=== PATIENT | female | born 1980 | race Caucasian/White ===

== ENCOUNTER 2022-08-22 20:26 | Outpatient (REF) | payer BC, SELFPAY ==
[2022-08-27 20:07] LABS: Age Gdln ACOG Testing Note (.); HPV Aptima Negative (Negative); IGP, Aptima HPV, rfx 16/18,45 Note (.)
== END 2022-08-22 20:27 | disposition home or self-care (01) ==
LOC: LAB 20:26
PROVIDERS: PCP Nurse Practitioner Family; Visit Provider Obstetrics & Gynecology
DX: Z01.419 Encounter for gynecological examination (general) (routine) without abnormal findings (principal)
CPT/HCPCS: 87624; G0145

== ENCOUNTER 2022-09-17 12:45 | Outpatient (OUT) | payer BC, SELFPAY ==
--- NOTE | 2022-09-17 12:47 | US_ITS ---
[address] [address] Patient Name: SATISH PATE MRN: [id number] date: 1980 Sex: F Assigned Patient Location: [facility] Current Patient Location: [facility] Accession/Order Number: [id number] Exam Date: 09/17/2022 12:48 Report Date: 09/17/2022 14:04 At the request of: ZINA CABRERA Procedure: US pelvis w/ transvaginal EXAMINATION: US pelvis w/ transvaginal HISTORY: OVARIAN CYST COMPARISON: No relevant comparison available. TECHNIQUE: Transabdominal and/or transvaginal sonographic examination was performed as indicated by examination type. FINDINGS: UTERUS: Hysterectomy. RIGHT OVARY: Contains an incidental dominant follicle. Blood flow present within ovary on color Doppler. Ovary size: 1.9 x 1.9 x 1.0 cm LEFT OVARY: Contains several follicles. Duplex Doppler demonstrates normal waveform and flow; resistive index 0.6. Ovary size: 2.8 x 2.2 x 1.5 cm CUL-DE-SAC: Unremarkable. No significant free fluid. BLADDER: Unremarkable. OTHER: None. US/US pelvis w/ transvaginal IMPRESSION: 1. Both ovaries contain several follicles. No suspicious findings. Electronically authenticated by: DULCE WINTERS Date: 09/17/2022 14:04
== END 2022-09-17 12:46 | disposition home or self-care (01) ==
LOC: NOMS 12:46
PROVIDERS: PCP Nurse Practitioner Family; Visit Provider Obstetrics & Gynecology
DX: N83.209 Unspecified ovarian cyst, unspecified side (principal)
CPT/HCPCS: 76830; 76856

== ENCOUNTER 2022-09-17 19:14 | Emergency (ER) | payer BC, SELFPAY ==
[2022-09-17 19:18] VITALS: BP 161/88; PULSE 115; RESP 18; TEMP 36.8; O2SAT 97; BMI 26.9
--- NOTE | 2022-09-17 19:22 | XR_ITS ---
The [address] [address] Patient Name: SATISH PATE MRN: [id number] date: 1980 Sex: F Assigned Patient Location: ER Current Patient Location: ED.MAIN Accession/Order Number: [id number] Exam Date: 09/17/2022 19:25 Report Date: 09/17/2022 19:46 At the request of: TREVOR GARDNER Procedure: XR foot LT min 3V EXAM: XR foot LT min 3V, XR ankle LT min 3V HISTORY: pain from twisting ankle COMPARISON: None. TECHNIQUE: 3 views of the foot and 3 views of the ankle FINDINGS: No osseous lesion, fracture, dislocation or subluxation. Joint spaces are normal. No visualized effusion. No visualized soft tissue edema. XR/XR foot LT min 3V IMPRESSION: No visualized acute abnormality Electronically authenticated by: JULIETA PAVON Date: 09/17/2022 19:46
--- NOTE | 2022-09-17 19:22 | XR_ITS ---
The [address] [address] Patient Name: SATISH PATE MRN: [id number] date: 1980 Sex: F Assigned Patient Location: ER Current Patient Location: ED.MAIN Accession/Order Number: [id number] Exam Date: 09/17/2022 19:25 Report Date: 09/17/2022 19:46 At the request of: TREVOR GARDNER Procedure: XR ankle LT min 3V EXAM: XR foot LT min 3V, XR ankle LT min 3V HISTORY: pain from twisting ankle COMPARISON: None. TECHNIQUE: 3 views of the foot and 3 views of the ankle FINDINGS: No osseous lesion, fracture, dislocation or subluxation. Joint spaces are normal. No visualized effusion. No visualized soft tissue edema. XR/XR ankle LT min 3V IMPRESSION: No visualized acute abnormality Electronically authenticated by: JULIETA PAVON Date: 09/17/2022 19:46
[2022-09-17 19:24] VITALS: PULSE 92
--- NOTE | 2022-09-17 19:49 | ED.LOWEXI1 ---
Documented by User: FAITH Nixon 09/17/22 19:54 HPI - Extremity Injury (Lower) General Chief Complaint: Extremity Injury, Lower Stated Complaint: POSS ANKLE FRACTURE Time Seen by Provider: 09/17/22 19:27 Source: patient Mode of arrival: Wheelchair Limitations: no limitations History of Present Illness HPI Narrative: patient is a 42-year-old female presents the emergency department for the evaluation of pain in the left foot and ankle after twisting her ankle. She was mowing the lawn prior to arrival. She states she twisted her ankle but was able to finish mowing the lawn. She states since that time her ankle has been more swollen and painful. 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 She had no other associated injuries. No concern for . No medications taken prior to arrival. Related Data Previous Rx's Medication Instructions Recorded naproxen sodium 550 mg tablet 550 mg PO BID PRN pain #10 tabs 09/17/22 Allergies Allergy/AdvReac Type Severity Reaction Status Date / Time No Known Drug Allergies Allergy Verified 09/17/22 19:20 Review of Systems ROS Constitutional Denies: fever or chills Ears, nose, mouth, and throat Denies: throat pain Respiratory Denies: shortness of breath or cough Gastrointestinal Denies: nausea or vomiting Musculoskeletal Denies: back pain or neck pain Integumentary/Breast Denies: rash Neurological Denies: headache Exam Narrative Exam Narrative: Gen.: Awake, alert, in no distress Head: Normocephalic, atraumatic ENT: Moist mucous membranes Respiratory: No respiratory distress Extremities: no appreciable swelling, ecchymosis or obvious deformity of the left ankle. Diffuse tenderness of the left lateral and posterior ankle. No bony point tenderness of the 5th metatarsal with limited flexion and extension of the toes due to pain. 2+ left DP pulse. Psych: Normal mood and affect Neuro: No focal neuro deficit Skin: Warm, dry, intact Constitutional Vital Signs, click to edit/add: Last Vital Signs Temp 98.2 F 09/17/22 19:18 Pulse 92 H 09/17/22 19:24 Resp 18 09/17/22 19:18 BP 161/88 H 09/17/22 19:18 Pulse Ox 97 09/17/22 19:18 O2 Del Method Room Air 09/17/22 19:18 Course Vital Signs Vital signs: Vital Signs Temperature 98.2 F 09/17/22 19:18 Pulse Rate 115 H 09/17/22 19:18 Respiratory Rate 18 09/17/22 19:18 Blood Pressure 161/88 H 09/17/22 19:18 Pulse Oximetry 97 09/17/22 19:18 Oxygen Delivery Method Room Air 09/17/22 19:18 Temperature 98.2 F 09/17/22 19:18 Pulse Rate 92 H 09/17/22 19:24 Respiratory Rate 18 09/17/22 19:18 Blood Pressure 161/88 H 09/17/22 19:18 Pulse Oximetry 97 09/17/22 19:18 Oxygen Delivery Method Room Air 09/17/22 19:18 MDM - Extremity Injury (Lower) MDM Narrative Medical decision making narrative: x-rays of the left foot and ankle with no evidence of fracture or dislocation. Patient placed in an Leonard wrap and Aircast in the Emergency Room and remains neurovascularly intact. She brought her own crutches from home. She is given a pain medication in the Emergency Room and discharged home on NSAIDs to rest, ice, elevate the ankle. 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 Return to the Emergency Room if symptoms change or worsen. Follow-up with PCP Imaging Data XR foot/ankle: Attestation: I have reviewed the pertinent imaging results. Radiologist's impression: Procedure: XR ankle LT min 3V EXAM: XR foot LT min 3V, XR ankle LT min 3V HISTORY: pain from twisting ankle COMPARISON: None. TECHNIQUE: 3 views of the foot and 3 views of the ankle FINDINGS: No osseous lesion, fracture, dislocation or subluxation. Joint spaces are normal. No visualized effusion. No visualized soft tissue edema. IMPRESSION: No visualized acute abnormality Electronically authenticated by: JULIETA PAVON Date: 09/17/2022 19:46 Discharge Plan Discharge Chief Complaint: Extremity Injury, Lower Clinical Impression: Left ankle sprain Patient Disposition: Home, Self-Care Time of Disposition Decision: 19:43 Condition: Good Mode of Transportation: Private Vehicle Prescriptions / Home Meds: New naproxen sodium 550 mg tablet 550 mg PO BID PRN (Reason: pain) Qty: 10 0RF Instructions: Ankle Sprain (ED), How to Use an Elastic Bandage (ED), P.R.I.C.E. Treatment (ED) Stand Alone Forms: Portal Instructions Referrals: ADELA ROSALES [Primary Care Provider] - 1 week Discharge Date/Time: 09/17/22 20:30 Documented by User: Shraddha Eid MD 09/17/22 21:21 HPI - Extremity Injury (Lower) General Chief Complaint: Extremity Injury, Lower Stated Complaint: POSS ANKLE FRACTURE Time Seen by Provider: 09/17/22 19:27 Related Data Previous Rx's Medication Instructions Recorded naproxen sodium 550 mg tablet 550 mg PO BID PRN pain #10 tabs 09/17/22 Allergies Allergy/AdvReac Type Severity Reaction Status Date / Time No Known Drug Allergies Allergy Verified 09/17/22 19:20 Exam Constitutional Vital Signs, click to edit/add: Last Vital Signs Temp 98.2 F 09/17/22 19:18 Pulse 92 H 09/17/22 19:24 Resp 18 09/17/22 19:18 BP 161/88 H 09/17/22 19:18 Pulse Ox 97 09/17/22 19:18 O2 Del Method Room Air 09/17/22 19:18 Course Vital Signs Vital signs: Vital Signs Temperature 98.2 F 09/17/22 19:18 Pulse Rate 115 H 09/17/22 19:18 Respiratory Rate 18 09/17/22 19:18 Blood Pressure 161/88 H 09/17/22 19:18 Pulse Oximetry 97 09/17/22 19:18 Oxygen Delivery Method Room Air 09/17/22 19:18 Temperature 98.2 F 09/17/22 19:18 Pulse Rate 92 H 09/17/22 19:24 Respiratory Rate 18 09/17/22 19:18 Blood Pressure 161/88 H 09/17/22 19:18 Pulse Oximetry 97 09/17/22 19:18 Oxygen Delivery Method Room Air 09/17/22 19:18 MDM - Extremity Injury (Lower) MDM Narrative Medical decision making narrative: x-rays of the left foot and ankle with no evidence of fracture or dislocation. Patient placed in an Leonard wrap and Aircast in the Emergency Room and remains neurovascularly intact. She brought her own crutches from home. She is given a pain medication in the Emergency Room and discharged home on NSAIDs to rest, ice, elevate the ankle. 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 Return to the Emergency Room if symptoms change or worsen. Follow-up with PCP Attending physician attestation I have reviewed the mid-level documentation, agree with the documentation, medical decision making and treatment plan as outlined by the mid-level provider. Discharge Plan Discharge Chief Complaint: Extremity Injury, Lower Clinical Impression: Left ankle sprain Patient Disposition: Home, Self-Care Time of Disposition Decision: 19:43 Condition: Good Mode of Transportation: Private Vehicle Prescriptions / Home Meds: New naproxen sodium 550 mg tablet 550 mg PO BID PRN (Reason: pain) Qty: 10 0RF Instructions: Ankle Sprain (ED), How to Use an Elastic Bandage (ED), P.R.I.C.E. Treatment (ED) Stand Alone Forms: Portal Instructions Referrals: ADELA ROSALES [Primary Care Provider] - 1 week Discharge Date/Time: 09/17/22 20:30
[2022-09-17] MEDS: HYDROCODONE/ACETAMINOPHEN 5-325 MG TABLET 1 TAB PO (20:16)
== END 2022-09-17 20:30 | disposition home or self-care (01) ==
PROVIDERS: Emergency Provider Emergency Medicine; PCP Nurse Practitioner Family
DX: M25.572 Pain in left ankle and joints of left foot (principal); S93.402A Sprain of unspecified ligament of left ankle, initial encounter; X50.1XXA Overexertion from prolonged static or awkward postures, initial encounter; N83.209 Unspecified ovarian cyst, unspecified side
CPT/HCPCS: 73610; 73630; 76830; 76856; 99284

== ENCOUNTER 2023-09-04 19:05 | Outpatient (REF) | payer BC, SELFPAY ==
[2023-09-09 13:08] LABS: Age Gdln ACOG Testing Note (.); HPV Aptima Negative (Negative); IGP, Aptima HPV, rfx 16/18,45 Note (.)
== END 2023-09-04 19:06 | disposition home or self-care (01) ==
LOC: LAB 19:05
PROVIDERS: PCP Nurse Practitioner Family; Visit Provider Obstetrics & Gynecology
DX: Z12.4 Encounter for screening for malignant neoplasm of cervix (principal)
CPT/HCPCS: 87624; 88175

== ENCOUNTER 2023-09-07 09:15 | Emergency (ER) | payer BC, SELFPAY ==
[2023-09-07 09:21] VITALS: BP 108/94; PULSE 94; TEMP 36.7; O2SAT 98; BMI 27.4
--- NOTE | 2023-09-07 09:42 | CT_ITS ---
[address] [address] Patient Name: SATISH PATE MRN: [id number] date: 1980 Sex: F Assigned Patient Location: ER Current Patient Location: ER Accession/Order Number: [id number] Exam Date: 09/07/2023 10:00 Report Date: 09/07/2023 11:08 At the request of: GLENN RICHARDS Procedure: CT abdomen pelvis wo con EXAMINATION: CT abdomen pelvis wo con, 09/07/2023 10:00 AM EDT HISTORY: abd pain left lower quadrant pain COMPARISON: 05/23/2022 TECHNIQUE: CT scan of the abdomen and pelvis was performed without IV contrast. CT dose reduction technique was used, including Automated Exposure Control. FINDINGS: LOWER CHEST: The visualized lungs are clear. LIVER: Unremarkable. GALLBLADDER AND BILIARY SYSTEM: Unremarkable. SPLEEN: Unremarkable. PANCREAS: Unremarkable. ADRENAL GLANDS: Unremarkable. KIDNEYS AND URETERS: Punctate nonobstructing calculus in the upper pole the right kidney. No ureteral calculus or hydronephrosis. No perinephric stranding. BLADDER: Under distended. GASTROINTESTINAL TRACT: There is sigmoid diverticulosis with focal wall thickening and inflammatory changes involving the mid sigmoid colon compatible with acute diverticulitis. No extraluminal air or fluid collections. No evidence of bowel obstruction. A normal appendix is visualized. VASCULATURE: The abdominal aorta is normal in caliber. RETROPERITONEUM: No lymphadenopathy. PERITONEUM/MESENTERY: There is mild stranding at the root of the mesentery. No free air or abdominal ascites. PELVIS: Small amount of free fluid in the pelvis. Left ovarian cyst measuring 2 cm. BODY WALL: Small fat-containing umbilical hernia. BONES: No acute abnormality. CT/CT abdomen pelvis wo con IMPRESSION: 1. Acute sigmoid diverticulitis. No extraluminal air or fluid collections. 2. Punctate nonobstructing calculus in the upper pole the right kidney. No hydronephrosis. 3. Mild stranding at the root of the mesentery which is nonspecific in etiology and most commonly seen with mesenteric panniculitis. 4. Left ovarian cyst measuring 2 cm. Small amount of free fluid in the pelvis. 5. Small fat-containing umbilical hernia. Electronically authenticated by: HUMPHREY CHÁVEZ Date: 09/07/2023 11:08
[2023-09-07 09:49] LABS: Basophils Absolute Auto 0.1 10^3/uL (0.0-0.1); Basophils Percent Auto 0.7 % (0.2-2.0); Eosinophils Absolute Auto 0.1 10^3/uL (0.0-0.7); Eosinophils Percent Auto 1.1 % (0.9-7.0); Hematocrit 45.5 % (36.0-48.0); Hemoglobin 15.4 g/dL (12.0-16.0); Immature Granulocytes Abs Auto 0.04 10^3/uL (0.00-0.03); Immature Granulocytes Pct Auto 0.4 % (0.0-0.5); Lymphocytes Absolute Auto 1.3 10^3/uL (1.2-3.8); Lymphocytes Percent Auto 13.5 % (20.5-60.0); Mean Corpuscular HGB Conc 33.8 g/dL (29.9-35.2); Mean Corpuscular Hemoglobin 30.3 pg (26.7-34.0); Mean Corpuscular Volume 89.6 fL (81.0-99.0); Mean Platelet Volume 10.4 fL (9.5-13.5); Monocytes Absolute Auto 0.5 10^3/uL (0.3-0.8); Monocytes Percent Auto 4.7 % (1.7-12.0); Neutrophils Absolute Auto 7.7 10^3/uL (1.4-6.5); Neutrophils Percent Auto 79.6 % (43.0-75.0); Platelet Count 328 10^3/uL (150-450); Red Blood Count 5.08 10^6/uL (4.20-5.40); Red Cell Distribution Width 11.9 % (11.0-15.0); White Blood Count 9.6 10^3/uL (4.0-11.0)
[2023-09-07] MEDS: KETOROLAC TROMETHAMINE 30 MG/ML VIAL 15 MG IVP (09:54)
[2023-09-07] MEDS: 0.9 % SODIUM CHLORIDE 1,000 ML 1000 ML IV (09:54)
[2023-09-07 10:04] LABS: Alanine Aminotransferase 38 U/L (14-59); Albumin Level 3.9 g/dL (3.4-5.0); Alkaline Phosphatase 106 U/L (46-116); Anion Gap 13.1; Aspartate Amino Transferase 34 U/L (15-37); BUN Creatinine Ratio 21.9; Bilirubin Total 0.8 mg/dL (0.2-1.0); Calcium 9.1 mg/dL (8.5-10.1); Carbon Dioxide 28.8 mmol/L (21.0-32.0); Chloride 103 mmol/L (98-107); Estimated GFR (African America >60 (>=60); Estimated GFR (Non-African Ame >60 (>=60); Globulin 3.9 g/dL; Glucose 113 mg/dL (74-106); Potassium 3.9 mmol/L (3.5-5.1); Sodium 141 mmol/L (136-145); Total Protein 7.8 g/dL (6.4-8.2)
--- NOTE | 2023-09-07 10:09 | ED_ITS ---
HPI - Abdominal Pain General Chief Complaint: Abdominal Pain Stated Complaint: ABDOMINAL PAIN Time Seen by Provider: 09/07/23 09:27 Source: patient Mode of arrival: walk-in Limitations: no limitations History of Present Illness HPI narrative: The patient have history of diverticulitis presenting to the ER with 2 days history of left lower quadrant abdominal pain, no radiation of the pain and she mentioned that she had a history of hysterectomy , patient have history of diverticulitis and she mentioned that this pain seems similar, she usually is not constipated and she will have 3 bowel movements a day, last bowel movement was this morning and it was not bloody The pain is fixed and not radiating Related Data Previous Rx's ?Medication ?Instructions ?Recorded naproxen sodium 550 mg tablet 550 mg PO BID PRN pain #10 tabs 09/17/22 amoxicillin 875 mg-potassium 1 tab PO Q12H #14 tabs 09/07/23 clavulanate 125 mg tablet Allergies Allergy/AdvReac Type Severity Reaction Status Date / Time No Known Drug Allergies Allergy Verified 09/17/22 19:20 Review of Systems ROS Status of ROS 10 or more systems reviewed and unremark able except as noted in history and below Exam Narrative Exam Narrative: Nurses notes and vital signs reviewed and patient is not hypoxic. General: Well-appearing and in no apparent distress. Skin: Warm, dry, no pallor noted. No rash. Head: Normocephalic, atraumatic. Neck: Supple, non-tender. Eye: Pupils are equal, round and EOMI. No scleral icterus. Ears, Nose, Mouth, and Throat: TM are clear, no nasal mucosal hypertrophy. Oral mucosa is moist, no posterior oropharynx erythema, uvula is mid-line Cardiovascular: Regular Rate and Rhythm without murmur, gallop or rub. Respiratory: No accessory muscle use or respiratory distress. Lungs are clear to auscultation, no wheezing, rales or rhonchi Chest Wall: no tenderness Back: No midline thoracic or lumbar vertebral tenderness. No CVA tenderness Musculoskeletal: normal ROM, no calf or popliteal tenderness, no lower extremity edema/swelling GI: Abdomen is soft, non-distended. Normal bowel sounds. No masses appreciated. Tenderness upon palpation of the left lower quadrant Neurological: A&O x4. No cranial nerve dysfunction observed. No truncal ataxia. Moves all extremities. Sensation intact. Psychiatric: Cooperative and interactive. Normal mood and affect. Constitutional Vital Signs, click to edit/add: Last Vital Signs Temp 98.1 F 09/07/23 09:21 Pulse 74 09/07/23 11:28 Resp 16 09/07/23 11:28 BP 136/74 09/07/23 11:28 Pulse Ox 99 09/07/23 11:28 O2 Del Method Room Air 09/07/23 11:28 Course Vital Signs Vital signs: Vital Signs Temperature 98.1 F 09/07/23 09:21 Pulse Rate 94 H 09/07/23 09:21 Respiratory Rate 18 09/07/23 09:21 Blood Pressure 108/94 H 09/07/23 09:21 Pulse Oximetry 98 09/07/23 09:21 Oxygen Delivery Method Room Air 09/07/23 09:21 Temperature 98.1 F 09/07/23 09:21 Pulse Rate 74 09/07/23 11:28 Respiratory Rate 16 09/07/23 11:28 Blood Pressure 136/74 09/07/23 11:28 Pulse Oximetry 99 09/07/23 11:28 Oxygen Delivery Method Room Air 09/07/23 11:28 MDM - Abdominal Pain MDM Narrative Medical decision making narrative: CBC and chemistry showed no acute pathology Patient presentation is mostly secondary to diverticulitis which was confirmed by the CAT scan The patient was started on Augmentin as well as a soft diet for the next 3 to 5 days In case of any new symptoms or progression of her pain or any fever the patient to come back to the ER The patient is to follow up with primary care physician in next 2-3 days or to return to the emergency department should any of the signs or symptoms worsen or new symptoms develop. The patient agrees with the following Diagnosis and Treatment plan and the patient will be discharged home. Lab Data Labs: Lab Results 09/07/23 09/07/23 Range/Units 09:30 09:55 WBC 9.6 (4.0-11.0) 10^3/uL RBC 5.08 (4.20-5.40) 10^6/uL Hgb 15.4 (12.0-16.0) g/dL Hct 45.5 (36.0-48.0) % MCV 89.6 (81.0-99.0) fL MCH 30.3 (26.7-34.0) pg MCHC 33.8 (29.9-35.2) g/dL RDW 11.9 (11.0-15.0) % Plt Count 328 (150-450) 10^3/uL MPV 10.4 (9.5-13.5) fL Neut % (Auto) 79.6 H (43.0-75.0) % Lymph % (Auto) 13.5 L (20.5-60.0) % [place] % (Auto) 4.7 (1.7-12.0) % Eos % (Auto) 1.1 (0.9-7.0) % Baso % (Auto) 0.7 (0.2-2.0) % Neut # (Auto) 7.7 H (1.4-6.5) 10^3/uL Lymph # (Auto) 1.3 (1.2-3.8) 10^3/uL [place] # (Auto) 0.5 (0.3-0.8) 10^3/uL Eos # (Auto) 0.1 (0.0-0.7) 10^3/uL Baso # (Auto) 0.1 (0.0-0.1) 10^3/uL Abs Immat Gran (auto) 0.04 H (0.00-0.03) 10^3/uL Imm/Tot Granulo (auto) 0.4 (0.0-0.5) % Sodium 141 (136-145) mmol/L Potassium 3.9 (3.5-5.1) mmol/L Chloride 103 (98-107) mmol/L Carbon Dioxide 28.8 (21.0-32.0) mmol/L Anion Gap 13.1 BUN 16.0 (7.0-18.0) mg/dL Creatinine 0.73 (0.55-1.02) mg/dL Est GFR ( Amer) >60 (>=60) Est GFR (Non-Af Amer) >60 (>=60) BUN/Creatinine Ratio 21.9 Glucose 113 H (74-106) mg/dL Lactate 1.0 (0.4-2.0) mmol/L Calcium 9.1 (8.5-10.1) mg/dL Total Bilirubin 0.8 (0.2-1.0) mg/dL AST 34 (15-37) U/L ALT 38 (14-59) U/L Alkaline Phosphatase 106 (46-116) U/L Total Protein 7.8 (6.4-8.2) g/dL Albumin 3.9 (3.4-5.0) g/dL Globulin 3.9 g/dL Albumin/Globulin Ratio 1.0 Urine Color Lt. yellow (YELLOW) Urine Clarity Clear (CLEAR) Urine pH 6.5 (5.0-9.0) Ur Specific [place] <=1.005 A (1.005-1.025) Urine Protein Negative (NEG/TRACE) mg/dL Urine Glucose (UA) Negative (NEGATIVE) mg/dL Urine Ketones Negative (NEGATIVE) mg/dL Urine Occult Blood Negative (NEGATIVE) Urine Nitrite Negative (NEGATIVE) Urine Bilirubin Negative (NEGATIVE) Urine Urobilinogen 0.2 (0.2-1.0) EU/dL Ur Leukocyte Esterase Negative (NEGATIVE) Discharge Plan Discharge Stand Alone Forms: Portal Instructions Chief Complaint: Abdominal Pain Clinical Impression: Diverticulitis Patient Disposition: Home, Self-Care Time of Disposition Decision: 11:20 Condition: Good Prescriptions / Home Meds: New amoxicillin-pot clavulanate 875-125 mg tablet 1 tab PO Q12H Qty: 14 0RF No Action naproxen sodium 550 mg tablet 550 mg PO BID PRN (Reason: pain) Qty: 10 0RF Print Language: Upper Sorbian Instructions: Diverticulitis (DC), Diverticulitis Diet (ED) Referrals: ADELA ROSALES [Primary Care Provider] - 1 week Discharge Date/Time: 09/07/23 11:29
[2023-09-07 10:21] LABS: Bilirubin Urine NEGATIVE (NEGATIVE); Blood Urine NEGATIVE (NEGATIVE); Clarity Urine CLEAR (CLEAR); Color Urine LT. YELLOW (YELLOW); Glucose Urine UA NEGATIVE (NEGATIVE); Ketones Urine NEGATIVE (NEGATIVE); Leukocyte Esterase Urine NEGATIVE (NEGATIVE); Nitrite Urine NEGATIVE (NEGATIVE); Protein Urine NEGATIVE (NEG/TRACE); Specific Gravity Urine <=1.005 (1.005-1.025); Urine Microscopic Indicated NO; Urobilinogen Urine 0.2 EU/dL (0.2-1.0); pH Urine 6.5 (5.0-9.0)
[2023-09-07 11:28] VITALS: BP 136/74; PULSE 74; O2SAT 99
== END 2023-09-07 11:29 | disposition home or self-care (01) ==
PROVIDERS: Emergency Provider Emergency Medicine; PCP Nurse Practitioner Family
DX: K57.32 Diverticulitis of large intestine without perforation or abscess without bleeding (principal); Z90.710 Acquired absence of both cervix and uterus
CPT/HCPCS: 36415; 74176; 80053; 81003; 83605; 84703; 85025; 96374; 99284; J1885

== ENCOUNTER 2024-01-08 14:40 | Outpatient (OUT) | payer OTHER, SELFPAY ==
[2024-01-08 15:18] LABS: Erythrocyte Sedimentation Rate 7 mm/hr (<=20)
[2024-01-08 15:36] LABS: C Reactive Protein <0.50 mg/dL (<=0.50); Thyroid Stimulating Hormone 1.971 uIU/mL (0.358-3.740)
[2024-01-09 05:08] LABS: HIV Ab/p24 Ag Screen Non Reactive (Non Reactive)
[2024-01-10 08:13] LABS: Deamidated Gliadin Abs, IgA 4 units (0-19); Deamidated Gliadin Abs, IgG 2 units (0-19); Endomysial Antibody IgA Negative (Negative); Immunoglobulin A, Qn, Serum 291 mg/dL (87-352); t-Transglutaminase (tTG) IgA <2 U/mL (0-3); t-Transglutaminase (tTG) IgG 3 U/mL (0-5)
== END 2024-01-08 14:41 | disposition home or self-care (01) ==
LOC: LAB 14:42
PROVIDERS: PCP Nurse Practitioner Family; Visit Provider Internal Medicine
DX: R19.7 Diarrhea, unspecified (principal); K57.92 Diverticulitis of intestine, part unspecified, without perforation or abscess without bleeding
CPT/HCPCS: 36415; 82784; 84443; 85652; 86140; 86231; 86258; 86364; 87389

== ENCOUNTER 2024-01-10 13:17 | Outpatient (OUT) | payer OTHER, SELFPAY ==
--- NOTE | 2024-01-10 13:20 | CT_ITS ---
[address] [address] Patient Name: SATISH PATE MRN: [id number] date: 1980 Sex: F Assigned Patient Location: CT Current Patient Location: Accession/Order Number: [id number] Exam Date: 01/10/2024 14:20 Report Date: 01/11/2024 07:09 At the request of: RAN WISDOM Procedure: CT abdomen pelvis w con EXAMINATION: CT abdomen pelvis w con HISTORY: Diverticulitis, Diarrhea COMPARISON: CT abdomen pelvis 09/07/2023 TECHNIQUE: Axial, Coronal, and Sagittal images were obtained without and/or with IV contrast as indicated by examination type. Dose reduction techniques were achieved by using automated exposure control and/or adjustment of mA and/or kV according to patient size and/or use of iterative reconstruction technique. FINDINGS: LUNG BASES: No visible pulmonary or pleural disease. LIVER: No enlargement, atrophy, suspicious density, or significant focal lesion. BILIARY: No dilatation or calcification. PANCREAS: No lesion, fluid collection, or abnormal duct dilatation. SPLEEN: No enlargement or focal lesion. ADRENALS: No mass or enlargement. KIDNEYS: No mass, obstruction, or calcification. BOWEL/MESENTERY: Mild diverticulosis of distal colon without acute inflammatory changes. No visible mass, obstruction, or bowel wall thickening. Normal appendix. AORTA/VASCULAR: No aneurysm or dissection. RETROPERITONEUM: No mass or adenopathy. LYMPH NODES: No adenopathy. URINARY BLADDER: No visible focal wall thickening, lesion, or calculus. PELVIC ORGANS: Hysterectomy. A few small follicle/cyst within left ovary. ABDOMINAL WALL: No mass or hernia. BONES: Remote fracture of L3 left transverse process. No acute abnormality or significant degenerative changes. OTHER: Negative. CT/CT abdomen pelvis w con IMPRESSION: 1. No abnormal or suspicious findings to account for patient's symptoms. Electronically authenticated by: DULCE WINTERS Date: 01/11/2024 07:09
== END 2024-01-10 13:18 | disposition home or self-care (01) ==
LOC: CT 13:17
PROVIDERS: PCP Nurse Practitioner Family; Visit Provider Internal Medicine
DX: K57.92 Diverticulitis of intestine, part unspecified, without perforation or abscess without bleeding (principal); R19.7 Diarrhea, unspecified
CPT/HCPCS: 74177; Q9967

== ENCOUNTER 2024-01-14 08:58 | Outpatient (REF) | payer OTHER, SELFPAY ==
[2024-01-14 15:14] LABS: C. Difficile PCR NEGATIVE
[2024-01-16 07:09] LABS: Calprotectin, Fecal 13 ug/g (0-120)
[2024-01-18 01:07] LABS: Pancreatic Elastase, Fecal >800 (>200)
== END 2024-01-14 08:59 | disposition home or self-care (01) ==
LOC: LAB 08:58
PROVIDERS: PCP Nurse Practitioner Family; Visit Provider Internal Medicine
DX: R19.7 Diarrhea, unspecified (principal); K57.92 Diverticulitis of intestine, part unspecified, without perforation or abscess without bleeding
CPT/HCPCS: 82656; 83993; 87493

== ENCOUNTER 2024-03-05 14:19 | Outpatient (OUT) | payer OTHER, SELFPAY ==
--- NOTE | 2024-03-05 14:28 | MR_ITS ---
The [address] [address] Patient Name: SATISH PATE MRN: [id number] date: 1980 Sex: F Assigned Patient Location: MRI Current Patient Location: Accession/Order Number: [id number] Exam Date: 03/05/2024 15:00 Report Date: 03/06/2024 09:45 At the request of: WAYNE BROWN Procedure: MR ankle LT wo con HISTORY: Pain in the left ankle and foot for multiple years becoming progressively worse. MRI left ankle 03/05/2024. MRI left midfoot/forefoot 03/05/2024. COMPARISON: Radiographs left foot and ankle 09/17/2022. TECHNIQUE: Multiplanar, multisequence MRI images of the left ankle and left midfoot/forefoot were obtained without contrast. FINDINGS: Left ankle: LIGAMENTS: The anterior talofibular ligament appears within normal limits. The calcaneofibular ligament, posterior talofibular ligament, and distal tibiofibular ligaments appear within normal limits. The deltoid ligament complex appears within normal limits. TENDONS: No significant tendinopathy, tendon tear, or tenosynovitis is seen. SINUS TARSI AND TARSAL TUNNEL: No space-occupying mass is seen in the tarsal tunnel or the sinus tarsi. BONES AND JOINTS: The bone marrow signal intensity is age appropriate. No unstable osteochondral defect of the tibiotalar joint is identified. 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 There is a multiloculated angling cyst along the posterolateral aspect of the posterior subtalar joint. This measures 1.1 x 1.5 x 1.5 cm in transverse, AP and craniocaudal dimension respectively. There is a small Meghan's deformity of the calcaneus. PLANTAR FASCIA: There is a plantar calcaneal enthesophyte again seen. There is mild fusiform thickening and intermediate signal intensity involving the central band of the plantar fascia spanning approximately 1.5 cm in length. This is located approximately 2 cm distal to its attachment to the calcaneus. SOFT TISSUES: No significant soft tissue swelling is seen. Left midfoot/forefoot: LIGAMENTS AND TENDONS: The Lisfranc ligament complex appears intact. No significant tendinopathy, tendon tear, or tenosynovitis is seen. BONES AND JOINTS: The bone marrow signal intensity appears age appropriate. There is a hallux valgus deformity again seen. There are mild degenerative changes of the first MTP joint and first metatarsal-sesamoid joints. There is a small bunion complex along the medial aspect of the first metatarsal head and there is mild subcortical cystic change in this region. MUSCLES AND SOFT TISSUES: The visualized musculature appears of normal signal intensity. No Mendoza neuroma or intermetatarsal bursitis is seen. PLANTAR FASCIA: The visualized portion of the plantar fascia appears of normal thickness and signal intensity. MR/MR ankle LT wo con IMPRESSION: 1. 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 2. Hallux valgus deformity with mild osteoarthritis of the first MTP joint and first metatarsal-sesamoid joints. 3. There is mild fusiform thickening and intermediate signal intensity of the central band of the plantar fascia approximately 2 cm distal to its attachment to the calcaneus. This finding may be secondary to the sequela of plantar fasciitis or a strain of the plantar fascia. 4. No ligament injury or tendon abnormality is seen. 5. There is a moderate-sized multiloculated ganglion cyst along the posterolateral aspect of the posterior subtalar joint. Electronically authenticated by: SHAHZAD WILLIAM Date: 03/06/2024 09:45
--- NOTE | 2024-03-05 14:28 | MR_ITS ---
The [address] [address] Patient Name: SATISH PATE MRN: [id number] date: 1980 Sex: F Assigned Patient Location: MRI Current Patient Location: Accession/Order Number: [id number] Exam Date: 03/05/2024 15:00 Report Date: 03/06/2024 09:45 At the request of: WAYNE BROWN Procedure: MR foot LT wo con HISTORY: Pain in the left ankle and foot for multiple years becoming progressively worse. MRI left ankle 03/05/2024. MRI left midfoot/forefoot 03/05/2024. COMPARISON: Radiographs left foot and ankle 09/17/2022. TECHNIQUE: Multiplanar, multisequence MRI images of the left ankle and left midfoot/forefoot were obtained without contrast. FINDINGS: Left ankle: LIGAMENTS: The anterior talofibular ligament appears within normal limits. The calcaneofibular ligament, posterior talofibular ligament, and distal tibiofibular ligaments appear within normal limits. The deltoid ligament complex appears within normal limits. TENDONS: No significant tendinopathy, tendon tear, or tenosynovitis is seen. SINUS TARSI AND TARSAL TUNNEL: No space-occupying mass is seen in the tarsal tunnel or the sinus tarsi. BONES AND JOINTS: The bone marrow signal intensity is age appropriate. No unstable osteochondral defect of the tibiotalar joint is identified. 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 There is a multiloculated angling cyst along the posterolateral aspect of the posterior subtalar joint. This measures 1.1 x 1.5 x 1.5 cm in transverse, AP and craniocaudal dimension respectively. There is a small Meghan's deformity of the calcaneus. PLANTAR FASCIA: There is a plantar calcaneal enthesophyte again seen. There is mild fusiform thickening and intermediate signal intensity involving the central band of the plantar fascia spanning approximately 1.5 cm in length. This is located approximately 2 cm distal to its attachment to the calcaneus. SOFT TISSUES: No significant soft tissue swelling is seen. Left midfoot/forefoot: LIGAMENTS AND TENDONS: The Lisfranc ligament complex appears intact. No significant tendinopathy, tendon tear, or tenosynovitis is seen. BONES AND JOINTS: The bone marrow signal intensity appears age appropriate. There is a hallux valgus deformity again seen. There are mild degenerative changes of the first MTP joint and first metatarsal-sesamoid joints. There is a small bunion complex along the medial aspect of the first metatarsal head and there is mild subcortical cystic change in this region. MUSCLES AND SOFT TISSUES: The visualized musculature appears of normal signal intensity. No Mendoza neuroma or intermetatarsal bursitis is seen. PLANTAR FASCIA: The visualized portion of the plantar fascia appears of normal thickness and signal intensity. MR/MR foot LT wo con IMPRESSION: 1. 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 2. Hallux valgus deformity with mild osteoarthritis of the first MTP joint and first metatarsal-sesamoid joints. 3. There is mild fusiform thickening and intermediate signal intensity of the central band of the plantar fascia approximately 2 cm distal to its attachment to the calcaneus. This finding may be secondary to the sequela of plantar fasciitis or a strain of the plantar fascia. 4. No ligament injury or tendon abnormality is seen. 5. There is a moderate-sized multiloculated ganglion cyst along the posterolateral aspect of the posterior subtalar joint. Electronically authenticated by: SHAHZAD WILLIAM Date: 03/06/2024 09:45
== END 2024-03-05 14:20 | disposition home or self-care (01) ==
LOC: MRI 14:19
PROVIDERS: PCP Nurse Practitioner Family; Visit Provider Podiatrist
DX: M25.572 Pain in left ankle and joints of left foot (principal); M20.12 Hallux valgus (acquired), left foot
CPT/HCPCS: 73718; 73721

== ENCOUNTER 2024-05-04 11:48 | Emergency (ER) | payer OTHER, SELFPAY ==
[2024-05-04] VITALS (8 sets, daily range): BP systolic 126; BP diastolic 79; PULSE 68–82; TEMP 36.8; O2SAT 97–100; BMI 27.1
--- NOTE | 2024-05-04 11:56 | ECG_ITS ---
[facility] Test Date: 2024-05-04 Pat Name: SATISH PATE Department: Room: - Gender: Female Shot Examiner: : 1980 Requested By: [id number] Order Number: [id number] Reading MD: JESSICA WATT M.D. Measurements Intervals [place] Rate: 73 P: 50 IN: 148 QRS: 79 QRSD: 82 T: 55 QT: 366 QTc: 392 Interpretive Statements 1100 Sinus rhythm 9110 normal ECG Compared to ECG 09/15/2018 10:27:14 No significant changes Electronically Signed On 05-04-2024 17:43:56 EDT by JESSICA WATT M.D.
--- NOTE | 2024-05-04 11:56 | ED.GENADUL1 ---
HPI HPI - General Adult General Chief complaint: Chest Pain Stated complaint: CHEST PAINS Time Seen by Provider: 05/04/24 11:56 Source: patient Mode of arrival: ambulance Limitations: no limitations History of Present Illness HPI narrative: 43-year-old female presents to the emergency department for chest pain. The patient has had this pain continuously for 4 days. It is in the lower part of the sternum and it is sharp and feels like somebody stabbed her with a knife. She does not have abdominal pain. The pain seems to radiate to her left shoulder area. There is been no trauma or unusual activity. It has not gone away at all for 4 days. Related Data Home Medications ?Medication ?Instructions ?Recorded ?Confirmed escitalopram oxalate 10 mg tablet 10 mg PO DAILY 05/04/24 05/04/24 gabapentin 100 mg capsule 100 mg PO DAILY 05/04/24 05/04/24 Allergies Allergy/AdvReac Type Severity Reaction Status Date / Time No Known Drug Allergies Allergy Verified 05/04/24 11:55 Opioid HPI Opioid Management Most Recent Opioid Data: Last Pain Scale 2 05/04/24 12:03 05/04/24 Last ED Pain Assessment 05/04/24 12:03 Review of Systems ROS Narrative A ten point review of systems is negative except as noted above. PFSH PFSH Surgical History (Updated 05/04/24 @ 12:06 by Anselmo De Santiago) History of hysterectomy ?Z90.710 - Acquired absence of both cervix and uterus (ICD-10) Social History Little interest or pleasure in doing things: not at all Feeling down, depressed, or hopeless: not at all Exam Narrative Exam Narrative: Nurses note and vital signs reviewed and patient is not hypoxic. General: The patient appears well and in no apparent distress. Patient is resting comfortably on cart. Skin: Warm, dry, no pallor noted. There is no rash noted. Head: Normocephalic, atraumatic Eye: Normal conjunctiva, no drainage Ears, Nose, Mouth, and Throat: oral mucosa is moist. Nares patent. Cardiovascular: Regular Rate and Rhythm Respiratory: Patient is in no distress, no accessory muscle use, lungs are clear to auscultation, no wheezing, rales or rhonchi Back: non-tender GI: Soft and nontender Musculoskeletal: The patient has no evidence of calf tenderness, no pitting edema, symmetrical pulses noted bilaterally Neurological: A&O, normal speech Psychiatric: Cooperative Constitutional Vital Signs, click to edit/add: Last Vital Signs Temp 98.2 F 05/04/24 11:51 Pulse 68 05/04/24 12:45 Resp 16 05/04/24 12:45 BP 126/79 05/04/24 11:51 Pulse Ox 98 05/04/24 12:45 O2 Del Method Room Air 05/04/24 12:02 Course Vital Signs Vital signs: Vital Signs Temperature 98.2 F 05/04/24 11:51 Pulse Rate 82 05/04/24 11:51 Respiratory Rate 20 05/04/24 11:51 Blood Pressure 126/79 05/04/24 11:51 Pulse Oximetry 99 05/04/24 11:51 Oxygen Delivery Method Room Air 05/04/24 11:51 Temperature 98.2 F 05/04/24 11:51 Pulse Rate 68 05/04/24 12:45 Respiratory Rate 16 05/04/24 12:45 Blood Pressure 126/79 05/04/24 11:51 Pulse Oximetry 98 05/04/24 12:45 Oxygen Delivery Method Room Air 05/04/24 12:02 Medical Decision Making MDM Narrative Medical decision making narrative: Her workup including troponin is negative. At this point I do not suspect cardiac etiology and I have no clinical suspicion of pulmonary embolism. She will be discharged home and will follow-up with her PCP. Treatment diagnosis and follow-up were discussed with the patient. Differential Diagnosis Differential Diagnosis: Chest wall pain, atypical chest pain, acute coronary syndrome, [place] Lab Data Lab results reviewed: Yes I reviewed the patient's lab results Labs: Lab Results 05/04/24 Range/Units 12:07 WBC 6.1 (4.0-11.0) 10^3/uL RBC 4.70 (4.20-5.40) 10^6/uL Hgb 14.3 (12.0-16.0) g/dL Hct 41.2 (36.0-48.0) % MCV 87.7 (81.0-99.0) fL MCH 30.4 (26.7-34.0) pg MCHC 34.7 (29.9-35.2) g/dL RDW 11.5 (11.0-15.0) % Plt Count 273 (150-450) 10^3/uL MPV 10.2 (9.5-13.5) fL Neut % (Auto) 69.5 (43.0-75.0) % Lymph % (Auto) 24.1 (20.5-60.0) % [place] % (Auto) 4.2 (1.7-12.0) % Eos % (Auto) 1.0 (0.9-7.0) % Baso % (Auto) 1.0 (0.2-2.0) % Neut # (Auto) 4.3 (1.4-6.5) 10^3/uL Lymph # (Auto) 1.5 (1.2-3.8) 10^3/uL [place] # (Auto) 0.3 (0.3-0.8) 10^3/uL Eos # (Auto) 0.1 (0.0-0.7) 10^3/uL Baso # (Auto) 0.1 (0.0-0.1) 10^3/uL Abs Immat Gran (auto) 0.01 (0.00-0.03) 10^3/uL Imm/Tot Granulo (auto) 0.2 (0.0-0.5) % Sodium 142 (136-145) mmol/L Potassium 3.6 (3.5-5.1) mmol/L Chloride 103 (98-107) mmol/L Carbon Dioxide 26.5 (21.0-32.0) mmol/L Anion Gap 16.1 BUN 16.0 (7.0-18.0) mg/dL Creatinine 0.80 (0.55-1.02) mg/dL Est GFR ( Amer) >60 (>=60 mL/min/1.73m^2) Est GFR (Non-Af Amer) >60 (>=60 mL/min/1.73m^2) BUN/Creatinine Ratio 20.0 Glucose 99 (74-106) mg/dL Calcium 8.7 (8.5-10.1) mg/dL Troponin I High Sens <4.0 L (4.0-51.3) pg/mL Imaging Data Chest x-ray: Radiologist's impression: No acute cardiopulmonary process ECG Data Attestation: I personally reviewed and interpreted this ECG as follows: (EKG on my interpretation shows normal sinus rhythm with a rate of 73 and no acute change) Discharge Plan Discharge Chief Complaint: Chest Pain Clinical Impression: Chest pain Patient Disposition: Home, Self-Care Time of Disposition Decision: 13:39 Condition: Good Mode of Transportation: Private Vehicle Prescriptions / Home Meds: No Action gabapentin 100 mg capsule 100 mg PO DAILY escitalopram oxalate 10 mg tablet 10 mg PO DAILY Print Language: Georgian Instructions: Chest Pain (ED) Referrals: ADELA ROSALES [Primary Care Provider] - 1 week
--- OUTSIDE RECORDS SUMMARY | 2024-05-04 12:06 | XMS_ITS | CCD ---
Author Organization [facility]iniSyn[facility] Care Team Providers Care Director Of Cardiopulmonary Services Name Role Phone ADELA ROSALES Primary Care Physician [phone] ADELA ROSALES Primary Care Unavailable IRAIDA, DR JULIETA Geller Consulting Unavailable DIAB ., GLENN Attending Unavailable MAURICE Jasso, GLENN Admitting Unavailable SHAKIR WHALEN Consulting Unavailable DIAB ., GLENN Consulting Unavailable ADELA ROSALES Admitting Unavailable ADELA ROSALES Attending Unavailable ADELA ROSALES Primary Care Unavailable ADELA ROSALES Primary Care Unavailable DEBORAH ., DR IZAGUIRRE Consulting Unavailable DEBORAH ., DR IZAGUIRRE Admitting Unavailable DEBORAH ., DR IZAGUIRRE Attending Unavailable ADELA ROSALES Primary Care Unavailable LANA, DR JOSEP Rivas Attending Unavailable LANA, DR JOSEP Rivas Admitting Unavailable BALBINACHFRANKIE ., FAITH NGUYEN Consulting Unavailabl e ZINA CABRERA Attending Unavailable Vipin Molina MD Attending Provider Julieta Taylor DO Primary Care Provider Julieta Taylor Primary Care Unavailable Vipin Molina Attending Unavailable Vipin Molina Admitting Unavailable Medications Current Medications Medication Drug Class(es) Dates Sig (Normalized) Sig (Original) escitalopram 5 mg oral tablet (1 source) Serotonin Reuptake Inhibitor Start: 03-05-2024 take 1 tablet by mouth once daily Escitalopram Oxalate 5 mg tablet Active 5 MG PO Daily March 05, 2024 12:00am Probiotic/prebiotic (1 source) Start: 03-05-2024 take 1 tablet by mouth once daily Probiotic/prebiotic Active 1 TAB PO Daily March 05, 2024 12:00am Problems Active Problems Problem Classification Problem Date Documented Da te Episodic/Chronic Abdominal pain (7 sources) Left lower quadrant pain; Translations: [Abdominal pain] Onset: 05-23-2022 Episodic Diverticulosis and diverticulitis (4 sources) Diverticulitis of large intestine without perforation or abscess without bleeding; Translations: [Diverticulitis of intestine, part unspecified, without perforation or abscess without bleeding] Onset: 05-25-2022 01-08-2024 Chronic Other gastrointestinal disorders (2 sources) Diarrhea; Translations: [Diarrhea, unspecified] 01-08-2024 Episodic Other gastrointestinal disorders (2 sources) Diarrhea, unspecified; Translations: [Diarrhea] 01-08-2024 Episodic Other gastrointestinal disorders (2 sources) Personal history of other diseases of the digestive system; Translations: [Personal history of other diseases of digestive system] 01-08-2024 Episodic Residual codes; unclassified (1 source) Acquired absence of both cervix and uterus; Translations: [ACQUIRED ABSENCE BOTH CERVIX AND UTERUS] Onset: 05-25-2022 Episodic Past or Other Problems Problem Classification Problem Date Documented Date Episodic/Chronic E Codes: Struck by; against (1 source) Other cause of strike by thrown, projected or falling object, initial encounter; Translations: [OTH CAUSE STRIK THRWN/FALL OBJ INIT] Onset: 07-12-2021 Episodic Immunizations and screening for infectious disease (2 sources) Encounter for screening for human papillomavirus (HPV); Translations: [Encounter for immunization] Onset: 07-12-2021 Episodic Open wounds of extremities (4 sources) Laceration without foreign body, right foot, initial encounter; Translations: [LACERATION W/O FB RT FOOT INITIAL] Onset: 07-10-2021 Episodic Other screening for suspected conditions (not mental disorders or infectious disease) (4 sources) Encounter for screening for malignant neoplasm of cervix; Translations: [ENC SCREENING MALIG NEOPLASM CERV] Onset: 07-11-2021 Episodic Results Test Name Value Interpretation Reference Range Facility CBC AUTO DIFFon 05-23-2022 BASO # 0.1 103/ul Normal 0.0-0.1 [facility] Comment on above: Performed By: #### C BC #### [facility] [address] [place] [address] Dr. Miky Swift Basophils/100 WBC (Bld) 0.7 % Normal 0.2-2.0 [facility] Comment on above: Performed By: #### C BC #### [facility] [address] [address] [address] Miky Swift EO # 0.1 103/ul Normal 0.0-0.7 [facility] Comment on above: Performed By: #### C BC #### [facility] [address] [place] [address] Dr. Miky Swift Eosinophils/100 WBC (Bld) 0.9 % Normal 0.9-7.0 [facility] Comment on above: Performed By: #### C BC #### [facility] [address] [place] [address] Dr. Miky Swift Erythrocyte distribution width (RBC) [Ratio] 11.8 % Normal 11.0-15.0 [facility] Comment on above: Performed By: #### C BC #### [facility] [address] [place] [address] Dr. Miky Swift Hematocrit (Bld) [Volume fraction] 43.1 % Normal 36.0-48.0 [facility] Comment on above: Performed By: #### C BC #### [facility] [address] [place] [address] Dr. Miky Swift Hemoglobin (Bld) [Mass/Vol] 14.9 g/dL Normal 12.0-16.0 [facility] Comment on above: Performed By: #### C BC #### [facility] [address] [place] [address] Dr. Miky Swift IG # 0.02 10e3/ul Normal 0.00-0.03 [facility] Comment on above: Performed By: #### C BC #### [facility] [address] [place] [address] Dr. Miky Swift IG % 0.2 % Normal 0.0-0.5 [facility] Comment on above: Performed By: #### C BC #### [facility] [address] [place] [address] Dr. Miky Swift LYMPH # 1.3 103/ul Normal 1.2-3.8 [facility] Comment on above: Performed By: #### C BC #### [facility] [address] [place] [address] Dr. Miky Swift Lymphocytes/100 WBC (Bld) 12.2 % Critically low 20.5-60.0 [facility] Comment on above: Performed By: #### C BC #### [facility] [address] [place] [address] Dr. Miky Swift MANUAL DIFF REQ NO Normal [facility] Comment on above: Performed By: #### C BC #### [facility] [address] [place] [address] Dr. Miky Swift MCH (RBC) [Entitic mass] 29.7 pg Normal 26.7-34.0 [facility] Comment on above: Performed By: #### C BC #### [facility] [address] [place] [address] Dr. Miky Swift MCHC (RBC) [Mass/Vol] 34.6 g/dL Normal 29.9-35.2 [facility] Comment on above: Performed By: #### C BC #### [facility] [address] [place] [address] Dr. Miky Swift MCV (RBC) [Entitic vol] 86.0 fL Normal 81.0-99.0 [facility] Comment on above: Performed By: #### C BC #### [facility] [address] [place] [address] Dr. Miky Swift MONO # 0.5 103/ul Normal 0.3-0.8 [facility] Comment on above: Performed By: #### C BC #### [facility] [address] [place] [address] Dr. Miky Swift Monocytes/100 WBC (Bld) 4.8 % Normal 1.7-12.0 [facility] Comment on above: Performed By: #### C BC #### [facility] [address] [place] [address] Dr. Miky Swift NEUT # 8.8 103/ul Critically high 1.4-6.5 [facility] Comment on above: Performed By: #### C BC #### [facility] [address] [place] [address] Dr. Miky Swift Neutrophils/100 WBC (Bld) 81.2 % Critically high 43.0-75.0 [facility] Comment on above: Performed By: #### C BC #### [facility] [address] [address] [address] Miky Swift Platelet mean volume (Bld) [Entitic vol] 10.2 fL Normal 9.5-13.5 [facility] Comment on above: Performed By: #### C BC #### [facility] [address] [place] [address] Dr. Miky Swift PLT 303 103/ul Normal 150-450 [facility] Comment on above: Performed By: #### C BC #### [facility] [address] [place] [address] Dr. Miky Swift RBC 5.01 106/ul Normal 4.20-5.40 [facility] Comment on above: Performed By: #### C BC #### [facility] [address] [place] [address] Dr. Miky Swift WBC 10.9 103/ul Normal 4.0-11.0 [facility] Comment on above: Performed By: #### C BC #### [facility] [address] [place] [address] ABD/PELV W CONon 05-24-[address] ABD/PELV W CON EXAMINATION: CT ABD/PELV W CON HISTORY: Left lower quadrant pain. COMPARISON: None. TECHNIQUE: Routine CT abdomen/pelvis with intravenous contrast. Dose reduction techniques were achieved by using automated exposure control and/or adjustment of mA and/or kV according to patient size and/or use of iterative reconstruction technique. FINDINGS: Lower chest: Unremarkable. Solid organs: Matthew's lobe configuration of the liver, a variant of normal. The gallbladder, biliary tree, pancreas, spleen, bilateral adrenal glands and bilateral kidneys are unremarkable. Bowel: There are diverticula along the distal descending and sigmoid colon. There is colonic wall thickening at the junction of the descending and sigmoid colon with associated pericolonic inflammatory reaction and a small amount of fluid which tracks into the pelvis. In the right clinical setting these findings are consistent with acute diverticulitis. There is no free air. There is no abscess. The bowel gas pattern is nonobstructive. There is a moderate amount of stool within the ascending and distal half of the sigmoid colon and within the rectum. The appendix, distal esophagus, stomach and small bowel are unremarkable. Vascularity: The abdominal aorta and inferior vena cava are unremarkable. Inflammation: As previously described. Lymphadenopathy: There are no pathologically enlarged lymph nodes within the abdomen/pelvis. Pelvis: The unopacified urinary bladder is unremarkable. There are pelvic phleboliths. The patient has had a prior hysterectomy. Osseous: Very small amount of fat extending into the umbilicus. Mild dextroscoliosis. IMPRESSION: Findings which in the right clinical setting are consistent with acute diverticulitis at the junction of the descending and sigmoid colon. There is no free air or abscess. The bowel gas pattern is nonobstructive. Electronically authenticated by: SHAKIR WHALEN Date: 2022-05-23 08:38 Normal [facility] ER URINE PROFILEon 3 Bilirubin Ql (U) Negative Normal NEGATIVE [facility] Comment on above: Performed By: #### E RUR #### [facility] [address] [place] [address] Dr. Miky Swift Clarity (U) CLEAR Normal CLEAR [facility] Comment on above: Performed By: #### E RUR #### [facility] [address] [place] [address] Dr. Miky Swift Color (U) LT. YELLOW Normal YELLOW [facility] Comment on above: Performed By: #### E RUR #### [facility] [address] [place] [address] Dr. Miky MOFFETTLaw A micrscopic examination will be performed if indicated. Normal [facility] Comment on above: Performed By: #### E RUR #### [facility] [address] [place] [address] Dr. Miky Swift Glucose Ql (U) Negative Normal NEGATIVE [facility] Comment on above: Performed By: #### E RUR #### [facility] [address] [place] [address] Dr. Miky Swift Hemoglobin Ql (U) Negative Normal NEGATIVE [place] Comment on above: Performed By: #### E RUR #### [facility] [address] [place] [address] Dr. Miky Swift Ketones Ql (U) Negative Normal NEGATIVE [facility] Comment on above: Performed By: #### E RUR #### [facility] [address] [place] [address] Dr. Miky Swift LEUKOCYTES Negative Normal NEGATIVE [facility] Comment on above: Performed By: #### E RUR #### [facility] [address] [place] [address] Dr. Miky Swift Nitrite Ql (U) Negative Normal NEGATIVE [facility] Comment on above: Performed By: #### E RUR #### [facility] [address] [place] [address] Dr. Miky Swift pH (U) 7.0 [pH] Normal 5-9 [facility] Comment on above: Performed By: #### E RUR #### [facility] [address] [place] [address] Dr. Miky Swift SPEC GRAVITY 1.005 Normal 1.005-<=1.025 [facility] Comment on above: Performed By: #### E RUR #### [facility] [address] [place] [address] Dr. Miky Swift UA PROTEIN Negative Normal NEGATIVE/ TRACE [facility] Comment on above: Performed By: #### E RUR #### [facility] [address] [place] [address] Dr. Miky Swift UR MICRO IND NOT INDICATED Normal [facility] Comment on above: Performed By: #### E RUR #### [facility] [address] [place] [address] Dr. Miky Swift Urobilinogen Qn (U) 0.2 {Jayy'U}/dL Normal 0.2 - 1. 0 [facility] Comment on above: Performed By: #### E RUR #### [facility] [address] [place] [address] Dr. Miky Swift PROF 14(COMP METB)on 023 Albumin [Mass/Vol] 3.8 g/dL Normal 3.4-5.0 [facility] Comment on above: Performed By: #### C MP #### [facility] [address] [address] [address] Miky Swift Albumin/Globulin [Mass ratio] 1.2 {ratio} Normal [facility] Comment on above: Performed By: #### C MP #### [facility] [address] [address] [address] Miky Swift ALP [Catalytic activity/Vol] 79 U/L Normal 46-116 [facility] Comment on above: Performed By: #### C MP #### [facility] [address] [address] [address] Miky Swift ALT [Catalytic activity/Vol] 25 U/L Normal 14-59 [facility] Comment on above: Performed By: #### C MP #### [facility] [address] [place] [address] Dr. Miky Swift Anion gap [Moles/Vol] 12.3 mmol/L Normal [facility] Comment on above: Performed By: #### C MP #### [facility] [address] [place] [address] Dr. Miky Swift AST [Catalytic activity/Vol] 18 U/L Normal 15-37 [facility] Comment on above: Performed By: #### C MP #### [facility] [address] [place] [address] Dr. Miky Swift Bilirubin [Mass/Vol] 0.9 mg/dL Normal 0.2-1.0 [facility] Comment on above: Performed By: #### C MP #### [facility] [address] [place] [address] Dr. Miky Swift Calcium [Mass/Vol] 8.8 mg/dL Normal 8.5-10.1 [facility] Comment on above: Performed By: #### C MP #### [facility] [address] [place] [address] Dr. Miky Swift Chloride [Moles/Vol] 107 mmol/L Normal 98-107 [facility] Comment on above: Performed By: #### C MP #### [facility] [address] [address] [address] Miky Swift CO2 [Moles/Vol] 27.5 mmol/L Normal 21.0-32.0 [facility] Comment on above: Performed By: #### C MP #### [facility] [address] [address] [address] Miky Swift Creatinine [Mass/Vol] 0.82 mg/dL Normal 0.55-1.02 [facility] Comment on above: Performed By: #### C MP #### [facility] [address] [address] [address] Miky Swift EGFR-AF BURMESE >60 Normal >=60 [facility] Comment on above: Performed By: #### C MP #### [facility] [address] [address] [address] Miky Swift EGFR-NON AF BURMESE >60 Normal >=60 [facility] Comment on above: Performed By: #### C MP #### [facility] [address] [address] [address] Miky Swift Globulin (S) [Mass/Vol] 3.3 g/dL Normal [facility] Comment on above: Performed By: #### C MP #### [facility] [address] [address] [address] Miky Swift Glucose [Mass/Vol] 99 mg/dL Normal 74-106 [facility] Comment on above: Performed By: #### C MP #### [facility] [address] [address] [address] Miky Swift Potassium [Moles/Vol] 3.8 mmol/L Normal 3.5-5.1 [facility] Comment on above: Performed By: #### C MP #### [facility] [address] [address] [address] Miky Swift Protein [Mass/Vol] 7.1 g/dL Normal 6.4-8.2 [facility] Comment on above: Performed By: #### C MP #### [facility] [address] [address] [address] Miky Swift Sodium [Moles/Vol] 143 mmol/L Normal 136-145 [facility] Comment on above: Performed By: #### C MP #### [facility] [address] [address] [address] Miky Swift Urea nitrogen [Mass/Vol] 10.0 mg/dL Normal 7.0-18.0 [facility] Comment on above: Performed By: #### C MP #### [facility] [id number] Miky Swift Urea nitrogen/Creatinine [Mass ratio] 12.2 mg/mg Normal [facility] Comment on above: Performed By: #### C MP #### [facility] [address] [address] [address] Miky Swift US PELVIS TRANSVAGon 023 US PELVIS TRANSVAG EXAMINATION: US PELVIS TRANSVAG HISTORY: Left lower quadrant pain COMPARISON: No relevant comparison available. FINDINGS: The uterus is surgically absent The right ovary is normal in size, contour and echotexture measuring 3.1 x 2.3 x 2.2 cm. Area of anechoic echogenicity measuring 1.6 cm likely a simple cyst Normal color and Doppler flow. The left ovary is normal in size, contour and echotexture measuring 2.3 x 1.6 x 1.4 cm. Normal color and Doppler flow Small amount of free pelvic fluid likely physiologic in amount IMPRESSION: 1.6 cm right ovarian simple cyst Electronically authenticated by: JULIETA KHOURY Date: 2022-05-23 09:15 Normal [facility] Coding Summary.on 11-03-2021 Coding Summary. [id number] Gh0bWw+PGhlYWQ+PE1FV AFiV89elIPwnF0ZC5mAW S6NKXTBFMRFIV4AIF7zs FY3NRpjH4UwssDk ZguvbVCmGC66TDr8CMP7 sLclJIgtgB5xrXGeT3k7 MfOxLJ64wA36VEpjREUq PlS8FpCbjwvekBFb V3ehAtIalXOrZlu+PHRh YmxlIHdpZHRoPScxMDAl KcRqjNryKK6hYb0hWHAx LWNvbGxhcHNlOiBj g1upOCPlFFrdZA3fxZpy C9MkcEP2OKJyc7p5Ii41 dHI+UHSsBMB3jTscWHqt z651EjCsv7psURE3 gFYsWEqrIZG3E87qd2V8 YQOaZBPwVRK8fYG7bY4p mHcbdfnkQ2OlpENfMwI4 IUX7yXUvaH8ffVlx rayygT0gYed+L10MXL1D LOYHDR1XWyf9C6GgDvxy dHI+GZ24DXSzPQ17jXLh sJYjr2bamIb2FrHp MWKeLDY9oItfQFico0Nd EPXlP22aiALzz0Y2HKIl dJiraOQbGnLaoKQ6qB8r VJomsgeug5ryysyz Bvbci0isss27xA81X34i BPtbIBJjISQ4BJZlVRAo vOwjqo2wsQ9iYx0+IDxj s9kqt4ojfQp9NaUm TSDixlEjaSwkGYO3a5Oq Zs61Q8RszMeht0IiRjt8 ri24xTZby2J1dYH9IRjd NLBvqL2qSZinTfN1 QOAsFyWoiS66xSFfAXpe Th3rvZkqtAwoUE1cBWBq lpczNBVslQ5wBOKwgOXx oKwfIB9nSGXjmedt z579FbGtCFC5KOQrxIUu K9AysK2dArBfIMXxQHHr U2IitZLtGJsxY649YPcp AqP4BPWdrxGhN4Bf LAOrjAjuMsV3k7H7Hw1M p8GpaihzIBX4SPlvKKA3 JyD1WkLlPsD0I2WnLjy4 YJZxrCpaLT7pX4Jo KJEitvslcquixTV1VZZw FOLitN73nCWvVFpwWu4f i1E2o275BBLkVTOqyZ18 Bz7doEluKPEjxUPQ qJ6kytlij1wxkihiQpOx PMMkRYj9TNs9XKWumDoc XwPjIJV3UdQ4BKB9rLEv gS0azTweqsqdxI0m Oyc+S90pxW6mOUD0VTF5 vwjjSKYqiwAtLS43BX74 T4HhAchpqSIfcEB+PGRp vhRskZfqQR4dCxJn r1eiy8HdNMeqY2JhLWDh BHjiTkh8BNXcHWL4zQV3 xS1iDOAsKUqes1H5zFJ1 W2YbhcJdzz9ss1za NNPbVFkeT29wuTJze8J8 NKDyqXX6IDNmfYklUoFq nT66Ykj+XDVlnOegx1Ps Wujbu9xur3rdcGy5 IjMwJSIgdmFsaWduPSJ0 x9BlOs59K69jVJxrAUDr JEKbSQTlRYJktUsndu7l dE3iTv1+PGNvbCB3 wIG0kI7wXZCqTnL4GCgx V955CbWyeFUeZsptz7tg j4eemYz1LlJvVGBkwfGa kQyyXMK9d9LnSa61 S21pVPecAXZeESTkCSTc KADfaQfpwx4teA5oDq3+ FM0df9nega83qC97mUZ+ WXZkHQU3aZutRLkw WBKjbS4lJXdaLuF6KPOm JsHprS99sHQmGIguPo8m fBbjhFavZV7uXVBbpkxq v065EoFmk2skXEXz tZJnVWunMCW6Z16it0F1 ICXsCAIuSOV7lBO0sA4l bGlnbjogbGVmdDsgdmVy aSmiZWcuUQagS539 IHRvcDsnPlBhdGllbnQg IrYpVPn8K3EaLgw8NTNg bJetMG6woHGhNPpyYc4y qBcxpWmvKU0xIZNy qihmm714OqCpe7yiNZRt tIAzLViuXHJ2K61mg1T7 SAHkYMVjNLI1gYI9oJ0w bGlnbjogbGVmdDsg wmGdcPwjCOshSFwcS088 IHRvcDsnPkJpcnRoIERh cQX3YH57PT61uCXfo9F3 yQH0L3McHGCptiki ichxlXZ5AVTqEYUsgW90 Mp3dkYmaLh7pWGNrLKD9 YYRyiIOnA9CqjC5hRnMb ZPElFUArA1LgyUOa NTopR074HVojRpB1IBGs jbFaP9CcEKJzqEqdUjI7 d6C6Wl8ZR8L7AW79GE46 hTWve3E5vZP0Z1Rr GMEisybplsoxuPN5TYSg LWYkrE15Bk9ywMmpWj0h MWRvZLM5VZFbuELtH8Ti fQ9gAdLeNNYxTRRv H8EekTJlUAayU971QXwr OsQ2BMDkyfZzD4RrOQVg hJegIyD1t8A5Ro6EIRn5 NR53DU63mMNyi5W6 vFM1B6GlPKNdeemvxsjc hFY5TDZwVKPeqP60Ia4n rQqgXz3uLQArVOJ4JBXq pPXvL1TtqA2hEyZq MAZvMSEfN8GymICqSIbk L490ZPrfZsS0KJHxaqPb T8WdXFGnyQplIuZ4u9K2 Sh6ZCOPoUE56KRN0 pPH6DU23NE08D1VdJggz dGFibGU+PHRhYmxlIHdp ZHRoPScxMDAlJyBzdHls GS8sJz6uKPQkKGQl xKlayLPcMtNfg4vvWJXq OZutPA8lzEgoG0DxkUH4 IBDsc3r2Wu17I52uM4Oe dXA+OGAuuAI7nZV2 pK3dLrUjRtO1LLynB819 SdVkjUDbThqyu0acl4pz bCs5RqO1YAGmojMlpRhg KMZ6d8KqOg26F99y IHdpZHRoPSIxNSUiIHZh iFsdwi9jpZ0zNr5+PGNv kWG6kJB8oR3rEuGuQxP5 DRqcJ072FrPooWOn Rmayy6tgl6kraWq4YrMr OZJaytQtqCvuFSJ7g0Hg Yn29C4RtqEyvj8SsJkj1 uc07tVQar7B1eDO8 J6QtFIDwgqtbeAOspOsi RR7xUMNbdktdSULfhF6m QGFbA7q4QfMvLkU5NQyl C4SpsrJ4EMYfrLNf CJkjUGP2O52nw9J6WMTs HRPiPMA5dTV5oB5xrOoj bjogbGVmdDsgdmVydGlj YBizIJijK571GQAy dMbyDVOocI6iVGFnnVWc fOzlKN5kBSHckfuxVjUE QU4OJANZLLYwQYfWIDUJ WTwvdGQ+PHRkIHN0 nXtaKBecNYNerL5xRZUc D4e0GnCvRlL5NCzxN9Ee GXFstngdCd43fC1gHtTx NmK6HIxcZ1MlkyX3 JLAxvIGcYVxoHYA4M35e n9N3LTAyZEDzPEX9wTW9 lB4mmOiiovznlNIgjKxb dmVydGljYWwtYWxp W023ZCAhzMwjUcH0PaBs VnU1SEV8S7BwMvk2MXEp cFgtTP3vlXPtRXubYh0b dUvzcIcxMN2aIFLb drdfMZQwaO8kGMYmqJGc oKkoXY3vLVGdxyeke563 EgBvWXW2OYKxvYSyA2Qt rR9nUsNaGTCjOEIi Y9BdaVFmDOwzH696HGks CwY7ZBYwtzXyT7VaIXEe oNueQuR5j9Z2Lo91YzVO ZWFyczwvdGQ+PHRk QZP6hHwcFWgtWLGpjB5q JXLzG7e1EoSlGbC7HPww S9XeTEUcpbwhJw29vK7j McEoTkK3FSynX1Jl vcX1NMDauNWkOWezYXM4 N18ej3D5NOYcMWWfEEY4 gWX8zH8ldGbhtlxmqGDv dDsgdmVydGljYWwt LKfgO180MDGduLgsJlSu bWFsZTwvdGQ+PHRkIHN0 dUnkETrcHDPwmJ6pCFUm N6t3JvMcPbD2DOfr A4UxPNKyjrocRc03xL0q GuCjAsX0AKwkX5GlwcV8 JBNekUSqTJqmZVO1Q23i x7J3TZIiWUXlQEW9 uJA2pJ3toBvgkfbygNLn dDsgdmVydGljYWwtYWxp H747CIQcsBygDw57vUNf wIezxlJ8I2GiHuxl dHI+FD03QJBiAN70bWRm bADvs4txeEk7JvZhMVFp QUA8rVymFPfqj8QeBXIg Y90nkCCdk9F1EXZa uDtdoSXaQeYiuIT6pO2w WYxxqdtna6crqqtrTalw y1twpt49wL49C83yVFnk ZHRoPSIzMCUiIHZh eYpxzp9kgM7aGj0+PGNv iGO3aDJ8hS2vXaDpLeF2 XNeeJ326RrYfcATaKono r1thu5nbuIu2OaVs XGUhvgHpqUkwXBI0t2Tc Qn87F62eSMjpJJCkHBTj VYVaZBCnhDwudi6dkS3x Ii8+QS6xu6zxrh47 vA67dPE+IACnERZ4sZdm PLpiRRVizW2yIHzmFuE8 GGIoYfEpiJ14nCYcDBbh Rr0szZzhbDyvHG4i EXKpkdpwq783VaObj3tc PNMxjMFuIKegUOY9A47e f9N1OZDeACMbDXG8hYG3 wA7zrLoqzeiicLCm dDsgdmVydGljYWwtYWxp Z687HJUhwCslOaYpyIFm V1jlewVXRS0mGwdluWT+ SVIjDIO3lQfrCEwm LMSvrW5iYSRuN7f9TgRg XhN1VLefO9VfnwC6JZYc sTGjSXFuiZFZaV8azdwk i1oosoxlYsSwPHRt IUo7ZVf0UXZkbXbgZnHp YLL0JqJ5JCO6qJIfxD4v tAkahmhdrY8zCjy+RklO OjwvdGQ+PHRkIHN0 uBhdSJqdOXMutY9eTKFj A5w4QaMdYzQ7KTptU1Zr zjP8OUZwuSHzAGItsDRF dC1mwditz7tvzhhd OcTjQQBsAKw8KIf5CTCv mCewXwOzDDU8JbV4PYC0 oRMdfQ4fpQlhbnvwnB6v Oyc+TVJOOjwvdGQ+ TIKsCXL6mBfvUQlyWNYg cZ8cHUKuI3e0FoYlTlU0 HEzkY1BzloW1PDMgfGKp FWFxlYXGxG8treri p9fzgzuuMbLsHNFfSCv8 GDx0HHIvkEviHwTvIFM7 DoX9VBX6qTWemW7jnSnr cotxsX6fXht+UGF5 QJS0JP78PR88V3FbNnwb dGFibGU+PHRhYmxlIHdp ZHRoPScxMDAlJyBzdHls NZ0hTw9xAAMwWXGg bGxh (more content not included)... Normal [facility] CBC w/Indiceson 11-01-2021 Erythrocyte distribution width (RBC) [Ratio] 12.7 % Normal 10.9-14.2 [facility] Comment on above: Performed By: #### 2 [id number] #### [facility] [address] [place] [address] Hematocrit (Bld) [Volume fraction] 41.6 % Normal 34.0-46.0 [facility] Comment on above: Performed By: #### 2 [id number] #### [facility] [address] [place] [address] Hemoglobin (Bld) [Mass/Vol] 14.4 g/dL Normal 12.0-16.0 [facility] Comment on above: Performed By: #### 2 [id number] #### [facility] [address] [place] [address] MCH (RBC) [Entitic mass] 30.2 pg Normal 27.0-34.0 [facility] Comment on above: Performed By: #### 2 [id number] #### [facility] [address] [place] [address] MCHC (RBC) [Mass/Vol] 34.7 g/dL Normal 31.4-36.0 [facility] Comment on above: Performed By: #### 2 [id number] #### [facility] [address] [place] [address] MCV (RBC) [Entitic vol] 87.0 fL Normal 80.0-100.0 [facility] Comment on above: Performed By: #### 2 [id number] #### [facility] [address] [place] [address] Platelet mean volume (Bld) [Entitic vol] 8.6 fL Normal 6.4-10.8 [facility] Comment on above: Performed By: #### 2 [id number] #### [facility] [address] [place] [address] Platelets (Bld) [#/Vol] 279.0 E9/L Normal 150.0-500.0 [facility] Comment on above: Performed By: #### 2 [id number] #### [facility] [address] [place] [address] RBC (Bld) [#/Vol] 4.8 E12/L Normal 4.3-5.9 [facility] Comment on above: Performed By: #### 2 [id number] #### [facility] [address] [place] [address] WBC corrected for nucl RBC Auto (Bld) [#/Vol] 5.7 E9/L Normal 4.0-11.0 [facility] Comment on above: Performed By: #### 2 [id number] #### [facility] [address] [place] [address] Consent for Treatmenton Consent for Treatment [id number] #1.00CD:127 Normal [facility] HEMATOLOGYOrdered By: Aquiles Lambert on 11-01-2021 Erythrocyte distribution width (RBC) [Ratio] 12.7 % Normal 10.9 - 14.2 % [facility] Hematocrit (Bld) [Volume fraction] 41.6 % Normal 34.0 - 46.0 % [facility] Hemoglobin (Bld) [Mass/Vol] 14.4 g/dL Normal 12.0 - 16.0 gm/dL [facility] MCH (RBC) [Entitic mass] 30.2 pg Normal 27.0 - 34.0 pg [facility] MCHC (RBC) [Mass/Vol] 34.7 g/dL Normal 31.4 - 36.0 gm/dL [facility] MCV (RBC) [Entitic vol] 87.0 fL Normal 80.0 - 100.0 fL [facility] Platelet mean volume (Bld) [Entitic vol] 8.6 fL Normal 6.4 - 10.8 fL [facility] Platelets (Bld) [#/Vol] 279.0 E9/L Normal 150.0 - 500.0 E9/L [facility] RBC (Bld) [#/Vol] 4.8 E12/L Normal 4.3 - 5.9 E12/L [facility] WBC corrected for nucl RBC Auto (Bld) [#/Vol] 5.7 E9/L Normal 4.0 - 11.0 E9/L [facility] Physician Orderon 11-01-2021 Physician Order [id number] #1.00CD:127 Normal [facility] Physician Order [id number] #1.00CD:127 Normal [facility] PAP ACOG PANEL 2: 30 to 65on 07-17-2021 . . Normal [facility] Comment on above: Result Comment: Perf ormed at: WB Performed By: #### 4 [id number] #### [facility] [address] [address] [address] Miky Swift Age Gdln ACOG Testing 30-65 [facility] Comment on above: Performed By: #### 4 [id number] #### [facility] [address] [address] [address] Miky Swift DIAGNOSIS: Comment [facility] Comment on above: Result Comment: NEGA TIVE FOR INTRAEPITHELIAL LESION OR MALIGNANCY. Performed at: WB Performed By: #### 4 [id number] #### [facility] [address] [address] [address] Miky Swift HPV Aptima Negative Normal Negative [facility] Comment on above: Result Comment: This nucleic acid amplification test detects fourteen high-risk HPV types (16,18,31,33,35,39,45,51,52,56,58,59,66,68) without differentiation. Performed at: =G Performed By: #### 4 [id number] #### [facility] [address] [address] [address] Miky Swift Methodology: Comment [facility] Comment on above: Result Comment: This liquid based ThinPrep(R) pap test was screened with the use of an image guided system. Performed at: WB Performed By: #### 4 [id number] #### [facility] [address] [address] [address] Miky Swift Note: Comment Normal [facility] Comment on above: Result Comment: The Pap smear is a screening test designed to aid in the detection of premalignant and malignant conditions of the uterine cervix. It is not a diagnostic procedure and should not be used as the sole means of detecting cervical cancer. Both false-positive and false-negative reports do occur. . Performed at: WB Performed By: #### 4 [id number] #### [facility] [address] [address] [address] Miky Swift Performed by: Comment Normal [facility] Comment on above: Result Comment: Caitlin Connors, Hygiene Assistant (ASCP) Performed at: WB Performed By: #### 4 [id number] #### [facility] [address] [address] [address] Miky Swift Specimen adequacy: Comment Normal [facility] Comment on above: Result Comment: Sati sfactory for evaluation. No endocervical component is identified. Performed at: WB Performed By: #### 4 [id number] #### [facility] [address] [place] [address] Dr. Miky Swift Vital Signs Date Time Vital Sign Value Performing Clinician Stacii eliazary 03-16-2024 09:07-0500 Diastolic blood pressure 84 mm[Hg] Julieta Taylor DO Work Phone: [facility] 03-16-2024 09:07-0500 Heart rate 72 /min Julieta Taylor DO Work Phone: [facility] 03-16-2024 09:07-0500 Respiratory rate 16 /min Julieta Taylor DO Work Phone: [facility] 03-16-2024 09:07-0500 SaO2% (BldA) [Mass fraction] 99 % Julieta Taylor DO Work Phone: [facility] 03-16-2024 09:07-0500 Systolic blood pressure 128 mm[Hg] Julieta Taylor DO Work Phone: [facility] 03-16-2024 07:17-0500 Body height 158.75 cm Julieta Taylor DO Work Phone: [facility] 03-16-2024 07:17-0500 Body weight 67.13 kg Julieta Taylor DO Work Phone: [facility] 01-08-2024 13: Body height 158.75 cm [facility] 01-08-2024 13:050 Body mass index (BMI) [Ratio] 58.3 kg/m2 [facility] 01-08-2024 13: Body weight 147 kg [facility] Encounters Encounter Date Encounter Type Care Provider Facility Start: 03-16-2024 Non-patient / Non-visit Julieta Taylor DO Work Phone: [facility] Work Phone: Start: 03-16-2024 End: 03-16-2024 Admission to same day surgery center Julieta Taylor DO Work Phone: [facility] Work Phone: Start: 03-16-2024 End: 03-16-2024 ambulatory Julieta Taylor DO Work Phone: [facility] Work Phone: Start: 01-08-2024 End: 01-08-2024 ambulatory [facility] Work Phone: Start: 01-08-2024 End: 01-08-2024 Patient encounter procedure [facility] Work Phone: Start: 09-04-2023 End: 09-04-2023 ambulatory ZINA CABRERA Not Available Start: 05-23-2022 End: 05-23-2022 ambulatory ADELA ROSALES Facility:[facility] Start: 11-01-2021 End: 11-01-2021 Patient encounter procedure Mack Walker [facility] Start: 10-02-2021 End: 11-02-2021 Pre-admission assessment Mack Walker [facility] Start: 07-11-2021 End: 07-11-2021 ambulatory ADELA ROSALES Facility:[facility] Start: 07-10-2021 End: 07-10-2021 ambulatory ADELA ROSALES Facility:[facility] Start: 06-14-[address] [facility] Facility: [facility] Procedures Date Procedure Procedure Detail Performing Clinician Start: 03-16-2024 Colonoscopy Julieta Guillen oh DO Work Phone: Plan of Treatment Date Care Activity Detail Author Start: 03-16-[address] [facility] [address] Abdomen and Pelvi s W contrast IV [facility] Elastase.pancreatic [Mass/mass] in Stool [facility] Patient Education Hemorrhoids Di verticulosis Know your Meds [facility] Work Phone: [facility] Payers Date Payer Category Payer Self-pay 1980 Unknown [id number] [id number] [id number] 1980 Unknown [id number] [id number] [id number] 1979 Unknown [id number] 2.16.84 [id number] 1979 Unknown [id number] 2.16.84 [id number] 1979 Unknown [id number] 2.16.84 [id number] 1959 Unknown [id number] 1959 Worker's Compensation [id number] Unknown [id number] [id number] Social History Date Type Detail Facility Tobacco smoking status No Smoking Status Entered [facility] Sex Assigned At Female [facility] Start: 01-08-2024 Tobacco smoking status VAIS Tobacco smoking consumption unknown (finding) [facility] Start: 01-08-2024 End: 03-16-2024 Sex Female (finding) [facility] Start: 1980 Sex Assigned At Female F [facility] Start: 03-16-2024 Tobacco smoking status NHIS Never smoked tobacco (finding) [facility] Goals Date Patient Goal Desired Activity /State Procedure note 03-16-2024 Note Date & Type Note Facility 03-16-2024 Procedure note [facility] enter History and physical note 03-16-2024 Note Date & Type Note Facility 03-16-2024 History and physi amaris note [facility] enter Evaluation note 01-08-2024 Note Date & Type Note Facility 01-08-2024 Evaluation note Authored January 08, 2024 1:24pm 43-year-old female referred to the GI clinic for evaluation of diverticulitis + History of recurrent diverticulitis ( 2 episodes of diverticulitis in 05/14/2022 and 09/14/2023). +persistent left lower quadrant abdominal cramping and persistent diarrhea which have not resolved with antibiotics Will arrange for CT to evaluate for persistent diverticulitis or complications related to diverticulitis. If CT is negative for these findings, we will arrange for a colonoscopy Will get Labs including CBC with diff, TSH, ESR, CRP, fecal calprotectin HIV ab, Celiac panel, fecal elastase and stool infectious workup [facility] Work Phone: Evaluation note 05-14-2022 Note Date & Type Note Facility 05-14-2022 Evaluation note Authored January 08, 2024 1:24pm 43-year-old female referred to the GI clinic for evaluation of diverticulitis + History of recurrent diverticulitis ( 2 episodes of diverticulitis in 05/14/2022 and 09/14/2023). +persistent left lower quadrant abdominal cramping and persistent diarrhea which have not resolved with antibiotics Will arrange for CT to evaluate for persistent diverticulitis or complications related to diverticulitis. If CT is negative for these findings, we will arrange for a colonoscopy Will get Labs including CBC with diff, TSH, ESR, CRP, fecal calprotectin HIV ab, Celiac panel, fecal elastase and stool infectious workup [facility] Work Phone: Evaluation + Plan note Note Date & Type Note Facility Evaluation + Plan note No data available for this section [facility] History and physical note Note Date & Type Note Facility History and physical note Note Date/Time March 16, 2024 8:38am [facility] [address] [place] [address] Gastroenterology H&P Signed Patient: Shani Wolff MR#: [id number] : 1980 Acct:[id number] Age/Sex: 43 / F Adm Date: 5 Loc: Room: Type: [facility] Attending Dr: Vipin Molina MD Copies to: Julieta Taylor, DO Vipin Molina MD~ Date of Service: 03/16/2024 HISTORY & PHYSICAL: Patient's history with special attention to the cardiovascular, pulmonary systems and the current problem was reviewed with the patient immediately prior to the procedure. Present medications and doses reviewed in the EMR. Allergies and pertinent laboratory tests were also reviewedat this time in the EMR. The physical examination, as below, was then performed. Indication, assessment and HPI: 43-year-old female with history of recurrent diverticulitis here for diagnostic colonoscopy Family history of GI malignancy? No PHYSICAL EXAMINATION General appearance: NAD Skin: No jaundice Head: NC/AT Eyes: Anicteric Neck: Supple Lungs: Normal respiratory effort, no use of accessory muscles Abdomen: nondistended Neuro: Ox3. REVIEW OF SYSTEMS Constitutional: Denies malaise, fevers Cardiovascular: Denies chest pain, palpitations Respiratory: Denies shortness of breath, wheezing Gastrointestinal: As per HPI Genitourinary: Denies dysuria, polyuria Musculoskeletal: Denies joint swelling, joint stiffness Neurological: Denies confusion, numbness, tingling Endocrine: Denies fatigue Written informed consent obtained from the patient. Risks (including but not limited to perforation, infection, bloating, bleeding, need for emergent surgeryand loss of life), benefits and alternatives explained and questions answered. The patient verbalized understanding. Based on history patient is an appropriate candidate for the procedure. Vipin Molina M.D. Documented By: Vipin Molina MD 03/16/24 0835 Signed By: <Electronically signed by Vipin Molina MD> 03/16/24 0838 [facility] Work Phone: Hospital Discharge instructions Note Date & Type Note Facility Hospital Discharge instructions No data available for this section [facility] Hospital Discharge instructions Note Date & Type Note Facility Hospital Discharge instructions Additional Instructions DISCHARGE INSTRUCTIONS FOR COLONOSCOPY WHAT TO EXPECT: - You may feel full, gassy or cramping after your procedure. In some cases, this may be from a few hours to a day. Walking may help relieve the discomfort. - If you have polyp(s) removed you may note some minor bloody discharge after your first bowel movements. - You should begin to recover from anesthesia within 1 hour of the procedure, however may feel groggy for the next 24 hours. DO's AND DON'Ts: - Call your doctor right away if you have a hard abdomen, severe pain, are passing lots of bright red blood or clots. - Call your doctor if you develop any rashes, hives or difficulty breathing. - Let your doctor know if you have not had a bowel movement by 3 days after your procedure. - If you take 81 mg aspirin for your heart it is safe to resume this medication. - If you take other blood thinner medications your doctor will instruct you when these can safely be resumed. - Do NOT drive for 24 hours. - Do NOT operate machinery such as power tools, lawn mowers, snow blowers, sewing machines, etc. for 24 hours. - Avoid alcoholic beverages and drugs for allergies, nerves, or sleep. - Do NOT stay alone. Do NOT leave your child unattended. - Do NOT make important personal or business decisions or sign any legal documents. - Eat solid foods and drink liquids in smaller amounts than usual until normal appetite returns. If you should experience an upset stomach, liquids high in sugar content (soda, Mahesh-Aid, non-acid juices) are recommended. - You can resume normal activities tomorrow. FOLLOW UP & RECOMMENDATIONS: -Notify the doctor if you have any problems. -Repeat colonoscopy in 10 years. -Follow up with PCP. -Office number [phone]. [facility] Work Phone: Progress note Note Date & Type Note Facility Progress note No data available for this section [facility] Summary Purpose Family History No Family History Records Found Relationship Condition Age at Onset Recorded Date/T mary maternal grandmother Chronic obstructive pulmonary disease Unknown paternal grandfather Heart disease Unknown Myocardial infarction Unknown brother Diverticulitis Unknown Advance Directives No Advanced Directives Records Found Advance Directive Response Recorded Date/ Time Advance Directives No March 10:50am Chief Complaint and Reason for Visit Chief Complaint Admit Date Refer: diverticulitis January 07 12:59pm Reason for Visit Admit Date Abdominal pain January 08, 2024 12:59pm Diarrhea January 08, 2024 12:59pm Hx of diverticulitis of colon December 262023 12:59pm Diverticulitis January 08, 2024 12:59pm Chief Complaint Admit Date Refer: diverticulitis January 07 12:59pm LLQ Abd pain March 16, 2024 6 :56am LLQ Abd pain March 16, 2024 8 :35am Additional Source Comments Care Team (unrecognized sect ion and content) Team Status: Active Member Role Status Dates PHYSICIAN NO FAMILY Primary Care Provider Active Team Status: Inactive Member Role Status Dates PHYSICIAN NO FAMILY Primary Care Provider Active Start: January 08, 2024 End: January 08, 2024 Vipin Molina MD Attending Provider Active Start: January 08, 2024 End: January 08, 2024 Julieta Taylor DO Referring Provider Active St art: January 08, 2024 End: January 08, 2024 Team Status: Active Member Role Status Dates Julieta Taylor DO Primary Care Provider Active Team Status: Inactive Member Role Status Dates Vipin Molina MD Attending Provider Active Start: March 16, 2024 End: March 16, 2024 Julieta Taylor DO Primary Care Provider Active Start: March 16, 2024 End: March 16, 2024 Team Status: Active Member Role Status Dates Vipin Molina MD Attending Provider, Other Provider Active Start: March 16, 2024 Julieta Taylor DO Primary Care Provider Active Start: March 16, 2024 INFORMATION SOURCE (unrecogn ized section and content) DATE CREATED AUTHOR 11/04/2021 [facility] DATE CREATED AUTHOR AUTHOR'S ORGANIZ ATION 05/27/2022 [facility] DATE CREATED AUTHOR AUTHOR'S ORGANIZ ATION 09/10/2023 [facility] dical [facility] DATE CREATED AUTHOR AUTHOR'S ORGANIZ ATION 04/16/2024 [facility] Goals (unrecognized section and content) Goals may be documented in a n alternate section FOR RECORDS PERTAINING TO PATIENTS WHO ARE OR HAVE BEEN ENROLLED IN A CHEMICAL DEPENDENCY/SUBSTANCEABUSE PROGRAM, SOME INFORMATION MAY BE OMITTED. This clinical summary was aggregated from multiple sources. Caution should be exercised in using it in the provision of clinical care. This summary normalizes information from multiple sources, and as a consequence, information in this document may materially change the coding, format and clinical context of patient data. In addition, data may be omitted in some cases. CLINICAL DECISIONS SHOULD BE BASED ON THE PRIMARY CLINICAL RECORDS. [facility]. provides no warranty or guarantee of the accuracy or completeness of information in this document.
[2024-05-04 12:13] LABS: Basophils Absolute Auto 0.1 10^3/uL (0.0-0.1); Eosinophils Absolute Auto 0.1 10^3/uL (0.0-0.7); Hematocrit 41.2 % (36.0-48.0); Hemoglobin 14.3 g/dL (12.0-16.0); Immature Granulocytes Abs Auto 0.01 10^3/uL (0.00-0.03); Immature Granulocytes Pct Auto 0.2 % (0.0-0.5); Lymphocytes Absolute Auto 1.5 10^3/uL (1.2-3.8); Lymphocytes Percent Auto 24.1 % (20.5-60.0); Mean Corpuscular HGB Conc 34.7 g/dL (29.9-35.2); Mean Corpuscular Hemoglobin 30.4 pg (26.7-34.0); Mean Corpuscular Volume 87.7 fL (81.0-99.0); Mean Platelet Volume 10.2 fL (9.5-13.5); Monocytes Absolute Auto 0.3 10^3/uL (0.3-0.8); Monocytes Percent Auto 4.2 % (1.7-12.0); Neutrophils Absolute Auto 4.3 10^3/uL (1.4-6.5); Neutrophils Percent Auto 69.5 % (43.0-75.0); Platelet Count 273 10^3/uL (150-450); Red Cell Distribution Width 11.5 % (11.0-15.0); White Blood Count 6.1 10^3/uL (4.0-11.0)
[2024-05-04 12:31] LABS: Anion Gap 16.1; Calcium 8.7 mg/dL (8.5-10.1); Carbon Dioxide 26.5 mmol/L (21.0-32.0); Chloride 103 mmol/L (98-107); Estimated GFR (African America >60 (>=60 mL/min/1.73m^2); Estimated GFR (Non-African Ame >60 (>=60 mL/min/1.73m^2); Glucose 99 mg/dL (74-106); Potassium 3.6 mmol/L (3.5-5.1); Sodium 142 mmol/L (136-145); Troponin I High Sensitivity <4.0 pg/mL (4.0-51.3)
== END 2024-05-04 14:01 | disposition home or self-care (01) ==
PROVIDERS: Emergency Provider Emergency Medicine; PCP Nurse Practitioner Family
DX: R07.9 Chest pain, unspecified (principal); Z90.710 Acquired absence of both cervix and uterus
CPT/HCPCS: 36415; 71045; 80048; 84484; 85025; 93005; 99285

== ENCOUNTER 2024-08-25 13:54 | Outpatient (OUT) | payer OTHER, SELFPAY ==
--- NOTE | 2024-08-25 14:18 | XR_ITS ---
The [address] [address] Patient Name: SATISH PATE MRN: [id number] date: 1980 Sex: F Assigned Patient Location: [facility] Current Patient Location: [facility] Accession/Order Number: [id number] Exam Date: 08/25/2024 15:41 Report Date: 08/25/2024 15:45 At the request of: OSWALDO GARCIA DO Procedure: XR lumbar spine 2-3V 2 views of thoracic spine COMPARISON: None HISTORY: Chronic thoracic and lumbar spine pain. Left sciatica The thoracic kyphosis is adequate. The disc spaces are maintained. Thoracic endplate spurs are present. No compression deformity identified The bony mineralization is adequate. No paraspinal abnormality seen. XR/XR thoracic spine 2V IMPRESSION: Thoracic spondylosis. No fracture 2 views lumbar spine Comparison MRI lumbar spine 12/30/2018 Mild straightening. Adequate alignment. Adequate vertebral heights and disc spaces. Mild facet degeneration IMPRESSION: Lower lumbar facet degenerative changes. No acute findings Impression dictated by: Oswaldo Mcgregor M.D. 08/25/2024 3:45 PM Dictation Location: [facility] [employer] Electronically authenticated by: [id number] Y Date: 08/25/2024 15:45
--- NOTE | 2024-08-25 14:18 | XR_ITS ---
The [address] [address] Patient Name: SATISH PATE MRN: [id number] date: 1980 Sex: F Assigned Patient Location: [facility] Current Patient Location: [facility] Accession/Order Number: [id number] Exam Date: 08/25/2024 15:41 Report Date: 08/25/2024 15:45 At the request of: OSWALDO GARCIA DO Procedure: XR lumbar spine 2-3V 2 views of thoracic spine COMPARISON: None HISTORY: Chronic thoracic and lumbar spine pain. Left sciatica The thoracic kyphosis is adequate. The disc spaces are maintained. Thoracic endplate spurs are present. No compression deformity identified The bony mineralization is adequate. No paraspinal abnormality seen. XR/XR lumbar spine 2-3V IMPRESSION: Thoracic spondylosis. No fracture 2 views lumbar spine Comparison MRI lumbar spine 12/30/2018 Mild straightening. Adequate alignment. Adequate vertebral heights and disc spaces. Mild facet degeneration IMPRESSION: Lower lumbar facet degenerative changes. No acute findings Impression dictated by: Oswaldo Mcgregor M.D. 08/25/2024 3:45 PM Dictation Location: [place] Electronically authenticated by: [id number] Y Date: 08/25/2024 15:45
== END 2024-08-25 13:55 | disposition home or self-care (01) ==
PROVIDERS: PCP Nurse Practitioner Family; Visit Provider Chiropractor
DX: M54.9 Dorsalgia, unspecified (principal); M51.34 Other intervertebral disc degeneration, thoracic region; M51.369 Other intervertebral disc degeneration, lumbar region without mention of lumbar back pain or lower extremity pain
CPT/HCPCS: 72070; 72100

== ENCOUNTER 2024-10-12 15:47 | Outpatient (REF) | payer OTHER, SELFPAY ==
--- OUTSIDE RECORDS SUMMARY | 2024-01-08 04:00 | XMS_ITS | Encounter Summary ---
Author Name [facility] [place] [facility] [place] Address [address] [place] [address] Care Team Providers Care Supervisor Unloading Name Role Phone JULIETA ALCALA [facility] Insurance Providers: All historical and current Section Date Range: From patient's date of to the date document was created. This section includes the names of all active insurance providers for the patient. Insurance Provider Type of Coverage Plan Name Start of Policy Coverage End of Policy Coverage Group Number Member ID Insurance Provider's Telephone Number Policy Damico's Name Patient's Relationship to Policy Damico [employer] [place] ([id number]) PRESCRIPT ION N[place] POST[place] L Feb 26, 2024 [id number] [phone] SATISH PAREKH PATIENT [employer] PREFERRED PROVIDER ORGANIZAT ION (PPO) NALC POSTA L Feb 26, 2024 [id number] SATISH PAREKH PATIENT [facility] NALC POSTA L Feb 26, 2024 [id number] SATISH PAREKH PATIENT Selected Encounter This section includes the information on record at [place] for the Encounter. Date/Time Encounter Type Encounter Description Reason Provider Source Jan 08, 2024 08:00 AM OFFICE O/P [place] [facility] ICD-10-CM M25.572 Pain in left ankle and joints of left foot AZEEM CORDERO E Encounter Template Text not used by [place] Assessments - Encounter Diagnoses This section includes the primary and secondary diagnoses documented for the Encounter. Date/Time Primary/Secondary Diagnosis Diagnosis Name Provider Source Jan 13, 2024 06:57 AM PRIMARY Pain in left ankle and joints of left foot AZEEM CORDERO [facility] Plan of Treatment: Future Appointments (+ 6 months) and Future Tests (+/- 45 days) The Plan of Treatment section includes future care activities for the patient from all [place] treatmentfacilities. This section includes future appointments and future orders which are active, pending or scheduled. Future Appointments This section includes appointments that were scheduled to occur 6 months from the date of the Encounter, up to a maximum of 20 appointments. The data comes from all [place] treatment facilities. Appointment Date/Time Appointment Type Appointme nt Facility Name Jan 16, 2024 08:45 AM AMBULATORY - NONE [facility] Jan 20, 2024 09:30 AM AMBULATORY - PSYCHIATRY [facility] Feb 03, 2024 09:00 AM AMBULATORY - NONE [facility] Feb 03, 2024 09:40 AM AMBULATORY - NONE [facility] Feb 03, 2024 02:30 PM AMBULATORY - PSYCHIATRY CL [facility] Mar 05, 2024 03:00 PM AMBULATORY - NONE [facility] Mar 06, 2024 08:30 AM AMBULATORY - PSYCHIATRY CL [facility] Mar 06, 2024 03:00 PM AMBULATORY - PSYCHIATRY CL [facility] Apr 01, 2024 09:30 AM AMBULATORY - NONE [facility] Apr 09, 2024 09:30 AM AMBULATORY - PSYCHIATRY CL [facility] Apr 09, 2024 10:30 AM AMBULATORY - SURGERY [facility] Apr 13, 2024 10:30 AM AMBULATORY - NONE [facility] Apr 27, 2024 09:30 AM AMBULATORY - PSYCHIATRY CL [facility] May 05, 2024 02:30 PM AMBULATORY - PSYCHIATRY [facility] May 21, 2024 10:30 AM AMBULATORY - NONE [facility] Jun 16, 2024 09:00 AM AMBULATORY - PSYCHIATRY CL [facility] June 30, 2024 08:00 AM AMBULATORY - PSYCHIATRY CL [facility] June 30, 2024 08:30 AM AMBULATORY - NONE [facility] July 07, 2024 08:30 AM AMBULATORY - NONE [facility] Radiology Reports: +/- 30 days of the encounter Radiology Reports For cases when an order for radiology services may have been completed prior to the date of the Encounter, the report list includes the Radiology Reports that were completed up to 30 days before dateof the Encounter. For cases when an order for radiology services may have been completed after the date of the Encounter, the report list also includes the Radiology Reports that were completed up to30 days after date of the Encounter. The data comes from all [place] treatment facilities. Date/Time Radiology Report Provider Source Feb 03, 2024 09:43 AM LUMBOSACRAL SPINE, 2 OR 3 VIEWS: SATISH PATE [id number] -1980 F Exm Date: FEB 03, 2024@09:43 Req Phys: JESSICA ENRIQUEZ Loc: [facility] PAIN SPINE [facility] 4 NEW (Req' Img Loc: [facility] Service: Unknown Screen: Patient [place] [address] (Case [id number] COMPLETE) LUMBOSACRAL SPINE, 2 OR 3 VIEWS (RAD Detailed) CPT:37332 Reason for Study: back pain Clinical History: [address] [place] [address] Report Status: Verified Date Reported: FEB 03, 2024 Date Verified: FEB 03, 2024 Apartment Leasing Manager E-Sig:/ES/BOBBY LOPEZ Report: Lumbar spine 3 views The pedicles and sacroiliac joints are intact. Disc spaces maintained. Vertebral bodies appear intact. No compression fracture or spondylolisthesis. Ventral deviation of the coccyx. It is not clear if this is related to old trauma or developmental variation. Impression: No significant radiographic abnormality in the lumbar spine. Finalized by BOBBY LOPEZ MD On 02/03/2024 11:52 AM Primary Diagnostic Code: Primary Interpreting Staff: BOBBY LOPEZ, RADIOLOGIST (Apartment Leasing Manager) /BOBBY AREVALO [facility] Encounter Notes: All associated encounter notes This section contains the clinical notes associated to the Encounter. Date/Time Encounter Note(s) Provider Source Mar 17, 2024 04:13 PM ADDENDUM: LOCAL TITLE: Addendum STANDARD TITLE: ADDENDUM DATE OF NOTE: MAR 17, 2024@16:13:09 ENTRY DATE: MAR 17, 2024@16:13:10 AUTHOR: AZEEM CORDERO EXP COSIGNER: URGENCY: STATUS: COMPLETED [place] discussed with Dr. Brown today secondary to concerns about complex regional pain syndrome. RTC order placed for a uddf-up-[id number] appointment for further evaluation. Appreciate Dr. Brown's input. /es/ AZEEM CORDERO PHYSICIAN Signed: 03/17/2024 16:14 Receipt Acknowledged By: 03/26/2024 10:32 /es/ JESSICA ENRIQUEZ CHIROPRACTOR 03/17/2024 16:22 /brenda/ WAYNE BROWN SKILLED LABOR ====== --- Original Document --- 01/08/24 PAIN MANAGEMENT CHRONIC PAIN CONSULTATION NOTE (C): CC: Chronic left foot and ankle pain HPI: I saw Satish as an initial patient valuation in my pain [facility] clinic on 01/08/2024. 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 Walker), anxiety, depression, and other conditions who presents with chronic left foot and ankle pain. Pedal complaints are chronic, started in boot [employer]. Recently had nonVA care with Dr. Walker, a payable representative in [facility]. Initially performed injections x 3 for her plantar fasciitis, with no benefit. Went on to perform surgery October 2021initially was beneficial, but now the pain has returned. She has since transferred her podiatric care to the [facility], she sees Dr. Brown in [place]. Pain Location/N&T/Onset - pain left foot/left anklespecifically left lateral ankle instability with lateral foot, also top of the foot, left heel/distal Achilles/sole of foot. States her left calf is tight. At times the left #5 toe is numb. Chronic condition, started in [employer]. Worse/Better/Character - pain is worse in the mornings, with walking, better when she sits down. Characterizes the pain as all of it . Current treatments - meloxicam 7.5 mg daily, HEP - makes things worse, outsourced for acupunctureoutgoingprovides a couple hours relief, diclofenac gel Past Treatments - physical therapymade things worse, plantar fascia injections x 3 - Dr. Walker - no benefit, left plantar fascia surgery - Dr. Walker - 2021, initial benefit, but pain returned. PMH - chronic left foot/ankle pain (since boot camp), left plantar fasciitis, anxiety, insomnia PSH - left plantar fascia surgery - Dr. Walker - nonVA ([facility])2021, initial benefit, but pain returned. 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 Referred to us by her payable representative, Dr. Brown, who mentions acupuncture in the consult. I told Satish, I suspect the greatest chances for success are with Dr. Brown's care. Best treatments for her plantar fasciitis are to continue taking an NSAID, icing, consider an Achilles stretcher. Possibly an ankle brace for her other conditions. 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 1. VVC 2. NSAIDs - replace the meloxicam with the etodolac. Etodolac - prescribed - 400 mg Q12H PRN for pain. Take with food, do not take with any other NSAIDs. 3. acupuncture -she has already been outsourced for this, she had a few sessions, states it provided a few hours of relief. She will also see a Dr. Enriquez, our chiropractor/registered nurse renal in [place] - 02/02I reminded her of the visit. 4. podiatry-I recommend she reconnect with Dr. Brown, suspect greatest chance for success with her care. Suggested she discuss an ankle brace. Also, consider an Achilles stretcher for her plantar fasciitis. Unclear if MRI imaging would be of any benefit. 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 She tells me she needs to work 17 more years to get a full fci, she is concerned she may have to retire early. 6. RTC - PRN Video to Home Appointment: Patient has consented to receive this care via video to home and confirmed physical location is as listed in patient demographics within [facility]. Patient has consented to receive this care by telehealth and provided/confirmed his or her current location and phone number. ADDITIONAL INFORMATION: E911: For emergencies, provider may initiate the call to first officer and flight instructor by calling [facility] [phone] Crisis Hotline [phone] and push 1 [employer] Help Desk ([employer]): [phone] or [phone] I am the Attending Physician. ===== MEDICATION RECONCILIATION MEDICATION RECONCILIATION REPORT reviewed and discussed with patient. [place] prescription medications: Patient verifies that they are in receipt of a complete and accurate list of medications. TOTAL TIME SPENT: Spent 70 minutes in care of this patient today including review of records, exam, and placing orders. Suicide Screen: C-SSRS Screening Waterfall-Suicide Severity Rating Scale (C-SSRS Screener) 1. Over the past month, have you wished you were or wished you could go to sleep and not wake up? No 2. Over the past month, have you had any actual thoughts of killing yourself? No 3. Over the past month, have you been thinking about how you might do this? Response not required due to responses to other questions. 4. Over the past month, have you had these thoughts and had some intention of acting on them? Response not required due to responses to other questions. 5. Over the past month, have you started to work out or worked out the details of how to kill yourself? Response not required due to responses to other questions. 6. If yes, at any time in the past month did you intend to carry out this plan? Response not required due to responses to other questions. 7. In your lifetime, have you ever done anything, started to do anything, or prepared to do anything to end your life (for example, collected pills, obtained a gun, gave away valuables, went to the roof but didn't jump)? No 8. If YES, was this within the past 3 months? Response not required due to responses to other questions. /brenda/ AZEEM CORDERO PHYSICIAN Signed: 01/16/2024 00:43 Receipt Acknowledged By: 02/17/2024 10:20 /es/ WAYNE BROWN SKILLED LABOR AZEEM CORDERO [facility] Jan 08, 2024 08:24 AM PAIN MEDICINE NOTE: LOCAL TITLE: PAIN MANAGEMENT CHRONIC PAIN CONSULTATION NOTE (C) STANDARD TITLE: PAIN MEDICINE NOTE DATE OF NOTE: JAN 08, 2024@08:24 ENTRY DATE: JAN 08, 2024@08:24:17 AUTHOR: AZEEM CORDERO EXP COSIGNER: URGENCY: STATUS: COMPLETED PAIN MANAGEMENT CHRONIC PAIN CONSULTATION NOTE (C) Has ADDENDA CC: Chronic left foot and ankle pain HPI: I saw Satish as an initial patient valuation in my pain [facility] clinic on 01/08/2024. 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 Walker), anxiety, depression, and other conditions who presents with chronic left foot and ankle pain. Pedal complaints are chronic, started in boot [employer]. Recently had nonVA care with Dr. Walker, a payable representative in [facility]. Initially performed injections x 3 for her plantar fasciitis, with no benefit. Went on to perform surgery October 2021initially was beneficial, but now the pain has returned. She has since transferred her podiatric care to the [facility], she sees Dr. Brown in [place]. Pain Location/N&T/Onset - pain left foot/left anklespecifically left lateral ankle instability with lateral foot, also top of the foot, left heel/distal Achilles/sole of foot. States her left calf is tight. At times the left #5 toe is numb. Chronic condition, started in [employer]. Worse/Better/Character - pain is worse in the mornings, with walking, better when she sits down. Characterizes the pain as all of it . Current treatments - meloxicam 7.5 mg daily, HEP - makes things worse, outsourced for acupunctureoutgoingprovides a couple hours relief, diclofenac gel Past Treatments - physical therapymade things worse, plantar fascia injections x 3 - Dr. Walker - no benefit, left plantar fascia surgery - Dr. Walker - 2021, initial benefit, but pain returned. PMH - chronic left foot/ankle pain (since boot camp), left plantar fasciitis, anxiety, insomnia PSH - left plantar fascia surgery - Dr. Walker - [place] ([facility])2021, initial benefit, but pain returned. C-sections, hysterectomy, lysis of adhesions Allergies - NKDA Medications - Active Outpatient Medications (including Supplies): Active Outpatient Medications Status = 1) DICLOFENAC NA 1% TOP GEL APPLY 2GM MEASURED ON ACTIVE DOSING CARD EXTERNALLY TWICE A DAY (GENTLY MASSAGE INTO SKIN - TOTAL BODY MAX 32GM PER DAY) *FLAMMABLE: KEEP AWAY FROM HEAT AND FLAMES* LEFT ANKLE PAIN Active Non-VA Medications Status = 1) Non-VA LACTOBACILLUS ACIDOPHILUS CHEW TAB 2 TABLETS ACTIVE BY MOUTH EVERY DAY 2) Non-VA MULTIVITAMINS W/IRON TAB,CHEWABLE 2 TABLETS BY ACTIVE MOUTH EVERY DAY - [place] - 4 yrs, E-4 She does not smoke, social alcohol, no illegal drugs. 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 Referred to us by her payable representative, Dr. Brown, who mentions acupuncture in the consult. I told Satish, I suspect the greatest chances for success are with Dr. Brown's care. Best treatments for her plantar fasciitis are to continue taking an NSAID, icing, consider an Achilles stretcher. Possibly an ankle brace for her other conditions. 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 1. VVC 2. NSAIDs - replace the meloxicam with the etodolac. Etodolac - prescribed - 400 mg Q12H PRN for pain. Take with food, do not take with any other NSAIDs. 3. acupuncture -she has already been outsourced for this, she had a few sessions, states it provided a few hours of relief. She will also see a Dr. Enriquez, our chiropractor/registered nurse renal in [place] - 02/02I reminded her of the visit. 4. podiatry-I recommend she reconnect with Dr. Brown, suspect greatest chance for success with her care. Suggested she discuss an ankle brace. Also, consider an Achilles stretcher for her plantar fasciitis. Unclear if MRI imaging would be of any benefit. 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 She tells me she needs to work 17 more years to get a full fci, she is concerned she may have to retire early. 6. RTC - PRN Video to Home Appointment: Patient has consented to receive this care via video to home and confirmed physical location is as listed in patient demographics within [facility]. Patient has consented to receive this care by telehealth and provided/confirmed his or her current location and phone number. ADDITIONAL INFORMATION: E911: For emergencies, provider may initiate the call to first officer and flight instructor by calling [facility] [phone] Crisis Hotline [phone] and push 1 [employer] Help Desk ([employer]): [phone] or [phone] I am the Attending Physician. ===== MEDICATION RECONCILIATION MEDICATION RECONCILIATION REPORT reviewed and discussed with patient. [place] prescription medications: Patient verifies that they are in receipt of a complete and accurate list of medications. TOTAL TIME SPENT: Spent 70 minutes in care of this patient today including review of records, exam, and placing orders. Suicide Screen: C-SSRS Screening Waterfall-Suicide Severity Rating Scale (C-SSRS Screener) 1. Over the past month, have you wished you were or wished you could go to sleep and not wake up? No 2. Over the past month, have you had any actual thoughts of killing yourself? No 3. Over the past month, have you been thinking about how you might do this? Response not required due to responses to other questions. 4. Over the past month, have you had these thoughts and had some intention of acting on them? Response not required due to responses to other questions. 5. Over the past month, have you started to work out or worked out the details of how to kill yourself? Response not required due to responses to other questions. 6. If yes, at any time in the past month did you intend to carry out this plan? Response not required due to responses to other questions. 7. In your lifetime, have you ever done anything, started to do anything, or prepared to do anything to end your life (for example, collected pills, obtained a gun, gave away valuables, went to the roof but didn't jump)? No 8. If YES, was this within the past 3 months? Response not required due to responses to other questions. /brenda/ AZEEM CORDERO PHYSICIAN Signed: 01/16/2024 00:43 Receipt Acknowledged By: 02/17/2024 10:20 /brenda/ WAYNE BROWN SKILLED LABOR 03/17/2024 ADDENDUM STATUS: COMPLETED [place] discussed with Dr. Brown today secondary to concerns about complex regional pain syndrome. RTC order placed for a qsii-aq-atyx appointment for further evaluation. Appreciate Dr. Brown's input. /brenda/ AZEEM CORDERO PHYSICIAN Signed: 03/17/2024 16:14 Receipt Acknowledged By: * AWAITING SIGNATURE * JESSICA ENRIQUEZ * AWAITING SIGNATURE * WAYNE BROWN [facility]
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
--- OUTSIDE RECORDS SUMMARY | 2024-02-03 05:00 | XMS_ITS | Encounter Summary ---
Author Name [facility] [place] [facility] Address [address] [place] [address] Care Team Providers Care Rocket Assembly Operator Name Role Phone JULIETA ALCALA Primary [facility] Insurance Providers: All historical and current [...] Damico's Name Patient's Relationship to Policy Damico CAREMENIFEE ([id number]) PRESCRIPT ION [facility] POSTA L Feb 26, 2024 [id number] [phone] SHANI PAREKH PATIENT [employer] PREFERRED PROVIDER ORGANIZAT ION (PPO) [facility] L Feb 26, 2024 [id number] [phone] SHANI PAREKH PATIENT [facility] Feb 26, 2024 [id number] SHANI PAREKH PATIENT Selected Encounter This section includes the information on record at [place] for the Encounter. Date/Time Encounter Type Encounter Description Reason Provider Source Feb 03, 2024 09:00 AM CHIROPRACT MANJ 3-4 [employer] ICD-10-CM M25.572 Pain in left ankle and joints of left foot BERKI,JESSICA D IHE Encounter Template Text not used by [place] Assessments - Encounter Diagnoses This section includes the primary and secondary diagnoses documented for the Encounter. Date/Time Primary/Secondary Diagnosis Diagnosis Name Provider Source Feb 03, 2024 01:20 PM PRIMARY Pain in left ankle and joints of left foot JESSICA ENRIQUEZ [facility] Plan of Treatment: Future Appointments (+ 6 months) and Future Tests (+/- 45 days) The Plan of Treatment section includes future care activities for the patient from all [place] [facility] This section includes future appointments and future orders which are active, pending or scheduled. Future Appointments This section includes appointments that were scheduled to occur 6 months from the date of the Encounter, up to a maximum of 20 appointments. The data comes from all [place] treatment facilities. Appointment Date/Time Appointment Type Appointme nt Facility Name Mar 05, 2024 03:00 PM AMBULATORY - NONE [facility] Mar 06, 2024 08:30 AM AMBULATORY - PS[facility]IATRY [facility] Mar 06, 2024 03:00 PM AMBULATORY - PSYCHIATRY CL [facility] Apr 01, 2024 09:30 AM AMBULATORY - NONE [facility] Apr 09, 2024 09:30 AM AMBULATORY - PSYCHIATRY CL [facility] Apr 09, 2024 10:30 AM AMBULATORY - SURGERY [facility] Apr 13, 2024 10:30 AM AMBULATORY - NONE [facility] Apr 27, 2024 09:30 AM AMBULATORY - PSYCHIATRY CL [facility] May 05, 2024 02:30 PM AMBULATORY - PS[facility]RY [facility] May 21, 2024 10:30 AM AMBULATORY - NONE [facility] Jun 16, 2024 09:00 AM AMBULATORY - PSYCHIATRY CL [facility] June 30, 2024 08:00 AM AMBULATORY - PSYCHIATRY CL [facility] June 30, 2024 08:30 AM [facility]ORY - NONE [facility] July 07, 2024 08:30 AM AMBULATORY - NONE [facility] July 09, 2024 08:30 AM AMBULATORY - SURGERY [facility] July 22, 2024 08:30 AM AMBULATORY - NONE [facility] Radiology Reports: +/- 30 days of the [...] the Encounter. The data comes from all [place] treatment facilities. Date/Time Radiology Report Provider Source Feb 03, 2024 09:43 AM LUMBOSACRAL SPINE, 2 OR 3 VIEWS: SHANI PATE [id number] [id number] F Exm Date: FEB 03, 2024@09:43 Req Phys: JESSICA ENRIQUEZ Loc: PRM PAIN SPINE [facility] 4 NEW (Req' Img Loc: [facility] Service: Unknown Screen: Patient answered [place] [address] (Case [id number] COMPLETE) LUMBOSACRAL SPINE, 2 OR 3 VIEWS (RAD Detailed) CPT:40825 Reason for Study: back pain Clinical History: [address] [facility] [place] [id number] Report Status: Verified Date Reported: FEB 03, 2024 Date Verified: FEB 03, 2024 Dental Officer E-Sig:/ES/BOBBY LOPEZ Report: Lumbar spine 3 views [...] Code: Primary Interpreting Staff: BOBBY LOPEZ, RADIOLOGIST (Dental Officer) /BOBBY [facility] Encounter Notes: All associated encounter notes This section contains the clinical notes associated to the Encounter. Date/Time Encounter Note(s) Provider Source Mar 12, 2024 11:05 PM ADDENDUM: LOCAL TITLE: Addendum STANDARD TITLE: ADDENDUM DATE OF NOTE: MAR 12, 2024@23:05:28 ENTRY DATE: MAR 12, 2024@23:05:28 AUTHOR: AZEEM CORDERO EXP COSIGNER: URGENCY: STATUS: COMPLETED I have seen the once, in video clinic, December 2023. She presented with chronic(20+ yr) diffuse ankle/foot pain. Pain - left lateral ankle with reported instability, top of left foot, distal Achilles/left heel/into the sole of the foot. Differential diagnoses includes - plantar fasciitis versus Achilles tendinitis versus ankle instability Complex regional pain syndrome is a rare condition. She did not demonstrate any color difference nor swelling, unable to assess for temperature difference nor allodynia in video clinic. It is a neuropathic pain, often described as burning. When I asked Shani to characterize the pain, she said all of it - meaning all of the adjectives I mentioned. If there are concerns for complex regional pain syndrome, needs to have a [id number] appointment with me. Video appointment is not adequate. Please advise, and we will schedule the for a [id number] appointment. Instant message sent to Dr. Brown to further discuss. /es/ AZEEM CORDERO PHYSICIAN Signed: 03/12/2024 23:11 Receipt Acknowledged By: 03/13/2024 12:35 /es/ JESSICA ENRIQUEZ CHIROPRACTOR 03/17/2024 16:05 /es/ WAYNE BROWN SENIOR TELLER ==== --- Original Document --- 02/03/24 PAIN MANAGEMENT CHRONIC PAIN FOLLOW-UP NOTE (T): HISTORY: HERLINDASHANI FAIR is a 43 FEMALE who presents to the [facility] on 02/03/24 09:00 with a chief complaint of chronic left foot / ankle pain, peritoneal tendinitis along with plantar fascitis. 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 notes that she is utilizing orthotics, and has for some time along with good supportive shoes. 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 She stretches, uses cold compresses as well as diflucenac cream twice daily. She feels like the surgery, plantar fasciitis nonVA surgery (2021 Dr. Walker), has lost its benefit and she is upset about that. anxiety, depression, and other conditions who presents with chronic left foot and ankle pain. Referring Physician: Law Cordero Consult date:02/03/2024 Patient denies bowel/bladder dysfunction. No ominous elements of patient history regarding night sweats, that interferes with restful nocturnal sleep or unexplained weight loss. Numeric Rating Scale: 6/10 PMH: ACTIVE PROBLEM Panic 01/21/2024 Anxiety 01/21/2024 Pain of left ankle joint 07/08/2023 EXAM: The patient stands a reported 62.5 in [158.8 cm] (07/08/2023 13:23) Listed weight of 150 lb [68.04 kg] (07/08/2023 13:23). BMI: 27.1 VS: P: 66 (07/08/2023 13:23) R: 16 (07/08/2023 13:23) BP: 129/65 (07/08/2023 13:23) Distal Pulses @ radial arteries rate 2/4 (B). Radiology: Extraspinal regional plain films were reviewed. Will order lumbar spine images. Limited range of motion involving the left foot and ankle. Severe pain to palpation of the plantar fascia as well ashte peritoneal tendons and the achilles tendon. the left foot feels cold compared to the right. RANGE OF MOTION: CERVICAL (obs) Flexion: 50/50 Pain [ ] Extension: 50/60 Pain [ ] L Rotation: 70/80 Pain [ ] R Rotation: 70/80 Pain [ ] L Lat.Flex: 38/45 Pain [ ] R Lat.Flex: 34/45 Pain [ ] Upper extremity neurological evaluation: Motor strength graded 5/5 C5-T1 DTR's at C5-C7 graded 2+/2+ Sensation intact to light touch C5-T1 Moe's (-) Cervical Provocative Maneuvers Regarding Pain Generator: Valsalva Maneuver: (-) Cervical Compression:(-) Ovi Compression Test: (-) Maximal Foraminal Compression Test: [ ] Cervical Distraction: (+) alleviates RANGE OF MOTION: LUMBAR (obs) Flexion: 75/90 Pain [ ] Extension: 24/30 Pain [ ] L Lat.Flex: 16/20 Pain [ ] R Lat.Flex: 16/20 Pain [ ] Lower extremity neurological evaluation: Motor strength graded 5/5 L4-S1 (B) DTR's at L4 & S1 graded 2+/2+ (B) Sensation intact to light touch L4-S1 (B) No clonus appreciated upon ankle dorsiflexion. Denies calf tenderness (B) Lumbar Provocative Maneuvers Regarding Pain Generator: Valsalva Maneuver:(-) Minor's Sign: (-) Slump Sitting Test: (-) Slump w/ Compression Sitting Test: (-) Seated Straight Leg Raising Test: (-) Standing Hardin's Test: (+)LEFT Straight Leg Raising Test:(-) tight in hamstrings as well as the lower back Degrees R: 90 L: 90 Bragard's Sign: (-) Prone Knee Bending:(+) BILATERAL Heel Drop Test: (-) Direct S-I palpation (+)BILATERAL Soft tissue palpation reveals Marked tenderness in the peritoneal muscles as well as the ant TFL and the foot extensor tendons. Spinal motion palpation reveals Intersegmental Dysfunction of: [ ] Cervical spine [ ] Thoracic spine (+) Lumbar spine ASSESSMENT/IMPRESSION: Plantar fascitis and perineal tendinitis. PLAN/PT EDUCATION: I explained all of this to the patient and the patient seemed to understand. Treatment options from least invasive to most with the associated risks, benefits, alternatives, and potential outcomes were discussed in detail. Discussed potential role and limitations of chiropractic Tx in management of this condition. Informed consent obtained to provide chiropractic management consisting of myofascial release/passive stretching, thoracic/cervical spinal manipulation, lumbar F/D decompression manipulation, SMT in lateral decubitus posture, S-I drop and home exercise instruction at a frequency of 1X/wk. It was explained to the patient that resolution of soft tissue complaints through chiropractic management requires compliance with at home recommendations and avoidance of aggravating factors. P: [ ] Cervical SMT [X] Thoracic SMT [ ] Coupled lumbar F/D decompression manipulation incorporating flexion coupled with lateral bending (circumduction) [X] Lumbar SMT in lateral decubitus posture [ ] ) S-I drop with table assist x0 [ ] MSTM/MFR/Ischemic Compression () [ ] Instrument Assisted Soft Tissue Manipulation [ ] Upper Extremity Stretching [X] Very sensitive to touch and unable to mobilize Lower Extremity Stretching (quadriceps, hip flexors, hamstrings) Next appointment:Mar It is recommended that the patient continue with the acu treatments through the treatment program. Abbreviations: REFORMATORY ATTENDANT = Neck Pain IR = Infrared HEP = Home Exercise Program MBP = Mid Back Pain MFR = Myofascial Release LBP = Low Back Pain Tx = Treatment MEDICATION RECONCILIATION MEDICATION RECONCILIATION REPORT reviewed and discussed with patient. [place] medications: Patient verifies that they are [...] list of medications. TOTAL TIME SPENT: Spent 30 minutes in care of this patient today including review of records, exam, and placing orders. /brenda/ JESSICA ENRIQUEZ CHIROPRACTOR Signed: 02/03/2024 13:20 03/12/2024 ADDENDUM STATUS: COMPLETED I spoke teresa orona e commerce marketing analyst and we discussed possibility of CRPS. Did you think that may be a possibility? /brenda/ JESSICA ENRIQUEZ CHIROPRACTOR Signed: 03/12/2024 13:21 Receipt Acknowledged By: * AWAITING SIGNATURE * AZEEM CORDERO [facility] Mar 12, 2024 01:19 PM ADDENDUM: LOCAL TITLE: Addendum STANDARD TITLE: ADDENDUM DATE OF NOTE: MAR 12, 2024@13:19:58 ENTRY DATE: MAR 12, 2024@13:19:59 AUTHOR: JESSICA ENRIQUEZ EXP COSIGNER: URGENCY: STATUS: COMPLETED I spoke teresa orona e commerce marketing analyst and we discussed possibility of CRPS. Did you think that may be a possibility? /brenda/ JESSICA ENRIQUEZ CHIROPRACTOR Signed: 03/12/2024 13:21 Receipt Acknowledged By: 03/17/2024 16:12 /brenda/ AZEEM CORDERO PHYSICIAN ==== --- Original Document --- 02/03/24 PAIN MANAGEMENT CHRONIC PAIN FOLLOW-UP NOTE (T): HISTORY: SHANI PATE is a 43 FEMALE who presents to the [facility] on 02/03/24 09:00 with a chief complaint of chronic left foot / ankle pain, peritoneal tendinitis along with plantar fascitis. 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 notes that she is utilizing orthotics, and has for some time along with good supportive shoes. 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 She stretches, uses cold compresses as well as diflucenac cream twice daily. She feels like the surgery, plantar fasciitis nonVA surgery (2021 Dr. Walker), has lost its benefit and she is upset about that. anxiety, depression, and other conditions who presents with chronic left foot and ankle pain. Referring Physician: Law Cordero Consult date:02/03/2024 Patient denies bowel/bladder dysfunction. No ominous elements of patient history regarding night sweats, that interferes with restful nocturnal sleep or unexplained weight loss. Numeric Rating Scale: 6/10 PMH: ACTIVE PROBLEM Panic 01/21/2024 Anxiety 01/21/2024 Pain of left ankle joint 07/08/2023 EXAM: The patient stands a reported 62.5 in [158.8 cm] (07/08/2023 13:23) Listed weight of 150 lb [68.04 kg] (07/08/2023 13:23). BMI: 27.1 VS: P: 66 (07/08/2023 13:23) R: 16 (07/08/2023 13:23) BP: 129/65 (07/08/2023 13:23) Distal Pulses @ radial arteries rate 2/4 (B). Radiology: Extraspinal regional plain films were reviewed. Will order lumbar spine images. Limited range of motion involving the left foot and ankle. Severe pain to palpation of the plantar fascia as well ashte peritoneal tendons and the achilles tendon. the left foot feels cold compared to the right. RANGE OF MOTION: CERVICAL (obs) Flexion: 50/50 Pain [ ] Extension: 50/60 Pain [ ] L Rotation: 70/80 Pain [ ] R Rotation: 70/80 Pain [ ] L Lat.Flex: 38/45 Pain [ ] R Lat.Flex: 34/45 Pain [ ] Upper extremity neurological evaluation: Motor strength graded 5/5 C5-T1 DTR's at C5-C7 graded 2+/2+ Sensation intact to light touch C5-T1 Moe's (-) Cervical Provocative Maneuvers Regarding Pain Generator: Valsalva Maneuver: (-) Cervical Compression:(-) Ovi Compression Test: (-) Maximal Foraminal Compression Test: [ ] Cervical Distraction: (+) alleviates RANGE OF MOTION: LUMBAR (obs) Flexion: 75/90 Pain [ ] Extension: 24/30 Pain [ ] L Lat.Flex: 16/20 Pain [ ] R Lat.Flex: 16/20 Pain [ ] Lower extremity neurological evaluation: Motor strength graded 5/5 L4-S1 (B) DTR's at L4 & S1 graded 2+/2+ (B) Sensation intact to light touch L4-S1 (B) No clonus appreciated upon ankle dorsiflexion. Denies calf tenderness (B) Lumbar Provocative Maneuvers Regarding Pain Generator: Valsalva Maneuver:(-) Minor's Sign: (-) Slump Sitting Test: (-) Slump w/ Compression Sitting Test: (-) Seated Straight Leg Raising Test: (-) Standing Hardin's Test: (+)LEFT Straight Leg Raising Test:(-) tight in hamstrings as well as the lower back Degrees R: 90 L: 90 Bragard's Sign: (-) Prone Knee Bending:(+) BILATERAL Heel Drop Test: (-) Direct S-I palpation (+)BILATERAL Soft tissue palpation reveals Marked tenderness in the peritoneal muscles as well as the ant TFL and the foot extensor tendons. Spinal motion palpation reveals Intersegmental Dysfunction of: [ ] Cervical spine [ ] Thoracic spine (+) Lumbar spine ASSESSMENT/IMPRESSION: Plantar fascitis and perineal tendinitis. PLAN/PT EDUCATION: I explained all of this to the patient and the patient seemed to understand. Treatment options from least invasive to most with the associated risks, benefits, alternatives, and potential outcomes were discussed in detail. Discussed potential role and limitations of chiropractic Tx in management of this condition. Informed consent obtained to provide chiropractic management consisting of myofascial release/passive stretching, thoracic/cervical spinal manipulation, lumbar F/D decompression manipulation, SMT in lateral decubitus posture, S-I drop and home exercise instruction at a frequency of 1X/wk. It was explained to the patient that resolution of soft tissue complaints through chiropractic management requires compliance with at home recommendations and avoidance of aggravating factors. P: [ ] Cervical SMT [X] Thoracic SMT [ ] Coupled lumbar F/D decompression manipulation incorporating flexion coupled with lateral bending (circumduction) [X] Lumbar SMT in lateral decubitus posture [ ] ) S-I drop with table assist x0 [ ] MSTM/MFR/Ischemic Compression () [ ] Instrument Assisted Soft Tissue Manipulation [ ] Upper Extremity Stretching [X] Very sensitive to touch and unable to mobilize Lower Extremity Stretching (quadriceps, hip flexors, hamstrings) Next appointment:Mar It is recommended that the patient continue with the acu treatments through the treatment program. Abbreviations: REFORMATORY ATTENDANT = Neck Pain IR = Infrared HEP = Home Exercise Program MBP = Mid Back Pain MFR = Myofascial Release LBP = Low Back Pain Tx = Treatment MEDICATION RECONCILIATION MEDICATION RECONCILIATION REPORT reviewed and discussed with patient. [place] prescription medications: Patient verifies that they are [...] list of medications. TOTAL TIME SPENT: Spent 30 minutes in care of this patient today including review of records, exam, and placing orders. /brenda/ JESSICA ENRIQUEZ CHIROPRACTOR Signed: 02/03/2024 13:20 03/12/2024 ADDENDUM STATUS: COMPLETED I have seen the once, in video clinic, December 2023. She presented with chronic(20+ yr) diffuse ankle/foot pain. Pain - left lateral ankle with reported instability, top of left foot, distal Achilles/left heel/into the sole of the foot. Differential diagnoses includes - plantar fasciitis versus Achilles tendinitis versus ankle instability Complex regional pain syndrome is a rare condition. She did not demonstrate any color difference nor swelling, unable to assess for temperature difference nor allodynia in video clinic. It is a neuropathic pain, often described as burning. When I asked Shani to characterize the pain, she said all of it - meaning all of the adjectives I mentioned. If there are concerns for complex regional pain syndrome, needs to have a dczh-pe-aiol appointment with me. Video appointment is not adequate. Please advise, and we will schedule the for a [id number] appointment. Instant message sent to Dr. Brown to further discuss. /brenda/ AZEEM CORDERO PHYSICIAN Signed: 03/12/2024 23:11 Receipt Acknowledged By: 03/13/2024 12:35 /brenda/ JESSICA ENRIQUEZ CHIROPRACTOR 03/17/2024 16:05 /brenda/ WAYNE BROWN SENIOR TELLER JESSICA ENRIQUEZ [facility] Feb 03, 2024 09:23 AM PAIN MEDICINE NOTE : LOCAL TITLE: PAIN MANAGEMENT CHRONIC PAIN FOLLOW-UP NOTE (T) STANDARD TITLE: PAIN MEDICINE NOTE DATE OF NOTE: FEB 03, 2024@09:23 ENTRY DATE: FEB 03, 2024@09:23:14 AUTHOR: JESSICA ENRIQUEZ EXP COSIGNER: URGENCY: STATUS: COMPLETED PAIN MANAGEMENT CHRONIC PAIN FOLLOW-UP NOTE (T) Has ADDENDA HISTORY: SHANI PATE is a 43 FEMALE who presents to the [facility] on 02/03/24 09:00 with a chief complaint of chronic left foot / ankle pain, peritoneal tendinitis along with plantar fascitis. 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 notes that she is utilizing orthotics, and has for some time along with good supportive shoes. 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 She stretches, uses cold compresses as well as diflucenac cream twice daily. She feels like the surgery, plantar fasciitis nonVA surgery (2021 Dr. Walker), has lost its benefit and she is upset about that. anxiety, depression, and other conditions who presents with chronic left foot and ankle pain. Referring Physician: Law Cordero Consult date:02/03/2024 Patient denies bowel/bladder dysfunction. No ominous elements of patient history regarding night sweats, that interferes with restful nocturnal sleep or unexplained weight loss. Numeric Rating Scale: 6/10 PMH: ACTIVE PROBLEM Panic 01/21/2024 Anxiety 01/21/2024 Pain of left ankle joint 07/08/2023 EXAM: The patient stands a reported 62.5 in [158.8 cm] (07/08/2023 13:23) Listed weight of 150 lb [68.04 kg] (07/08/2023 13:23). BMI: 27.1 VS: P: 66 (07/08/2023 13:23) R: 16 (07/08/2023 13:23) BP: 129/65 (07/08/2023 13:23) Distal Pulses @ radial arteries rate 2/4 (B). Radiology: Extraspinal regional plain films were reviewed. Will order lumbar spine images. Limited range of motion involving the left foot and ankle. Severe pain to palpation of the plantar fascia as well ashte peritoneal tendons and the achilles tendon. the left foot feels cold compared to the right. RANGE OF MOTION: CERVICAL (obs) Flexion: 50/50 Pain [ ] Extension: 50/60 Pain [ ] L Rotation: 70/80 Pain [ ] R Rotation: 70/80 Pain [ ] L Lat.Flex: 38/45 Pain [ ] R Lat.Flex: 34/45 Pain [ ] Upper extremity neurological evaluation: Motor strength graded 5/5 C5-T1 DTR's at C5-C7 graded 2+/2+ Sensation intact to light touch C5-T1 Moe's (-) Cervical Provocative Maneuvers Regarding Pain Generator: Valsalva Maneuver: (-) Cervical Compression:(-) Ovi Compression Test: (-) Maximal Foraminal Compression Test: [ ] Cervical Distraction: (+) alleviates RANGE OF MOTION: LUMBAR (obs) Flexion: 75/90 Pain [ ] Extension: 24/30 Pain [ ] L Lat.Flex: 16/20 Pain [ ] R Lat.Flex: 16/20 Pain [ ] Lower extremity neurological evaluation: Motor strength graded 5/5 L4-S1 (B) DTR's at L4 & S1 graded 2+/2+ (B) Sensation intact to light touch L4-S1 (B) No clonus appreciated upon ankle dorsiflexion. Denies calf tenderness (B) Lumbar Provocative Maneuvers Regarding Pain Generator: Valsalva Maneuver:(-) Minor's Sign: (-) Slump Sitting Test: (-) Slump w/ Compression Sitting Test: (-) Seated Straight Leg Raising Test: (-) Standing Hardin's Test: (+)LEFT Straight Leg Raising Test:(-) tight in hamstrings as well as the lower back Degrees R: 90 L: 90 Bragard's Sign: (-) Prone Knee Bending:(+) BILATERAL Heel Drop Test: (-) Direct S-I palpation (+)BILATERAL Soft tissue palpation reveals Marked tenderness in the peritoneal muscles as well as the ant TFL and the foot extensor tendons. Spinal motion palpation reveals Intersegmental Dysfunction of: [ ] Cervical spine [ ] Thoracic spine (+) Lumbar spine ASSESSMENT/IMPRESSION: Plantar fascitis and perineal tendinitis. PLAN/PT EDUCATION: I explained all of this to the patient and the patient seemed to understand. Treatment options from least invasive to most with the associated risks, benefits, alternatives, and potential outcomes were discussed in detail. Discussed potential role and limitations of chiropractic Tx in management of this condition. Informed consent obtained to provide chiropractic management consisting of myofascial release/passive stretching, thoracic/cervical spinal manipulation, lumbar F/D decompression manipulation, SMT in lateral decubitus posture, S-I drop and home exercise instruction at a frequency of 1X/wk. It was explained to the patient that resolution of soft tissue complaints through chiropractic management requires compliance with at home recommendations and avoidance of aggravating factors. P: [ ] Cervical SMT [X] Thoracic SMT [ ] Coupled lumbar F/D decompression manipulation incorporating flexion coupled with lateral bending (circumduction) [X] Lumbar SMT in lateral decubitus posture [ ] ) S-I drop with table assist x0 [ ] MSTM/MFR/Ischemic Compression () [ ] Instrument Assisted Soft Tissue Manipulation [ ] Upper Extremity Stretching [X] Very sensitive to touch and unable to mobilize Lower Extremity Stretching (quadriceps, hip flexors, hamstrings) Next appointment:Mar It is recommended that the patient continue with the acu treatments through the treatment program. Abbreviations: REFORMATORY ATTENDANT = Neck Pain IR = Infrared HEP = Home Exercise Program MBP = Mid Back Pain MFR = Myofascial Release LBP = Low Back Pain Tx = Treatment MEDICATION RECONCILIATION MEDICATION RECONCILIATION REPORT reviewed and discussed with patient. [place] prescription medications: Patient verifies that they are [...] list of medications. TOTAL TIME SPENT: Spent 30 minutes in care of this patient today including review of records, exam, and placing orders. /brenda/ JESSICA ENRIQUEZ CHIROPRACTOR Signed: 02/03/2024 13:20 03/12/2024 ADDENDUM STATUS: COMPLETED I spoke wiht t he e commerce marketing analyst and we discussed possibility of CRPS. Did you think that may be a possibility? /brenda/ JESSICA ENRIQUEZ CHIROPRACTOR Signed: 03/12/2024 13:21 Receipt Acknowledged By: * AWAITING SIGNATURE * AZEEM CORDERO 03/12/2024 ADDENDUM STATUS: COMPLETED I have seen the once, in video clinic, December 2023. She presented with chronic(20+ yr) diffuse ankle/foot pain. Pain - left lateral ankle with reported instability, top of left foot, distal Achilles/left heel/into the sole of the foot. Differential diagnoses includes - plantar fasciitis versus Achilles tendinitis versus ankle instability Complex regional pain syndrome is a rare condition. She did not demonstrate any color difference nor swelling, unable to assess for temperature difference nor allodynia in video clinic. It is a neuropathic pain, often described as burning. When I asked Shani to characterize the pain, she said all of it - meaning all of the adjectives I mentioned. If there are concerns for complex regional pain syndrome, needs to have a [id number] appointment with me. Video appointment is not adequate. Please advise, and we will schedule the for a [id number] appointment. Instant message sent to Dr. Brown to further discuss. /brenda/ AZEEM CORDERO PHYSICIAN Signed: 03/12/2024 23:11 Receipt Acknowledged By: * AWAITING SIGNATURE * JESSICA ENRIQUEZ * AWAITING SIGNATURE * WAYNE BROWN [facility]
--- OUTSIDE RECORDS SUMMARY | 2024-03-06 04:30 | XMS_ITS | Encounter Summary ---
Author Name [facility] [place] [facility] [place] Address [address] [place] [address] Care Team Providers Care Boiler Testing Technician Name Role Phone JULIETA ALCALA [facility] Providers: All historical and [...] Damico's Name Patient's Relationship to Policy Damico [place] ([id number]) PRESCRIPT ION [facility] Feb 26, 2024 [id number] [phone] SATISH PAREKH PATIENT [employer] PREFERRED PROVIDER ORGANIZAT ION (PPO) [facility] Feb 26, 2024 [id number] [phone] SATISH PAREKH PATIENT [facility] Feb 26, 2024 [id number] [phone] SATISH PAREKH PATIENT Selected Encounter This section includes the information on record at [place] for the Encounter. Date/Time Encounter Type Encounter Description Reason Provider Source Mar 06, 2024 08:30 AM PSYTX W PT 30 MINUTES [facility] INDIV ICD-10-CM F41.1 Generalized anxiety disorder [facility] I[facility] Encounter Template Text not used by [place] Assessments - Encounter Diagnoses This section includes the primary and secondary diagnoses documented for the Encounter. Date/Time Primary/Secondary Diagnosis Diagnosis Name Provider Source Mar 06, 2024 02:04 PM PRIMARY Generalized anxiety disorder [facility] Mar 06, 2024 02:04 PM SECONDARY Insomnia, unspecified [facility] Mar 06, 2024 02:04 PM SECONDARY Other physical and mental strain related to work [facility] Plan of Treatment: Future Appointments (+ 6 months) and Future Tests (+/- 45 days) The Plan of Treatment section includes future care activities for the patient [facility] [place] [facility] This section includes future appointments and future orders which are active, pending or scheduled. Future Appointments This section includes appointments that were scheduled to occur 6 months from the date of the Encounter, up to a maximum of 20 appointments. The data comes from all [place] treatment facilities. Appointment Date/Time Appointment Type Appointme nt Facility Name Apr 01, 2024 09:30 AM AMBULATORY - NONE [facility] Apr 09, 2024 09:30 AM AMBULATORY - PSYCHIATRY CL [facility] Apr 09, 2024 10:30 AM AMBULATORY - SURGERY [facility] Apr 13, 2024 10:30 AM AMBULATORY - NONE [facility] Apr 27, 2024 09:30 AM AMBULATORY - PSYCHIATRY CL [facility] May 05, 2024 02:30 PM AMBULATORY - PSYCHIATRY [facility] May 21, 2024 10:30 AM AMBULATORY - NONE [facility] Jun 16, 2024 09:00 AM AMBULATORY - PSYCHIATRY CL [facility] June 30, 2024 08:00 AM AMBULATORY - PSYCHIATRY CL [facility] June 30, 2024 08:30 AM AMBULATORY - NONE [facility] July 07, 2024 08:30 AM AMBULATORY - NONE [facility] July 09, 2024 08:30 AM AMBULATORY - SURGERY [facility] July 22, 2024 08:30 AM AMBULATORY - NONE [facility] Aug 21, 2024 10:00 AM AMBULATORY - PSYCHIATRY [facility] Social History: Smoking Status (Most current) and Tobacco Use (All prior to encounter date) This section includes the most current, and the historical, smoking and tobacco- related health factors from the [place] facility where the Encounter took place. Current Smoking Status This section includes the most current smoking, or tobacco-related health factor, from the [place] facility where the Encounter took place. Date/Time Current Smoking Status Comment Facil ity July 08, 2023 01:30 PM VA-TOBACCO NEVER USED [facility] Tobacco Use History This section includes a history of the smoking, or tobacco-related health factors, that were collected on or before the date of the Encounter. The data comes from the [place] facility where the Encounter took place. Date/Time Smoking Status/Tobacco Use Comment F acility July 03, 2022 02:00 PM VA-TOBACCO NEVER USED [facility] Radiology Reports: +/- 30 days of the [...] the Encounter. The data comes from all [place] treatment facilities. Date/Time Radiology Report Provider Source Mar 05, 2024 02:55 PM MRI ANKLE, LEFT, W /O CONTRAST: SATISH PATE [id number] -1980 F Exm Date: MAR 05, 2024@14:55 Req Phys: JULIETA ALCALA Loc: OUTSIDE ADOLFO IMAGING (MR) (Req' Img Loc: OUTSIDE ADOLFO IMAGING (MR) Service: Unknown Screen: Patient is unable to answer or is unsure Screen Comment: OUTSIDE STUDY (Case [id number] COMPLETE) MRI ANKLE, LEFT, W/O CONTRAST (MRI Detailed) CPT:23457 Reason for Study: Exam imported from outside Clinical History: Original Data for Imported Study Patient Name: SATISH PATE Date: 1980 Sex: F Study Date: 03/05/24 Study Time: 02:54:42 Study Description: MR ANKLE LT WO CON Referring Physician: vanessa Series 1: 1 OT file Series 2: 5 OT files Series 3: 58 MR files Series 4: 1 OT file Series 5: 50 MR files Series 6: 22 MR files Series 7: 41 MR files Series 8: 25 MR files Series 9: 21 MR files Series 10: 21 MR files Series 11: 21 MR files Series 12: 29 MR files [facility] Address: [facility] Report Status: Electronically Filed Date Reported: APR 14, 2024 Report: No report text Impression: No impression text Primary Diagnostic Code: VERIFIED BY: / [facility] Mar 05, 2024 02:54 PM MRI FOOT, LEFT, W/ O CONTRAST: SATISH PATE [id number] -1980 F Exm Date: MAR 05, 2024@14:54 Req Phys: JULIETA ALCALA Loc: OUTSIDE ADOLFO IMAGING (MR) (Req' Img Loc: OUTSIDE ADOLFO IMAGING (MR) Service: Unknown Screen: Patient is unable to answer or is unsure Screen Comment: OUTSIDE STUDY (Case [id number] COMPLETE) MRI FOOT, LEFT, W/O CONTRAST (MRI Detailed) CPT:95056 Reason for Study: Exam imported from outside Clinical History: Original Data for Imported Study Patient Name: SATISH PATE Date: 1980 Sex: F Study Date: 03/05/24 Study Time: 02:54:42 Study Description: MR FOOT LT WO CON Referring Physician: vanessa Series 1: 11 MR files Series 2: 23 MR files Series 3: 23 MR files Series 4: 25 MR files Series 5: 31 MR files Series 6: 31 MR files Series 7: 5 OT files Series 8: 1 OT file Series 9: 25 MR files Series 10: 23 MR files Series 11: 1 OT file [facility]quisition site: [facility] Address: null Report Status: Electronically Filed Date Reported: APR 14, 2024 Report: No report text Impression: No impression text Primary Diagnostic Code: VERIFIED BY: / [facility] Encounter Notes: All associated encounter notes This section contains the clinical notes associated to the Encounter. 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 Obtained verbal informed consent, described nature of brief PC-M[facility] services, and limits to confidentiality. Carri willingly participated in the visit without questions. CONCERN: Carri continues to experience anxiety symptoms, particularly at work, which she believes due to the physical pain. [place] reports adjusting well to her prescribed medication and denies any side effects. She states feeling less intense and anxious overall. [place] discussed her initial nervousness about starting medication but feels it was a good decision. Carri reports continued struggles with anxiety at work and has taken the PRN medication, which cause drowsiness during her shift. She reports sleep has improved a little but continues to have difficulties staying asleep. Carri reports counseling has been beneficial in helping her manage anxiety symptoms and cope with daily stressors. She would like to continue with [facility] services, history of trauma and a desire to continue making progress. DIAGNOSIS: Anxiety ([facility] [id number]) - Generalized anxiety disorder (ICD-10-CM F41.1) (Primary) Insomnia, unspecified (ICD-10-CM G47.00) Other physical and mental strain related to work (ICD-10-CM Z56.6) MENTAL STATUS: Appearance: Well-Kempt and Weather Appropriate Motor: No abnormal movements; walks independently, tense Attitude: Engaged, Cooperative, Forth coming w/information Speech: WNL Mood: Anxious; frustrated Affect: Full and appropriate to topic Thought Content: No evidence of thought disorganization Thought Process: Linear Cognition: Alert and Oriented x4 Perceptions: No H/D reported Insight: Fair Judgment: Fair GOAL/TARGETED BEHAVIOR: Reduce the frequency and intensity of anxious thoughts through coping strategies (deep breathing, grounding, self-care) and cognitive restructuring. The risk for harming self is considered: Acute - Low Chronic - Low ASSESSMENT SUMMARY: Crari demonstrates improved insight and emotional regulation since beginning medication. Anxiety symptoms persist but are more manageable. remain motivated for treatment and committed to continuing counseling. INTERVENTIONS PROVIDED: - Used active listening, empathic reflection, and emotion validation to gather information on presenting problem. - Facilitated discussions through open-ended questions and reflections. - Encouraged Vet to consider opportunities to challenge negative thoughts. -Discussed and explored job modification or accommodation through her employer -Reinforce use of coping strategies -Psychoeducation - pain management techniques -Encouraged vet to inform her prescriber of her concerns for potential adjustment to PRN medication. Plan: 1. [place] to follow up with this therapist in [facility] clinic 2. will contact clinic/VCL with concerns PRN. 3. Consult to [facility] NEXT APPOINTMENT: RTC entered /brenda/ [facility] CLINICAL WING COMMANDER Signed: 03/06/2024 14:29 [facility]
--- OUTSIDE RECORDS SUMMARY | 2024-03-06 11:00 | XMS_ITS | Encounter Summary ---
Author Name [facility] [place] Organization [facility] Address [address] [place] [address] Care Team Providers Care Rockboard Lather Name Role Phone JULIETA ALCALA [facility] Insurance Providers: All historical [...] Damico's Name Patient's Relationship to Policy Damico CAREARMSTRONG ([id number]) PRESCRIPT ION [facility] L Feb 26, 2024 [id number] [phone] SATISH PAREKH PATIENT NALC[employer] PREFERRED PROVIDER ORGANIZAT ION (PPO) [facility] L Feb 26, 2024 [id number] SATISH PAREKH PATIENT [facility] Feb 26, 2024 [id number] SATISH PAREKH PATIENT Selected Encounter This section includes the information on record at [place] for the Encounter. Date/Time Encounter Type Encounter Description Reason Provider Source Mar 06, 2024 03:00 PM OFFICE O/P EST MOD 30 MIN [facility] - IND ICD-10-CM F41.1 Generalized anxiety disorder ALEXIS MACDONALD Encounter Template Text not used by [place] Assessments - Encounter Diagnoses This section includes the primary and secondary diagnoses documented for the Encounter. Date/Time Primary/Secondary Diagnosis Diagnosis Name Provider Source Mar 06, 2024 03:30 PM PRIMARY Generalized anxiety disorder ALEXIS MACDONALD Mar 06, 2024 03:30 PM SECONDARY Panic disorder [episodic paroxysmal anxiety] ALEXIS MACDONALD Plan of Treatment: Future Appointments (+ 6 months) and Future Tests (+/- 45 days) The Plan of Treatment section includes future care activities for the patient from all [place] [facility]. This section includes future appointments and future orders which are active, pending or scheduled. Future Appointments This section includes appointments that were scheduled to occur 6 months from the date of the Encounter, up to a maximum of 20 appointments. The data comes from all [place] treatment facilities. Appointment Date/Time Appointment Type Appointme nt Facility Name Apr 01, 2024 09:30 AM [facility]ORY [facility] Apr 09, 2024 09:30 AM AMBULATORY - PSYCHIATRY [facility] Apr 09, 2024 10:30 AM [facility]ORY [facility] SUR[facility] Apr 13, 2024 10:30 AM [facility]ONE [facility] Apr 27, 2024 09:30 AM AMBULATORY - PSYCHIATRY [facility] May 05, 2024 02:30 PM [facility] May 21, 2024 10:30 AM AMBULATORY - NONE [facility] Jun 16, 2024 09:00 AM AMBULATORY - PSYCHIATRY [facility] June 30, 2024 08:00 AM AMBULATORY - PSYCHIATRY [facility] June 30, 2024 08:30 AM AMBULATORY - NONE [facility] July 07, 2024 08:30 AM [facility] July 09, 2024 08:30 AM [facility] July 22, 2024 08:30 AM AMBULATORY - NONE [facility] Aug 21, 2024 10:00 AM AMBULATORY - PSYCHIATRY [facility] Social History: Smoking Status (Most current) and Tobacco Use (All prior to encounter date) This section includes the most current, and the historical, smoking and tobacco- related health factors from the [place] facility where the Encounter took place. Current Smoking Status This section includes the most current smoking, or tobacco-related health factor, from the [place] facility where the Encounter took place. Date/Time Current Smoking Status Comment Facil ity July 08, 2023 01:30 PM VA-TOBACCO NEVER USED [facility] Tobacco Use History This section includes a history of the smoking, or tobacco-related health factors, that were collected on or before the date of the Encounter. The data comes from the [place] facility where the Encounter took place. Date/Time [...] the Encounter. The data comes from all [place] treatment facilities. Date/Time Radiology Report Provider Source Mar 05, 2024 02:55 PM MRI ANKLE, LEFT, W /O CONTRAST: SATISH PATE [id number] -1980 F Exm Date: MAR 05, 2024@14:55 Req Phys: JULIETA ALCALA Loc: OUTSIDE ADOLFO IMAGING (MR) (Req' Img Loc: OUTSIDE ADOLFO IMAGING (MR) Service: Unknown Screen: Patient is unable to answer or is unsure Screen Comment: OUTSIDE STUDY (Case [id number] COMPLETE) MRI ANKLE, LEFT, W/O CONTRAST (MRI Detailed) CPT:75382 Reason for Study: Exam imported from outside [...] Series 12: 29 MR files Acquisition site: null Address: null Report Status: Electronically Filed Date Reported: APR 14, 2024 Report: No report text Impression: No impression text Primary Diagnostic Code: VERIFIED BY: / [facility] Mar 05, 2024 02:54 PM MRI FOOT, LEFT, W/ O CONTRAST: SATISH PATE [id number] -1980 F Exm Date: MAR 05, 2024@14:54 Req Phys: JULIETA ALCALA Pat Loc: OUTSIDE ADOLFO IMAGING (MR) (Req' Img Loc: OUTSIDE ADOLFO IMAGING (MR) Service: Unknown Screen: Patient is unable to answer or is unsure Screen Comment: OUTSIDE STUDY (Case [id number] COMPLETE) MRI FOOT, LEFT, W/O CONTRAST (MRI Detailed) CPT:45133 Reason for Study: Exam imported from outside [...] Series 11: 1 OT file Acquisition site: null Address: null Report Status: Electronically Filed Date Reported: APR 14, 2024 Report: No report text Impression: No impression text Primary Diagnostic Code: VERIFIED BY: / [facility] Encounter Notes: All associated encounter notes This section contains the clinical notes associated to the Encounter. Date/Time Encounter Note(s) Provider Source Mar 06, 2024 02:59 PM PSYCHIATRY NOTE: LOCAL TITLE: [facility] PSYCHIATRY NOTE (T) STANDARD TITLE: PSYCHIATRY NOTE DATE OF NOTE: MAR 06, 2024@14:59 ENTRY DATE: MAR 06, 2024@14:59:55 AUTHOR: ALEXIS MACDONALD EXP COSIGNER: URGENCY: STATUS: COMPLETED [facility] PSYCHIATRIC NOTE Time in: 1500 pm Time out: 1530 pm Total time: 20inutes Televideo Disclaimer: Patient consented to telehealth appointment. [...] emergencies, provider may initiate the call to solution director by calling [facility] Center [phone] 24 Hr. [facility]/ Crisis Line - Dial 988, press #1 [employer] ([employer]): [phone] or [phone] CC:medication follow up HPI: is a 43 year old female 20 % for medical . She reports she has been doing ok. She states the medication balances her out. She reports the medication makes her tried. Verbalized vistaril 10 mg made her tried lower vistaril from 10 mg to 5 mg. She reports irritablity better. She reports she's not dwelling on that one certain thing as much.She reports her job is overwhelming . Sleep falls to sleep but if she wakes up difficulty falling back to sleep. She verbalizes her panic symptoms have decreased . Eye twitching stopped. Appeitites has decreased some. Denies suicidal and homicidal thoughts or plans. PAST PSYCHIATRIC HX:Denies past treatment PAST MEDICAL HX: ACTIVE PROBLEM Pain of left ankle joint 07/08/2023 ALLERGIES: ALLERGIES/ADVERSE REACTIONS No Known Allergies Active Inpatient, Outpatient and Clinic Medications (including Supplies): Outpatient Medications Status ===== 1) DICLOFENAC NA 1% TOP GEL APPLY 2GM MEASURED ON ACTIVE DOSING CARD EXTERNALLY TWICE A DAY (GENTLY MASSAGE INTO SKIN - TOTAL BODY MAX 32GM PER DAY) *FLAMMABLE: KEEP AWAY FROM HEAT AND FLAMES* LEFT ANKLE PAIN 2) ESCITALOPRAM OXALATE 5MG TAB TAKE ONE TABLET BY MOUTH ACTIVE EVERY DAY FOR PANIC DISORDER TAKE 1 HOUR PRIOR TO BEDTIME 3) ETODOLAC 400MG TAB TAKE ONE TABLET BY MOUTH EVERY 12 ACTIVE HOURS NEEDED FOR PAIN . TAKE WITH FOOD, DO NOT TAKE WITH ANY OTHER NSAIDS (INCLUDING MELOXICAM) 4) HYDROXYZINE HCL 10MG TAB TAKE 1 OR 2 TABLETS BY MOUTH ACTIVE TWICE A DAY NEEDED FOR ADDITIONAL MEDICATION FOR CALMING Non-VA Medications Status ===== 1) Non-VA LACTOBACILLUS ACIDOPHILUS CHEW TAB 2 TABLETS ACTIVE BY MOUTH EVERY DAY 2) Non-VA MULTIVITAMINS W/IRON TAB,CHEWABLE 2 TABLETS BY ACTIVE MOUTH EVERY DAY 6 Total Medications SUBSTANCE USE HX: Nicotine: denies Alcohol: denies Cannabis: denies LABS: [facility] - Chem & Hematology (max [...] foot issues Gait and Station: denies falls MENTAL STATUS EXAMINATION: Level of Consciousness: Alert [...] friends Connectedness to community, school, family, friends [place] skills (such as problem-solving, conflict resolution, anger [...] Plan has been discussed with patient/caregiver. IMPRESSION/FORMULATION: Anderson verbalizes the Lexapro has helped her anxiety and panic. She has noticed feeling more tried in the morning . Will lower vistaril 10 mg to 5 mg as needed . Anderson reports some seasonal depression and provider will order a light box . She denies suicidal and homicidal thoiughts or plans. DIAGNOSIS/PLAN: Anxiety with panic disorder 1. Lexapro 5 mg 1 hour prior to bedtime 2. Vistaril 10 mg to 1 to 2 tablets as needed for anxiety and panic lowered to 5 mg . 3. SAD light for seasonal depression Does patient have a diagnosis or history of opioid use disorder or stimulant use disorder? No RTC:6 weeks Patient was provided with the 24 Hr. [place]/ Crisis Line - Dial 988, press #1 [...] RECONCILIATION REPORT reviewed and discussed with patient. [place] prescription medications: Patient verifies that they are [...] patient and gave them an updated list. /brenda/ ALEXIS MACDONALD CLINICAL NURSE SPECIALIST Signed: 03/06/2024 15:32 ALEXIS MACDONALD
--- OUTSIDE RECORDS SUMMARY | 2024-04-01 05:30 | XMS_ITS | Encounter Summary ---
Author Name [facility] [place] [facility] Address [address] [place] [address] Care Team Providers Care Judicial Registrar Name Role Phone JULIETA ALCALA [facility] Insurance Providers: All historical and [...] Damico's Name Patient's Relationship to Policy Damico CAREFLUSHING ([id number]) PRESCRIPT ION [facility] L Feb 26, 2024 [id number] [phone] SATISH PAREKH PATIENT [facility] PREFERRED PROVIDER ORGANIZAT ION (PPO) N[facility]C POSTA L Feb 26, 2024 [id number] [phone] SATISH PAREKH PATIENT [facility] L Feb 26, 2024 [id number] [phone] SATISH PAREKH PATIENT Selected Encounter This section includes the information on record at [place] for the Encounter. 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 Date/Time Primary/Secondary Diagnosis Diagnosis Name Provider Source Apr 01, 2024 10:54 AM PRIMARY Oth intvrt disc degen, lum rgn w discog bck & lw extrm pain BERYOLIEJESSICA [facility] Apr 01, 2024 10:54 AM SECONDARY Pain in left ankle and joints of left foot [facility] Plan of Treatment: Future Appointments (+ 6 months) and Future Tests (+/- 45 days) The Plan of Treatment section includes future care activities for the patient from all [place] [facility]. This section includes future appointments and future orders which are active, pending or scheduled. Future Appointments This section includes appointments that were scheduled to occur 6 months from the date of the Encounter, up to a maximum of 20 appointments. The data comes from all [place] treatment facilities. Appointment Date/Time Appointment Type Appointme nt Facility Name Apr 09, 2024 09:30 AM AMBULATORY - PSYCHIATRY [facility] Apr 09, 2024 10:30 AM AMBULATORY - SURGERY [facility] Apr 13, 2024 10:30 AM [facility] Apr 27, 2024 09:30 AM AMBULATORY - PSYCHIATRY [facility] May 05, 2024 02:30 PM AMBULATORY - PSYCHIATRY [facility] May 21, 2024 10:30 AM [facility] Jun 16, 2024 09:00 AM AMBULATORY - PSYCHIATRY [facility] June 30, 2024 08:00 AM AMBULATORY - PSYCHIATRY [facility] June 30, 2024 08:30 AM AMBULATORY - NONE [facility] July 07, 2024 08:30 AM [facility] July 09, 2024 08:30 AM AMBULATORY - SURGERY [facility] July 22, 2024 08:30 AM AMBULATORY - NONE [facility] Aug 21, 2024 10:00 AM AMBULATORY - PSYCHIATRY [facility] Radiology Reports: +/- 30 days of the [...] the Encounter. The data comes from all [place] treatment facilities. Date/Time Radiology Report Provider Source Mar 05, 2024 02:55 PM MRI ANKLE, LEFT, W /O CONTRAST: SATISH PATE [id number] -1980 F Exm Date: MAR 05, 2024@14:55 Req Phys: JULIETA ALCALA Loc: OUTSIDE ADOLFO IMAGING (MR) (Req' Img Loc: OUTSIDE ADOLFO IMAGING (MR) Service: Unknown Screen: Patient is unable to answer or is unsure Screen Comment: OUTSIDE STUDY (Case [id number] COMPLETE) MRI ANKLE, LEFT, W/O CONTRAST (MRI Detailed) CPT:30531 Reason for Study: Exam imported from outside [...] Series 12: 29 MR files Acquisition site: [facility] Address: null Report Status: Electronically Filed Date Reported: APR 14, 2024 Report: No report text Impression: No impression text Primary Diagnostic Code: VERIFIED BY: / [facility] Mar 05, 2024 02:54 PM MRI FOOT, LEFT, W/ O CONTRAST: SATISH PATE [id number] -1980 F Exm Date: MAR 05, 2024@14:54 Req Phys: JULIETA ALCALA Loc: OUTSIDE ADOLFO IMAGING (MR) (Req' Img Loc: OUTSIDE ADOLFO IMAGING (MR) Service: Unknown Screen: Patient is unable to answer or is unsure Screen Comment: OUTSIDE STUDY (Case [id number] COMPLETE) MRI FOOT, LEFT, W/O CONTRAST (MRI Detailed) CPT:11708 Reason for Study: Exam imported from outside [...] Series 11: 1 OT file Acquisition site: [facility] Address: [facility] Report Status: Electronically Filed Date Reported: APR 14, 2024 Report: No report text Impression: No impression text Primary Diagnostic Code: VERIFIED BY: / [facility] Encounter Notes: All associated encounter notes This section contains the clinical notes associated to the Encounter. Date/Time Encounter Note(s) Provider Source Apr 01, 2024 10:26 AM PAIN MEDICINE NOTE : LOCAL TITLE: PAIN MANAGEMENT CHRONIC PAIN FOLLOW-UP NOTE (T) STANDARD TITLE: PAIN MEDICINE NOTE DATE OF NOTE: APR 01, 2024@10:26 ENTRY DATE: APR 01, 2024@10:26:11 AUTHOR: JESSICA ENRIQUEZ COSIGNER: URGENCY: STATUS: COMPLETED S: SATISH PATE is a 43 FEMALE who presents to the [facility] for a follow up on 04/01/24 09:30 with a chief complaint of foot and ankle pain that has not responded to the acupucnture or any treatment as of yet. She noted that the manipulation helpoed her back which also bothers her. The back gets worse as she ends up walking with a limp. Treatment visit number: 2 CHIEF COMPLAINT: Lower back pain Bilateral Intermitant Moderate Today's Numeric Rating Scale: 7/10 Prior pain severity (0-10):0 (12/05/2023 10:02) Transient post-treatment soreness (No) Compliant with self-care recommendations: (Yes) PMH: ACTIVE PROBLEM Panic 01/21/2024 Anxiety 01/21/2024 Pain of left ankle joint 07/08/2023 O: Prone knee bending: (+) (BILATERAL) Direct S-I Palpation: (+) (BILATERAL) Muscle spasms present (BILATERAL) Myofascial Trigger Point (MTrP) (+) [X]Lumbar paraspinal hypertonicity BILATERAL [X]Lumbar paraspinals tenderness BILATERAL [X] Gluteal MFTP's BILATERAL [X] Somatic dysfunction cervical region [X] Somatic dysfunction thoracic region [X] Somatic dysfunction lumbar region [ ] Somatic dysfunction S-I joint Radiology: reviewed left foot and ankle reports on her phone. Noteable were a ganglion cyst as well as fusiform thickening of the central band of the plantar fascia. A: left foot Plantar fascitis and perineal tendinitis. consider CRPS. Chronic mid to lower back pain P: [+] Cervical SMT BILATERAL [X] Thoracic SMT BILATERAL [X] Coupled lumbar F/D decompression manipulation incorporating flexion coupled with lateral bending (circumduction) [X] Lumbar SMT in lateral decubitus posture (( right side side posture increased the lower back pain and she had significant pain with the manipualtion)) [ ]()S-I drop with table assist x0 [ ] Myofascial Release/Ischemic Compression [ ] Instrument Assisted Soft Tissue Manipulation [ ] Lower Extremity Stretching (quadriceps, hip flexors, hamstrings) Advised on pelvic tilts. Next appointment: 6 months It is recommended that the patient obtain treatment with the outsourced provider for chiropractic. Walking with the limp seems to severly aggravate her back. Abbreviations: BLAST FURNACE HELPER = Neck Pain IR = Infrared HEP [...] list of medications. TOTAL TIME SPENT: Spent 25 minutes in care of this patient today including review of records, exam, and placing orders. /brenda/ JESSICA ENRIQUEZ CHIROPRACTOR Signed: 04/01/2024 10:56 [facility]
--- OUTSIDE RECORDS SUMMARY | 2024-04-09 06:30 | XMS_ITS | Encounter Summary ---
Author Name [facility] [place] [facility] Address [address] [place] [address] Care Team Providers Care Presentation Manager Name Role Phone JULIETA ALCALA Primary Care Provider [facility] Insurance Providers: All historical and [...] Damico's Name Patient's Relationship to Policy Damico CARECADOGAN ([id number]) PRESCRIPT ION [facility] L Feb 26, 2024 [id number] [phone] SATISH PAREKH PATIENT NALC[employer] PREFERRED PROVIDER ORGANIZAT ION (PPO) N[facility] POSTA L Feb 26, 2024 [id number] SATISH PAREKH PATIENT [facility] Feb 26, 2024 [id number] SATISH PAREKH PATIENT Selected Encounter This section includes the information on record at [place] for the Encounter. Date/Time Encounter Type Encounter Description Reason Provider Source Apr 09, 2024 10:30 AM OFFICE O/P EST HI 40 MIN PODIATRY ICD-10-CM M25.572 Pain in left ankle and joints of left foot SUE BROWN IHJosé Encounter Template Text not used by [place] Assessments - Encounter Diagnoses This section includes the primary and secondary diagnoses documented for the Encounter. Date/Time Primary/Secondary Diagnosis Diagnosis Name Provider Source Apr 09, 2024 12:09 PM PRIMARY Pain in left ankle and joints of left foot SUE BROWN [facility] Plan of Treatment: Future Appointments (+ 6 months) and Future Tests (+/- 45 days) The Plan of Treatment section includes future care activities for the patient from all [place] [facility]. This section includes future appointments and future orders which are active, pending or scheduled. Future Appointments This section includes appointments that were scheduled to occur 6 months from the date of the Encounter, up to a maximum of 20 appointments. The data comes from all [place] treatment facilities. Appointment Date/Time Appointment Type Appointme nt Facility Name Apr 13, 2024 10:30 AM AMBULATORY - NONE [facility] Apr 27, 2024 09:30 AM AMBULATORY - PSYCHIATRY [facility] May 05, 2024 02:30 PM AMBULATORY - PSYCHIATRY [facility] May 21, 2024 10:30 AM AMBULATORY - NONE [facility] Jun 16, 2024 09:00 AM AMBULATORY - PSYCHIATRY [facility] June 30, 2024 08:00 AM AMBULATORY - PSYCHIATRY [facility] June 30, 2024 08:30 AM AMBULATORY - NONE [facility]IG[facility] July 07, 2024 08:30 AM AMBULATORY - NONE [facility] July 09, 2024 08:30 AM AMBULATORY - SURGERY [facility] July 22, 2024 08:30 AM AMBULATORY - NONE [facility] Aug 21, 2024 10:00 AM AMBULATORY - PSYCHIATRY [facility] Social History: Smoking Status (Most current) and Tobacco Use (All prior to encounter date) This section includes the most current, and the historical, smoking and tobacco- related health factors from the [place] facility where the Encounter took place. Current Smoking Status This section includes the most current smoking, or tobacco-related health factor, from the [place] facility where the Encounter took place. Date/Time Current Smoking Status Rmea redman July 08, 2023 01:30 PM VA-TOBACCO NEVER USED [facility] Tobacco Use History This section includes a history of the smoking, or tobacco-related health factors, that were collected on or before the date of the Encounter. The data comes from the [place] facility where the Encounter took place. Date/Time Smoking Status/Tobacco Use Comment Poppy salmon July 03, 2022 02:00 PM VA-TOBACCO NEVER USED [facility] Encounter Notes: All associated encounter notes This section contains the clinical notes associated to the Encounter. Date/Time Encounter Note(s) Provider Source Apr 09, 2024 10:13 AM PODIATRY NOTE: LOCAL TITLE: PODIATRY CLINIC NOTE (T) STANDARD TITLE: PODIATRY NOTE DATE OF NOTE: APR 09, 2024@10:13 ENTRY DATE: APR 09, 2024@10:13:28 AUTHOR: WAYNE BROWN COSIGNER: URGENCY: STATUS: COMPLETED [facility] SOAP Note SUBJECTIVE: The patient is a 43 year old FEMALE. Chief Complaint: f/u left ankle pain Past Medical History: Pt presents today to f/u on left ankle pain. She continues to complain of sharp shooting pain to the left ankle. Unchanged from previously. She did recently try to wear an ankle brace, but it made the pain worse. Pt continues to work. Today, she does note, about a 1.5 year period after her plantar fascia surgery where she was painfree. She then switched jobs, and the pain worsened. She does notice the top of the foot/lateral ankle appear to be purplish in color during periods of severe pain. She states she has tried to photograph, but does not photograph well. PATIENT ALLERGIES DETAILED ALLERGIES/ADVERSE REACTIONS No Known Allergies AMRS - MEDS (REC SUCCINCT) Active and Recently Inpatient, Outpatient and Clinic Medications (including Supplies): Active Outpatient Medications Status ========= 1) DICLOFENAC NA 1% TOP GEL APPLY [...] DAY NEEDED FOR ADDITIONAL MEDICATION FOR CALMING Inactive Outpatient Medications Status ========= 1) MELOXICAM 7.5MG TAB TAKE ONE TABLET BY MOUTH EVERY DAY FOR PAIN (WITH FOOD) Active Non-VA Medications Status ========= 1) Non-VA LACTOBACILLUS ACIDOPHILUS CHEW TAB 2 TABLETS ACTIVE BY MOUTH EVERY DAY 2) Non-VA MULTIVITAMINS W/IRON TAB,CHEWABLE 2 TABLETS BY ACTIVE MOUTH EVERY DAY 7 Total Medications MEDICATION RECONCILIATION MEDICATION RECONCILIATION REPORT reviewed and [...] a complete and accurate list of medications. ALLERGIES: ALLERGIES/ADVERSE REACTIONS No Known Allergies Food allergies: None known FOOT RISK LEVEL: DATE TIME HEALTH FACTOR ---- ---- No data available ACTIVE PROBLEM Panic 01/21/2024 Anxiety 01/21/2024 Pain of left ankle joint 07/08/2023 OBJECTIVE: Left lower extremity exam Vasc: DP/PT palpable, no edema to the left foot or ankle Neuro: Protective sensation intact to all 10 sites b/l as tested with SWMF, tested previous visit. + tinel's sural nerve Derm: Nails well-groomed, no interdigital lesions Musc: 4+/5 muscle strength on the left, guarding noted, pain/tightness noted with active ROM. Reduced strength, but no pain with Flexor hallucis activation. Diffuse pain out of proportion to palpation left ankle. Specific pain sites to include the medial malleolus, anterior ankle jt line, ankle gutters, CFL, achilles. Reduced AJ/STJ ROM left with pain on manipulation, greater pain at max ankle dorsiflexion, minimal pain STJ ROM. Pain to palpation along the medial band of plantar fascia left, greatest at point just distal to insertion. MRI Left foot/ankle Exam date: 03/05/2024 Procedure: MRI foot left without contrast History: Pain in the left ankle and foot for multiple years becoming progressively worse Comparison: Radiographs left foot and ankle 09/17/2022 Findings left ankle: Ligaments: The anterior talofibular ligament appears within normal limits. The calcaneofibular ligament, posterior talofibular ligament, and distal tib-fib ligaments appear within normal limit. The deltoid ligament Complex appears within normal limits Tendons: No significant tendinopathy, tendon tear, or tenosynovitis is seen Sinus tarsi and tarsal tunnel:Occupying mass is seen in the tarsal tunnel or the sinus tarsi Bones and joints: The bone marrow signal intensity is age-appropriate. No unstable osteochondral defect of the tibiotalar joint is identified. 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 There is a multiloculated angling cyst along the posterior lateral aspect of the posterior subtalar joint. This measures 1.1 x 1.5 x 1.5 cm in transverse, AP and craniocaudal dimension respectively. There is a small Meghan's deformity of the calcaneus. Plantar fascia: There is a plantar calcaneal enthesial fight again seen. There is mild fusiform thickening and intermediate signal intensity involving the central band of the plantar fascia spanning approximately 1.5 cm in length. This is located approximately 2 cm distal to its attachment to the calcaneus. Soft tissues: No significant soft tissue swelling is seen ASSESSMENT: After reviewing the H&P and clinical findings, Dr. Brown made the diagnosis of Left ankle pain Plantar fasciitis - left RESPONSE TO CARE/RATIONALE FOR CARE: pt presents today as new consult, global chronic left ankle pain with noted reduction and strength and mobility. will order xrays and begin with physical therapy PLAN: Treatment today consisted of: -Pt exam and evaluation -Rx gabapentin, we will begin at nighttime as patient is concerned about side effects. If tolerating well can progress to trialing on weekend days twice daily. -Reviewed patient's MRI in detail. -Await pain management evaluation -Will call after pain management evaluation TOTAL TIME SPENT: Spent 54 minutes in care of this patient today including review of records, exam, and placing orders. /brenda/ WAYNE BROWN V BELT FINISHER Signed: 04/09/2024 12:09 WAYNE BROWN OC
--- OUTSIDE RECORDS SUMMARY | 2024-04-27 05:30 | XMS_ITS | Encounter Summary ---
Author Name [facility] [place] [facility] Address [address] [place] [address] Care Team Providers Care Vinyl Dipper Name Role Phone JULIETA ALCALA Primary [facility] Insurance Providers: All historical and [...] Damico's Name Patient's Relationship to Policy Damico CARESTERLING ([id number]) PRESCRIPT ION NALC POSTA L Feb 26, 2024 [id number] [phone] SATISH PAREKH PATIENT [employer] PREFERRED PROVIDER ORGANIZAT ION (PPO) NALC POSTA L Feb 26, 2024 [id number] [phone] SATISH PAREKH PATIENT [facility] L Feb 26, 2024 [id number] SATISH PAREKH PATIENT Selected Encounter This section includes the information on record at [place] for the Encounter. Date/Time Encounter Type Encounter Description Reason Provider Source Apr 27, 2024 09:30 AM OFFICE O/P EST MOD 30 MIN MENTAL HEALTH CLINIC - IND ICD-10-CM F41.1 Generalized anxiety disorder ALEXIS MACDONALD Encounter Template Text not used by [place] Assessments - Encounter Diagnoses This section includes the primary and secondary diagnoses documented for the Encounter. Date/Time Primary/Secondary Diagnosis Diagnosis Name Provider Source Apr 27, 2024 02:41 PM PRIMARY Generalized anxiety disorder ALEXIS MACDONALD Apr 27, 2024 02:41 PM SECONDARY Panic disorder [episodic paroxysmal anxiety] ALEXIS MACDONALD Plan of Treatment: Future Appointments (+ 6 months) and Future Tests (+/- 45 days) The Plan of Treatment section includes future care activities for the patient from all [place] [facility]. This section includes future appointments and future orders which are active, pending or scheduled. Future Appointments This section includes appointments that were scheduled to occur 6 months from the date of the Encounter, up to a maximum of 20 appointments. The data comes from all [place] treatment facilities. Appointment Date/Time Appointment Type Appointme nt Facility Name May 05, 2024 02:30 PM [facility] May 21, 2024 10:30 AM AMBULATORY - NONE [facility] Jun 16, 2024 09:00 AM AMBULATORY - PSYCHIATRY [facility] June 30, 2024 08:00 AM AMBULATORY - PSYCHIATRY [facility] June 30, 2024 08:30 AM [facility] 07, 2024 08:30 AM AMBULATORY - NONE [facility] July 09, 2024 08:30 AM AMBULATORY - SURGERY [facility] July 22, 2024 08:30 AM AMBULATORY - NONE [facility] Aug 21, 2024 10:00 AM AMBULATORY - PSYCHIATRY [facility] Lab Results: +/- 30 days of the encounter This section includes the Chemistry and Hematology Lab Results on record with [place] for the patient. Radiology Reports and Pathology Reports are provided separately, in subsequent sections. Lab Results This section contains the Chemistry/Hematology Results that were resulted 30 days before or 30 daysafter the date of the Encounter. Date/Time Source Result Type Result - Unit Interpretation Reference Range Specimen Type Comment May 21, 2024 12:39 PM [facility] URINE TOX SCREEN URINE Specimen Type: URINE Comment: LATRICE Cutoff Value for COCAINE = 300 ng/mL CANNABI Cutoff Value for CANNABINOIDS = 50 ng/mL AMPH Cutoff Value for AMPHETAMINES = 1000 ng/mL UETOH Cutoff Value for Ethanol Urine = 10 ng/mL OPI Cutoff Value for OPIATES = 300 ng/mL JUDIT Cutoff Value for BARBITURATES = 200 ng/mL JOSHUA Cutoff Value for BENZODIAZEPINES = 200 ng/mL METH Cutoff Value for METHADONE = 300 ng/mL BUP Cutoff Value for Buprenorphine = 5 ng/mL OXY Cutoff Value for Oxycodone = 300 ng/mL FENT Cutoff Value for Fentanyl = 1 ng/mL Ordering Provider: AZEEM CORDERO Report Released Date/Time: May 21, 2024 11:25 AM Reporting Lab: [address] [id number] Performing Lab: [address] [address] AMPHETAMINES NEG Negative BARBITURATES NEG Negative BENZODIAZEPINES NEG Negative COCAINE NEG Negative METHADONE NEG Negative OPIATES NEG Negative CANNABINOIDS NEG Negative ETHANOL, URINE NEG Negative BUPRENORPHINE NEG Negative OXYCODONE NEG Negative FENTANYL NEG Negative CREATININE, URINE TOX 103 mg/dL Social History: Smoking Status (Most current) and Tobacco Use (All prior to encounter date) This section includes the most current, and the historical, smoking and tobacco- related health factors from the [place] facility where the Encounter took place. Current Smoking Status This section includes the most current smoking, or tobacco-related health factor, from the [place] facility where the Encounter took place. Date/Time Current Smoking Status Comment Khloe ity July 08, 2023 01:30 PM [place]-TOBACCO NEVER USED [facility] Tobacco Use History This section includes a history of the smoking, or tobacco-related health factors, that were collected on or before the date of the Encounter. The data comes from the [place] facility where the Encounter took place. Date/Time Smoking Status/Tobacco Use Comment F luis antonio July 03, 2022 02:00 PM [place]-TOBACCO NEVER USED [facility] Encounter Notes: All associated encounter notes This section contains the clinical notes associated to the Encounter. Date/Time Encounter Note(s) Provider Source May 04, 2024 10:22 AM NURSING NOTE: LOCAL TITLE: NURSING NOTE STANDARD TITLE: NURSING NOTE DATE OF NOTE: MAY 04, 2024@10:22 ENTRY DATE: MAY 04, 2024@10:22:28 AUTHOR: DULCE MCDONNELL EXP COSIGNER: URGENCY: STATUS: COMPLETED called and left message requesting to talk to provider regarding side effects of medication. She would like a call back today. /brenda/ DULCE MCDONNELL LICENSED PRACTICAL NURSE Signed: 05/04/2024 10:24 Receipt Acknowledged By: 05/04/2024 10:45 /brenda/ ALEXIS MACDONALD CLINICAL NURSE SPECIALIST DULCE MCDONNELL [facility] Apr 27, 2024 09:27 AM PSYCHIATRY NOTE: LOCAL TITLE: [facility] PSYCHIATRY NOTE (T) STANDARD TITLE: PSYCHIATRY NOTE DATE OF NOTE: APR 27, 2024@09:27 ENTRY DATE: APR 27, 2024@09:28:02 AUTHOR: ALEXIS MACDONALD EXP COSIGNER: URGENCY: STATUS: COMPLETED [facility] PSYCHIATRY NOTE (T) Has ADDENDA PSYCHIATRIC PROGRESS NOTE Time in: 0930 am Time out: 1000 am Total time: 30 minutes Therapy time: 16 minutes Televideo Disclaimer: Patient consented to telehealth [...] emergencies, provider may initiate the call to vocational training director by calling [employer] [facility] [phone] [address] Veterans/ Crisis Line - Dial 988, press #1 [employer] Help [employer]k ([facility]): [phone] or [phone] CC: medication follow up HPI: Vidalia is a 43 year old female [place] 20% for medical. She reports she started gabapentin and hasn't kicked in yet . She reports sleeping well but gabapentin makes her dizzy. Podiatry started the gabapentin and she has no follow up. She was diagnosed with diverticulosis . She reports she is taking the 5 mg of Lexapro and still feeling anxious at times . She has been miserable with dealing with her plantar fasciitis. this medication make me dizzy. Encouraged her to reach out to physician who prescribed it to her. She reports appetite has been ok . She reports she feels Lexapro is helping some . She will take low dose of Vistaril for panic attacks. SUBSTANCE USE HX: Nicotine: denies Alcohol: denies Cannabis: denies ALLERGIES: ALLERGIES/ADVERSE REACTIONS No Known Allergies Active [...] WITH ANY OTHER NSAIDS (INCLUDING MELOXICAM) 4) GABAPENTIN 100MG CAP TAKE ONE CAPSULE BY MOUTH AT ACTIVE BEDTIME FOR NERVE PAIN 5) HYDROXYZINE HCL 10MG TAB TAKE 1 OR 2 TABLETS BY MOUTH ACTIVE TWICE A DAY NEEDED FOR ADDITIONAL MEDICATION FOR CALMING Active Non-VA Medications Status ===== 1) Non-VA LACTOBACILLUS ACIDOPHILUS CHEW TAB 2 TABLETS ACTIVE BY MOUTH EVERY DAY 2) Non-VA MULTIVITAMINS W/IRON TAB,CHEWABLE 2 TABLETS BY ACTIVE MOUTH EVERY DAY 7 Total Medications LABS: CH - Chem & Hematology (max 6 months) ---- No data available CY - Cytopathology (max 6 months) No data available EM - Electron Microscopy (max 6 months) ------ No data available [facility]USAM - Microbiology (max 6 months) No data available SP - Surgical Pathology (max 6 months) ----- No data available REVIEW OF SYSTEMS: Muscle strength and Tone: denies Gait and Station and ankle issues MENTAL STATUS EXAMINATION: Level of Consciousness: Alert and Oriented to 4 Behavior: Cooperative - Eye Contact: Good Grooming & Hygiene: Good - Dress: Kempt Psychomotor Activity: WNL Speech: Normal rate, volume and prosody Cognition: Grossly intact Thought Process: Coherent and goal directed Thought Content: Delusions: Absent Hallucinations: Absent Suicidal Ideation: Denied. - Intent to : Absent Homicidal Ideation: Denied Mood: Slightly depressed Affect: Appropriate Insight: Good - Judgment: Good [...] risk assessment completed: Yes Prior suicide attempts: The risk for harming self is considered: Acute - Low Chronic - Low Risk factors: Access to lethal means Medical conditions and health-related problems Psychological conditions Protective factors: Connectedness to community, school, family, friends [place] skills (such as problem-solving, conflict resolution, anger management, impulse control, etc.) Access to appropriate medical and mental health care Access to immediate and ongoing support and care Violence assessment completed: Yes Prior history of violence: No The risk of violence towards others is considered: Low PSYCHOTHERAPY NOTE Therapy provided: supportive Issues discussed: foot and pain issues Goals of therapy: active listening, support Treatment plan: continue plan of care MEDICATION MANAGEMENT TREATMENT PLAN DIAGNOSIS: anxiety GOALS OF THERAPY: lower anxiety METHOD OF THERAPY/INTERVENTIONS: Will continue to assess adherence and efficacy of medications Will continue to monitor symptoms and reassess at the next apt PROGRESS TOWARDS GOAL: Improvement with compliance noted - patient reports symptoms improved TREATMENT PLAN UPDATED: Date: Apr Treatment Plan has been discussed with patient/caregiver. IMPRESSION/FORMULATION: Vidalia reports she started taking the Gabapentin and has been feeling dizzy . She continues difficulty walking and has pain in foot from plantar facilitis . She reports anxiety is less lately but will have flare ups. She is willing to increase Lexapro from 5 mg to 10 mg at HS . She denies suicidal and homicidal thoughts or plans. DIAGNOSIS/PLAN: Anxiety with panic disorder 1. Lexapro 5 mg 1 hour prior to bedtime increase to 10 mg daily 2. Vistaril 5 mg to 1 to 2 tablets as needed for anxiety and panic 3. SAD light for seasonal depression Does [...] patient and gave them an updated list. /porter MACDONALD CLINICAL NURSE SPECIALIST Signed: 04/27/2024 14:41 05/04/2024 ADDENDUM STATUS: COMPLETED Provider called and stated she's not feeling well since last . She verbalizes chest pain radiating down left arm and left shoulder and back pain. Provider explained that she cannot tell her what's wrong over the phone but if this chest pain has continued for several days then she should go to seek medical advice at ER. I explained I cannot say it isn't cardiac or something else over the phone. She was going to go home and take prn anxiety medication . /porter MACDONALD CLINICAL NURSE SPECIALIST Signed: 05/04/2024 10:45 ALEXIS MACDONALD
--- OUTSIDE RECORDS SUMMARY | 2024-05-05 10:30 | XMS_ITS | Encounter Summary ---
Author Name [facility] Organization [facility] ([place]) Address [address] [place] [address] Care Team Providers Care Animal Attendants And Trainers Name Role Phone JULIETA ALCALA Primary Care Provider Unavailcarrol harris Insurance Providers: All historical and current Section Date Range: From patient's date of to the date document was created. This section includes the names of all active insurance providers for the patient. Insurance Provider Type of Coverage Plan Name Start of Policy Coverage End of Policy Coverage Group Number Member ID Insurance Provider's Telephone Number Policy Damico's Name Patient's Relationship to Policy Damico CAREEAST MEADOW ([id number]) PRESCRIPT ION N[facility] POSTA L Feb 26, 2024 [id number] [phone] SATISH PAREKH PATIENT [employer] PREFERRED PROVIDER ORGANIZAT ION (PPO) NALC POSTA L Feb 26, 2024 [id number] SATISH PAREKH PATIENT [facility] NALC POST[facility] L Feb 26, 2024 [id number] SATISH PAREKH PATIENT Selected Encounter This section includes the information on record at [place] for the Encounter. Date/Time Encounter Type Encounter Description Reason Provider Source May 05, 2024 02:30 PM PSYCH DIAGNOSTIC EVALUATION [facility] - IND ICD-10-CM F41.1 Generalized anxiety disorder SWEETIE POTTS José Encounter Template Text not used by [facility] Assessments - Encounter Diagnoses This section includes the primary and secondary diagnoses documented for the Encounter. Date/Time Primary/Secondary Diagnosis Diagnosis Name Provider Source May 08, 2024 04:11 PM PRIMARY Generalized anxiety disorder SWEETIE POTTS May 08, 2024 04:11 PM SECONDARY Panic disorder [episodic paroxysmal anxiety] SWEETIE POTTS CB Plan of Treatment: Future Appointments (+ 6 months) and Future Tests (+/- 45 days) The Plan of Treatment section includes future care activities for the patient [facility] [place] [facility] This section includes future appointments and future orders which are active, pending or scheduled. Future Appointments This section includes appointments that were scheduled to occur 6 months from the date of the Encounter, up to a maximum of 20 appointments. The data comes from all [place] treatment facilities. Appointment Date/Time Appointment Type Appointme nt Facility Name May 21, 2024 10:30 AM AMBULATORY - NONE [facility] Jun 16, 2024 09:00 AM AMBULATORY - PSYCHIATRY [facility] June 30, 2024 08:00 AM AMBULATORY - PSYCHIATRY [facility] June 30, 2024 08:30 AM AMBULATORY - NONE [facility] July 07, 2024 08:30 AM AMBULATORY - NONE [facility] July 09, 2024 08:30 AM AMBULATORY - SURGERY [facility] July 22, 2024 08:30 AM AMBULATORY - NONE [facility] Aug 21, 2024 10:00 AM AMBULATORY - PSYCHIATRY [facility] Lab Results: +/- 30 days of the encounter This section includes the Chemistry and Hematology Lab Results on record with [place] for the patient. Radiology Reports and Pathology Reports are provided separately, in subsequent sections. Lab Results This section contains the Chemistry/Hematology Results that were resulted 30 days before or 30 daysafter the date of the Encounter. Date/Time Source Result Type Result - Unit Interpretation Reference Range Specimen Type Comment May 21, 2024 12:39 PM [facility] URINE TOX SCREEN URINE Specimen Type: URINE [...] May 21, 2024 11:25 AM Reporting Lab: [address] [id number] Performing Lab: [address] [id number] AMPHETAMINES NEG Negative BARBITURATES NEG Negative BENZODIAZEPINES [...] and tobacco- related health factors from the [place] facility where the Encounter took place. Current Smoking Status This section includes the most current smoking, or tobacco-related health factor, from the [place] facility where the Encounter took place. Date/Time Current Smoking Status Comment Facil ity July 08, 2023 01:30 PM [facility]-TOBACCO NEVER USED [facility] Tobacco Use History This section includes a history of the smoking, or tobacco-related health factors, that were collected on or before the date of the Encounter. The data comes from the [place] facility where the Encounter took place. Date/Time Smoking Status/Tobacco Use Comment F acwyatt July 03, 2022 02:00 PM [place]-TOBACCO NEVER USED [facility] Encounter Notes: All associated encounter notes This section contains the clinical notes associated to the Encounter. Date/Time Encounter Note(s) Provider Source May 05, 2024 02:56 PM MENTAL HEALTH NOTE : LOCAL TITLE: [facility] MH ASSESSMENT (C) STANDARD TITLE: MENTAL HEALTH NOTE DATE OF NOTE: MAY 05, 2024@14:56 ENTRY DATE: MAY 05, 2024@14:56:32 AUTHOR: SWEETIE POTTS COSIGNER: URGENCY: STATUS: COMPLETED VISIT DATE/TIME: 05/05/24 55 minutes 2:50pm-3:45pm ID: THIS IS A 43 Y/O WHITE FEMALE , [place] LESS THAN 50%, PRESENTING FOR INITIAL ASSESSMENT, REFERRED BY [facility]. PRESENTING PROBLEM: anxiety that links from being in pain all the time PRESENT ILLNESS: Symptoms: panic attacks; Sleep: No problems falling or staying asleep since taking medicine that Yamini Roy FIBER PICKER prescribed. No nightmares. Appetite/Nutritional Status: is currently eating lunch and dinner. Lawrence drinks metamucil for fiber- every other day. Duration of Symptoms: not sure when started. 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 Mental Status Examination Level of Consciousness: Alert and Oriented to 4 Behavior: Cooperative - Eye Contact: Good Grooming & Hygiene: Good - Dress: Kempt Psychomotor Activity: WNL Speech: Normal rate, volume and prosody Cognition: Grossly intact Thought Process: Coherent and goal directed Thought Content: Delusions: Absent Hallucinations: Absent Suicidal Ideation: Denied. - Intent to : Absent Homicidal Ideation:Denied Mood: Euthymic Affect: Appropriate Insight: Fair - Judgment: Fair SUBSTANCE USE ASSESSMENT: The patient denies any remote or recent substance use disorder, including tobacco use disorder. Current use has an occasional drink. History of DUI/DWI? No The patient reports history of substance use: Lawrence started drinking occasionally when 20. Alcohol usage is not a problem for . Tried marijuana-was not a problem for . Does patient agree to referral for substance abuse treatment? Not applicable. Referral not clinically indicated PAST PSYCHIATRIC HISTORY: Previous Hospitalizations - No. Previous Outpatient Treatment - No. [facility] in [facility] Previous Use of Psychotropic Medications/Compliance - No. just what has been prescribed to her recently through [place]. RISK ASSESSMENT: Suicide Screen: C-SSRS Screening Neon-Suicide Severity Rating Scale (C-SSRS Screener) 1. Over [...] required due to responses to other questions. Suicidal Ideations - No. Suicidal Plans - No. Suicidal Attempts - No. Self-Injurious Behavior - No. Access to Firearms - Yes: safe where they are locked up. Others in places if they need them quickly. Gun lock discussed - Yes: History of Violence - No. Threats of Violence - No. MEDICAL HISTORY Please see CPRS for problem list and medications DEVELOPMENTAL, FAMILY, AND SOCIAL HISTORY Born in [place], [place] Social History Falguni was born into an intact family. Parents are living. Parents when was 11. Chose to live with mom. Close to mom and dad. Lawrence has a brother who is 39. and brother are close-he lives in [place]. Family History of Mental illness/Substance use/Suicide: Yes: Maternal grandmother was an alcoholic. History of Childhood abuse: No. Sexual Orientation: Heterosexual Marital Status: Number of marriages: 2 Thierry (03/18/98-06/27/2002)-grew apart. Kat (10/06/05-present) Children: Two children with Kat; Miguel Angel (17); Myrna (19). 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 Housing: Own Support System: ; a couple female friends Sabianism / Spiritual Preference: UNKNOWN/NO PREFERENCE, believes in God Leisure Activities: listens to audiobooks; likes to cook. LEGAL HISTORY Remote legal problems: No. Currently: with no legal issues SERVICE Branch: [employer] Duration: Oct to Oct Location/MOS/Trauma/Combat Experience: Located at [facility], MOS/[employer].-did duty rosters- reports etc./no trauma and combat Combat Vet Elig.: NO Discharge: Honorable Active combat exposure: NO Sexual Trauma: No. Disciplinary Actions: No. DIAGNOSIS: Anxiety Disorder ASSESSMENT Narrative: Lawrence is a 43 yr. [employer], . Lawrence was stationed in [facility] and did not witness any trauma or combat. 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 currently works for the [employer] and her works fulltime. is 40% [place]. Lawrence symptoms include anxiety that links from being in pain all the time, and sleeping issues. Lawrence currently is seeing [facility] for MH medication managment. does not want to work with a therapist at this time. Lawrence denied being suicidal or homicidal and was stable at end of session. Lawrence is aware to contact the clinic or the 's Crisis Line with concerns prior to the next scheduled visit. INITIAL INTERVENTIONS: Psychosocial Assessment completed Patient Rights, Confidentiality & Duty to Report, Informed Consent Reviewed with patient Clinician contact information given to Suicide Hotline and Tele-nurse numbers provided to INITIAL PLAN: will return PRN to clinic to see this clinician. will see Medication Management Provider as clinically indicated. Treatment Plan to be completed with within 3 visits with mental health team. Lawrence will contact clinic as needed. /brenda/ SWEETIE JAIN CLINICAL SORT LINE Signed: 05/08/2024 16:11 SWEETIE POTTS [facility]
--- OUTSIDE RECORDS SUMMARY | 2024-06-16 05:00 | XMS_ITS | Encounter Summary ---
Author Name [facility] Address [address] [place] [address] Care Team Providers Care Vinyl Hanger Name Role Phone JULIETA ALCALA Primary Care Provider [facility] e Insurance Providers: All historical [...] Damico's Name Patient's Relationship to Policy Damico FEDERICOSABULA ([id number]) PRESCRIPT ION [facility] L Feb 26, 2024 [id number] [phone] SATISH PAREKH PATIENT [employer] PREFERRED PROVIDER ORGANIZAT ION (PPO) [facility] Feb 26, 2024 [id number] [phone] SATISH PAREKH PATIENT [facility] Feb 26, 2024 [id number] SATISH PAREKH PATIENT Selected Encounter This section includes the information on record at [place] for the Encounter. Date/Time Encounter Type Encounter Description Reason Provider Source Jun 16, 2024 09:00 AM OFFICE O/P EST HI 40 [facility] - IND ICD-10-CM F41.0 Panic disorder [episodic paroxysmal anxiety] ALEXIS MACDONALDJosé Encounter Template Text not used by [place] Assessments - Encounter Diagnoses This section includes the primary and secondary diagnoses documented for the Encounter. Date/Time Primary/Secondary Diagnosis Diagnosis Name Provider Source Jun 16, 2024 12:11 PM PRIMARY Panic disorder [episodic paroxysmal anxiety] ALEXIS MACDONALD LITOJAIR Jun 16, 2024 12:11 PM SECONDARY Generalized anxiety disorder ALEXIS MACDONALD LITOJAIR Plan of Treatment: Future Appointments (+ 6 months) and Future Tests (+/- 45 days) The Plan of Treatment section includes future care activities for the [facility] [place] [facility] This section includes future appointments and future orders which are active, pending or scheduled. Future Appointments This section includes appointments that were scheduled to occur 6 months from the date of the Encounter, up to a maximum of 20 appointments. The data comes from all [place] treatment facilities. Appointment Date/Time Appointment Type Appointme nt Facility Name June 30, 2024 08:00 AM AMBULATORY - PSYCHIATRY [facility] June 30, 2024 08:30 AM AMBULATORY - NONE [facility] July 07, 2024 08:30 AM AMBULATORY - NONE [facility] July 09, 2024 08:30 AM AMBULATORY - SURGERY [facility] July 22, 2024 08:30 AM AMBULATORY NONE [facility] Aug 21, 2024 10:00 AM AMBULATORY - PSYCHIATRY [facility] Nov 13, 2024 09:00 AM AMBULATORY - PSYCHIATRY [facility] Dec 01, 2024 09:30 AM AMBULATORY NONE [facility] Lab Results: +/- 30 days of the encounter This section includes the Chemistry and Hematology Lab Results on record with [place] for the patient. Radiology Reports and Pathology Reports are provided separately, in subsequent sections. Lab Results This section contains the Chemistry/Hematology Results that were resulted 30 days before or 30 daysafter the date of the Encounter. Date/Time Source Result Type Result - Unit Interpretation Reference Range Specimen Type Comment June 30, 2024 07:56 AM [facility] COMPREHENSIVE METABOLIC PANEL PLASMA Specimen Type: PLASMA Comment: GLUCOSE The ADA recommends a fasting glucose of 99 mg/dL as the GLUCOSE upper limit of normal. TP Per package insert reference range for recumbent is 6.0 to 7.8 TP g/dL. Plasma samples will generally have higher values (about TP 0.2 to 0.4 g/dL higher) due to presence of fibrinogen. TRIG REFERENCE RANGE: BORDERLINE HIGH: 150-199 mg/dL HIGH: 200-499 TRIG mg/dL VERY HIGH: >=500 mg/dL CHOL REF RANGE: BORDERLINE HIGH: 200-239 mg/dL HIGH: >=240 mg/dL HDLC Values >60 are a negative risk factor for heart disease. DLDL REF RANGE: NEAR OR ABOVE OPTIMAL: 100-129 mg/dL BORDERLINE DLDL HIGH: 130-159 mg/dL HIGH: 160-189 mg/dL VERY HIGH: >=190 Ordering Provider: JULIETA ALCALA Report Released Date/Time: July 08, 2023 01:56 PM Reporting Lab: [address] [id number] Performing Lab: [address] [address] ALBUMIN 4.0 g/dL 3.5-4.8 ALKALINE PHOSPHATASE 58 U/L 40-150 ALT/SGPT 16 U/L 0-55 AST/SGOT 24 U/L 10-40 BUN 8.6 mg/dL 7.0-18.7 CALCIUM 8.9 mg/dL 8.6-10.3 CREATININE 0.7 mg/dL 0.6-1.1 CO2 25 mmol/L 22-30 GLUCOSE 82 mg/dL 74-99 PROTEIN, TOTAL 7.0 g/dL 6.4-8.3 SODIUM 140 mmol/L 134-144 CHLORIDE 106 mmol/L 99-112 BILIRUBIN, TOTAL 0.7 mg/dL 0.2-1.2 POTASSIUM 4.1 mmol/L 3.5-5.1 ANION GAP 13 mmol/L 10-20 EGFR (CALCULATED) 109 June 30, 2024 07:56 AM [facility] LIPID PROFILE PLASMA Specimen Type: PLASMA Comment: GLUCOSE The ADA recommends a fasting glucose of 99 mg/dL as the GLUCOSE upper limit of normal. TP Per package insert reference range for recumbent is 6.0 to 7.8 TP g/dL. Plasma samples will generally have higher values (about TP 0.2 to 0.4 g/dL higher) due to presence of fibrinogen. TRIG REFERENCE RANGE: BORDERLINE HIGH: 150-199 mg/dL HIGH: 200-499 TRIG mg/dL VERY HIGH: >=500 mg/dL CHOL REF RANGE: BORDERLINE HIGH: 200-239 mg/dL HIGH: >=240 mg/dL HDLC Values >60 are a negative risk factor for heart disease. DLDL REF RANGE: NEAR OR ABOVE OPTIMAL: 100-129 mg/dL BORDERLINE DLDL HIGH: 130-159 mg/dL HIGH: 160-189 mg/dL VERY HIGH: >=190 Ordering Provider: JULIETA ALCALA Report Released Date/Time: July 08, 2023 01:56 PM Reporting Lab: [place] [phone] Performing Lab: [place] [phone] CHOLESTEROL 163 mg/dL 0-199 LDL CHOLESTEROL 98 mg/dL 0-99 HDL CHOLESTEROL 60 mg/dL >50 TRIGLYCERIDE 87 mg/dL 0-149 June 30, 2024 07:56 AM [facility] VITAMIN D (TOTAL) SERUM Specimen Type : SERUM Comment: VITD One expert panel recommended a target range of 30-40 ng/mL. Ordering Provider: JULIETA ALCALA Report Released Date/Time: July 08, 2023 01:56 PM Reporting Lab: [place] [phone] Performing Lab: [place] [phone] VITAMIN D (TOTAL) 41 ng/mL 30-60 June 30, 2024 07:56 AM [facility] CBC BLOOD Specimen Type: BLOOD No comment entered. Ordering Provider: JULIETA ALCALA Report Released Date/Time: July 08, 2023 01:56 PM Reporting Lab: [place] [phone] Performing Lab: [place] [phone] WBC COUNT 5.3 10*3/uL 3.6-11.0 RBC COUNT 4.82 10*6/uL 4.20-5.40 HGB 14.9 g/dL 13.0-16.0 HCT 43.3 37.0-47.0 MCV 89.8 fL 80.0-96.0 MCH 30.8 pg 27.0-31.0 MCHC 34.3 g/dL 31.5-36.5 PLT 273 10*3/uL 150-400 LYMPHS % 25.9 21.0-51.0 MONOCYTES % 5.8 4.0-8.0 NUCLEATED RBC/100WBC 0.1 /100{WBCs} RDW 12.9 11.2-15.8 NEUTROPHIL % 65.3 54.0-78.0 EOSINOPHIL % 2.2 0.0-3.0 BASOPHIL % 0.8 0.0-3.0 ABSOLUTE LYMPHOCYTE COUNT 1.4 10*3/uL 0. 8-5.0 ABSOLUTE NEUTROPHIL COUNT 3.5 10*3/uL 1. 9-8.6 ABSOLUTE BASOPHIL COUNT 0.0 10*3/uL 0.0- 0.3 ABSOLUTE MONOCYTE COUNT 0.3 10*3/uL 0.1- 0.9 ABSOLUTE EOSINOPHIL COUNT 0.1 10*3/uL 0. 0-0.3 MPV 9.0 fL 7.9-10.8 June 30, 2024 07:56 AM [facility] TSH PLASMA Specimen Type: PLASMA Comment: GLUCOSE The ADA recommends a fasting glucose of 99 mg/dL as the GLUCOSE upper limit of normal. TP Per package insert reference range for recumbent is 6.0 to 7.8 TP g/dL. Plasma samples will generally have higher values (about TP 0.2 to 0.4 g/dL higher) due to presence of fibrinogen. TRIG REFERENCE RANGE: BORDERLINE HIGH: 150-199 mg/dL HIGH: 200-499 TRIG mg/dL VERY HIGH: >=500 mg/dL CHOL REF RANGE: BORDERLINE HIGH: 200-239 mg/dL HIGH: >=240 mg/dL HDLC Values >60 are a negative risk factor for heart disease. DLDL REF RANGE: NEAR OR ABOVE OPTIMAL: 100-129 mg/dL BORDERLINE DLDL HIGH: 130-159 mg/dL HIGH: 160-189 mg/dL VERY HIGH: >=190 Ordering Provider: JULIETA ALCALA Report Released Date/Time: July 08, 2023 01:56 PM Reporting Lab: [address] [phone] Performing Lab: [address] [phone] TSH 1.693 u[IU]/mL 0.350-4.940 June 30, 2024 07:56 AM [facility] URINALYSIS URINE Specimen Type: URINE No comment entered. Ordering Provider: JULIETA ALCALA Report Released Date/Time: July 08, 2023 01:56 PM Reporting Lab: [address] [phone] Performing Lab: [address] [phone] SPECIFIC GRAVITY 1.002 L 1.016-1.022 URINE GLUCOSE Negative mg/dL Negative URINE PROTEIN Negative mg/dL Negative URINE PH 7.0 5.0-8.0 URINE BACTERIA Rare H Negative SPERM IN URINE Present H Negative NITRITE, URINE Negative Negative ESTERASE(WBC) Negative Negative URINE CLARITY Clear Clear URINE MUCUS Present H Negative URINE BILIRUBIN Negative mg/dL <=0.4 URINE BLOOD Negative mg/dL <0.05 UROBILINOGEN Negative mg/dL <=1 URINE KETONES Negative mg/dL <=9 URINE COLOR Colorless [none] May 21, 2024 12:39 PM [facility] URINE TOX SCREEN URINE Specimen Type: [...] May 21, 2024 11:25 AM Reporting Lab: [address] [phone] Performing Lab: [address] [phone] AMPHETAMINES NEG Negative BARBITURATES NEG Negative BENZODIAZEPINES [...] and tobacco- related health factors from the [place] facility where the Encounter took place. Current Smoking Status This section includes the most current smoking, or tobacco-related health factor, from the [place] facility where the Encounter took place. Date/Time Current Smoking Status Comment Facil ity July 08, 2023 01:30 PM [facility]TO[facility]CO NEVER USED [facility] Tobacco Use History This section includes a history of the smoking, or tobacco-related health factors, that were collected on or before the date of the Encounter. The data comes from the [place] facility where the Encounter took place. Date/Time Smoking Status/Tobacco Use Comment F luis antonio July 03, 2022 02:00 PM [facility]-TOBACCO NEVER USED [facility] Encounter Notes: All associated encounter notes This section contains the clinical notes associated to the Encounter. Date/Time Encounter Note(s) Provider Source Jun 16, 2024 08:42 AM ACCOUNTING OF DISC LOSURES NOTE: LOCAL TITLE: STATE PRESCRIPTION DRUG MONITORING PROGRAM STANDARD TITLE: ACCOUNTING OF DISCLOSURES NOTE DATE OF NOTE: JUN 16, 2024@08:42:51 ENTRY DATE: JUN 16, 2024@08:42:51 AUTHOR: ALEXIS MACDONALD EXP COSIGNER: URGENCY: STATUS: COMPLETED This PDMP query was submitted by Alexis Macdonald. The clinical justification for this PDMP query is to review controlled substances prescribed outside of the [facility], and any additional information that may become available, as an important component of standard clinical care, and in accordance with [facility] policy. Patient information was shared with the PDMP [facility]. Prescription(s) filled outside the [facility] in the last 90 days are noted. Safety concerns will be discussed with the patient and documented as part of ongoing treatment planning. Tramadol 5o mg /es/ ALEXIS MACDONALD CLINICAL NURSE SPECIALIST Signed: 06/16/2024 08:43 ALEXIS MACDONALD CB Jun 16, 2024 08:33 AM PSYCHIATRY NOTE: LOCAL TITLE: [facility] PSYCHIATRY NOTE (T) STANDARD TITLE: PSYCHIATRY NOTE DATE OF NOTE: JUN 16, 2024@08:33 ENTRY DATE: JUN 16, 2024@08:33:25 AUTHOR: ALEXIS MACDONALD EXP COSIGNER: URGENCY: STATUS: COMPLETED PSYCHIATRIC PROGRESS NOTE Time in: 0900 am Time out: 0930 am Total time: 30 minutes Therapy time: 16 minutes Date Treatment Plan is due: May Treatment Plan Goal: lower anxiety and depression Televideo Disclaimer: Patient consented to telehealth appointment. [...] emergencies, provider may initiate the call to visual merchandising specialist by calling [facility] [phone] [address] Veterans/ Crisis Line - Dial 988, press #1 [employer] Help Desk ([facility]): [phone] or [phone] VERBAL AND VISUAL VALIDATION: Documentation: Verbal and visual validation confirmation completed: N/A CC: medication follow up HPI: Carri is a 43 year old female 40% SC with 40% for mood disorder . 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 when she was having chest pain and she taken to ER and everything checked out ok. She went and saw Dr. Cordero at pain management . He placed her on Tramadol it wasn't working during the daytime. She took a Tramadol in morning then took another one at noon and got so sick on it. 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 Carri remains in constant pain. She reports she had a respiratory illness last week. Her depression has been ok , my mood has been ok. I'm in so much pain I can't do anything for enjoyment. She reports past couple weeks have been interrupted with pain. I wake up exhausted. She denies nightmares. She denies appetite issues . Weaning Lexapro off will lower to 5 mg daily x 3 days than 2.5 mg will start Duloxiene 30 mg daily SUBSTANCE USE HX: Nicotine: denies Alcohol: denies [...] FLAMES* LEFT ANKLE PAIN 2) ESCITALOPRAM OXALATE 10MG TAB TAKE ONE TABLET BY ACTIVE MOUTH EVERY DAY FOR PANIC DISORDER TAKE 1 HOUR PRIOR TO BEDTIME 3) HYDROXYZINE HCL 10MG TAB TAKE 1 OR 2 TABLETS BY MOUTH ACTIVE TWICE A DAY NEEDED FOR ADDITIONAL MEDICATION FOR CALMING 4) TABLET CUTTER USE THIS SUPPLY ITEM DIRECTED ACTIVE NEEDED FOR SPLITTING TABLETS 5) TRAMADOL HCL 50MG TAB TAKE 1 TABLET BY MOUTH EVERY 12 ACTIVE HOURS NEEDED FOR NEUROPATHIC PAIN Active Non-VA Medications Status ===== 1) Non-VA LACTOBACILLUS ACIDOPHILUS CHEW TAB 2 TABLETS ACTIVE BY MOUTH EVERY DAY 2) Non-VA MULTIVITAMINS W/IRON TAB,CHEWABLE 2 TABLETS BY ACTIVE MOUTH EVERY DAY 7 Total Medications LABS: [facility] - Chem & Hematology (max 6 months) ---- Collection DT Specimen Test Name Result Units Ref Range 05/21/2024 12:39 URINE FENTANYL NEG Ref: Negative AMPHETAMINES NEG Ref: Negative BARBITURATES NEG Ref: Negative BENZODIAZEPINES NEG Ref: Negative CANNABINOIDS NEG Ref: Negative COCAINE NEG Ref: Negative ETHANOL, URINE NEG Ref: Negative OPIATES NEG Ref: Negative OXYCODONE NEG Ref: Negative BUPRENORPHINE NEG Ref: Negative METHADONE NEG Ref: Negative CREATININE, URINE 103 mg/dL Comment: LATRICE Cutoff Value for COCAINE = 300 ng/mL Comment: CANNABI Cutoff Value for CANNABINOIDS = 50 ng/mL Comment: AMPH Cutoff Value for AMPHETAMINES = 1000 ng/mL Comment: UETOH Cutoff Value for Ethanol Urine = 10 ng/mL Comment: OPI Cutoff Value for OPIATES = 300 ng/mL Comment: JUDIT Cutoff Value for BARBITURATES = 200 ng/mL Comment: JOSHUA Cutoff Value for BENZODIAZEPINES = 200 ng/mL Comment: METH Cutoff Value for METHADONE = 300 ng/mL Comment: BUP Cutoff Value for Buprenorphine = 5 ng/mL Comment: OXY Cutoff Value for Oxycodone = 300 ng/mL Comment: FENT Cutoff Value for Fentanyl = 1 ng/mL CY - Cytopathology (max 6 months) No data available EM - Electron Microscopy (max 6 months) ------ No data available HUSAM - Microbiology (max 6 months) No data available SP - Surgical Pathology (max 6 months) ----- No data available REVIEW OF SYSTEMS: Muscle strength and Tone: weakness Gait and Station: trouble walking due to foot and back issues MENTAL STATUS EXAMINATION: Level of Consciousness: [...] Denied Mood: Slightly depressed Affect: Appropriate Insight: Fair - Judgment: Fair SELF-MEDICATION ASSESSMENT: Current medication regime reviewed with [...] ASSESSMENT Does patient have firearms at home? Patient assessed for other lethal means? Yes Suicidal risk assessment completed: Yes Suicide Screen: C-SSRS Screening [place]-Suicide Severity Rating Scale (C-SSRS Screener) 1. Over [...] required due to responses to other questions. Prior suicide attempts: The risk for harming self is considered: Acute - Low Chronic - Low Risk factors: Access to lethal means Medical conditions and health-related problems Psychological conditions Protective factors: Supportive and caring family and friends Connectedness to community, school, family, friends [place] skills (such as problem-solving, conflict resolution, anger management, impulse control, etc.) Access to appropriate medical and mental health care Access to immediate and ongoing support and care Violence assessment completed: Yes Prior history of violence: No The risk of violence towards others is considered: Low PSYCHOTHERAPY NOTE Therapy provided: Supportive Issues discussed: chronic pain in front and leg Goals of therapy: active listening , support Treatment plan: continue plan of care MEDICATION MANAGEMENT TREATMENT PLAN DIAGNOSIS: PTSD GOALS OF THERAPY: low depression and anxiety METHOD OF THERAPY/INTERVENTIONS: Will continue to assess adherence and efficacy of medications Will continue to monitor symptoms and reassess at the next apt PROGRESS TOWARDS GOAL: Other: TREATMENT PLAN UPDATED: Date: May Treatment Plan has been discussed with patient/caregiver. IMPRESSION/FORMULATION: agrees to wean off Lexapro and start Duloxetine 30 mg daily to see if this will help her pain. She is appreciative of providers help. She denies suicidal and homicidal thoughts or plans. DIAGNOSIS/PLAN: Anxiety with panic disorder 1. Lexapro being weaned off and will start Duloxetine 30 mg daily. 2. Vistaril 5 mg to 1 to 2 tablets as needed for anxiety and panic takes rarely 3. SAD light for seasonal depression using occassionally Does patient have a diagnosis or history of opioid use disorder or stimulant use disorder? No RTC: 1 month Patient was provided with the 24 Hr. [...] RECONCILIATION REPORT reviewed and discussed with patient. [place] prescription medications: Patient verifies that they are [...] /brenda/ ALEXIS MACDONALD CLINICAL NURSE SPECIALIST Signed: 06/16/2024 12:11 ALEXIS MACDONALD OC
--- OUTSIDE RECORDS SUMMARY | 2024-06-30 04:00 | XMS_ITS | Encounter Summary ---
Author Name [facility] [facility] [place] [facility] [place] Address [address] [place] [address] Care Team Providers Care Terra Cotta Roofer Name Role Phone JULIETA ALCALA Primary Care Provider Jaison e Insurance Providers: All historical and current [...] Damico's Name Patient's Relationship to Policy Damico CAREMARK FEP ([id number]) PRESCRIPT ION FEP RX Mar 02, 2017 [id number] [phone] SATISH PAREKH PATIENT Selected Encounter This section includes the information on record at [place] for the Encounter. Date/Time Encounter Type Encounter Description Reason Provider Source June 30, 2024 08:00 AM OFFICE O/P EST LOW 20 MIN [facility] - IND ICD-10-CM F41.1 Generalized anxiety disorder ALEXIS MACDONALD Encounter Template Text not used by [place] Assessments - Encounter Diagnoses This section includes the primary and secondary diagnoses documented for the Encounter. Date/Time Primary/Secondary Diagnosis Diagnosis Name Provider Source June 30, 2024 08:28 AM PRIMARY Generalized anxiety disorder ALEXIS MACDONALD June 30, 2024 08:28 AM SECONDARY Panic disorder [episodic paroxysmal anxiety] ALEXIS MACDONALD Plan of Treatment: Future Appointments (+ 6 months) and Future Tests (+/- 45 days) The Plan of Treatment section includes future care activities for the patient from all [place] treatmentfacilities. This section includes future appointments and future orders which are active, pending or scheduled. Future Appointments This section includes appointments that were scheduled to occur 6 months from the date of the Encounter, up to a maximum of 20 appointments. The data comes from all [place] treatment facilities. Appointment Date/Time Appointment Type Appointme nt Facility Name July 07, 2024 08:30 AM AMBULATORY - NONE [facility] July 09, 2024 08:30 AM AMBULATORY - SURGERY [facility] July 22, 2024 08:30 AM AMBULATORY - NONE [facility] Aug 21, 2024 10:00 AM AMBULATORY - PSYCHIATRY [facility] Oct 02, 2024 10:00 AM AMBULATORY - NONE [facility] Lab Results: +/- 30 days of the encounter This section includes the Chemistry and Hematology Lab Results on record with [place] for the patient. Radiology Reports and Pathology Reports are provided separately, in subsequent sections. Lab Results This section contains the Chemistry/Hematology Results that were resulted 30 days before or 30 daysafter the date of the Encounter. Date/Time Source Result Type Result - Unit Interpretation Reference Range Specimen Type Comment June 30, 2024 07:56 AM [facility] LIPID PROFILE PLASMA Specimen Type: PLASMA [...] July 08, 2023 01:56 PM Reporting Lab: [address] [address] Performing Lab: [address] [address] CHOLESTEROL 163 mg/dL 0-199 LDL CHOLESTEROL 98 mg/dL 0-99 HDL CHOLESTEROL 60 mg/dL >50 TRIGLYCERIDE 87 mg/dL 0-149 June 30, 2024 07:56 AM [facility] COMPREHENSIVE METABOLIC PANEL PLASMA S pecimen Type: PLASMA Comment: GLUCOSE The ADA recommends [...] July 08, 2023 01:56 PM Reporting Lab: [address] [address] Performing Lab: [address] [address] ALBUMIN 4.0 g/dL 3.5-4.8 ALKALINE PHOSPHATASE 58 [...] (CALCULATED) 109 June 30, 2024 07:56 AM [facility] VITAMIN D (TOTAL) SERUM Specimen Type : SERUM Comment: VITD One expert panel recommended a target range of 30-40 ng/mL. Ordering Provider: JULIETA ALCALA Report Released Date/Time: July 08, 2023 01:56 PM Reporting Lab: [place] [id number] Performing Lab: [place] [id number] VITAMIN D (TOTAL) 41 ng/mL 30-60 June 30, 2024 07:56 AM [facility] CBC BLOOD Specimen Type: BLOOD No comment entered. Ordering Provider: JULIETA ALCALA Report Released Date/Time: July 08, 2023 01:56 PM Reporting Lab: [address] [address] Performing Lab: [place] [id number] WBC COUNT 5.3 10*3/uL 3.6-11.0 RBC COUNT [...] fL 7.9-10.8 June 30, 2024 07:56 AM [facility] TSH PLASMA Specimen Type: PLASMA Comment: [...] July 08, 2023 01:56 PM Reporting Lab: [address] [address] Performing Lab: [address] [address] TSH 1.693 u[IU]/mL 0.350-4.940 June 30, 2024 07:56 AM [facility] URINALYSIS URINE Specimen Type: URINE No comment entered. Ordering Provider: JULIETA ALCALA Report Released Date/Time: July 08, 2023 01:56 PM Reporting Lab: [address] [address] Performing Lab: [address] [address] SPECIFIC GRAVITY 1.002 L 1.016-1.022 URINE GLUCOSE [...] Negative mg/dL <=9 URINE COLOR Colorless [none] Social History: Smoking Status (Most current) and Tobacco Use (All prior to encounter date) This section includes the most current, and the historical, smoking and tobacco- related health factors from the [place] facility where the Encounter took place. Current Smoking Status This section includes the most current smoking, or tobacco-related health factor, from the [place] facility where the Encounter took place. Date/Time Current Smoking Status Comment Khloe ity June 30, 2024 08:00 AM VA-TOBACCO NEVER USED CIGARETTES [facility] Tobacco Use History This section includes a history of the smoking, or tobacco-related health factors, that were collected on or before the date of the Encounter. The data comes from the [place] facility where the Encounter took place. Date/Time Smoking Status/Tobacco Use Comment F acility June 30, 2024 08:00 AM VA-TOBACCO NEVER USED OTHER TYPE [facility] July 08, 2023 01:30 PM VA-TOBACCO NEVER USED [facility] July 03, 2022 02:00 PM VA-TOBACCO NEVER USED [facility] Encounter Notes: All associated encounter notes This section contains the clinical notes associated to the Encounter. Date/Time Encounter Note(s) Provider Source June 30, 2024 08:06 AM PRIMARY CARE [facility] NOTE: LOCAL TITLE: OUTPATIENT NURSING INTAKE NOTE (T) STANDARD TITLE: PRIMARY CARE NURSING NOTE DATE OF NOTE: JUNE 30, 2024@08:06 ENTRY DATE: JUNE 30, 2024@08:07:02 AUTHOR: DULCE MCDONNELL COSIGNER: URGENCY: STATUS: COMPLETED Hemoglobin A1C Results: No Hemoglobin A1C Results Review Allergies Allergies reviewed and updated per protocol. ALLERGIES/ADVERSE REACTIONS No Known Allergies Have you fallen in the last 30 days? NO MEDICATION LIST REVIEW REPORT Patient states no change in documented OTC/Herbals at this visit. 1. Has the patient been feeling sad or distressed? No 2. Has the patient been having personal or family problems? No 3. Has the patient been experiencing worry and/or stress? No 4. Has the patient been having problems with drugs and/or alcohol? No 5. [facility] pocket card was provided to patient. No/patient declined [facility] not documented this visit. Clinical Reminders Activity BMI Screening: At this visit, the health risks of obesity were reviewed and discussed with the patient, and the benefits of a weight management treatment program, such as [facility] was discussed and offered to the patient. Is the patient ? Patient declines referral. After discussing the health risks of obesity and offering a referral to [facility] or another weight loss program outside [facility], the patient DECLINES REFERRAL to [facility] or other weight loss program at this time. COVID-19 Immunization: Pain, Brief Evaluation: Type of pain: Ongoing Location: Low Back Intensity: Currently: 6 Description of Pain: Aching Patient Education Documentation: LEARNING NEEDS ASSESSMENT: The patient/family/significant other reports no changes in learning needs. PTSD Screening: PC-PTSD-5 A PTSD screening test (PC-PTSD-5) was negative (score=0). IN THE PAST MONTH, have you ever had any experience that was so frightening, horrible or traumatic. For example: A serious accident or fire a physical or sexual assault or abuse An earthquake or flood A war Seeing someone be killed or seriously injured Having a loved one through homicide or suicide 1. Have you ever experienced this kind of event? NO 2. Had nightmares about the event(s) or thought about the event(s) when you did not want to? Response not required due to responses to other questions. 3. Tried hard not to think about the event(s) or went out of your way to avoid situations that reminded you of the event(s)? Response not required due to responses to other questions. 4. Been constantly on guard, watchful, or easily startled? Response not required due to responses to other questions. 5. [place] numb or detached from people, activities, or your surroundings? Response not required due to responses to other questions. 6. [place] guilty or unable to stop blaming yourself or others for the event(s) or any problems the event(s) may have caused? Response not required due to responses to other questions. Tobacco Use Screening: The patient has never smoked cigarettes. The patient has never used other types of tobacco. /brenda/ DULCE MCDONNELL LICENSED PRACTICAL NURSE Signed: 06/30/2024 08:09 [facility] June 30, 2024 08:01 AM PSYCHIATRY NOTE: LOCAL TITLE: [facility] PSYCHIATRY NOTE (T) STANDARD TITLE: PSYCHIATRY NOTE DATE OF NOTE: JUNE 30, 2024@08:01 ENTRY DATE: JUNE 30, 2024@08:01:31 AUTHOR: ALEXIS MACDONALD COSIGNER: URGENCY: STATUS: COMPLETED PSYCHIATRIC PROGRESS NOTE Time in: 0800 am Time out: 0830 am Total time: 30 minutes Therapy time: [...] emergencies, provider may initiate the call to engineer first assistant by calling E911 Center [phone] [address] Veterans/ Crisis Line - Dial 988, press #1 [email or web address] Help [employer]k ([employer]): [phone] or [phone] VERBAL AND VISUAL VALIDATION: Documentation: Verbal and visual validation confirmation completed: N/A CC: medication follow up HPI: is a 43 year old female 40% SC with 40% for mood disorder . She reports is taking the Duloxetine and no side effects yet. She hasn't taken the Vistaril in 3 weeks. She verbalizes her sleep was better last night. According to [employer] she is getting 6 hours a n night . Weird dreams of going to kill someone. She reports depression has been better . Her appetite has decreased and watching what she eats. She is off work currently for a calf strain . She denies suicidal and homicidal thoughts or plans. She reports her irritability and snappiness is less. She has noticed some slight change at day 7 regarding not excessing about things . Side EFFECT: DRY MOUTH. SUBSTANCE USE HX: Nicotine: denies Alcohol: denies Cannabis: denies ALLERGIES: ALLERGIES/ADVERSE REACTIONS No Known Allergies T: 96.1 F [35.6 C] (06/30/2024 08:00) P: 81 (06/30/2024 08:00) R: 16 (06/30/2024 08:00) BP: 131/84 (06/30/2024 08:00) W: 145 lb [65.77 kg] (06/30/2024 08:00) BMI: 26.2 Pain: 6 (06/30/2024 08:08) Pulse OX: 99% (06/30/2024 08:00) LABS: [facility] - Chem & Hematology (max [...] walking due to foot and back issues off work currently due to calf strain MENTAL STATUS EXAMINATION: Level of Consciousness: Alert [...] assessment completed: Yes Suicide Screen: C-SSRS Screening [place]-Suicide Severity Rating Scale (C-SSRS Screener) 1. Over [...] friends Connectedness to community, school, family, friends [place] skills (such as problem-solving, conflict resolution, anger [...] Plan has been discussed with patient/caregiver. IMPRESSION/FORMULATION: denies any issues from weaning Lexapro off and starting Duloxeine 30 mg . She reports she has noticed a slight decrease in her excessive worrying. She switched time of taking it to morning time due to altered her sleep at night. She denies any suicidal or homicidal thoughts or plans . DIAGNOSIS/PLAN: Anxiety with panic disorder 1. Duloxetine 30 mg daily. 2. Vistaril 5 mg to 1 to 2 tablets as needed for anxiety and panic takes rarely Does patient have a diagnosis or history [...] gave them an updated list. /brenda/ ALEXIS AMCDONALD CLINICAL NURSE SPECIALIST Signed: 06/30/2024 08:28 [facility] MACDONAL[facility]
--- OUTSIDE RECORDS SUMMARY | 2024-07-07 04:30 | XMS_ITS | Encounter Summary ---
Author Name [facility] [place] [facility] [place] Address [address] [place] [address] Care Team Providers Care Data Conversion Developer Name Role Phone JULIETA ALCALA Primary Care Provider [facility] Insurance Providers: All historical and current [...] Patient's Relationship to Policy Damico CAREMARK FEP ([id number]) PRESCRIPT ION FEP RX Mar 02, 2017 [id number] [phone] SATISH PAREKH PATIENT Selected Encounter This section includes the information on record at [place] for the Encounter. Date/Time Encounter Type Encounter Description Reason Provider Source July 07, 2024 08:30 AM OFFICE O/P EST MOD 30 MIN PRIMARY CARE/MEDICINE ICD-10-CM M25.572 Pain in left ankle and joints of left foot JULIETA ALCALA José Encounter Template Text not used by [place] Assessments - Encounter Diagnoses This section includes the primary and secondary diagnoses documented for the Encounter. Date/Time Primary/Secondary Diagnosis Diagnosis Name Provider Source July 07, 2024 09:10 AM PRIMARY Pain in left ankle and joints of left foot JULIETA ALCALA CB July 07, 2024 09:10 AM SECONDARY Generalized anxiety disorder JULIETA ALCALA July 07, 2024 09:10 AM SECONDARY Panic disorder [episodic paroxysmal anxiety] JULIETA ALCALA [facility] Plan of Treatment: Future Appointments (+ 6 months) and Future Tests (+/- 45 days) The Plan of Treatment section includes future care activities for the patient from all [place] treatmentfacilities. This section includes future appointments and future orders which are active, pending or scheduled. Future Appointments This section includes appointments that were scheduled to occur 6 months from the date of the Encounter, up to a maximum of 20 appointments. The data comes from all [place] treatment facilities. Appointment Date/Time Appointment Type Appointme nt Facility Name July 09, 2024 08:30 AM AMBULATORY - SURGERY [facility] July 22, 2024 08:30 AM AMBULATORY - NONE [facility] Aug 21, 2024 10:00 AM [facility] Oct 02, 2024 10:00 AM AMBULATORY - NONE [facility] Lab Results: +/- 30 days of the encounter This section includes the Chemistry and Hematology Lab Results on record with [place] for the patient. Radiology Reports and Pathology Reports are provided separately, in subsequent sections. Lab Results This section contains the Chemistry/Hematology Results that were resulted 30 days before or 30 daysafter the date of the Encounter. Date/Time Source Result Type Result - Unit Interpretation Reference Range Specimen Type Comment June 30, 2024 07:56 AM [facility] LIPID PROFILE PLASMA Specimen Type: PLASMA [...] July 08, 2023 01:56 PM Reporting Lab: [address] [address] Performing Lab: [address] [address] CHOLESTEROL 163 mg/dL 0-199 LDL CHOLESTEROL 98 mg/dL 0-99 HDL CHOLESTEROL 60 mg/dL >50 TRIGLYCERIDE 87 mg/dL 0-149 June 30, 2024 07:56 AM [facility] COMPREHENSIVE METABOLIC PANEL PLASMA S pecimen [...] July 08, 2023 01:56 PM Reporting Lab: [address] [address] Performing Lab: [address] [address] ALBUMIN 4.0 g/dL 3.5-4.8 ALKALINE PHOSPHATASE 58 [...] (CALCULATED) 109 June 30, 2024 07:56 AM [facility] VITAMIN D (TOTAL) SERUM Specimen Type : SERUM Comment: VITD One expert panel recommended a target range of 30-40 ng/mL. Ordering Provider: JULIETA ALCALA Report Released Date/Time: July 08, 2023 01:56 PM Reporting Lab: [address] [address] Performing Lab: [address] [address] VITAMIN D (TOTAL) 41 ng/mL 30-60 June 30, 2024 07:56 AM [facility] TSH PLASMA Specimen Type: PLASMA Comment: [...] July 08, 2023 01:56 PM Reporting Lab: [address] [address] Performing Lab: [address] [address] TSH 1.693 u[IU]/mL 0.350-4.940 June 30, 2024 07:56 AM [facility] CBC BLOOD Specimen Type: BLOOD No comment entered. Ordering Provider: JULIETA ALCALA Report Released Date/Time: July 08, 2023 01:56 PM Reporting Lab: [address] [address] Performing Lab: [facility] [address] [facility] [address] WBC COUNT 5.3 10*3/uL 3.6-11.0 RBC COUNT [...] fL 7.9-10.8 June 30, 2024 07:56 AM [facility] URINALYSIS URINE Specimen Type: URINE No comment entered. Ordering Provider: JULIETA ALCALA Report Released Date/Time: July 08, 2023 01:56 PM Reporting Lab: [facility] [address] [facility] [address] Performing Lab: [facility] [address] [facility] [address] SPECIFIC GRAVITY 1.002 L 1.016-1.022 URINE GLUCOSE [...] and tobacco- related health factors from the [place] facility where the Encounter took place. Current Smoking Status This section includes the most current smoking, or tobacco-related health factor, from the [place] facility where the Encounter took place. Date/Time Current Smoking Status Comment Facil ity June 30, 2024 08:00 AM VA-TOBACCO NEVER USED CIGARETTES [facility] Tobacco Use History This section includes a history of the smoking, or tobacco-related health factors, that were collected on or before the date of the Encounter. The data comes from the [place] facility where the Encounter took place. Date/Time Smoking Status/Tobacco Use Comment F acwyatt June 30, 2024 08:00 AM VA-TOBACCO NEVER USED OTHER TYPE [facility] July 08, 2023 01:30 PM VA-TOBACCO NEVER USED [facility] July 03, 2022 02:00 PM VA-TOBACCO NEVER USED [facility] Encounter Notes: All associated encounter notes This section contains the clinical notes associated to the Encounter. Date/Time Encounter Note(s) Provider Source July 07, 2024 08:46 AM INTERNAL MEDICINE OUTPATIENT NOTE: LOCAL TITLE: PRIMARY CARE OUTPATIENT NOTE (T) STANDARD TITLE: INTERNAL MEDICINE OUTPATIENT NOTE DATE OF NOTE: JULY 07, 2024@08:46 ENTRY DATE: JULY 07, 2024@08:46:40 AUTHOR: JULIETA ALCALA COSIGNER: URGENCY: STATUS: COMPLETED In-person Note 43yo Reason for Visit: HERE FOR YEARLY VISIT - SEES DR CABRERA FOR [facility] - SEEING PAIN CLINIC FOR LEFT ANKLE PAIN AND PODIATRY - SEEING FOR ANXIETY/PANIC ATTACKS REVIEW OF SYSTEMS: GI: DENIES ABDOMINAL PAIN,GERD, CONSTIPATION,DIARRHEA OR RECTAL BLEEDING - : DENIES DYSURIA OR HEMATURIA- CARDIAC; DENIES CHEST PAIN,PALPATATIONS ,ORTHOPNEA OR PEDAL EDEMA RESPIRATORY:DENIES SOB- CHRONIC COUGH -OR WHEEZING NEURO: DENIES HEADACHE, PARESTHESIA, NEUROPATHY,VISUAL OR HEARING PROBLEMS HABITS; TOBACCO;NEVER ETOH;NONE OTHER SUBSTANCES NEG PATIENT ALLERGIES DETAILED ALLERGIES/ADVERSE REACTIONS No Known Allergies AMRS - MEDS (REC SUCCINCT) Active and Recently Inpatient, Outpatient and Clinic Medications (including Supplies): Active Outpatient Medications Status ======= 1) DICLOFENAC NA 1% TOP GEL APPLY 2GM MEASURED ON ACTIVE DOSING CARD EXTERNALLY TWICE A DAY (GENTLY MASSAGE INTO SKIN - TOTAL BODY MAX 32GM PER DAY) *FLAMMABLE: KEEP AWAY FROM HEAT AND FLAMES* LEFT ANKLE PAIN 2) DULOXETINE HCL 30MG EC CAP TAKE ONE CAPSULE BY MOUTH ACTIVE EVERY DAY FOR NEUROPATHIC PAIN 3) HYDROXYZINE HCL 10MG TAB TAKE 1 OR 2 TABLETS BY MOUTH ACTIVE TWICE A DAY NEEDED FOR ADDITIONAL MEDICATION FOR CALMING 4) TABLET CUTTER USE THIS SUPPLY ITEM DIRECTED ACTIVE NEEDED FOR SPLITTING TABLETS 5) TRAMADOL HCL 50MG TAB TAKE 1 TABLET BY MOUTH EVERY 12 ACTIVE HOURS NEEDED FOR NEUROPATHIC PAIN Inactive Outpatient Medications Status ======= 1) GABAPENTIN 100MG CAP TAKE ONE CAPSULE BY MOUTH AT BEDTIME FOR NERVE PAIN Active Non-VA Medications Status ======= 1) Non-VA LACTOBACILLUS ACIDOPHILUS CHEW TAB 2 TABLETS ACTIVE BY MOUTH EVERY DAY 2) Non-VA MULTIVITAMINS W/IRON TAB,CHEWABLE 2 TABLETS BY ACTIVE MOUTH EVERY DAY 8 Total Medications PHYSICAL EXAM: Vital Signs: T: 97.9 F [36.6 C] (07/07/2024 08:21) P: 65 (07/07/2024 08:21) R: 20 (07/07/2024 08:21) BP: 105/67 (07/07/2024 08:21) Pain: 3 (07/07/2024 08:26) Height: 62.5 in [158.8 cm] (06/30/2024 08:00) Weight: 142 lb [64.41 kg] (07/07/2024 08:21) Pulse Ox: 99% (07/07/2024 08:21) GENERAL: ALERT- ORIENTED X 4- NO DISTRESS LABS: REVIEWED WITH THE PATIENT:UNREMARKABLE HEAD, EARS ,EYES,NOSE AND THROAT- NORMOCEPHALIC ,ASHLEE,EOMI, ENT NEG NECK: SUPPLE WITHOUT MASSES OR BRUITS CHEST/LUNG: CHEST SYMETRICAL- LUNGS CLEAR CARDIOVASCULAR : HEART RRR WITHOUT MURMUR GASTROINTESTINAL: ABDOMEN SOFT WITHOUT MASSES OR BRUITS EXTREMITIES; NO EDEMA NEURO: CN II-XII GROSSLY INTACT - NO TREMORS OR ABNORMAL MOVEMENTS ASSESSMENT/PLAN: CHRONIC LEFT ANKLE PAIN / PAIN CLINIC AND PODIATRY ANXIETY/SEEING MH HX OF [facility] MAINTENANCE/CLINICAL REMINDERS: Clinical Reminders Activity Mammogram Screening: Patient has chosen to begin mammogram screening at age 44. Comments: SEES [facility] AND HE WILL BE ORDERING MAMMO - ASKED HER TO SEND US THE REPORT MEDICATION RECONCILIATION Medication Reconciliation report reviewed and discussed with patient/caregiver. VA prescription medications, non-VA prescription medications, OTC and herbal medications reviewed: Patient/caregiver verifies that the list is complete and accurate and voices understanding. Patient/caregiver in possession of printed medication list. FOLLOW-UP: RTC IN 1 YEAR WITH LABS I am the Attending Physician. TOTAL TIME SPENT: Spent 30 minutes in care of this patient today including review of records, exam, and placing orders. /brenda/ JULIETA ALCALA PHYSICIAN Signed: 07/07/2024 09:10 JULIETA ALCALA [facility] July 07, 2024 08:23 AM PRIMARY CARE [facility] NOTE: LOCAL TITLE: OUTPATIENT NURSING INTAKE NOTE (T) STANDARD TITLE: PRIMARY CARE NURSING NOTE DATE OF NOTE: JULY 07, 2024@08:23 ENTRY DATE: JULY 07, 2024@08:23:52 AUTHOR: TRIMBLE,CHAPIS M EXP COSIGNER: URGENCY: STATUS: COMPLETED Hemoglobin A1C Results: [...] problems with drugs and/or alcohol? No 5. [facility] pocket card was provided to patient. No/patient declined [facility] Interactive MAP ([facility] [place], [place] [employer] [place]) What matters most to you? Comment: stay active Clinical Reminders Activity COVID-19 Immunization: Refused Pfizer Monovalent COVID-19 vaccine Immunization: COVID-19 ([employer]), MRNA, LNP-S, PF, DEE DEE-SUCROSE, 30 MCG/0.3 ML (AGES 12+ YEARS) Refusal Reason: PATIENT DECISION Patient refuses all immunization(s) in the COVID-19 group Date Documented: 07/07/24 08:25 Pain, Brief Evaluation: Type of pain: Ongoing Location: Low Back lt ankle, lt foot Intensity: Currently: 3 Usually: 5 Description of Pain: Aching Burning Pinching Sore Stab sukhdev Tender Evaluation: Pain will be evaluated by provider today. Notified via Verbal Communication. Patient Education Documentation: LEARNING NEEDS ASSESSMENT: The patient/family/significant other reports no changes in learning needs. Tdap Immunization: The patient may have been vaccinated in the past but written documentation of vaccination is not available today. Patient instructed to obtain a written record of the prior vaccine and bring it to the next appointment. /brenda/ CHAPIS TRIMBLE LICENSED PRACTICAL NURSE Signed: 07/07/2024 08:28 CHAPIS TRIMBLE OC
--- OUTSIDE RECORDS SUMMARY | 2024-07-09 04:30 | XMS_ITS | Encounter Summary ---
Author Name [facility] [place] [facility] [place] [facility] [place] Address [address] [place] [address] Care Team Providers Care Produce Associate Name Role Phone JULIETA ALCALA Primary Care [...] Patient's Relationship to Policy Damico CAREMARK FEP ([id number]) PRESCRIPT ION FEP RX Mar 02, 2017 [id number] SATISH PAREKH PATIENT Selected Encounter This section includes the information on record at [place] for the Encounter. Date/Time Encounter Type Encounter Description Reason Provider Source July 09, 2024 08:30 AM OFFICE O/P EST HI 40 MIN PODIATRY ICD-10-CM M25.572 Pain in left ankle and joints of left foot SUE BROWN José Encounter Template Text not used by [place] Assessments - Encounter Diagnoses This section includes the primary and secondary diagnoses documented for the Encounter. Date/Time Primary/Secondary Diagnosis Diagnosis Name Provider Source July 09, 2024 04:10 PM PRIMARY Pain in left ankle and joints of left foot BRANDI BROWN CB July 09, 2024 04:10 PM SECONDARY Ganglion, left ankle and foot STOBRANDI WARNER CB July 09, 2024 04:10 PM SECONDARY Plantar fascial fibromatosis BRANDI BROWN [facility] Plan of Treatment: Future Appointments (+ 6 months) and Future Tests (+/- 45 days) The Plan of Treatment section includes future care activities for the patient [facility] This section includes future appointments and future orders which are active, pending or scheduled. Future Appointments This section includes appointments that were scheduled to occur 6 months from the date of the Encounter, up to a maximum of 20 appointments. The data comes from all [place] treatment facilities. Appointment Date/Time Appointment Type Appointme nt Facility Name July 22, 2024 08:30 AM AMBULATORY - NONE [facility] Aug 21, 2024 10:00 AM AMBULATORY - PSYCHIATRY [facility] Oct 02, 2024 10:00 AM AMBULATORY - NONE [facility] Lab Results: +/- 30 days of the encounter This section includes the Chemistry and Hematology Lab Results on record with [place] for the patient. Radiology Reports and Pathology Reports are provided separately, in subsequent sections. Lab Results This section contains the Chemistry/Hematology Results that were resulted 30 days before or 30 daysafter the date of the Encounter. Date/Time Source Result Type Result - Unit Interpretation Reference Range Specimen Type Comment June 30, 2024 07:56 AM [facility] LIPID PROFILE PLASMA Specimen Type: PLASMA Comment: [...] July 08, 2023 01:56 PM Reporting Lab: [address] [phone] Performing Lab: [address] [phone] CHOLESTEROL 163 mg/dL 0-199 LDL CHOLESTEROL 98 mg/dL 0-99 HDL CHOLESTEROL 60 mg/dL >50 TRIGLYCERIDE 87 mg/dL 0-149 June 30, 2024 07:56 AM [facility] COMPREHENSIVE METABOLIC PANEL PLASMA S pecimen Type: [...] July 08, 2023 01:56 PM Reporting Lab: [address] [phone] Performing Lab: [address] [address] ALBUMIN 4.0 g/dL 3.5-4.8 ALKALINE PHOSPHATASE 58 [...] (CALCULATED) 109 June 30, 2024 07:56 AM [facility] VITAMIN D (TOTAL) SERUM Specimen Type : SERUM Comment: VITD One expert panel recommended a target range of 30-40 ng/mL. Ordering Provider: JULIETA ALCALA Report Released Date/Time: July 08, 2023 01:56 PM Reporting Lab: [place] [phone] Performing Lab: [place] [phone] VITAMIN D (TOTAL) 41 ng/mL 30-60 June 30, 2024 07:56 AM [facility] CBC BLOOD Specimen Type: BLOOD No comment entered. Ordering Provider: JULIETA ALCALA Report Released Date/Time: July 08, 2023 01:56 PM Reporting Lab: [address] [address] Performing Lab: [place] [phone] WBC COUNT 5.3 10*3/uL 3.6-11.0 RBC COUNT [...] fL 7.9-10.8 June 30, 2024 07:56 AM [facility] TSH PLASMA Specimen Type: PLASMA Comment: GLUCOSE [...] July 08, 2023 01:56 PM Reporting Lab: [address] [phone] Performing Lab: [address] [address] TSH 1.693 u[IU]/mL 0.350-4.940 June 30, 2024 07:56 AM [facility] URINALYSIS URINE Specimen Type: URINE No comment entered. Ordering Provider: JULIETA ALCALA Report Released Date/Time: July 08, 2023 01:56 PM Reporting Lab: [address] [phone] Performing Lab: [address] [address] SPECIFIC GRAVITY 1.002 L 1.016-1.022 URINE GLUCOSE [...] and tobacco- related health factors from the [place] facility where the Encounter took place. Current Smoking Status This section includes the most current smoking, or tobacco-related health factor, from the [place] facility where the Encounter took place. Date/Time Current Smoking Status Comment Facil ity June 30, 2024 08:00 AM VA-TOBACCO NEVER USED OTHER TYPE [facility] Tobacco Use History This section includes a history of the smoking, or tobacco-related health factors, that were collected on or before the date of the Encounter. The data comes from the [place] facility where the Encounter took place. Date/Time [...] Encounter. Date/Time Encounter Note(s) Provider Source July 09, 2024 08:37 AM PODIATRY NOTE: LOCAL TITLE: PODIATRY CLINIC NOTE (T) STANDARD TITLE: PODIATRY NOTE DATE OF NOTE: JULY 09, 2024@08:37 ENTRY DATE: JULY 09, 2024@08:37:36 AUTHOR: WAYNE BROWN EXP COSIGNER: URGENCY: STATUS: COMPLETED [facility] SOAP Note SUBJECTIVE: The patient is a 43 year old FEMALE. Chief Complaint: Follow-up left ankle pain Past Medical History: Patient presents today to follow-up on left ankle pain. Patient states that the tramadol was not helpful, it did not help the pain at all but did change her mood for the worse. She has stopped taking. She also is not taking the gabapentin. She has noted most improvement with use of duloxetine from her mental health provider. She states while this does not help the ankle pain it does improve her mood greatly. Patient had recent injury at work, was diagnosed with a strain of her left calf. She has been working with occupational therapist with [employer]. She notes the worst pain today being the outside of the left ankle, she feels this extend up into her leg. She is using Kinesiotape which does seem to help. 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 Today she is attempting to use a wounded warrior's leave program to cover the leave for her appointment She also has pain in the arch of her foot as well at the site of her plantar fascia. PATIENT ALLERGIES DETAILED ALLERGIES/ADVERSE REACTIONS No Known [...] FOR NEUROPATHIC PAIN Inactive Outpatient Medications Status ========= 1) GABAPENTIN 100MG CAP TAKE ONE CAPSULE BY MOUTH AT BEDTIME FOR NERVE PAIN Active Non-VA Medications Status ========= 1) Non-VA LACTOBACILLUS ACIDOPHILUS CHEW TAB 2 TABLETS ACTIVE BY MOUTH EVERY DAY 2) Non-VA MULTIVITAMINS W/IRON TAB,CHEWABLE 2 TABLETS BY ACTIVE MOUTH EVERY DAY 8 Total Medications MEDICATION RECONCILIATION MEDICATION RECONCILIATION REPORT [...] as tested with [facility], tested previous visit. Derm: Nails well-groomed, no interdigital lesions Musc: 4+/5 muscle strength on the left. Pain greatest today in the area of the sinus tarsi, lateral ankle around the posterior and inferior aspects of the lateral malleolus. Reduced AJ/STJ ROM left with pain on manipulation. Pain to palpation along the medial and central band of plantar fascia left. Pain to palpation left fifth met base MRI Left foot/ankle Exam date: 03/05/2024 Procedure: [...] Left ankle pain Plantar fasciitis - left Ganglion cystleft ankle PLAN: Treatment today consisted of: -Pt exam and evaluation -Will discontinue tramadol as patient is not taking. Discontinue gabapentin, not effective. -After verbal consent, injection left medial calcaneal tubercle with 1 cc 1% lido, 0.5 mL decadron, 0.5mL kenalog 40 after cleansing with alcohol. Ethyl chloride utilized for analgesia. Bandaid applied. Patient tolerated well. -Will wait to hear back from patient regarding planning for left ankle surgery RESPONSE TO CARE/RATIONALE FOR CARE: Patient presents today for follow-up of left ankle pain. Patient has exhausted conservative options, she has completed bracing, physical therapy, custom orthotics, medication, surgical intervention on her plantar fascia. She has pain to the left ankle limiting her daily activities. She continues to work through this pain. We discussed option of ganglion cyst excision with revision of plantar fasciectomy. She is going to discuss this with work/[employer] regarding her leave and benefits, she will get back to me and when she would like to plan surgical intervention /es/ WAYNE BROWN SUPERVISOR PASTRY Signed: 07/09/2024 16:11 WAYNE BROWN OC
--- OUTSIDE RECORDS SUMMARY | 2024-08-21 06:00 | XMS_ITS | Encounter Summary ---
Author Name [facility] Organization [facility] [place] Address [address] [place] [address] Care Team Providers Care Mobile Application Engineer Name Role Phone JULIETA ALCALA [facility] Insurance Providers: All historical and [...] Damico's Name Patient's Relationship to Policy Damico FEDERICOMARAMEC ([id number]) PRESCRIPT ION [facility] POSTA L Feb 26, 2024 [id number] [phone] SATISH PAREKH PATIENT NALC-[employer] PREFERRED PROVIDER ORGANIZAT ION (PPO) [facility] L Feb 26, 2024 [id number] [phone] SATISH PAREKH PATIENT [facility] Feb 26, 2024 [id number] SATISH PAREKH PATIENT Selected Encounter This section includes the information on record at [place] for the Encounter. Date/Time Encounter Type Encounter Description Reason Provider Source Aug 21, 2024 10:00 AM OFFICE O/P EST MOD 30 MIN [facility] - IND ICD-10-CM F41.0 Panic disorder [episodic paroxysmal anxiety] ALEXIS MACDONALDJosé Encounter Template Text not used by [place] Assessments - Encounter Diagnoses This section includes the primary and secondary diagnoses documented for the Encounter. Date/Time Primary/Secondary Diagnosis Diagnosis Name Provider Source Aug 21, 2024 10:44 AM PRIMARY Panic disorder [episodic paroxysmal anxiety] ALEXIS MACDONALD LITOJAIR Aug 21, 2024 10:44 AM SECONDARY Generalized anxiety disorder ALEXIS MACDONALD CBJAIR Plan of Treatment: Future Appointments (+ 6 months) and Future Tests (+/- 45 days) The Plan of Treatment section includes future care activities for the patient [facility] [place] [facility] This section includes future appointments and future orders which are active, pending or scheduled. Future Appointments This section includes appointments that were scheduled to occur 6 months from the date of the Encounter, up to a maximum of 20 appointments. The data comes from all [place] treatment facilities. Appointment Date/Time Appointment Type Appointme nt Facility Name Oct 02, 2024 10:00 AM AMBULATORY - NONE LEVY Foy [facility] Nov 13, 2024 09:00 AM AMBULATORY - PSYCHIATRY RAI ESCOBAR [facility] Social History: Smoking Status (Most current) and [...] 08:00 AM VA-TOBACCO NEVER USED CIGARETTES [facility] Tobacco Use History This section includes [...] the Encounter. Date/Time Encounter Note(s) Provider Source Aug 21, 2024 10:12 AM PSYCHIATRY NOTE: LOCAL TITLE: [facility] PSYCHIATRY NOTE (T) STANDARD TITLE: PSYCHIATRY NOTE DATE OF NOTE: AUG 21, 2024@10:12 ENTRY DATE: AUG 21, 2024@10:12:36 AUTHOR: ALEXIS MACDONALD COSIGNER: URGENCY: STATUS: COMPLETED PSYCHIATRIC PROGRESS NOTE Time in: 1000 am Time out: 1030 am Total time: 30 minutes Therapy time: 16 minutes Date Treatment Plan is due: Jul Treatment Plan Goal: mood CC: medication follow up HPI: Dafter is a 43 year old female 40% SC with 30% mood disorder. 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 Her mood has been ok and stable. She denies feeling down and sad. With heat low energy from mail route and heat . Drinking a lot of water and will pack protein and pretzels with salt. She denies irritability and snappiness . Sleep watch says 6 hours. She had a dream the other night have having a heart attack and dying. Stressors work is huge and a couple of exams coming up at the [place] . Things are good in marriage . They had a roof leak. SUBSTANCE USE HX: Nicotine : denies Alcohol : denies Cannabis : denies ALLERGIES: ALLERGIES/ADVERSE REACTIONS No Known Allergies Active Outpatient Medications (including Supplies): Active Outpatient Medications Status ===== 1) DULOXETINE HCL 30MG EC CAP TAKE ONE CAPSULE BY MOUTH ACTIVE EVERY DAY FOR NEUROPATHIC PAIN 2) HYDROXYZINE HCL 10MG TAB TAKE 1 OR 2 TABLETS BY MOUTH ACTIVE TWICE A DAY NEEDED FOR ADDITIONAL MEDICATION FOR CALMING Active Non-VA Medications Status ===== 1) Non-VA LACTOBACILLUS ACIDOPHILUS CHEW TAB 2 TABLETS ACTIVE BY MOUTH EVERY DAY 2) Non-VA MULTIVITAMINS W/IRON TAB,CHEWABLE 2 TABLETS BY ACTIVE MOUTH EVERY DAY 4 Total Medications LABS: [facility] - Chem & Hematology (max 6 months) ---- Collection DT Specimen Test Name Result Units Ref Range 06/30/2024 07:56 URINE URINE PH 7.0 5.0 - 8.0 URINE COLOR Colorless Ref: [none] URINE CLARITY Clear Ref: Clear SPECIFIC GRAVITY 1.002 L 1.016 - 1.022 URINE PROTEIN Negative mg/dL Ref: Negative URINE GLUCOSE Negative mg/dL Ref: Negative URINE KETONES Negative mg/dL Ref: <=9 URINE BILIRUBIN Negative mg/dL Ref: <=0.4 UROBILINOGEN Negative mg/dL Ref: <=1 URINE BLOOD Negative mg/dL Ref: <=0.05 ESTERASE(WBC) Negative [place]/uL Ref: Negative NITRITE, URINE Negative Ref: Negative URINE BACTERIA Rare H graded/HPFRef: Negative URINE MUCUS Present H Ref: Negative SPERM IN URINE Present H Ref: Negative 06/30/2024 07:56 SERUM VITAMIN D (TOTAL) 41 ng/mL 30 - 60 Comment: VITD One expert panel recommended a target range of 30-40 ng/mL. 06/30/2024 07:56 BLOOD WBC COUNT 5.3 K/cmm 3.6 - 11.0 RBC COUNT 4.82 M/cmm 4.20 - 5.40 HGB 14.9 g/dL 13.0 - 16.0 HCT 43.3 % 37.0 - 47.0 MCV 89.8 fL 80.0 - 96.0 MCH 30.8 pg 27.0 - 31.0 MCHC 34.3 g/dL 31.5 - 36.5 RDW 12.9 % 11.2 - 15.8 PLT 273 K/cmm 150 - 400 MPV 9.0 fL 7.9 - 10.8 NEUTROPHIL % 65.3 % 54.0 - 78.0 LYMPHS % 25.9 % 21.0 - 51.0 MONOCYTES % 5.8 % 4.0 - 8.0 EOSINOPHIL % 2.2 % 0.0 - 3.0 BASOPHIL % 0.8 % 0.0 - 3.0 NEUTRO# 3.5 K/cmm 1.9 - 8.6 LY # 1.4 K/cmm 0.8 - 5.0 MONO # 0.3 K/cmm 0.1 - 0.9 EOSINO# 0.1 K/cmm 0.0 - 0.3 BASO # 0.0 K/cmm 0.0 - 0.3 NRBC 0.1 /100 WBC None Established - None Established 06/30/2024 07:56 PLASMA GLUCOSE 82 mg/dL 74 - 99 SODIUM 140 mmol/L 134 - 144 POTASSIUM 4.1 mmol/L 3.5 - 5.1 CHLORIDE 106 mmol/L 99 - 112 CO2 25 mmol/L 22 - 30 BUN 8.6 mg/dL 7.0 - 18.7 CREATININE 0.7 mg/dL 0.6 - 1.1 CALCIUM 8.9 mg/dL 8.6 - 10.3 EGFR (CALCULATED) 109 mL/min/1.73m2 BSA ANION GAP 13 mmol/L 10 - 20 AST/SGOT 24 U/L 10 - 40 ALT/SGPT 16 U/L 0 - 55 ALKPHOS 58 U/L 40 - 150 BILIRUBIN, TOTAL 0.7 mg/dL 0.2 - 1.2 PROTEIN, TOTAL 7.0 g/dL 6.4 - 8.3 ALBUMIN 4.0 g/dL 3.5 - 4.8 CHOLESTEROL 163 mg/dL 0 - 199 LDL CHOLESTEROL 98 mg/dL 0 - 99 HDL CHOLESTEROL 60 mg/dL Ref: >=50 TRIGLYCERIDE 87 mg/dL 0 - 149 TSH 1.693 uIU/mL 0.350 - 4.940 Comment: GLUCOSE The ADA recommends a fasting glucose of 99 mg/dL as the Comment: GLUCOSE upper limit of normal. Comment: TP Per package insert reference range for recumbent is 6.0 to 7.8 Comment: TP g/dL. Plasma samples will generally have higher values (about Comment: TP 0.2 to 0.4 g/dL higher) due to presence of fibrinogen. Comment: TRIG REFERENCE RANGE: BORDERLINE HIGH: 150-199 mg/dL HIGH: 200-499 Comment: TRIG mg/dL VERY HIGH: >=500 mg/dL Comment: CHOL REF RANGE: BORDERLINE HIGH: 200-239 mg/dL HIGH: >=240 mg/dL Comment: HDLC Values >60 are a negative risk factor for heart disease. Comment: DLDL REF RANGE: NEAR OR ABOVE OPTIMAL: 100-129 mg/dL BORDERLINE Comment: DLDL HIGH: 130-159 mg/dL HIGH: 160-189 mg/dL VERY HIGH: >=190 05/21/2024 12:39 URINE FENTANYL NEG Ref: Negative [...] REVIEW OF SYSTEMS: Muscle strength and Tone: : denies Gait and Station: : denies PHYSICAL EXAM: Vitals: Measurement DT TEMP PULSE RESP BP HEIGHT F(C) IN(CM) 08/21/2024 09:54 DIAGNOSIS/PLAN: T: 96 F [35.6 C] (08/21/2024 09:46) P: 59 (08/21/2024 09:46) R: 16 (08/21/2024 09:46) BP: 125/77 (08/21/2024 09:51) W: 141.1 lb [64.00 kg] (08/21/2024 09:46) BMI: 25.4 Pain: 5 (08/21/2024 09:54) Pulse OX: 99% (07/07/2024 08:21) Measurement DT WEIGHT PAIN LB(KG)[BMI] 08/21/2024 09:54 5 MENTAL STATUS EXAMINATION: Level of Consciousness: Alert and Oriented to 4 Behavior: Cooperative - Eye Contact: Good Grooming & Hygiene: Good - Dress: Kempt Psychomotor Activity: WNL Speech: Normal rate, volume and prosody Cognition: Grossly intact Thought Process: Coherent and goal directed Thought Content: Delusions: Absent Hallucinations: Absent Suicidal Ideation: Denied. - Intent to : Absent Homicidal Ideation: Denied Mood: Euthymic Affect: Appropriate Insight: Good - Judgment: Good [...] Low Risk factors: Access to lethal means History of mental health hospitalization(s) Medical conditions and health-related problems Psychological conditions Protective factors: Supportive and caring family and friends Connectedness to community, school, family, friends [place] skills (such as problem-solving, conflict resolution, anger management, impulse control, etc.) Access to appropriate medical and mental health care Access to immediate and ongoing support and care Violence assessment completed: Yes Prior history of violence: No The risk of violence towards others is considered: Low PSYCHOTHERAPY NOTE Therapy provided: supportive Issues discussed: mood, feet, work Goals of therapy: active listening, support Treatment plan: continue plan of care MEDICATION MANAGEMENT TREATMENT PLAN DIAGNOSIS: depression, anxiety GOALS OF THERAPY: lower depression METHOD OF THERAPY/INTERVENTIONS: Will continue to assess adherence and efficacy of medications Will continue to monitor symptoms and reassess at the next apt Treatment Plan has been discussed with patient/caregiver. 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 She reports things are going well at home with her and son. She has to have foot surgery when she can afford to take off of work. She verbalizes her medication has been helping and she denies suicidal or homicidal thoughts or plans. DIAGNOSIS/PLAN: Anxiety with panic disorder 1. Duloxetine 30 mg daily. 2. Vistaril 5 mg to 1 to 2 tablets as needed for anxiety and panic takes rarely Does patient have a diagnosis or history of opioid use disorder or stimulant use disorder? No RTC: 3 months Patient was provided with the 24 Hr. [...] RECONCILIATION REPORT reviewed and discussed with patient. [place] prescription medications: Patient verifies that they are [...] gave them an updated list. /brenda/ ALEXIS Velasco CORE CLINICAL NURSE SPECIALIST Signed: 08/21/2024 10:44 TORRESALEXIS CB Aug 21, 2024 09:52 AM PRIMARY CARE STACI CHAVIRA NOTE: LOCAL TITLE: OUTPATIENT NURSING INTAKE NOTE (T) STANDARD TITLE: PRIMARY CARE NURSING NOTE DATE OF NOTE: AUG 21, 2024@09:52 ENTRY DATE: AUG 21, 2024@09:53:02 AUTHOR: DULCE MCDONNELL COSIGNER: URGENCY: STATUS: COMPLETED [...] problems with drugs and/or alcohol? No 5. Crisis Line pocket card was provided to patient. No/patient declined Last [facility] MAP ('s [place], [place], [employer] [place]): 07/07/2024 Personal Health Plan [place], [place] (MAP) stay active Clinical Reminders Activity Advance Directive Education Screen: Patient received information regarding Advance Directives: Yes - Patient has been given information/education regarding Advance Directives. Patient advised to follow up with Social Work Service. Advance Directive Education Level of Understanding: Good COVID-19 Immunization: Homelessness/Food Insecurity Screen: In the past 2 months, have you been living in stable housing that you own, rent, or stay in as part of a household? Yes - Living in stable housing. Are you worried or concerned that in the next 2 months you may NOT have stable housing that you own, rent, or stay in as part of a household? No - Not worried about housing near future The reports the following: Within the past 12 months, you worried whether your food would run out before you got money to buy more. Never true Within the past 12 months, the food you bought just didn't last and you didn't have money to get more. Never true Pain, Brief Evaluation: Type of pain: Ongoing Location: Generalized Muscle Pain Intensity: Currently: 5 Description of Pain: Aching Patient Education Documentation: LEARNING NEEDS ASSESSMENT: The patient/family/significant other reports no changes in learning needs. /brenda/ DULCE MCDONNELL LICENSED PRACTICAL NURSE Signed: 08/21/2024 09:54 DULCE MCDONNELL [facility]
--- OUTSIDE RECORDS SUMMARY | 2024-10-12 10:15 | XMS_ITS | Continuity of Care Document ---
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 It does not include entries that were removed or entered in error. 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 Diagnosis [facility] Diagnosis: ICD-10-CM M25.572 Pain in left ankle and joints of left foot Active Diagnosis [facility] Diagnosis: ICD-10-CM F41.1 Generalized anxiety disorder Active Diagnosis [facility] Diagnosis: ICD-10-CM M51.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 Medication Details Route Status Patient Instructions Prescription Expires Prescription Number Last Dispense Date Ordering Provider Order Date Order Qty Source DICLOFENAC NA 1% GEL,TOP APPLY 2GM MEASURED ON DOSING CARD EXTERNAL LY TWICE A DAY (GENTLY MASSAGE INTO SKIN - TOTAL BODY MAX 32GM PER DAY) *FLAMMAB LE: KEEP AWAY FROM HEAT AND FLAMES* LEFT ANKLE PAIN (GENTLY MASSAGE INTO SKIN - TOTAL BODY MAX 32GM PER DAY) *FLAMMAB LE: KEEP AWAY FROM HEAT AND FLAMES* LEFT ANKLE PAIN TOPICA L 07/18/2024 [id number] Paola BROWN 2023 200 [facility] DULOXETINE HCL 30MG CAP,EC TAKE ONE CAPSULE BY MOUTH EVERY DAY FOR NEUROPAT HIC PAIN ORAL ACTIVE 08/22/2025 [id number] 5 TORRES,LEONARD VENEGASE L 2024 90 [facility] DULOXETINE HCL 30MG CAP,EC TAKE ONE CAPSULE BY MOUTH EVERY DAY FOR NEUROPAT HIC PAIN ORAL DISCONT INUED 06/17/2025 [id number] 5 TORRES,LEONARD THEOE L 2024 90 [facility] ESCITALOPRA M OXALATE 10MG TAB TAKE ONE TABLET BY MOUTH EVERY DAY FOR PANIC DISORDER TAKE 1 HOUR PRIOR TO BEDTIME ORAL DISCONT INUED BY PROVIDE R 04/28/2025 [id number] 5 LEONARD MACDONALDE L 2024 90 [facility] ESCITALOPRA M OXALATE 5MG TAB TAKE ONE TABLET BY MOUTH EVERY DAY FOR PANIC DISORDER TAKE 1 HOUR PRIOR TO BEDTIME ORAL DISCONT INUED (EDIT) 01/20/2025 [id number] LEONARD MACDONALD L 2023 90 [facility] ETODOLAC 400MG TAB TAKE ONE TABLET BY MOUTH EVERY 12 HOURS NEEDED FOR PAIN . TAKE WITH FOOD, DO NOT TAKE WITH ANY OTHER NSAIDS (INCLUDI NG MELOXICA M) ORAL DISCONT INUED BY PROVIDE R 01/16/2025 [id number] 4 BRO CORDERO 2023 60 [facility] GABAPENTIN 100MG CAP TAKE ONE CAPSULE BY MOUTH AT BEDTIME FOR NERVE PAIN ORAL 05/09/2024 [id number] 5 Paola BROWN 2024 30 [facility] HYDROXYZINE HCL 10MG TAB TAKE 1 OR 2 TABLETS BY MOUTH TWICE A DAY NEEDED FOR ADDITION AL MEDICATI ON FOR CALMING ORAL ACTIVE 01/20/2025 [id number] 5 LEONARD MACDONALD L 2023 60 [facility] LACTOBACILL US ACIDOPHILUS TAB,CHEWABL E CHEW AND SWALLOW TWO TABLETS BY MOUTH EVERY DAY ORAL ACTIVE DE CATHIE,JORDEN D L 2022 [facility] MELOXICAM 7.5MG TAB TAKE ONE TABLET BY MOUTH EVERY DAY FOR PAIN (WITH FOOD) ORAL 01/10/2024 [id number] 4 Paola BROWN ENNIFER 2023 30 [facility] MULTIVITAMI NS/MINERALS TAB,CHEWABL E CHEW AND SWALLOW TWO TABLETS BY MOUTH EVERY DAY ORAL ACTIVE DE CATHIE,JORDEN D L 2022 [facility] TRAMADOL HCL 50MG TAB TAKE 1 TABLET BY MOUTH EVERY 12 HOURS NEEDED FOR NEUROPAT HIC PAIN ORAL DISCONT INUED BY PROVIDE R 11/21/2024 [id number] 5 BRO CORDERO 2024 60 [facility] Immunizations Combined list of available immunizations from the Department of Defense and Veterans Affairs facilities. Immunization Series Date Given Administered By Site Reaction Lot Number CVX Code Drug Plastic Boat Buffer Status Comments Source DTP 2 2021 01 complet ed HISTORICA L INFORMATI ON - FROM OTHER REGISTRY, [facility] COVID-19 (PFIZER), MRNA, LNP-S, PF, 30 MCG/0.3 ML DOSE 2 2020 208 complet ed HISTORICA L INFORMATI ON - FROM OTHER REGISTRY, [facility] COVID-19 (PFIZER), MRNA, LNP-S, PF, 30 MCG/0.3 ML DOSE 1 2020 208 complet ed HISTORICA L INFORMATI ON - FROM OTHER REGISTRY, [facility] TD(ADULT) UNSPECIFIED FORMULATION 1 2014 139 complet ed HISTORICA L INFORMATI ON - FROM OTHER [facility], [facility] Results Combined list of recent chemistry, hematology and other laboratory results from Department of Defense and Veterans Affairs, ranging from 15 months to all on record, depending upon the facility. Order Name Results Value Reference Range Date Interpretation Specimen Comments Source CBC LEUKOCYTES [#/VOLUME] IN BLOOD BY AUTOMATED COUNT 5.3 10*3/uL 3.6 - 11.0 06/30 Specimen Type: BLOOD No comment entered. Ordering Provider: JULIETA ALCALA Report Released Date/Time: July 08, 2023 01:56 PM Reporting Lab: [place] [id number] Performing Lab: [place] [phone] [place] [address] CBC ERYTHROCYT ES [#/VOLUME] IN BLOOD BY AUTOMATED COUNT 4.82 10*6/uL 4.20 - 5.40 06/30 Specimen Type: BLOOD No comment entered. Ordering Provider: JULIETA ALCALA Report Released Date/Time: July 08, 2023 01:56 PM Reporting Lab: [place] [id number] Performing Lab: [place] [id number] CBC HEMOGLOBIN [MASS/VOLU ME] IN BLOOD 14.9 g/dL 13.0 - 16.0 06/30 Specimen Type: BLOOD No comment entered. Ordering Provider: JULIETA ALCALA Report Released Date/Time: July 08, 2023 01:56 PM Reporting Lab: [place] [id number] Performing Lab: [place] [phone] [place] [address] CBC HEMATOCRIT [VOLUME FRACTION] OF BLOOD BY AUTOMATED COUNT 43.3 37.0 - 47.0 06/30 Specimen Type: BLOOD No comment entered. Ordering Provider: JULIETA ALCALA Report Released Date/Time: July 08, 2023 01:56 PM Reporting Lab: [place] [id number] Performing Lab: [place] [phone] [place] [address] CBC MCV [ENTITIC VOLUME] BY AUTOMATED COUNT 89.8 fL 80.0 - 96.0 06/30 Specimen Type: BLOOD No comment entered. Ordering Provider: JULIETA ALCALA Report Released Date/Time: July 08, 2023 01:56 PM Reporting Lab: [address] [address] Performing Lab: [place] [phone] [facility] CBC MCH [ENTITIC MASS] BY AUTOMATED COUNT 30.8 pg 27.0 - 31.0 06/30 Specimen Type: BLOOD No comment entered. Ordering Provider: JULIETA ALCALA Report Released Date/Time: July 08, 2023 01:56 PM Reporting Lab: [place] [id number] Performing Lab: [place] [phone] [place] [address] CBC MCHC [MASS/VOLU ME] BY AUTOMATED COUNT 34.3 g/dL 31.5 - 36.5 06/30 Specimen Type: BLOOD No comment entered. Ordering Provider: JULIETA ALCALA Report Released Date/Time: July 08, 2023 01:56 PM Reporting Lab: [place] [id number] Performing Lab: [place] [id number] CBC PLATELETS [#/VOLUME] IN BLOOD BY AUTOMATED COUNT 273 10*3/uL 150 - 400 06/30 Specimen Type: BLOOD No comment entered. Ordering Provider: JULIETA ALCALA Report Released Date/Time: July 08, 2023 01:56 PM Reporting Lab: [place] [id number] Performing Lab: [place] [id number] CBC LYMPHOCYTE S/100 LEUKOCYTES IN BLOOD BY AUTOMATED COUNT 25.9 21.0 - 51.0 06/30 Specimen Type: BLOOD No comment entered. Ordering Provider: JULIETA ALCALA Report Released Date/Time: July 08, 2023 01:56 PM Reporting Lab: [place] [id number] Performing Lab: [place] [id number] [facility] CBC MONOCYTES/ 100 LEUKOCYTES IN BLOOD BY AUTOMATED COUNT 5.8 4.0 - 8.0 06/30 Specimen Type: BLOOD No comment entered. Ordering Provider: JULIETA ALCALA Report Released Date/Time: July 08, 2023 01:56 PM Reporting Lab: [address] [address] Performing Lab: [place] [phone] [place] [address] CBC NUCLEATED ERYTHROCYT ES/100 LEUKOCYTES [RATIO] IN BLOOD BY MANUAL COUNT 0.1 /100{WBC s} 06/30 Specimen Type: BLOOD No comment entered. Ordering Provider: JULIETA ALCALA Report Released Date/Time: July 08, 2023 01:56 PM Reporting Lab: [place] [id number] Performing Lab: [place] [id number] CBC ERYTHROCYT E DISTRIBUTI ON WIDTH [RATIO] BY AUTOMATED COUNT 12.9 11.2 - 15.8 06/30 Specimen Type: BLOOD No comment entered. Ordering Provider: JULIETA ALCALA Report Released Date/Time: July 08, 2023 01:56 PM Reporting Lab: [place] [id number] Performing Lab: [place] [id number] CBC NEUTROPHIL S/100 LEUKOCYTES IN BLOOD BY AUTOMATED COUNT 65.3 54.0 - 78.0 06/30 Specimen Type: BLOOD No comment entered. Ordering Provider: JULIETA ALCALA Report Released Date/Time: July 08, 2023 01:56 PM Reporting Lab: [place] [id number] Performing Lab: [place] [id number] CBC EOSINOPHIL S/100 LEUKOCYTES IN BLOOD BY AUTOMATED COUNT 2.2 0.0 - 3.0 06/30 Specimen Type: BLOOD No comment entered. Ordering Provider: JULIETA ALCALA Report Released Date/Time: July 08, 2023 01:56 PM Reporting Lab: [place] [id number] Performing Lab: [place] [id number] CBC BASOPHILS/ 100 LEUKOCYTES IN BLOOD BY AUTOMATED COUNT 0.8 0.0 - 3.0 06/30 Specimen Type: BLOOD No comment entered. Ordering Provider: JULIETA ALCALA Report Released Date/Time: July 08, 2023 01:56 PM Reporting Lab: [place] [phone] Performing Lab: [place] [phone] [facility] CBC LYMPHOCYTE S [#/VOLUME] IN BLOOD BY AUTOMATED COUNT 1.4 10*3/uL 0.8 - 5.0 06/30 Specimen Type: BLOOD No comment entered. Ordering Provider: JULIETA ALCALA Report Released Date/Time: July 08, 2023 01:56 PM Reporting Lab: [place] [id number] Performing Lab: [place] [phone] [place] [address] CBC NEUTROPHIL S [#/VOLUME] IN BLOOD 3.5 10*3/uL 1.9 - 8.6 06/30 Specimen Type: BLOOD No comment entered. Ordering Provider: JULIETA ALCALA Report Released Date/Time: July 08, 2023 01:56 PM Reporting Lab: [place] [id number] Performing Lab: [place] [id number] CBC BASOPHILS [#/VOLUME] IN BLOOD BY AUTOMATED COUNT 0.0 10*3/uL 0.0 - 0.3 06/30 Specimen Type: BLOOD No comment entered. Ordering Provider: JULIETA ALCALA Report Released Date/Time: July 08, 2023 01:56 PM Reporting Lab: [place] [id number] Performing Lab: [place] [phone] [place] [address] CBC MONOCYTES [#/VOLUME] IN BLOOD BY AUTOMATED COUNT 0.3 10*3/uL 0.1 - 0.9 06/30 Specimen Type: BLOOD No comment entered. Ordering Provider: JULIETA ALCALA Report Released Date/Time: July 08, 2023 01:56 PM Reporting Lab: [place] [phone] Performing Lab: [place] [phone] [facility] CBC EOSINOPHIL S [#/VOLUME] IN BLOOD BY AUTOMATED COUNT 0.1 10*3/uL 0.0 - 0.3 06/30 Specimen Type: BLOOD No comment entered. Ordering Provider: JULIETA ALCALA Report Released Date/Time: July 08, 2023 01:56 PM Reporting Lab: [place] [phone] Performing Lab: [address] CBC PLATELET MEAN VOLUME [ENTITIC VOLUME] IN BLOOD BY AUTOMATED COUNT 9.0 fL 7.9 - 10.8 06/30 Specimen Type: BLOOD No comment entered. Ordering Provider: JULIETA ALCALA Report Released Date/Time: July 08, 2023 01:56 PM Reporting Lab: [place] [phone] Performing Lab: [address] COMPREHE NSIVE METABOLI C PANEL ALBUMIN [MASS/VOLU ME] IN SERUM OR PLASMA 4.0 g/dL 3.5 - 4.8 06/30 Specimen Type: PLASMA Comment: GLUCOSE The ADA [...] July 08, 2023 01:56 PM Reporting Lab: [place] [phone] Performing Lab: [place] [phone] [place] [address] COMPREHE NSIVE METABOLI C PANEL ALKALINE PHOSPHATAS E [ENZYMATIC ACTIVITY/V OLUME] IN SERUM OR PLASMA 58 U/L 40 - 150 06/30 Specimen Type: PLASMA Comment: GLUCOSE The ADA [...] July 08, 2023 01:56 PM Reporting Lab: [place] [id number] Performing Lab: [place] [phone] [facility] COMPREHE NSIVE METABOLI C PANEL ALANINE AMINOTRANS FERASE [ENZYMATIC ACTIVITY/V OLUME] IN SERUM OR PLASMA 16 U/L 0 - 55 06/30 Specimen Type: PLASMA Comment: GLUCOSE The ADA [...] July 08, 2023 01:56 PM Reporting Lab: [address] [address] Performing Lab: [place] [id number] [place] [address] COMPREHE NSIVE METABOLI C PANEL ASPARTATE AMINOTRANS FERASE [ENZYMATIC ACTIVITY/V OLUME] IN SERUM OR PLASMA 24 U/L 10 - 40 06/30 Specimen Type: PLASMA Comment: GLUCOSE The ADA [...] July 08, 2023 01:56 PM Reporting Lab: [place] [phone] Performing Lab: [place] [phone] [place] [address] COMPREHE NSIVE METABOLI C PANEL UREA NITROGEN [MASS/VOLU ME] IN SERUM OR PLASMA 8.6 mg/dL 7.0 - 18.7 06/30 Specimen Type: PLASMA Comment: GLUCOSE The ADA [...] July 08, 2023 01:56 PM Reporting Lab: [address] [address] Performing Lab: [place] [phone] [facility] COMPREHE NSIVE METABOLI C PANEL CALCIUM [MASS/VOLU ME] IN SERUM OR PLASMA 8.9 mg/dL 8.6 - 10.3 06/30 Specimen Type: PLASMA Comment: GLUCOSE The ADA [...] July 08, 2023 01:56 PM Reporting Lab: [address] [address] Performing Lab: [address] [address] [facility] COMPREHE NSIVE METABOLI C PANEL CREATININE [MASS/VOLU ME] IN SERUM OR PLASMA 0.7 mg/dL 0.6 - 1.1 06/30 Specimen Type: PLASMA Comment: GLUCOSE The ADA [...] July 08, 2023 01:56 PM Reporting Lab: [place] [phone] Performing Lab: [place] [phone] [facility] COMPREHE NSIVE METABOLI C PANEL CARBON DIOXIDE, TOTAL [MOLES/VOL UME] IN SERUM OR PLASMA 25 mmol/L 06/30 Specimen Type: PLASMA Comment: GLUCOSE The ADA [...] July 08, 2023 01:56 PM Reporting Lab: [place] [phone] Performing Lab: [place] [phone] [facility] COMPREHE NSIVE METABOLI C PANEL GLUCOSE [MASS/VOLU ME] IN SERUM OR PLASMA 82 mg/dL 74 - 99 06/30 Specimen Type: PLASMA Comment: GLUCOSE The ADA [...] July 08, 2023 01:56 PM Reporting Lab: [address] [address] Performing Lab: [address] [address] [facility] [employer] NSIVE METABOLI C PANEL PROTEIN [MASS/VOLU ME] IN SERUM OR PLASMA 7.0 g/dL 6.4 - 8.3 06/30 Specimen Type: PLASMA Comment: GLUCOSE The ADA [...] July 08, 2023 01:56 PM Reporting Lab: [place] [phone] Performing Lab: [place] [phone] [facility] COMPREHE NSIVE METABOLI C PANEL SODIUM [MOLES/VOL UME] IN SERUM OR PLASMA 140 mmol/L 134 - 144 06/30 Specimen Type: PLASMA Comment: GLUCOSE The ADA [...] July 08, 2023 01:56 PM Reporting Lab: [place] [phone] Performing Lab: [place] [phone] [facility] COMPREH NSIVE METABOLI C PANEL CHLORIDE [MOLES/VOL UME] IN SERUM OR PLASMA 106 mmol/L 99 - 112 06/30 Specimen Type: PLASMA Comment: GLUCOSE The ADA [...] July 08, 2023 01:56 PM Reporting Lab: [place] [phone] Performing Lab: [place] [phone] [facility] COMPREHE NSIVE METABOLI C PANEL BILIRUBIN. TOTAL [MASS/VOLU ME] IN SERUM OR PLASMA 0.7 mg/dL 0.2 - 1.2 06/30 Specimen Type: PLASMA Comment: GLUCOSE The ADA [...] July 08, 2023 01:56 PM Reporting Lab: [address] [phone] Performing Lab: [place] [phone] [facility] COMPREHE NSIVE METABOLI C PANEL POTASSIUM [MOLES/VOL UME] IN SERUM OR PLASMA 4.1 mmol/L 3.5 - 5.1 06/30 Specimen Type: PLASMA Comment: GLUCOSE The ADA [...] July 08, 2023 01:56 PM Reporting Lab: [address] [address] Performing Lab: [address] [address] [facility] COMPREHE NSIVE METABOLI C PANEL ANION GAP IN SERUM OR PLASMA 13 mmol/L 10 - 20 06/30 Specimen Type: PLASMA Comment: GLUCOSE The ADA [...] July 08, 2023 01:56 PM Reporting Lab: [address] [address] Performing Lab: [address] [address] [facility] COMPREHE NSIVE METABOLI C PANEL GLOMERULAR FILTRATION RATE/1.73 SQ M.PREDICTE D [VOLUME RATE/AREA] IN SERUM, PLASMA OR BLOOD BY CREATININE -BASED FORMULA (CKD-EPI 2020) 109 06/30 Specimen Type: PLASMA Comment: GLUCOSE The ADA [...] July 08, 2023 01:56 PM Reporting Lab: [address] [address] Performing Lab: [place] [phone] [facility] LIPID PROFILE CHOLESTERO L [MASS/VOLU ME] IN SERUM OR PLASMA 163 mg/dL 0 - 199 06/30 Specimen Type: PLASMA Comment: GLUCOSE The ADA [...] July 08, 2023 01:56 PM Reporting Lab: [address] [address] Performing Lab: [place] [phone] [facility] LIPID PROFILE CHOLESTERO L IN LDL [MASS/VOLU ME] IN SERUM OR PLASMA BY DIRECT ASSAY 98 mg/dL 0 - 99 06/30 Specimen Type: PLASMA Comment: GLUCOSE The ADA [...] July 08, 2023 01:56 PM Reporting Lab: [place] [phone] Performing Lab: [place] [phone] [facility] LIPID PROFILE CHOLESTERO L IN HDL [MASS/VOLU ME] IN SERUM OR PLASMA 60 mg/dL 50 06/30 Specimen Type: PLASMA Comment: GLUCOSE The ADA [...] July 08, 2023 01:56 PM Reporting Lab: [place] [phone] Performing Lab: [place] [phone] [facility] LIPID PROFILE TRIGLYCERI DE [MASS/VOLU ME] IN SERUM OR PLASMA 87 mg/dL 0 - 149 06/30 Specimen Type: PLASMA Comment: GLUCOSE The ADA [...] July 08, 2023 01:56 PM Reporting Lab: [place] [phone] Performing Lab: [place] [phone] [facility] TSH THYROTROPI N [UNITS/VOL UME] IN SERUM OR PLASMA BY DETECTION LIMIT <= 0.005 MIU/L 1.693 u[IU]/mL 0.350 - 4.940 06/30 Specimen Type: PLASMA Comment: GLUCOSE The ADA [...] July 08, 2023 01:56 PM Reporting Lab: [place] [address] Performing Lab: [address] URINALYS IS SPECIFIC GRAVITY OF URINE 1.002 1.016 - 1.022 06/30 L Specimen Type: URINE No comment entered. Ordering Provider: JULIETA ALCALA Report Released Date/Time: July 08, 2023 01:56 PM Reporting Lab: [place] [phone] Performing Lab: [place] [id number] URINALYS IS GLUCOSE [MASS/VOLU ME] IN URINE BY TEST STRIP Negative mg/dL 06/30 Specimen Type: URINE No comment entered. Ordering Provider: JULIETA ALCALA Report Released Date/Time: July 08, 2023 01:56 PM Reporting Lab: [place] [phone] Performing Lab: [address] URINALYS IS PROTEIN [MASS/VOLU ME] IN URINE BY TEST STRIP Negative mg/dL 06/30 Specimen Type: URINE No comment entered. Ordering Provider: JULIETA ALCALA Report Released Date/Time: July 08, 2023 01:56 PM Reporting Lab: [place] [phone] Performing Lab: [place] [id number] URINALYS IS PH OF URINE BY TEST STRIP 7.0 5.0 - 8.0 06/30 Specimen Type: URINE No comment entered. Ordering Provider: JULIETA ALCALA Report Released Date/Time: July 08, 2023 01:56 PM Reporting Lab: [place] [phone] Performing Lab: [place] [id number] URINALYS IS BACTERIA [PRESENCE] IN URINE SEDIMENT BY LIGHT MICROSCOPY Rare 06/30 H Specimen Type: URINE No comment entered. Ordering Provider: JULIETA ALCALA Report Released Date/Time: July 08, 2023 01:56 PM Reporting Lab: [place] [phone] Performing Lab: [place] [id number] URINALYS IS SPERMATOZO A [PRESENCE] IN URINE SEDIMENT BY LIGHT MICROSCOPY Present 06/30 H Specimen Type: URINE No comment entered. Ordering Provider: JULIETA ALCALA Report Released Date/Time: July 08, 2023 01:56 PM Reporting Lab: [place] [phone] Performing Lab: [place] [id number] URINALYS IS NITRITE [PRESENCE] IN URINE BY TEST STRIP Negative 06/30 Specimen Type: URINE No comment entered. Ordering Provider: JULIETA ALCALA Report Released Date/Time: July 08, 2023 01:56 PM Reporting Lab: [place] [phone] Performing Lab: [place] [phone] URINALYS IS LEUKOCYTE ESTERASE [PRESENCE] IN URINE BY TEST STRIP Negative 06/30 Specimen Type: URINE No comment entered. Ordering Provider: JULIETA ALCALA Report Released Date/Time: July 08, 2023 01:56 PM Reporting Lab: [place] [phone] Performing Lab: [place] [phone] [place] [address] URINALYS IS CLARITY OF URINE Clear 06/30 Specimen Type: URINE No comment entered. Ordering Provider: JULIETA ALCALA Report Released Date/Time: July 08, 2023 01:56 PM Reporting Lab: [place] [phone] Performing Lab: [place] [phone] [place] [address] URINALYS IS MUCUS [PRESENCE] IN URINE SEDIMENT BY LIGHT MICROSCOPY Present 06/30 H Specimen Type: URINE No comment entered. Ordering Provider: JULIETA ALCALA Report Released Date/Time: July 08, 2023 01:56 PM Reporting Lab: [place] [phone] Performing Lab: [place] [id number] URINALYS IS BILIRUBIN. TOTAL [MASS/VOLU ME] IN URINE BY TEST STRIP Negative mg/dL - 0.4 06/30 Specimen Type: URINE No comment entered. Ordering Provider: JULIETA ALCALA Report Released Date/Time: July 08, 2023 01:56 PM Reporting Lab: [place] [phone] Performing Lab: [place] [phone] [place] [address] URINALYS IS HEMOGLOBIN [PRESENCE] IN URINE BY TEST STRIP Negative mg/dL <0.05 - 0.05 06/30 Specimen Type: URINE No comment entered. Ordering Provider: JULIETA ALCALA Report Released Date/Time: July 08, 2023 01:56 PM Reporting Lab: [place] [phone] Performing Lab: [place] [phone] [place] [address] URINALYS IS UROBILINOG EN [MASS/VOLU ME] IN URINE Negative mg/dL - 1 06/30 Specimen Type: URINE No comment entered. Ordering Provider: JULIETA ALCALA Report Released Date/Time: July 08, 2023 01:56 PM Reporting Lab: [place] [phone] Performing Lab: [address] URINALYS IS KETONES [MASS/VOLU ME] IN URINE BY TEST STRIP Negative mg/dL - 9 06/30 Specimen Type: URINE No comment entered. Ordering Provider: JULIETA ALCALA Report Released Date/Time: July 08, 2023 01:56 PM Reporting Lab: [place] [phone] Performing Lab: [place] [id number] URINALYS IS COLOR OF URINE Colorles s [none] 06/30 Specimen Type: URINE No comment entered. Ordering Provider: JULIETA ALCALA Report Released Date/Time: July 08, 2023 01:56 PM Reporting Lab: [place] [phone] Performing Lab: [place] [id number] VITAMIN D (TOTAL) 25-HYDROXY VITAMIN D3+25-HYDR OXYVITAMIN D2 [MASS/VOLU ME] IN SERUM OR PLASMA 41 ng/mL 30 - 60 06/30 Specimen Type: SERUM Comment: VITD One expert panel recommended a target range of 30-40 ng/mL. Ordering Provider: JULIETA ALCALA Report Released Date/Time: July 08, 2023 01:56 PM Reporting Lab: [place] [id number] Performing Lab: [place] [id number] URINE TOX SCREEN AMPHETAMIN E [PRESENCE] IN URINE BY SCREEN METHOD NEG 05/21 Specimen Type: URINE Comment: LATRICE Cutoff Value for COCAINE = 300 ng/mL CANNABI Cutoff Value for CANNABINOID S = 50 ng/mL AMPH Cutoff Value for AMPHETAMINE S = 1000 ng/mL UETOH Cutoff Value for Ethanol Urine = 10 ng/mL OPI Cutoff Value for OPIATES = 300 ng/mL JUDIT Cutoff Value for BARBITURATE S = 200 ng/mL JOSHUA Cutoff Value for BENZODIAZEP CHANEL = 200 ng/mL METH Cutoff Value for METHADONE = 300 ng/mL BUP Cutoff Value for Buprenorphi ne = 5 ng/mL OXY Cutoff Value for Oxycodone = 300 ng/mL FENT Cutoff Value for Fentanyl = 1 ng/mL Ordering Provider: KENNEDY CORDERO Report Released Date/Time: May 21, 2024 11:25 AM Reporting Lab: [place] [id number] Performing Lab: [place] [id number] [place] [address] URINE TOX SCREEN BARBITURAT ES [PRESENCE] IN URINE NEG 05/21 Specimen Type: URINE Comment: LATRICE Cutoff Value for COCAINE = 300 ng/mL CANNABI Cutoff Value for CANNABINOID S = 50 ng/mL AMPH Cutoff Value for AMPHETAMINE S = 1000 ng/mL UETOH Cutoff Value for Ethanol Urine = 10 ng/mL OPI Cutoff Value for OPIATES = 300 ng/mL JUDIT Cutoff Value for BARBITURATE S = 200 ng/mL JOSHUA Cutoff Value for BENZODIAZEP CHANEL = 200 ng/mL METH Cutoff Value for METHADONE = 300 ng/mL BUP Cutoff Value for Buprenorphi ne = 5 ng/mL OXY Cutoff Value for Oxycodone = 300 ng/mL FENT Cutoff Value for Fentanyl = 1 ng/mL Ordering Provider: KENNEDY CORDERO Report Released Date/Time: May 21, 2024 11:25 AM Reporting Lab: [place] [phone] Performing Lab: [place] [phone] [facility] URINE TOX SCREEN BENZODIAZE PINES [PRESENCE] IN URINE NEG 05/21 Specimen Type: URINE Comment: LATRICE Cutoff Value for COCAINE = 300 ng/mL CANNABI Cutoff Value for CANNABINOID S = 50 ng/mL AMPH Cutoff Value for AMPHETAMINE S = 1000 ng/mL UETOH Cutoff Value for Ethanol Urine = 10 ng/mL OPI Cutoff Value for OPIATES = 300 ng/mL JUDIT Cutoff Value for BARBITURATE S = 200 ng/mL JOSHUA Cutoff Value for BENZODIAZEP CHANEL = 200 ng/mL METH Cutoff Value for METHADONE = 300 ng/mL BUP Cutoff Value for Buprenorphi ne = 5 ng/mL OXY Cutoff Value for Oxycodone = 300 ng/mL FENT Cutoff Value for Fentanyl = 1 ng/mL Ordering Provider: KENNEDY CORDERO Report Released Date/Time: May 21, 2024 11:25 AM Reporting Lab: [address] [phone] Performing Lab: [address] [address] [facility] URINE TOX SCREEN COCAINE [PRESENCE] IN URINE NEG 05/21 Specimen Type: URINE Comment: LATRICE Cutoff Value for COCAINE = 300 ng/mL CANNABI Cutoff Value for CANNABINOID S = 50 ng/mL AMPH Cutoff Value for AMPHETAMINE S = 1000 ng/mL UETOH Cutoff Value for Ethanol Urine = 10 ng/mL OPI Cutoff Value for OPIATES = 300 ng/mL JUDIT Cutoff Value for BARBITURATE S = 200 ng/mL JOSHUA Cutoff Value for BENZODIAZEP CHANEL = 200 ng/mL METH Cutoff Value for METHADONE = 300 ng/mL BUP Cutoff Value for Buprenorphi ne = 5 ng/mL OXY Cutoff Value for Oxycodone = 300 ng/mL FENT Cutoff Value for Fentanyl = 1 ng/mL Ordering Provider: KENNEDY CORDERO Report Released Date/Time: May 21, 2024 11:25 AM Reporting Lab: [address] [phone] Performing Lab: [address] [address] [facility] URINE TOX SCREEN METHADONE [PRESENCE] IN URINE NEG 05/21 Specimen Type: URINE Comment: LATRICE Cutoff Value for COCAINE = 300 ng/mL CANNABI Cutoff Value for CANNABINOID S = 50 ng/mL AMPH Cutoff Value for AMPHETAMINE S = 1000 ng/mL UETOH Cutoff Value for Ethanol Urine = 10 ng/mL OPI Cutoff Value for OPIATES = 300 ng/mL JUDIT Cutoff Value for BARBITURATE S = 200 ng/mL JOSHUA Cutoff Value for BENZODIAZEP CHANEL = 200 ng/mL METH Cutoff Value for METHADONE = 300 ng/mL BUP Cutoff Value for Buprenorphi ne = 5 ng/mL OXY Cutoff Value for Oxycodone = 300 ng/mL FENT Cutoff Value for Fentanyl = 1 ng/mL Ordering Provider: KENNEDY CORDERO Report Released Date/Time: May 21, 2024 11:25 AM Reporting Lab: [address] [address] Performing Lab: [place] [phone] [facility] URINE TOX SCREEN OPIATES [PRESENCE] IN URINE BY SCREEN METHOD NEG 05/21 Specimen Type: URINE Comment: LATRICE Cutoff Value for COCAINE = 300 ng/mL CANNABI Cutoff Value for CANNABINOID S = 50 ng/mL AMPH Cutoff Value for AMPHETAMINE S = 1000 ng/mL UETOH Cutoff Value for Ethanol Urine = 10 ng/mL OPI Cutoff Value for OPIATES = 300 ng/mL JUDIT Cutoff Value for BARBITURATE S = 200 ng/mL JOSHUA Cutoff Value for BENZODIAZEP CHANEL = 200 ng/mL METH Cutoff Value for METHADONE = 300 ng/mL BUP Cutoff Value for Buprenorphi ne = 5 ng/mL OXY Cutoff Value for Oxycodone = 300 ng/mL FENT Cutoff Value for Fentanyl = 1 ng/mL Ordering Provider: KENNEDY CORDERO Report Released Date/Time: May 21, 2024 11:25 AM Reporting Lab: [address] [phone] Performing Lab: [place] [phone] [facility] URINE TOX SCREEN CANNABINOI DS [PRESENCE] IN URINE BY SCREEN METHOD NEG 05/21 Specimen Type: URINE Comment: LATRICE Cutoff Value for COCAINE = 300 ng/mL CANNABI Cutoff Value for CANNABINOID S = 50 ng/mL AMPH Cutoff Value for AMPHETAMINE S = 1000 ng/mL UETOH Cutoff Value for Ethanol Urine = 10 ng/mL OPI Cutoff Value for OPIATES = 300 ng/mL JUDIT Cutoff Value for BARBITURATE S = 200 ng/mL JOSHUA Cutoff Value for BENZODIAZEP CHANEL = 200 ng/mL METH Cutoff Value for METHADONE = 300 ng/mL BUP Cutoff Value for Buprenorphi ne = 5 ng/mL OXY Cutoff Value for Oxycodone = 300 ng/mL FENT Cutoff Value for Fentanyl = 1 ng/mL Ordering Provider: KENNEDY CORDERO Report Released Date/Time: May 21, 2024 11:25 AM Reporting Lab: [address] [phone] Performing Lab: [address] [address] [facility] URINE TOX SCREEN ETHANOL [PRESENCE] IN URINE NEG 05/21 Specimen Type: URINE Comment: LATRICE Cutoff Value for COCAINE = 300 ng/mL CANNABI Cutoff Value for CANNABINOID S = 50 ng/mL AMPH Cutoff Value for AMPHETAMINE S = 1000 ng/mL UETOH Cutoff Value for Ethanol Urine = 10 ng/mL OPI Cutoff Value for OPIATES = 300 ng/mL JUDIT Cutoff Value for BARBITURATE S = 200 ng/mL JOSHUA Cutoff Value for BENZODIAZEP CHANEL = 200 ng/mL METH Cutoff Value for METHADONE = 300 ng/mL BUP Cutoff Value for Buprenorphi ne = 5 ng/mL OXY Cutoff Value for Oxycodone = 300 ng/mL FENT Cutoff Value for Fentanyl = 1 ng/mL Ordering Provider: KENNEDY CORDERO Report Released Date/Time: May 21, 2024 11:25 AM Reporting Lab: [place] [phone] Performing Lab: [place] [phone] [place] [address] URINE TOX SCREEN BUPRENORPH INE [PRESENCE] IN URINE NEG 05/21 Specimen Type: URINE Comment: LATRICE Cutoff Value for COCAINE = 300 ng/mL CANNABI Cutoff Value for CANNABINOID S = 50 ng/mL AMPH Cutoff Value for AMPHETAMINE S = 1000 ng/mL UETOH Cutoff Value for Ethanol Urine = 10 ng/mL OPI Cutoff Value for OPIATES = 300 ng/mL JUDIT Cutoff Value for BARBITURATE S = 200 ng/mL JOSHUA Cutoff Value for BENZODIAZEP CHANEL = 200 ng/mL METH Cutoff Value for METHADONE = 300 ng/mL BUP Cutoff Value for Buprenorphi ne = 5 ng/mL OXY Cutoff Value for Oxycodone = 300 ng/mL FENT Cutoff Value for Fentanyl = 1 ng/mL Ordering Provider: KENNEDY CORDERO Report Released Date/Time: May 21, 2024 11:25 AM Reporting Lab: [place] [phone] Performing Lab: [place] [phone] [facility] URINE TOX SCREEN OXYCODONE [PRESENCE] IN URINE BY SCREEN METHOD NEG 05/21 Specimen Type: URINE Comment: LATRICE Cutoff Value for COCAINE = 300 ng/mL CANNABI Cutoff Value for CANNABINOID S = 50 ng/mL AMPH Cutoff Value for AMPHETAMINE S = 1000 ng/mL UETOH Cutoff Value for Ethanol Urine = 10 ng/mL OPI Cutoff Value for OPIATES = 300 ng/mL JUDIT Cutoff Value for BARBITURATE S = 200 ng/mL JOSHUA Cutoff Value for BENZODIAZEP CHANEL = 200 ng/mL METH Cutoff Value for METHADONE = 300 ng/mL BUP Cutoff Value for Buprenorphi ne = 5 ng/mL OXY Cutoff Value for Oxycodone = 300 ng/mL FENT Cutoff Value for Fentanyl = 1 ng/mL Ordering Provider: KENNEDY CORDERO Report Released Date/Time: May 21, 2024 11:25 AM Reporting Lab: [place] [phone] Performing Lab: [place] [phone] [facility] URINE TOX SCREEN FENTANYL NEG 05/21 Specimen Type: URINE Comment: LATRICE Cutoff Value for COCAINE = 300 ng/mL CANNABI Cutoff Value for CANNABINOID S = 50 ng/mL AMPH Cutoff Value for AMPHETAMINE S = 1000 ng/mL UETOH Cutoff Value for Ethanol Urine = 10 ng/mL OPI Cutoff Value for OPIATES = 300 ng/mL JUDIT Cutoff Value for BARBITURATE S = 200 ng/mL JOSHUA Cutoff Value for BENZODIAZEP CHANEL = 200 ng/mL METH Cutoff Value for METHADONE = 300 ng/mL BUP Cutoff Value for Buprenorphi ne = 5 ng/mL OXY Cutoff Value for Oxycodone = 300 ng/mL FENT Cutoff Value for Fentanyl = 1 ng/mL Ordering Provider: KENNEDY CORDERO Report Released Date/Time: May 21, 2024 11:25 AM Reporting Lab: [place] [phone] Performing Lab: [place] [phone] [facility] URINE TOX SCREEN CREATININE [MASS/VOLU ME] IN URINE 103 mg/dL 05/21 Specimen Type: URINE Comment: LATRICE Cutoff Value for COCAINE = 300 ng/mL CANNABI Cutoff Value for CANNABINOID S = 50 ng/mL AMPH Cutoff Value for AMPHETAMINE S = 1000 ng/mL UETOH Cutoff Value for Ethanol Urine = 10 ng/mL OPI Cutoff Value for OPIATES = 300 ng/mL JUDIT Cutoff Value for BARBITURATE S = 200 ng/mL JOSHUA Cutoff Value for BENZODIAZEP CHANEL = 200 ng/mL METH Cutoff Value for METHADONE = 300 ng/mL BUP Cutoff Value for Buprenorphi ne = 5 ng/mL OXY Cutoff Value for Oxycodone = 300 ng/mL FENT Cutoff Value for Fentanyl = 1 ng/mL Ordering Provider: KENNEDY CORDERO Report Released Date/Time: May 21, 2024 11:25 AM Reporting Lab: [place] [phone] Performing Lab: [place] [phone] [place] [address] CBC LEUKOCYTES [#/VOLUME] IN BLOOD BY AUTOMATED COUNT 5.2 10*3/uL 3.6 - 11.0 06/27 Specimen Type: BLOOD No comment entered. Ordering Provider: JULIETA ALCALA Report Released Date/Time: Jun 20, 2023 03:18 PM Reporting Lab: [place] [phone] Performing Lab: [place] [id number] CBC ERYTHROCYT ES [#/VOLUME] IN BLOOD BY AUTOMATED COUNT 4.75 10*6/uL 4.20 - 5.40 06/27 Specimen Type: BLOOD No comment entered. Ordering Provider: JULIETA ALCALA Report Released Date/Time: Jun 20, 2023 03:18 PM Reporting Lab: [place] [phone] Performing Lab: [place] [id number] CBC HEMOGLOBIN [MASS/VOLU ME] IN BLOOD 14.4 g/dL 13.0 - 16.0 06/27 Specimen Type: BLOOD No comment entered. Ordering Provider: JULIETA ALCALA Report Released Date/Time: Jun 20, 2023 03:18 PM Reporting Lab: [address] [phone] Performing Lab: [address] [phone] [place] [address] CBC HEMATOCRIT [VOLUME FRACTION] OF BLOOD BY AUTOMATED COUNT 42.2 37.0 - 47.0 06/27 Specimen Type: BLOOD No comment entered. Ordering Provider: JULIETA ALCALA Report Released Date/Time: Jun 20, 2023 03:18 PM Reporting Lab: [address] [address] Performing Lab: [place] [phone] [facility] CBC MCV [ENTITIC VOLUME] BY AUTOMATED COUNT 88.9 fL 80.0 - 96.0 06/27 Specimen Type: BLOOD No comment entered. Ordering Provider: JULIETA ALCALA Report Released Date/Time: Jun 20, 2023 03:18 PM Reporting Lab: [address] [address] Performing Lab: [address] [address] [facility] CBC MCH [ENTITIC MASS] BY AUTOMATED COUNT 30.2 pg 27.0 - 31.0 06/27 Specimen Type: BLOOD No comment entered. Ordering Provider: JULIETA ALCALA Report Released Date/Time: Jun 20, 2023 03:18 PM Reporting Lab: [address] [address] Performing Lab: [address] [phone] [place] [address] CBC MCHC [MASS/VOLU ME] BY AUTOMATED COUNT 34.0 g/dL 31.5 - 36.5 06/27 Specimen Type: BLOOD No comment entered. Ordering Provider: JULIETA ALCALA Report Released Date/Time: Jun 20, 2023 03:18 PM Reporting Lab: [address] [address] Performing Lab: [address] [address] [facility] CBC PLATELETS [#/VOLUME] IN BLOOD BY AUTOMATED COUNT 271 10*3/uL 150 - 400 06/27 Specimen Type: BLOOD No comment entered. Ordering Provider: JULIETA ALCALA Report Released Date/Time: Jun 20, 2023 03:18 PM Reporting Lab: [address] [address] Performing Lab: [address] [address] [facility] CBC LYMPHOCYTE S/100 LEUKOCYTES IN BLOOD BY AUTOMATED COUNT 31.8 21.0 - 51.0 06/27 Specimen Type: BLOOD No comment entered. Ordering Provider: JULIETA ALCALA Report Released Date/Time: Jun 20, 2023 03:18 PM Reporting Lab: [address] [address] Performing Lab: [place] [phone] [facility] CBC MONOCYTES/ 100 LEUKOCYTES IN BLOOD BY AUTOMATED COUNT 5.9 4.0 - 8.0 06/27 Specimen Type: BLOOD No comment entered. Ordering Provider: JULIETA ALCALA Report Released Date/Time: Jun 20, 2023 03:18 PM Reporting Lab: [place] [phone] Performing Lab: [place] [phone] [place] [address] CBC NUCLEATED ERYTHROCYT ES/100 LEUKOCYTES [RATIO] IN BLOOD BY MANUAL COUNT 0.3 /100{WBC s} 06/27 Specimen Type: BLOOD No comment entered. Ordering Provider: JULIETA ALCALA Report Released Date/Time: Jun 20, 2023 03:18 PM Reporting Lab: [place] [phone] Performing Lab: [place] [phone] CBC ERYTHROCYT E DISTRIBUTI ON WIDTH [RATIO] BY AUTOMATED COUNT 12.5 11.2 - 15.8 06/27 Specimen Type: BLOOD No comment entered. Ordering Provider: JULIETA ALCALA Report Released Date/Time: Jun 20, 2023 03:18 PM Reporting Lab: [place] [phone] Performing Lab: [place] [id number] CBC NEUTROPHIL S/100 LEUKOCYTES IN BLOOD BY AUTOMATED COUNT 57.5 54.0 - 78.0 06/27 Specimen Type: BLOOD No comment entered. Ordering Provider: JULIETA ALCALA Report Released Date/Time: Jun 20, 2023 03:18 PM Reporting Lab: [place] [phone] Performing Lab: [place] [phone] CBC EOSINOPHIL S/100 LEUKOCYTES IN BLOOD BY AUTOMATED COUNT 3.7 0.0 - 3.0 06/27 H Specimen Type: BLOOD No comment entered. Ordering Provider: JULIETA ALCALA Report Released Date/Time: Jun 20, 2023 03:18 PM Reporting Lab: [address] [address] Performing Lab: [place] [phone] [facility] CBC BASOPHILS/ 100 LEUKOCYTES IN BLOOD BY AUTOMATED COUNT 1.1 0.0 - 3.0 06/27 Specimen Type: BLOOD No comment entered. Ordering Provider: JULIETA ALCALA Report Released Date/Time: Jun 20, 2023 03:18 PM Reporting Lab: [address] [phone] Performing Lab: [address] [address] [facility] CBC LYMPHOCYTE S [#/VOLUME] IN BLOOD BY AUTOMATED COUNT 1.6 10*3/uL 0.8 - 5.0 06/27 Specimen Type: BLOOD No comment entered. Ordering Provider: JULIETA ALCALA Report Released Date/Time: Jun 20, 2023 03:18 PM Reporting Lab: [place] [phone] Performing Lab: [place] [phone] [facility] CBC NEUTROPHIL S [#/VOLUME] IN BLOOD 3.0 10*3/uL 1.9 - 8.6 06/27 Specimen Type: BLOOD No comment entered. Ordering Provider: JULIETA ALCALA Report Released Date/Time: Jun 20, 2023 03:18 PM Reporting Lab: [address] [address] Performing Lab: [place] [phone] [facility] CBC BASOPHILS [#/VOLUME] IN BLOOD BY AUTOMATED COUNT 0.1 10*3/uL 0.0 - 0.3 06/27 Specimen Type: BLOOD No comment entered. Ordering Provider: JULIETA ALCALA Report Released Date/Time: Jun 20, 2023 03:18 PM Reporting Lab: [address] [phone] Performing Lab: [address] [phone] [facility] CBC MONOCYTES [#/VOLUME] IN BLOOD BY AUTOMATED COUNT 0.3 10*3/uL 0.1 - 0.9 06/27 Specimen Type: BLOOD No comment entered. Ordering Provider: JULIETA ALCALA Report Released Date/Time: Jun 20, 2023 03:18 PM Reporting Lab: [place] [address] Performing Lab: [address] CBC EOSINOPHIL S [#/VOLUME] IN BLOOD BY AUTOMATED COUNT 0.2 10*3/uL 0.0 - 0.3 06/27 Specimen Type: BLOOD No comment entered. Ordering Provider: JULIETA ALCALA Report Released Date/Time: Jun 20, 2023 03:18 PM Reporting Lab: [place] [address] Performing Lab: [address] CBC PLATELET MEAN VOLUME [ENTITIC VOLUME] IN BLOOD BY AUTOMATED COUNT 9.2 fL 7.9 - 10.8 06/27 Specimen Type: BLOOD No comment entered. Ordering Provider: JULIETA ALCALA Report Released Date/Time: Jun 20, 2023 03:18 PM Reporting Lab: [place] [address] Performing Lab: [address] COMPREHE NSIVE METABOLI C PANEL ALBUMIN [MASS/VOLU ME] IN SERUM OR PLASMA 3.9 g/dL 3.2 - 4.8 06/27 Specimen Type: PLASMA Comment: CREATININE eGFR was calculated using the CKD-EPI 2020 equation. TRIGLYCERID E REF RANGE: NORMAL <150 mg/dL BORDERLINE HIGH: 150-199 TRIGLYCERID E mg/dL HIGH: 200-499 mg/dL VERY HIGH: >=500 mg/dL Ordering Provider: JULIETA ALCALA Report Released Date/Time: Jun 20, 2023 03:18 PM Reporting Lab: [place] [address] Performing Lab: [address] COMPREHE NSIVE METABOLI C PANEL ALKALINE PHOSPHATAS E [ENZYMATIC ACTIVITY/V OLUME] IN SERUM OR PLASMA 85 U/L 46 - 116 06/27 Specimen Type: PLASMA Comment: CREATININE eGFR was calculated using the CKD-EPI 2020 equation. TRIGLYCERID E REF RANGE: NORMAL <150 mg/dL BORDERLINE HIGH: 150-199 TRIGLYCERID E mg/dL HIGH: 200-499 mg/dL VERY HIGH: >=500 mg/dL Ordering Provider: JULIETA ALCALA Report Released Date/Time: Jun 20, 2023 03:18 PM Reporting Lab: [place] [phone] Performing Lab: [address] COMPREHE NSIVE METABOLI C PANEL ALANINE AMINOTRANS FERASE [ENZYMATIC ACTIVITY/V OLUME] IN SERUM OR PLASMA 20 U/L 10 - 45 06/27 Specimen Type: PLASMA Comment: CREATININE eGFR was calculated using the CKD-EPI 2020 equation. TRIGLYCERID E REF RANGE: NORMAL <150 mg/dL BORDERLINE HIGH: 150-199 TRIGLYCERID E mg/dL HIGH: 200-499 mg/dL VERY HIGH: >=500 mg/dL Ordering Provider: JULIETA ALCALA Report Released Date/Time: Jun 20, 2023 03:18 PM Reporting Lab: [place] [phone] Performing Lab: [address] COMPREHE NSIVE METABOLI C PANEL ASPARTATE AMINOTRANS FERASE [ENZYMATIC ACTIVITY/V OLUME] IN SERUM OR PLASMA 25 U/L 0 - 33.9 06/27 Specimen Type: PLASMA Comment: CREATININE eGFR was calculated using the CKD-EPI 2020 equation. TRIGLYCERID E REF RANGE: NORMAL <150 mg/dL BORDERLINE HIGH: 150-199 TRIGLYCERID E mg/dL HIGH: 200-499 mg/dL VERY HIGH: >=500 mg/dL Ordering Provider: JULIETA ALCALA Report Released Date/Time: Jun 20, 2023 03:18 PM Reporting Lab: [place] [phone] Performing Lab: [place] [phone] [place] [address] COMPREHE NSIVE METABOLI C PANEL UREA NITROGEN [MASS/VOLU ME] IN SERUM OR PLASMA 13 mg/dL 9 - 23 05/03 /2024 Specimen Type: PLASMA Comment: CREATININE eGFR was calculated using the CKD-EPI 2020 equation. TRIGLYCERID E REF RANGE: NORMAL <150 mg/dL BORDERLINE HIGH: 150-199 TRIGLYCERID E mg/dL HIGH: 200-499 mg/dL VERY HIGH: >=500 mg/dL Ordering Provider: JULIETA ALCALA Report Released Date/Time: Jun 20, 2023 03:18 PM Reporting Lab: [place] [address] Performing Lab: [address] COMPREHE NSIVE METABOLI C PANEL CALCIUM [MASS/VOLU ME] IN SERUM OR PLASMA 8.9 mg/dL 8.7 - 10.4 06/27 Specimen Type: PLASMA Comment: CREATININE eGFR was calculated using the CKD-EPI 2020 equation. TRIGLYCERID E REF RANGE: NORMAL <150 mg/dL BORDERLINE HIGH: 150-199 TRIGLYCERID E mg/dL HIGH: 200-499 mg/dL VERY HIGH: >=500 mg/dL Ordering Provider: JULIETA ALCALA Report Released Date/Time: Jun 20, 2023 03:18 PM Reporting Lab: [place] [phone] Performing Lab: [address] COMPREHE NSIVE METABOLI C PANEL CREATININE [MASS/VOLU ME] IN SERUM OR PLASMA 0.8 mg/dL 0.55 - 1.02 06/27 Specimen Type: PLASMA Comment: CREATININE eGFR was calculated using the CKD-EPI 2020 equation. TRIGLYCERID E REF RANGE: NORMAL <150 mg/dL BORDERLINE HIGH: 150-199 TRIGLYCERID E mg/dL HIGH: 200-499 mg/dL VERY HIGH: >=500 mg/dL Ordering Provider: JULIETA ALCALA Report Released Date/Time: Jun 20, 2023 03:18 PM Reporting Lab: [place] [phone] Performing Lab: [place] [phone] COMPREHE NSIVE METABOLI C PANEL CARBON DIOXIDE, TOTAL [MOLES/VOL UME] IN SERUM OR PLASMA 28 mmol/L 21 - 32 05/03 /2024 Specimen Type: PLASMA Comment: CREATININE eGFR was calculated using the CKD-EPI 2020 equation. TRIGLYCERID E REF RANGE: NORMAL <150 mg/dL BORDERLINE HIGH: 150-199 TRIGLYCERID E mg/dL HIGH: 200-499 mg/dL VERY HIGH: >=500 mg/dL Ordering Provider: JULIETA ALCALA Report Released Date/Time: Jun 20, 2023 03:18 PM Reporting Lab: [place] [phone] Performing Lab: [place] [id number] [place] [address] COMPREHE NSIVE METABOLI C PANEL GLUCOSE [MASS/VOLU ME] IN SERUM OR PLASMA 90 mg/dL 74 - 106 06/27 Specimen Type: PLASMA Comment: CREATININE eGFR was calculated using the CKD-EPI 2020 equation. TRIGLYCERID E REF RANGE: NORMAL <150 mg/dL BORDERLINE HIGH: 150-199 TRIGLYCERID E mg/dL HIGH: 200-499 mg/dL VERY HIGH: >=500 mg/dL Ordering Provider: JULIETA ALCALA Report Released Date/Time: Jun 20, 2023 03:18 PM Reporting Lab: [place] [phone] Performing Lab: [place] [phone] [place] [address] COMPREHE NSIVE METABOLI C PANEL PROTEIN [MASS/VOLU ME] IN SERUM OR PLASMA 7.1 g/dL 6.4 - 8.5 06/27 Specimen Type: PLASMA Comment: CREATININE eGFR was calculated using the CKD-EPI 2020 equation. TRIGLYCERID E REF RANGE: NORMAL <150 mg/dL BORDERLINE HIGH: 150-199 TRIGLYCERID E mg/dL HIGH: 200-499 mg/dL VERY HIGH: >=500 mg/dL Ordering Provider: JULIETA ALCALA Report Released Date/Time: Jun 20, 2023 03:18 PM Reporting Lab: [place] [phone] Performing Lab: [place] [phone] [facility] COMPREHE NSIVE METABOLI C PANEL SODIUM [MOLES/VOL UME] IN SERUM OR PLASMA 139 mmol/L 136 - 148 06/27 Specimen Type: PLASMA Comment: CREATININE eGFR was calculated using the CKD-EPI 2020 equation. TRIGLYCERID E REF RANGE: NORMAL <150 mg/dL BORDERLINE HIGH: 150-199 TRIGLYCERID E mg/dL HIGH: 200-499 mg/dL VERY HIGH: >=500 mg/dL Ordering Provider: JULIETA ALCALA Report Released Date/Time: Jun 20, 2023 03:18 PM Reporting Lab: [place] [phone] Performing Lab: [place] [id number] COMPREHE NSIVE METABOLI C PANEL CHLORIDE [MOLES/VOL UME] IN SERUM OR PLASMA 107 mmol/L 98 - 107 06/27 Specimen Type: PLASMA Comment: CREATININE eGFR was calculated using the CKD-EPI 2020 equation. TRIGLYCERID E REF RANGE: NORMAL <150 mg/dL BORDERLINE HIGH: 150-199 TRIGLYCERID E mg/dL HIGH: 200-499 mg/dL VERY HIGH: >=500 mg/dL Ordering Provider: JULIETA ALCALA Report Released Date/Time: Jun 20, 2023 03:18 PM Reporting Lab: [place] [phone] Performing Lab: [place] [id number] [place] [address] COMPREHE NSIVE METABOLI C PANEL BILIRUBIN. TOTAL [MASS/VOLU ME] IN SERUM OR PLASMA 0.7 mg/dL 0.3 - 1.2 06/27 Specimen Type: PLASMA Comment: CREATININE eGFR was calculated using the CKD-EPI 2020 equation. TRIGLYCERID E REF RANGE: NORMAL <150 mg/dL BORDERLINE HIGH: 150-199 TRIGLYCERID E mg/dL HIGH: 200-499 mg/dL VERY HIGH: >=500 mg/dL Ordering Provider: JULIETA ALCALA Report Released Date/Time: Jun 20, 2023 03:18 PM Reporting Lab: [place] [phone] Performing Lab: [place] [id number] [place] [address] COMPREHE NSIVE METABOLI C PANEL POTASSIUM [MOLES/VOL UME] IN SERUM OR PLASMA 4.1 mmol/L 3.5 - 5.1 06/27 Specimen Type: PLASMA Comment: CREATININE eGFR was calculated using the CKD-EPI 2020 equation. TRIGLYCERID E REF RANGE: NORMAL <150 mg/dL BORDERLINE HIGH: 150-199 TRIGLYCERID E mg/dL HIGH: 200-499 mg/dL VERY HIGH: >=500 mg/dL Ordering Provider: JULIETA ALCALA Report Released Date/Time: Jun 20, 2023 03:18 PM Reporting Lab: [place] [id number] Performing Lab: [place] [id number] [facility] COMPREHE NSIVE METABOLI C PANEL ANION GAP IN SERUM OR PLASMA 8.1 mmol/L 10 - 20 06/27 L Specimen Type: PLASMA Comment: CREATININE eGFR was calculated using the CKD-EPI 2020 equation. TRIGLYCERID E REF RANGE: NORMAL <150 mg/dL BORDERLINE HIGH: 150-199 TRIGLYCERID E mg/dL HIGH: 200-499 mg/dL VERY HIGH: >=500 mg/dL Ordering Provider: JULIETA ALCALA Report Released Date/Time: Jun 20, 2023 03:18 PM Reporting Lab: [place] [id number] Performing Lab: [place] [id number] [place] [address] COMPREHE NSIVE METABOLI C PANEL GLOMERULAR FILTRATION RATE/1.73 SQ M.PREDICTE D [VOLUME RATE/AREA] IN SERUM, PLASMA OR BLOOD BY CREATININE -BASED FORMULA (CKD-EPI 2020) 94 mL/min 06/27 Specimen Type: PLASMA Comment: CREATININE eGFR was calculated using the CKD-EPI 2020 equation. TRIGLYCERID E REF RANGE: NORMAL <150 mg/dL BORDERLINE HIGH: 150-199 TRIGLYCERID E mg/dL HIGH: 200-499 mg/dL VERY HIGH: >=500 mg/dL Ordering Provider: JULIETA ALCALA Report Released Date/Time: Jun 20, 2023 03:18 PM Reporting Lab: [place] [id number] Performing Lab: [place] [id number] [facility] LIPID PROFILE CHOLESTERO L [MASS/VOLU ME] IN SERUM OR PLASMA 182 mg/dL 135 - 200 06/27 Specimen Type: PLASMA Comment: CREATININE eGFR was calculated using the CKD-EPI 2020 equation. TRIGLYCERID E REF RANGE: NORMAL <150 mg/dL BORDERLINE HIGH: 150-199 TRIGLYCERID E mg/dL HIGH: 200-499 mg/dL VERY HIGH: >=500 mg/dL Ordering Provider: JULIETA ALCALA Report Released Date/Time: Jun 20, 2023 03:18 PM Reporting Lab: [place] [id number] Performing Lab: [place] [id number] LIPID PROFILE CHOLESTERO L IN LDL [MASS/VOLU ME] IN SERUM OR PLASMA BY DIRECT ASSAY 104.0 mg/dL 0 - 110 06/27 Specimen Type: PLASMA Comment: CREATININE eGFR was calculated using the CKD-EPI 2020 equation. TRIGLYCERID E REF RANGE: NORMAL <150 mg/dL BORDERLINE HIGH: 150-199 TRIGLYCERID E mg/dL HIGH: 200-499 mg/dL VERY HIGH: >=500 mg/dL Ordering Provider: JULIETA ALCALA Report Released Date/Time: Jun 20, 2023 03:18 PM Reporting Lab: [place] [id number] Performing Lab: [place] [id number] [place] [address] LIPID PROFILE CHOLESTERO L IN HDL [MASS/VOLU ME] IN SERUM OR PLASMA 63 mg/dL 40 - 60 06/27 H Specimen Type: PLASMA Comment: CREATININE eGFR was calculated using the CKD-EPI 2020 equation. TRIGLYCERID E REF RANGE: NORMAL <150 mg/dL BORDERLINE HIGH: 150-199 TRIGLYCERID E mg/dL HIGH: 200-499 mg/dL VERY HIGH: >=500 mg/dL Ordering Provider: JULIETA ALCALA Report Released Date/Time: Jun 20, 2023 03:18 PM Reporting Lab: [place] [id number] Performing Lab: [place] [id number] LIPID PROFILE TRIGLYCERI DE [MASS/VOLU ME] IN SERUM OR PLASMA 83 mg/dL 0 - 149 06/27 Specimen Type: PLASMA Comment: CREATININE eGFR was calculated using the CKD-EPI 2020 equation. TRIGLYCERID E REF RANGE: NORMAL <150 mg/dL BORDERLINE HIGH: 150-199 TRIGLYCERID E mg/dL HIGH: 200-499 mg/dL VERY HIGH: >=500 mg/dL Ordering Provider: JULIETA ALCALA Report Released Date/Time: Jun 20, 2023 03:18 PM Reporting Lab: [facility] [address] [facility] [id number] Performing Lab: [facility] [address] [facility] [address] [facility] Vital Signs Combined list of inpatient and outpatient Vital Signs from Department of Defense and Veterans Affairs, ranging from 12 months to all on record, depending upon the facility. Vital Sign Value Date Comments Source WEIGHT 141.1 08/21/2024 09:46:21 [facility] BMI 25 kg/m2 08/21/2024 09:46:21 [facility] PAIN 4 08/21/2024 09:46:21 [facility] HEIGHT 62.5 08/21/2024 09:46:21 [facility] TEMPERATURE 96 08/21/2024 09:46:21 [facility] PULSE 59 08/21/2024 09:46:21 [facility] RESPIRATION 16 08/21/2024 09:46:21 [facility] SYSTOLIC BLOOD PRESSURE 105 07/07/2024 08:21:08 [facility] DIASTOLIC BLOOD PRESSURE 67 07/07/2024 08:21:08 [facility] PULSE OXIMETRY 99 07/07/2024 08:21:08 [facility] WEIGHT 142 07/07/2024 08:21:08 [facility] BMI 26 kg/m2 07/07/2024 08:21:08 [facility] PAIN 3 07/07/2024 08:21:08 [facility] TEMPERATURE 97.9 07/07/2024 08:21:08 [facility] PULSE 65 07/07/2024 08:21:08 [facility] RESPIRATION 20 07/07/2024 08:21:08 [facility] SYSTOLIC BLOOD PRESSURE 131 06/30/2024 08:00:06 [facility] DIASTOLIC BLOOD PRESSURE 84 06/30/2024 08:00:06 [facility] PULSE OXIMETRY 99 06/30/2024 08:00:06 [facility] WEIGHT 145 06/30/2024 08:00:06 [facility] BMI 26 kg/m2 06/30/2024 08:00:06 [facility] PAIN 6 06/30/2024 08:00:06 [facility] HEIGHT 62.5 06/30/2024 08:00:06 [facility] TEMPERATURE 96.1 06/30/2024 08:00:06 [facility] PULSE 81 06/30/2024 08:00:06 [facility] RESPIRATION 16 06/30/2024 08:00:06 [facility] SYSTOLIC BLOOD PRESSURE 143 05/21/2024 09:25:08 [facility] DIASTOLIC BLOOD PRESSURE 90 05/21/2024 09:25:08 [facility] PULSE OXIMETRY 98 05/21/2024 09:25:08 [facility] WEIGHT 148.7 05/21/2024 09:25:08 [facility] BMI 27 kg/m2 05/21/2024 09:25:08 [facility] PAIN 8 05/21/2024 09:25:08 [facility] TEMPERATURE 97.8 05/21/2024 09:25:08 [facility] PULSE 79 05/21/2024 09:25:08 [facility] RESPIRATION 16 05/21/2024 09:25:08 [facility] PAIN 0 12/05/2023 10:02:00 [facility] Encounters Combined list of: 1) Encounters from Department of Veterans Affairs facilities going backup to the last 18 months, not all VA inpatient encounters are included; 2) Encounters from the Department of [facility] facilities going backup to 280 months. Location Location Details Encounter Type Encounter Number Reason For Visit Attending Provider ADM Date DC Date Status Disposition Source [facility] OFFICE O/P EST MOD 30 MIN [id number] Diagnos is: ICD-10- CM M25.572 Pain in left ankle and joints of left foot JULIETA ALCALA 07/07 [facility] OFF[facility] O/P NEW MOD 45 MIN [id number] Diagnos is: ICD-10- CM M25.572 Pain in left ankle and joints of left foot PIOTR BROWN NNIFER 07/17 [facility] THERAPEUTI C EXERCISES [id number] Diagnos is: ICD-10- CM M25.572 Pain in left ankle and joints of left foot JORGE GRIFFIN S 08/18 [facility] ORTHOTIC MGMT&TRAIN G 1ST ENC [id number] Diagnos is: ICD-10- CM M25.572 Pain in left ankle and joints of left foot YORKO-O'BR IETODD Almodovar NCE M 09/11 [facility] Outpatient Encounter [id number] 09/11 [facility] THERAPEUTI C EXERCISES [id number] Diagnos is: ICD-10- CM M25.572 Pain in left ankle and joints of left foot JORGE GRIFFIN S 09/19 [facility] PT RE-EVAL EST PLAN CARE [id number] Diagnos is: ICD-10- CM M25.572 Pain in left ankle and joints of left foot JORGE GRIFFIN S 10/15 [facility] PT RE-EVAL EST PLAN CARE [id number] Diagnos is: ICD-10- CM M25.572 Pain in left ankle and joints of left foot JORGE GRIFFIN S 11/26 [facility] ORTHOTIC MGMT&TRAIN G 1ST ENC [id number] [id number] Diagnos is: ICD-10- CM M25.572 Pain in left ankle and joints of left foot YORKO-O'BR IENTODD NCE M 12/04 [facility] PSYTX W PT 30 MINUTES [id number] [id number] Diagnos is: ICD-10- CM F43.23 Adjustm ent disorde r with mixed anxiety and depress ed mood AG SOUTH UEL M 12/04 [facility] OFF[facility] O/P EST MOD 30 MIN [id number] [id number] Diagnos is: ICD-10- CM M25.572 Pain in left ankle and joints of left foot PIOTR BROWNIFER 12/10 [facility] PSYTX W PT 30 MINUTES [id number] [id number] Diagnos is: ICD-10- CM F43.23 Adjustm ent disorde r with mixed anxiety and depress ed mood BRANNONRAQ UEL M 12/10 [facility] HC PRO PHONE CALL 5-10 MIN [id number] [id number] Diagnos is: ICD-10- CM R10.30 Lower abdomin al pain, unspeci fied Sahara MARINA 12/12 [facility] Outpatient Encounter [id number] 12/22 [facility] Outpatient Encounter [id number] 12/22 [facility] Outpatient Encounter [id number] 12/30 [facility] Outpatient Encounter [id number] 01/07 [facility] OFFICE O/P NEW HI 60 MIN [id number] [id number] Diagnos is: ICD-10- CM M25.572 Pain in left ankle and joints of left foot MARYCRUZ CORDERO ELIEZER Shoemaker 01/07 [facility] PSYTX W PT 30 MINUTES [id number] [id number] Diagnos is: ICD-10- CM F43.23 Adjustm ent disorde r with mixed anxiety and depress ed mood GETSYL,RAQ UEL M 11/13 /2024 [facility] Outpatient Encounter [id number] 01/12 [facility] Outpatient Encounter [id number] 01/15 [facility] PSYCH DIAG EVAL W/MED SRVCS [id number] [id number] Diagnos is: ICD-10- CM F41.1 General ized anxiety disorde r TWYLA MACDONALD L 01/19 [facility] Outpatient Encounter [id number] 01/21 [facility] CHIROPRACT MANJ 3-4 [place] [id number] [id number] Diagnos is: ICD-10- CM M25.572 Pain in left ankle and joints of left foot EVELYN ENRIQUEZ 02/02 [facility] 30 MINUTES [id number] [id number] Diagnos is: ICD-10- CM F43.23 Adjustm ent disorde r with mixed anxiety and depress ed mood AG SOUTH 02/02 [facility] Outpatient Encounter [id number] 02/10 [facility] Outpatient Encounter [id number] [id number] Diagnos is: ICD-10- CM M25.572 Pain in left ankle and joints of left foot PIOTR BROWN 02/16 [facility] Outpatient Encounter [id number] [id number] 02/26 [facility] Outpatient Encounter [id number] 03/05 [facility] Outpatient Encounter [id number] [id number] 03/05 [facility] PSYTX W PT 30 MINUTES [id number] [id number] Diagnos is: ICD-10- CM F41.1 General ized anxiety disorde r BRANNONAG M 03/06 [facility] OFFICE O/P EST MOD 30 MIN [id number] Diagnos is: ICD-10- CM F41.1 General ized anxiety disorde r TWYLA MACDONALD TE L 03/06 [facility] Outpatient Encounter [id number] 03/07 [facility] Outpatient [facility]counter [id number] 03/16 [facility] Outpatient Encounter [id number] 03/23 [facility] Outpatient Encounter [id number] 03/30 [facility] CHIROPRACT MANJ 3-4 [place] [id number] [id number] Diagnos is: ICD-10- CM M51.362 Oth intvrt disc degen, lum rgn w discog bck and lw extrm pain [facility] W PT 30 MINUTES [id number] [id number] Diagnos is: ICD-10- CM F41.1 General ized anxiety disorde r CHRISTIANRA SYLChantale MARY M 04/09 [facility] OFFICE O/P EST HI 40 MIN [id number] [id number] Diagnos is: ICD-10- CM M25.572 Pain in left ankle and joints of left foot PIOTR BROWN 04/09 [facility] Outpatient Encounter [id number] 04/09 [facility] Outpatient Encounter [id number] 04/13 [facility] Outpatient Encounter [id number] 04/16 [facility] Outpatient Encounter [id number] 04/27 [facility] OFFICE O/P EST MOD 30 MIN [id number] [id number] Diagnos is: ICD-10- CM F41.1 General ized anxiety disorde r CORE,DANET TE L 04/27 [facility] DIAGNOSTIC EVALUATION [id number] [id number] Diagnos is: ICD-10- CM F41.1 General ized anxiety disorde r LEIDYRASHIDISIDROJosé M 05/05 [facility] Outpatient Encounter [id number] 05/13 [facility] OFFICE O/P EST HI 40 MIN [id number] Diagnos is: ICD-10- CM M25.572 Pain in left ankle and joints of left foot MARYCRUZ CORDERO ELIEZER M 05/21 [facility] Outpatient Encounter [id number] 05/21 [facility] Outpatient Encounter [id number] 06/08 [facility] OFFICE O/P EST HI 40 MIN [id number] [id number] Diagnos is: ICD-10- CM F41.0 Panic disorde r [episod ic paroxys mal anxiety ] CORE,DANET TE L 06/16 [facility] Outpatient Encounter [id number] 06/18 [facility] Outpatient Encounter [id number] 06/24 [facility] OFFICE O/P EST LOW 20 MIN [id number] [id number] Diagnos is: ICD-10- CM F41.1 General ized anxiety disorde r TWYLA MACDONALD L 06/30 [facility] Outpatient Encounter [id number] 07/07 [facility] OFFICE O/P EST MOD 30 MIN [id number] Diagnos is: ICD-10- CM M25.572 Pain in left ankle and joints of left foot JULIETA ALCALA L 07/07 [facility] Outpatient Encounter [id number] 07/09 [facility] OFFICE O/P EST HI 40 MIN [id number] [id number] Diagnos is: ICD-10- CM M25.572 Pain in left ankle and joints of left foot PIOTR BROWN NNIFER 07/09 [facility] Outpatient Encounter [id number] 07/16 [facility] OFFICE O/P EST HI 40 MIN [id number] Diagnos is: ICD-10- CM M72.2 Plantar fascial fibroma MARYCRUZ Amin LD M 07/22 [facility] Outpatient Encounter [id number] 07/28 [facility] Outpatient Encounter [id number] 08/13 [facility] OFFICE O/P EST MOD 30 MIN [id number] Diagnos is: ICD-10- CM F41.0 Panic disorde r [episod ic paroxys mal anxiety ] TWYLA MACDONALD L 08/21 [facility] Social History Combined list of available smoking, tobacco, and other social history from Department of Defense and Veterans Affairs facilities. Social History Type Response Date Comment Sourc e Tobacco smoking status NHIS VA-TOBACCO NEVER USED CIGARETTES 06/30/2024 [facility] History of tobacco use VA-TOBACCO NEVER USED OTHER TYPE 06/30/2024 [facility] History of tobacco use VA-TOBACCO NEVER USED 07/08/2023 [facility] History of tobacco use VA-TOBACCO NEVER USED 07/03/2022 [facility] This section is an empty social history section. DoD Plan of Care List of future care activities from Department of Veterans Affairs facilities. Additional future care activities may be listed in the Assessment and Plan section. Date/Time Care Activity Care Activity Detail Khloei ty 11/13/2024 AMBULATORY - PSYCHIATRY AMBULATORY - PSYC [facility]
--- OUTSIDE RECORDS SUMMARY | 2024-10-12 10:30 | XMS_ITS | Encounter Summary ---
Author Organization [facility] Address [address] [place] [address] Care Team Providers Care Computer Methods Analyst Name Role Phone Nat Gurrola MD Unavailable [phone] Reason for Visit * Reason Comments Well Women Visit Encounter Details Date Type Department Care Team (Late Contact Info) Description 10/12/2024 10:30 AM EDT Office Visit [facility] [place] [facility] [address] [place] [address] Raymundo Rashid DO [address] [place] [address] Well woman exam with routine gynecological exam; Breast cancer screening by mammogram Social History Tobacco Use Types Packs/Day Years Used Date Smoking Tobacco: Never Smokeless Tobacco: Never Alcohol Use Standard Drinks/Week Comments Not Currently 0 (1 standard drink = 0.6 oz pur e alcohol) Comments No Sex and Gender Information Value Date Recorded Sex Assigned at Not on file Legal Sex Female 7:39 PM EDT Gender Identity Not on file Sexual Orientation Not on file Travel History Travel Start Travel End [place] 10/02/2024 10/05/2024 documented as of this encounter Last Filed Vital Signs Vital Sign Reading Time Taken Comments Blood Pressure 126/70 10/12/2024 10:31 AM EDT Pulse - - Temperature - - Respiratory Rate - - Oxygen Saturation - - Inhaled Oxygen Concentration - - Weight 63.9 kg (140 lb 12.8 oz) 025 10:31 AM EDT Height - - Body Mass Index 25.75 10/09/2022 11:07 AM EDT documented in this encounter Progress Notes * Natasha Smart, BOARD ATTENDANT - 10/12/2024 10:30 AM EDT Reason for Appointment: Patient ID: Shani Wolff is a 44 y.o. female who presents for Well Women Visit Patient presents today for Annual Exam. MEDICATIONS Current Outpatient Medications Medication Instructions DULoxetine HCl 30 mg, Daily ALLERGIES No Known Allergies PROBLEMS Active Ambulatory Problems Diagnosis Date Noted No Active Ambulatory Problems Resolved Ambulatory Problems Diagnosis Date Noted No Resolved Ambulatory Problems Past Medical History: Diagnosis Date Ankle sprain 09-17-2022 Diverticulosis 02/2024 Low back strain 2018 Right ovarian cyst HISTORY PAST MEDICAL HISTORY SOCIAL HISTORY Past Medical History: Diagnosis Date Ankle sprain 09-17-2022 Diverticulosis 02/2024 Low back strain 2018 Right ovarian cyst Social History Tobacco Use Smoking status: Never Smokeless tobacco: Never Substance Use Topics Alcohol use: Not Currently Drug use: Never FAMILY HISTORY No family history on file. SURGICAL HISTORY Past Surgical History: Procedure Laterality Date SECTION, CLASSIC HYSTERECTOMY PLANTAR FASCIA RELEASE 11-16-2021 REVIEW OF SYSTEMS Review of Systems: Review of Systems Constitutional: Negative. HENT: Negative. Eyes: Negative. Respiratory: Negative. Cardiovascular: Negative. Gastrointestinal: Negative. Genitourinary: Negative. Musculoskeletal: Negative. Skin: Negative. Neurological: Negative. All other systems reviewed and are negative. Hematological: Negative. Endocrine: Negative. Allergic/Immunologic: Negative. OBJECTIVE Objective: Physical Exam Constitutional: Appearance: Normal appearance. She is well-developed. Genitourinary: Vulva normal. Vaginal cuff intact. Cervix is absent. Uterus is absent. Breasts: Breasts are soft. Right: Normal. Left: Normal. Cardiovascular: Rate and Rhythm: Normal rate and regular rhythm. Abdominal: General: Bowel sounds are normal. There is no distension. Palpations: Abdomen is soft. Tenderness: There is no abdominal tenderness. There is no guarding or rebound. Musculoskeletal: General: No swelling. Normal range of motion. Right lower leg: No edema. Left lower leg: No edema. Neurological: Mental Status: She is alert and oriented to person, place, and time. Skin: General: Skin is warm and dry. Psychiatric: Mood and Affect: Mood normal. Behavior: Behavior normal. Vitals and nursing note reviewed. Exam conducted with a administrative support assoc present. Vitals: Estimated body mass index is 25.75 kg/m?? as calculated from the following: Height as of 10/09/22: 5' 2 . Weight as of this encounter: 140 lb 12.8 oz. BP: 126/70 No LMP recorded. Patient has had a hysterectomy. ASSESSMENT & PLAN ICD-10-CM 1. Well woman exam with routine gynecological exam Z01.419 THIN PREP TIS PAP AND HR HPV DNA 2. Breast cancer screening by mammogram Z12.31 Bilateral screening mammogram Bilateral screening mammogram Annual: Patient presents today for an annual exam. Patient states she is doing well and has no complaints. Pap was obtained without difficulty and patient given mammogram order to have scheduled/obtained. Orders Placed This Encounter Procedures Bilateral screening mammogram Follow Up: Patient is to return in one year for annual unless needed otherwise. Documented by Natasha Smart LPN on behalf of: Raymundo Rashid DO documented in this encounter Plan of Treatment Scheduled Orders Name Type Priority Associated Diagnoses Orde r Schedule Bilateral screening mammogram Imaging Routine Breast cancer screening by mammogram Expected: 10/12/2024 (Approximate), Expires: 12/12/2025 THIN PREP TIS PAP AND HR HPV DNA Pathology and Cytology Routine Well woman exam with routine gynecological exam Ordered: 10/12/2024 documented as of this encounter Visit Diagnoses Diagnosis Well woman exam with routine gynecological exam Routine gynecological examination Breast cancer screening by mammogram documented in this encounter Care Teams Computer Methods Analyst Relationship Specialty Start Date End Date Nat Gurrola MD [address] [place] [address] Referring Physician Family Medicine 09/18/22 documented as of this encounter
--- OUTSIDE RECORDS SUMMARY | 2024-10-12 15:50 | XMS_ITS | Encounter Summary ---
Author Organization [facility] Address [address] [place] [address] Care Team Providers Care Music Professionals Name Role Phone Nat Gurrola MD Unavailable [phone] Encounter Details Date Type Department Care Team (Late st Contact Info) Description 09/09/2023 Orders Only [facility] [address] [place] [id number] Nichole Hays LPN [address] [place] [id number] Social History Tobacco Use Types Packs/Day Years Used Date Smoking Tobacco: Never Smokeless Tobacco: Never Alcohol Use Standard Drinks/Week Comments Not Currently 0 (1 standard drink = 0.6 oz pur e alcohol) Comments Unknown Sex and Gender Information Value Date Recorded Sex Assigned at Not on file Legal Sex Female 7:39 PM EDT Gender Identity Not on file Sexual Orientation Not on file Travel History Travel Start Travel End [place] 10/02/2024 10/05/2024 documented as of this encounter Plan of Treatment Not on file documented as of this encounter Procedures Procedure Name Priority Date/Time Associated Diagnosis Comments PAP SMEAR Routine 09/04/2023 12:00 AM EDT documented in this encounter Results * Pap Smear (09/04/2023 12:00 AM EDT) Swab Cervical swab / Unknown us Rachid [facility] CYTOLOGY ORDERABLES Final Result EXTERNAL LAB documented in this encounter Visit Diagnoses Not on filedocumented in this encounter Care Teams Music Professionals Relationship Specialty Start Date End Date Nat Gurrola MD [address] [place], [place] [id number] Referring Physician Family Medicine 09/18/22 documented as of this encounter
--- OUTSIDE RECORDS SUMMARY | 2024-10-12 15:50 | XMS_ITS | Clinical Summary ---
Author Organization [facility] Address [address] [facility] [place] [address] Care Team Providers Care All Purpose Clerk Name Role Phone Nat Gurrola MD Unavailable [phone] Allergies No known active allergies Medications DULoxetine HCl 30 MG Capsule Delayed Release Sprinkle Take 30 mg by mouth Daily 5 Active escitalopram (Lexapro) 10 MG tablet Take 10 mg by mouth Daily 5 10/13/19 25 Discontinued hydrOXYzine HCl (Atarax) 10 MG tablet Take 10 mg by mouth 4 10/13/19 25 Discontinued traMADol (Ultram) 50 MG tablet Take 50 mg by mouth every 4 (four) hours if needed 5 10/13/19 25 Discontinued azithromycin (Zithromax) 250 MG tabletIndicatio ns:Pharyngitis, unspecified etiology,Acute cough,Bronchiti s Take 1 tablet (250 mg) by mouth Daily Take 2 tabs on day 1 and 1 tab on days 2-5 then stop 6 tablet 5 10/13/19 25 Discontinued Encounters Date Type Department Care Team Description 10/12/2024 10:30 AM EDT Office Visit [facility] [address] [facility] [place] [address] Raymundo Rashid, DO Well woman exam with routine gynecological exam; Breast cancer screening by mammogram 10/12/2024 Jose Lboo flowsheet [facility] [address] [place] [address] Raymundo Rashid, DO 10/11/2024 Travel 09/07/2024 [employer] flowsheet [facility] [address] [place] [address] [place] [id number] Raymundo Rashid, DO 09/06/2024 Travel from Last 3 Months Family History Relation Name Status Comments Father Alive Mother Alive Social History Tobacco Use Types Packs/Day Years Used Date Smoking Tobacco: Never Smokeless Tobacco: Never Tobacco Cessation:Counseling Given: Not Answered Alcohol Use Standard Drinks/Week Comments Not Currently 0 (1 standard drink = 0.6 oz pur e alcohol) Comments No Sex and Gender Information Value Date Recorded Sex Assigned at Not on file Legal Sex Female 7:39 PM EDT Gender Identity Not on file Sexual Orientation Not on file Travel History Travel Start Travel End [place] 10/02/2024 10/05/2024 Last Filed Vital Signs Vital Sign Reading Time Taken Comments Blood Pressure 126/70 10/12/2024 10:31 AM EDT Pulse 77 05/27/2024 9:33 AM EDT Temperature 36.6 C (97.8 F) 05/27/2024 9:33 AM EDT Respiratory Rate 20 05/27/2024 9:33 AM EDT Oxygen Saturation 99% 05/27/2024 9:33 AM EDT Inhaled Oxygen Concentration - - Weight 63.9 kg (140 lb 12.8 oz) 025 10:31 AM EDT Height 157.5 cm (5' 2 ) 10/09/2022 11:0 7 AM EDT Body Mass Index 25.75 10/09/2022 11:07 AM EDT Plan of Treatment Health Maintenance Due Date Last Done Comments CT Colonography 1979 Colonoscopy 1979 Colorectal Cancer Screening 1979 FIT-DNA 1979 FIT 1979 FOBT 1979 Sigmoidoscopy 1979 Mammogram 2019 Influenza Vaccine (#1) 2024 Pap Smear 09/03/2026 09/04/2023 Cervical Cancer Screening 10/06/2027 HPV/Cotest 10/06/2027 10/05/2022 Procedures Procedure Name Priority Date/Time Associated Diagnosis Comments PAP SMEAR Routine 09/04/2023 12:00 AM EDT THINPREP PAP AND HPV MRNA E6/E7 W/RFL HPV 16,18/45 Routine 10/05/2022 12:14 PM EDT Well woman exam with routine gynecological exam from Last 3 Months or Most Recently Relevant to Health Maintenance Results * Pap Smear (09/04/2023 12:00 AM EDT) Swab Cervical swab / Unknown R[facility]id [facility] LAB CYTOLOGY ORDERABLES Final Result EXTERNAL LAB * THINPREP PAP AND HPV MRNA E6/E7 W/RFL HPV 16,18/45 (10/05/2022 12:14 PM EDT) Raymundo Rashid DO LAB BLOOD ORDERABLES Final Resul t EXTERNAL LAB from Last 3 Months or Most Recently Relevant to Health Maintenance Insurance [facility] Care Teams All Purpose Clerk Relationship Specialty Start Date End Date Nat Gurrola MD [address] [place] [address] Referring Physician Family Medicine 09/18/22
--- OUTSIDE RECORDS SUMMARY | 2024-10-12 15:50 | XMS_ITS | Encounter Summary ---
Author Organization [facility] Address [address] [facility] [place] [address] Care Team Providers Care Mobile Paramedical Examiner Name Role Phone Nat Gurrola MD Unavailable [phone] Encounter Details Date Type Department Care Team (Latest Contact Info) Description 10/11/2024 Travel Social History Tobacco Use Types Packs/Day Years [...] on file documented as of this encounter Visit Diagnoses Not on filedocumented in this encounter Care Teams Mobile Paramedical Examiner Relationship Specialty Start Date End Date Nat Gurrola MD [address] [facility] [address] Referring Physician Family Medicine 09/18/22 documented as of this encounter
--- OUTSIDE RECORDS SUMMARY | 2024-10-12 15:50 | XMS_ITS | Encounter Summary ---
Author Organization [facility] Address [address] [facility] [place] [address] Care Team Providers Care Ground Crewman Aircraft Support Name Role Phone Nat Gurrola MD Unavailable [phone] Encounter Details Date Type Department Care Team (Late st Contact Info) Description 10/12/2024 Bamboo flowsheet [facility] [address] [facility] [place] [id number] Raymundo Rashid DO [address] [facility] [address] [place], [place] [address] Social History Tobacco Use Types Packs/Day Years [...] file Travel History Travel Start Travel End [place] 10/02/2024 10/05/2024 documented as of this encounter Plan of Treatment Not on file documented as of this encounter Visit Diagnoses Not on filedocumented in this encounter Care Teams Ground Crewman Aircraft Support Relationship Specialty Start Date End Date Nat Gurrola MD [address] [facility] [place] [id number] Referring Physician Family Medicine 09/18/22 documented as of this encounter
--- OUTSIDE RECORDS SUMMARY | 2024-10-12 15:50 | XMS_ITS | Clinical Summary ---
Author [facility] [employer] [facility] Address [id number] [address] [id number] Care Team Providers Care Classification And Treatment Director Name Role Phone Unavailable Primary Care Provider Unavailabl e Social History Tobacco Use Types Packs/Day Years Used Date Smoking Tobacco: Never Assessed Childcare Answer Date Recorded Childcare Unknown 08/06/2018 Employment Answer Date Recorded Employment Unknown 08/06/2018 Comments Unknown Sex and Gender Information Value Date Recorded Sex Assigned at Not on file Legal Sex Female 12:08 PM EDT Gender Identity Not on file Sexual Orientation Not on file Plan of Treatment Not on file Medical Devices Not on file
--- OUTSIDE RECORDS SUMMARY | 2024-10-12 15:51 | XMS_ITS | Patient Health Record ---
Author Organization [facility] in [place] Address [address] [place] [address] Care Team Providers Care Trade Manager Name Role Phone Galileo Nat Primary Care Provider [phone] Results Component Value Reference Range Notes Pancreatic Elastase, Fecal Reviewed date:01/20/2024 11:36:16 AM Interpretation: Performing Lab: Notes/Report: [facility] , Pancreatic Elastase, Fecal >800 >200 Performed at: [facility] Realtime Reporter: Aubrey Groves MD, Phone: [phone] Normal: >200 Result Units: ug Elast./g Severe Pancreatic Insufficiency: <100 [address] [place], [place] [id number] Moderate Pancreatic Insufficiency: 100 - 200 Performing Lab: see note - [facility] LB HIV Ab/p24 Ag with Reflex Reviewed date:01/09/2024 08:23:03 AM Interpretation: Performing Lab: Notes/Report: [facility] , HIV Ab/p24 Ag Screen Non Reactive Non Reactive detected. There is no laboratory evidence of HIV infection. [address] [place] [id number] HIV Negative Realtime Reporter: Dat Richards PhD, Phone: [phone] Performed at: [facility] HIV-1/HIV-2 antibodies and HIV-1 p24 antigen were NOT Performing Lab: see note - [facility] LB Erythrocyte Sedimentation Ra te Reviewed date:01/09/2024 08:23:03 AM Interpretation: Performing Lab: Notes/Report: [facility] , Erythrocyte Sedimentation Rate 7 <=20 mm/hr Performing Lab: see note ML - [facility] LB TSH Reviewed date:01/09/2024 08:23:03 AM Interpretation: Performing Lab: Notes/Report: [facility] , Thyroid Stimulating Hormone 1.971 0.358-3.740 uIU/mL Performing Lab: see note ML - [facility] LB CRP Reviewed date:01/09/2024 08:23:03 AM Interpretation: Performing Lab: Notes/Report: [facility] , C Reactive Protein <0.50 <=0.50 mg/dL Performing Lab: see note ML - [facility] LB C. Difficile PCR Reviewed date:01/14/2024 04:23:30 PM Interpretation: Performing Lab: Notes/Report: [facility] , C. Difficile PCR NEGATIVE Performing Lab: see note ML - [facility] LB CT abdomen pelvis w con Reviewed date:01/13/2024 09:37:21 AM Interpretation: Performing Lab: Notes/Report: Source Facility: [place] [address] CT Scan Report Signed Patient: SHANI WOLFF MR#: [id number] : 1980 Acct:[id number] Age/Sex: 43 / F ADM Date: 01/10/24 Loc: CT Attending Dr: Ran Molina M.D. Ordering Physician: Ran Molina M.D. Date of Service: 01/10/24 Procedure(s): CT abdomen pelvis w con Accession Number(s): [id number] cc: NAT ROSALES [place] [address] Patient Name: SHANI WOLFF MRN: [id number]:[id number] date: 1980 Sex: F Assigned Patient Location: CT Current Patient Location: Accession/Order Number: [id number] Exam Date: 01/10/2024 14:20 Report Date: 01/11/2024 07:09 At the request of: RAN MOLINA Procedure: CT abdomen pelvis w con EXAMINATION: CT abdomen pelvis w con HISTORY: Diverticulitis, Diarrhea COMPARISON: CT abdomen pelvis 09/07/2023 TECHNIQUE: Axial, Coronal, and Sagittal images were obtained without and/or with IV contrast as indicated by examination type. Dose reduction techniques were achieved by using automated exposure control and/or adjustment of mA and/or kV according to patient size and/or use of iterative reconstruction technique. FINDINGS: LUNG BASES: No visible pulmonary or pleural disease. LIVER: No enlargement, atrophy, suspicious density, or significant focal lesion. BILIARY: No dilatation or calcification. PANCREAS: No lesion, fluid collection, or abnormal duct dilatation. SPLEEN: No enlargement or focal lesion. ADRENALS: No mass or enlargement. KIDNEYS: No mass, obstruction, or calcification. BOWEL/MESENTERY: Mild diverticulosis of distal colon without acute inflammatory changes. No visible mass, obstruction, or bowel wall thickening. Normal appendix. AORTA/VASCULAR: No aneurysm or dissection. RETROPERITONEUM: No mass or adenopathy. LYMPH NODES: No adenopathy. URINARY BLADDER: No visible focal wall thickening, lesion, or calculus. PELVIC ORGANS: Hysterectomy. A few small follicle/cyst within left ovary. ABDOMINAL WALL: No mass or hernia. BONES: Remote fracture of L3 left transverse process. No acute abnormality or significant degenerative changes. OTHER: Negative. CT/CT abdomen pelvis w con IMPRESSION: 1. No abnormal or suspicious findings to account for patient's symptoms. Electronically authenticated by: ROBB JARAMILLO Date: 01/11/2024 07:09 Dictated By: Robb Jaramillo M.D. Signed By: 01/11/24711 DD/ 8 TD/TT: Cook Morning: [place] [address] CT Scan Report Signed Patient: SHANI WOLFF MR#: [id number] : 1980 Acct:[id number] Age/Sex: 43 / F ADM Date: 01/10/24 Loc: CT Attending Dr: Ran burr M.D. Ordering Physician: Ran Molina M.D. Date of Service: 01/10/24 Procedure(s): CT abd omen pelvis w con Accession Number(s): [id number] cc: NAT ROSALES [address] [address] Patient Name: SHANI WOLFF MRN: [id number]:[id number] date: 1980 Sex: F Assigned Patient Location: CT Current Patient Location: Accession/Order Numb er: [id number] Exam Date: 14:20 Report Date: 01/11/2024 07:09 At the request of: RAN MOLINA Procedure: CT abdome n pelvis w con EXAMINATION: CT abdo men pelvis w con HISTORY: Diverticuli tis, Diarrhea COMPARISON: CT abdom en pelvis 09/07/2023 TECHNIQUE: Axial, Coronal, and Sagittal images were obtained without and/or with IV contrast as indicated by examination type. Dose reduction techniques were achieved by usi ng automated exposure control and/or adjustment of mA and/or kV according to patient size and/or use of iterative reconstruction technique. FINDINGS: LUNG BASES: No visib le pulmonary or pleural disease. LIVER: No enlargemen t, atrophy, suspicious density, or significant focal lesion. BILIARY: No dilatati on or calcification. PANCREAS: No lesion, fluid collection, or abnormal duct dilatation. SPLEEN: No enlargeme nt or focal lesion. ADRENALS: No mass or enlargement. KIDNEYS: No mass, obstruction, or calcification. BOWEL/MESENTERY: Mil d diverticulosis of distal colon without acute inflammatory changes. No visible mass, obstruction, or bowel wall thickening. Normal appendix. AORTA/VASCULAR: No aneurysm or dissection. RETROPERITONEUM: No mass or adenopathy. LYMPH NODES: No adenopathy. URINARY BLADDER: No visible focal wall thickening, lesion, or calculus. PELVIC ORGANS: Hysterectomy. A few small follicle/cyst within left ovary. ABDOMINAL WALL: No m ass or hernia. BONES: Remote fractu re of L3 left transverse process. No acute abnormality or significant degenera tive changes. OTHER: Negative. C T/CT abdomen pelvis w con IMPRESSION: 1. No abnormal or suspicious findings to account for patient's symptoms. Electronically authenticated by: ROBB JARAMILLO Date: 01/11/2024 07:09 Dictated By: Robb Jaramillo M.D. Signed By: 01/11/24 0712 DD/ 0709 TD/TT: Cook Morning: Celiac Disease Comprehensive Reviewed date:01/10/2024 08:28:11 AM Interpretation: Performing Lab: Notes/Report: [facility] , Deamidated Gliadin Abs, IgA 4 0-19 units Negative 0 - 19 Weak Positive 20 - 30 Moderate to Strong Positive >30 Deamidated Gliadin Abs, IgG 2 0-19 units Weak Positive 20 - 30 Moderate to Strong Positive >30 Negative 0 - 19 t-Transglutaminase (tTG) IgA <2 0-3 U/mL Negative 0 - 3 Tissue Transglutaminase (tTG) has been identified ated that endomysial IgA antibodies have over 99% Weak Positive 4 - 10 specificity for gluten sensitive enteropathy. as the endomysial antigen. Studies have demonstr- Positive >10 t-Transglutaminase (tTG) IgG 3 0-5 U/mL Weak Positive 6 - 9 Positive >9 Negative 0 - 5 Endomysial Antibody IgA Negative Negative Immunoglobulin A, Qn, Serum 291 87-352 mg/dL Realtime Reporter: Dat Richards PhD, Phone: [phone] Performed at: [address] [id number] Performing Lab: see note - [facility] LB Calprotectin, Fecal Reviewed date:01/16/2024 12:58:31 PM Interpretation: Performing Lab: Notes/Report: [facility] , Calprotectin, Fecal 13 0-120 ug/g Performed at: [facility] >50 -120 ug/g Borderline Re-evaluate in 4-6 weeks indicated Realtime Reporter: Aubrey Groves MD, Phone: [phone] >120 ug/g Abnormal Repeat as clinically < 5 - 50 ug/g Normal None Concentration Interpretation Follow-Up [address] [place] [id number] Performing Lab: see note - [facility] LB XR thoracic spine 2V Reviewed date:08/26/2024 09:01:25 AM Interpretation: Performing Lab: Notes/Report: Source Facility: [facility] [place] [address] [place] [address] XRay Report Signed Patient: SHANI WOLFF MR#: [id number] : 1980 Acct:[id number] Age/Sex: 43 / F ADM Date: 08/25/24 Loc: RAD Attending Dr: Oswaldo Chang D.O. Ordering Physician: Oswaldo Chang D.O. Date of Service: 08/25/24 Procedure(s): XR thoracic spine 2V Accession Number(s): [id number] cc: NAT ROSALES ; Oswaldo Chang D.O. [address] [address] Patient Name: SHANI WOLFF MRN: [facility]:[id number] date: 1980 Sex: F Assigned Patient Location: RAD Current Patient Location: RAD Accession/Order Number: [id number] Exam Date: 08/25/2024 15:41 Report Date: 08/25/2024 15:45 At the request of: OSWALDO CHANG DO Procedure: XR lumbar spine 2-3V 2 views of thoracic spine COMPARISON: None HISTORY: Chronic thoracic and lumbar spine pain. Left sciatica The thoracic kyphosis is adequate. The disc spaces are maintained. Thoracic endplate spurs are present. No compression deformity identified The bony mineralization is adequate. No paraspinal abnormality seen. XR/XR thoracic spine 2V IMPRESSION: Thoracic spondylosis. No fracture 2 views lumbar spine Comparison MRI lumbar spine 12/30/2018 Mild straightening. Adequate alignment. Adequate vertebral heights and disc spaces. Mild facet degeneration IMPRESSION: Lower lumbar facet degenerative changes. No acute findings Impression dictated by: Oswaldo Mcgregor M.D. 08/25/2024 3:45 PM Dictation Location: [place] [address] Electronically authenticated by: [id number] Y Date: 08/25/2024 15:45 Dictated By: Oswaldo Mcgregor D.O. Signed By: 08/25/24 1547 DD/ 1545 TD/TT: Cook Morning: [place] [address] XRay Report Signed Patient: SHANI WOLFF MR#: [id number] : 1980 Acct:[id number] Age/Sex: 43 / F ADM Date: 08/25/24 Loc: RAD Attending Dr: Dacia Soto Ordering Physician: Oswaldo Chang D.O. Date of Service: 08/25/24 Procedure(s): XR tho racic spine 2V Accession Number(s): [id number] cc: NAT ROSALES ; Oswaldo Chang D.O. [place] [address] Patient Name: SHANI WOLFF MRN: [id number] date: 1980 Sex: F Assigned Patient Location: [facility] Current Patient Loca tion: RAD Accession/Order Numb er: [id number] Exam Date: 08/25/2024 15:41 Report Date: 08/25/2024 15:45 At the request of: OSWALDO CHANG DO Procedure: XR lumbar spine 2-3V 2 views of thoracic spine COMPARISON: None HISTORY: Chronic tho racic and lumbar spine pain. Left sciatica The thoracic kyphosi s is adequate. The disc spaces are maintained. Thoracic endplate sp urs are present. No compression defor mity identified The bony mineralizat ion is adequate. No paraspinal abnorm ality seen. X R/XR thoracic spine 2V IMPRESSION: Thoracic spondylosis. No fracture 2 views lumbar spine Comparison MRI lumba r spine 12/30/2018 Mild straightening. Adequate alignment. Adequate vertebral heights and disc spaces. Mild facet degeneration IMPRESSION: Lower ruy mbar facet degenerative changes. No acute findings Impression dictated by: Oswaldo Mcgregor M.D. 08/25/2024 3:45 PM Dictation Location: [place] [address] Electronically authenticated by: [id number] Y Date: 08/25/2024 15:45 Dictated By: Toni Mcgregor D.O. Signed By: 08/25/24 1547 DD/ 1545 TD/TT: Cook Morning: XR lumbar spine 2-3V Reviewed date:08/26/2024 09:01:17 AM Interpretation: Performing Lab: Notes/Report: Source Facility: [facility] [place] [address] [place] [address] XRay Report Signed Patient: SHANI WOLFF MR#: [id number] : 1980 Acct:[id number] Age/Sex: 43 / F ADM Date: 08/25/24 Loc: RAD Attending Dr: Oswaldo Chang D.O. Ordering Physician: Oswaldo Chang D.O. Date of Service: 08/25/24 Procedure(s): XR lumbar spine 2-3V Accession Number(s): [id number] cc: NAT ROSALES ; Oswaldo Chang D.O. [place] [address] Patient Name: SHANI WOLFF MRN: [id number] date: 1980 Sex: F Assigned Patient Location: [facility] Current Patient Location: [facility] Accession/Order Number: [id number] Exam Date: 08/25/2024 15:41 Report Date: 08/25/2024 15:45 At the request of: OSWALDO CHANG DO Procedure: XR lumbar spine 2-3V 2 views of thoracic spine COMPARISON: None HISTORY: Chronic thoracic and lumbar spine pain. Left sciatica The thoracic kyphosis is adequate. The disc spaces are maintained. Thoracic endplate spurs are present. No compression deformity identified The bony mineralization is adequate. No paraspinal abnormality seen. XR/XR lumbar spine 2-3V IMPRESSION: Thoracic spondylosis. No fracture 2 views lumbar spine Comparison MRI lumbar spine 12/30/2018 Mild straightening. Adequate alignment. Adequate vertebral heights and disc spaces. Mild facet degeneration IMPRESSION: Lower lumbar facet degenerative changes. No acute findings Impression dictated by: Oswaldo Mcgregor M.D. 08/25/2024 3:45 PM Dictation Location: [place] [address] Electronically authenticated by: [id number] Y Date: 08/25/2024 15:45 Dictated By: Oswaldo Mcgregor D.O. Signed By: 08/25/24 1547 DD/ 1545 TD/TT: Cook Morning: [place] [address] XRay Report Signed Patient: SHANI WOLFF MR#: [id number] : 1980 Acct:[id number] Age/Sex: 43 / F ADM Date: 08/25/24 Loc: RAD Attending Dr: Dacia Soto Ordering Physician: Oswaldo Chang D.O. Date of Service: 08/25/24 Procedure(s): XR lum bar spine 2-3V Accession Number(s): [id number] cc: NAT ROSALES ; Oswaldo Chang D.O. [place] [id number] Patient Name: SHANI WOLFF MRN: [id number] date: 1980 Sex: F Assigned Patient Location: RAD Current Patient Loca tion: RAD Accession/Order Numb er: [id number] Exam Date: 08/25/2024 15:41 Report Date: 08/25/2024 15:45 At the request of: OSWALDO CHANG DO Procedure: XR lumbar spine 2-3V 2 views of thoracic spine COMPARISON: None HISTORY: Chronic tho racic and lumbar spine pain. Left sciatica The thoracic kyphosi s is adequate. The disc spaces are maintained. Thoracic endplate sp urs are present. No compression defor mity identified The bony mineralizat ion is adequate. No paraspinal abnorm ality seen. X R/XR lumbar spine 2-3V IMPRESSION: Thoracic spondylosis. No fracture 2 views lumbar spine Comparison MRI lumba r spine 12/30/2018 Mild straightening. Adequate alignment. Adequate vertebral heights and disc spaces. Mild facet degeneration IMPRESSION: Lower ruy mbar facet degenerative changes. No acute findings Impression dictated by: Oswaldo Mcgregor M.D. 08/25/2024 3:45 PM Dictation Location: [place] [address] Electronically authenticated by: [id number] Y Date: 08/25/2024 15:45 Dictated By: Toni Mcgregor D.O. Signed By: 08/25/24 1547 DD/ 1545 TD/TT: Cook Morning: ECG 12 lead Reviewed date:05/05/2024 09:15:36 AM Interpretation: Performing Lab: Notes/Report: Source Facility: [place] [address] [place] [address] Electrocardiograph Report Signed Patient: SHANI WOLFF MR#: [id number] : 1980 Acct:[id number] Age/Sex: 43 / F ADM Date: 05/04/24 Loc: ER Attending Dr: Ordering Physician: Renato Anderson M.D. Date of Service: 05/04/24 Procedure(s): ECG 12 lead Accession Number(s): [id number] cc: [facility] Test Date: 2024-05-04 Pat Name: SHANI WOLFF Department: Room: - Gender: Female Manifold Operator: : 1980 Requested By: 1030 Order Number: [id number] Reading MD: JESSICA WATT M.D. Measurements Intervals Harper Rate: 73 P: 50 FL: 148 QRS: 79 QRSD: 82 T: 55 QT: 366 QTc: 392 Interpretive Statements 1100 Sinus rhythm 9110 normal ECG Compared to ECG 2018 10:27:14 No significant changes Electronically Signed On 05-04-2024 17:43:56 EDT by JESSICA WATT M.D. Dictated By: JESSICA WATT Signed By: 05/04/24 1744 DD/ 1153 TD/TT: Cook Morning: [place] [address] Electrocardiograph Report Signed Patient: SHANI WOLFF MR#: [id number] : 1980 Acct:[id number] Age/Sex: 43 / F ADM Date: 05/04/24 Loc: ER Attending Dr: Ordering Physician: Renato Anderson M.D. Date of Service: 05/04/24 Procedure(s): ECG 12 lead Accession Number(s): [id number] cc: [facility] Test Date: 2024-05-04 Pat Name: SHANI WOLFF Department: 59 Room: - Gender: Female Manifold Operator: : 1980 Requ ested By: 1030 Order Number: [id number] Reading MD: JESSICA WATT M.D. Measurements Intervals Harper Rate: 73 P: 50 FL: 148 QRS: 79 QRSD: 82 T: 55 QT: 366 QTc: 392 Interpretive Statements 1100 Sinus rhythm 9110 normal ECG Compared to ECG 2018 10:27:14 No significant changes Electronically Brook d On 05-04-2024 17:43:56 EDT by JESSICA WATT M.D. Dictated By: JESSICA WATT Signed By: 05/04/24 1744 DD/ 1153 TD/TT: Cook Morning: Troponin I High Sensitivity Reviewed date:05/05/2024 09:15:36 AM Interpretation: Performing Lab: Notes/Report: [facility] , Troponin I High Sensitivity <4.0 4.0-51.3 pg/mL PERCENTILE OF cTnI DISTRIBUTION IN A REFERENCE POPULATION, USED IN ISOLATION BUT SHOULD BE INTERPRETED IN CONJUNCTION UNIVERSAL DEFINITION OF MYOCARDIAL INFARCTION. THE UPPER NOTE: HIGH-SENSITIVITY TROPONIN ASSAY IS NOT INTENDED TO BE WITH OTHER DIAGNOSTIC AND CLINICAL INFORMATION. HAS BEEN CONFIRMED THE DECISION THRESHOLD FOR MA 99TH PERCENTILE = 51.4 PG/ML REFERENCE LIMIT (URL) OF TROPONIN, DEFINED THE 99TH CUT-OFF POINTS HAVE BEEN ESTABLISHED BASED ON THE FOURTH DIAGNOSIS. Performing Lab: see note ML - [facility] LB PROF CHEM 8 (BAS METB) Reviewed date:05/05/2024 09:15:36 AM Interpretation: Performing Lab: Notes/Report: [facility] , Sodium 142 136-145 mmol/L Potassium 3.6 3.5-5.1 mmol/L Chloride 103 98-107 mmol/L Carbon Dioxide 26.5 21.0-32.0 mmol/L Anion Gap 16.1 Glucose 99 74-106 mg/dL Blood Urea Nitrogen 16.0 7.0-18.0 mg/dL Creatinine 0.80 0.55-1.02 mg/dL Estimated GFR ( Tania >60 >=60 mL/min/1.73m 2 Estimated GFR (Non- Aishwarya >60 >=60 mL/min/1.73m 2 BUN Creatinine Ratio 20.0 Calcium 8.7 8.5-10.1 mg/dL Performing Lab: see note ML - [facility] LB CBC AUTO DIFF Reviewed date:05/05/2024 09:15:36 AM Interpretation: Performing Lab: Notes/Report: [facility] , White Blood Count 6.1 4.0-11.0 10 3/uL Red Blood Count 4.70 4.20-5.40 10 6/uL Hemoglobin 14.3 12.0-16.0 g/dL Hematocrit 41.2 36.0-48.0 % Mean Corpuscular Volume 87.7 81.0-99.0 fL Mean Corpuscular Hemoglobin 30.4 26.7-34.0 pg Mean Corpuscular HGB Conc 34.7 29.9-35.2 g/dL Red Cell Distribution Width 11.5 11.0-15.0 % Platelet Count 273 150-450 10 3/uL Mean Platelet Volume 10.2 9.5-13.5 fL Neutrophils Percent Auto 69.5 43.0-75.0 % Lymphocytes Percent Auto 24.1 20.5-60.0 % Monocytes Percent Auto 4.2 1.7-12.0 % Eosinophils Percent Auto 1.0 0.9-7.0 % Basophils Percent Auto 1.0 0.2-2.0 % Immature Granulocytes Pct Auto 0.2 0.0-0.5 % Neutrophils Absolute Auto 4.3 1.4-6.5 10 3/uL Lymphocytes Absolute Auto 1.5 1.2-3.8 10 3/uL Monocytes Absolute Auto 0.3 0.3-0.8 10 3/uL Eosinophils Absolute Auto 0.1 0.0-0.7 10 3/uL Basophils Absolute Auto 0.1 0.0-0.1 10 3/uL Immature Granulocytes Abs Auto 0.01 0.00-0.03 10 3/uL Performing Lab: see note ML - [facility] LB MR foot LT wo con Reviewed date:03/06/2024 02:43:11 PM Interpretation: Performing Lab: Notes/Report: Source Facility: [facility] [place] [address] [place] [address] Magnetic Resonance Report Signed Patient: SHANI WOLFF MR#: [id number] : 1980 Acct:[id number] Age/Sex: 43 / F ADM Date: 03/05/24 Loc: MRI Attending Dr: WAYNE BROWN Ordering Physician: WAYNE BROWN Date of Service: 03/05/24 Procedure(s): MR foot LT wo con Accession Number(s): [id number] cc: NAT ROSALES ; WAYNE BROWN [place] [id number] Patient Name: SHANI WOLFF MRN: [facility]:[id number] date: 1980 Sex: F Assigned Patient Location: MRI Current Patient Location: Accession/Order Number: [id number] Exam Date: 03/05/2024 15:00 Report Date: 03/06/2024 09:45 At the request of: WAYNE BROWN Procedure: MR foot LT wo con HISTORY: Pain in the left ankle and foot for multiple years becoming progressively worse. MRI left ankle 03/05/2024. MRI left midfoot/forefoot 03/05/2024. COMPARISON: Radiographs left foot and ankle 09/17/2022. TECHNIQUE: Multiplanar, multisequence MRI images of the left ankle and left midfoot/forefoot were obtained without contrast. FINDINGS: Left ankle: LIGAMENTS: The anterior talofibular ligament appears within normal limits. The calcaneofibular ligament, posterior talofibular ligament, and distal tibiofibular ligaments appear within normal limits. The deltoid ligament complex appears within normal limits. TENDONS: No significant tendinopathy, tendon tear, or tenosynovitis is seen. SINUS TARSI AND TARSAL TUNNEL: No space-occupying mass is seen in the tarsal tunnel or the sinus tarsi. BONES AND JOINTS: The bone marrow signal intensity is age appropriate. No unstable osteochondral defect of the tibiotalar joint is identified. 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 There is a multiloculated angling cyst along the posterolateral aspect of the posterior subtalar joint. This measures 1.1 x 1.5 x 1.5 cm in transverse, AP and craniocaudal dimension respectively. There is a small Meghan's deformity of the calcaneus. PLANTAR FASCIA: There is a plantar calcaneal enthesophyte again seen. There is mild fusiform thickening and intermediate signal intensity involving the central band of the plantar fascia spanning approximately 1.5 cm in length. This is located approximately 2 cm distal to its attachment to the calcaneus. SOFT TISSUES: No significant soft tissue swelling is seen. Left midfoot/forefoot: LIGAMENTS AND TENDONS: The Lisfranc ligament complex appears intact. No significant tendinopathy, tendon tear, or tenosynovitis is seen. BONES AND JOINTS: The bone marrow signal intensity appears age appropriate. There is a hallux valgus deformity again seen. There are mild degenerative changes of the first MTP joint and first metatarsal-sesamoid joints. There is a small bunion complex along the medial aspect of the first metatarsal head and there is mild subcortical cystic change in this region. MUSCLES AND SOFT TISSUES: The visualized musculature appears of normal signal intensity. No Mendoza neuroma or intermetatarsal bursitis is seen. PLANTAR FASCIA: The visualized portion of the plantar fascia appears of normal thickness and signal intensity. MR/MR foot LT wo con IMPRESSION: 1. 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 2. Hallux valgus deformity with mild osteoarthritis of the first MTP joint and first metatarsal-sesamoid joints. 3. There is mild fusiform thickening and intermediate signal intensity of the central band of the plantar fascia approximately 2 cm distal to its attachment to the calcaneus. This finding may be secondary to the sequela of plantar fasciitis or a strain of the plantar fascia. 4. No ligament injury or tendon abnormality is seen. 5. There is a moderate-sized multiloculated ganglion cyst along the posterolateral aspect of the posterior subtalar joint. Electronically authenticated by: SHAHZAD WOOD Date: 03/06/2024 09:45 Dictated By: Shahzad Wood M.D. Signed By: 03/06/2448 DD/ 4 TD/TT: Cook Morning: [place] [address] Magnetic Resonance Report Signed Patient: SHANI WOLFF MR#: [id number] : 1980 Acct:[id number] Age/Sex: 43 / F ADM Date: 03/05/24 Loc: MRI Attending Dr: BRANDI BROWN Ordering Physician: WAYNE BROWN Date of Service: 03/05/24 Procedure(s): dion t LT wo con Accession Number(s): [id number] cc: NAT ROSALES ; WAYNE BROWN [address] [address] Patient Name: SHANI WOLFF MRN: [facility]:[id number] date: 1980 Sex: F Assigned Patient Location: MRI Current Patient Location: Accession/Order Numb er: [id number] Exam Date: 03/05/2024 15:00 Report Date: 03/06/2024 09:45 At the request of: WAYNE BROWN Procedure: MR foot L T wo con HISTORY: Pain in the left ankle and foot for multiple years becoming progressively worse. MRI left ankle 03/05/2024. MRI left midfoot/for efoot 03/05/2024. COMPARISON: Radiogra phs left foot and ankle 09/17/2022. TECHNIQUE: Multiplan ar, multisequence MRI images of the left ankle and left midfoot/forefoot wer e obtained without contrast. FINDINGS: Left ankle: LIGAMENTS: The anter ior talofibular ligament appears within normal limits. The calcaneofibular liga ment, posterior talofibular ligament, and distal tibiofibular ligamen ts appear within normal limits. The deltoid ligament complex appears with in normal limits. TENDONS: No signific ant tendinopathy, tendon tear, or tenosynovitis is seen. SINUS TARSI AND TARS AL TUNNEL: No space-occupying mass is seen in the tarsal tunnel or the sinus tarsi. BONES AND JOINTS: Th e bone marrow signal intensity is age appropriate. No unstable osteochondr al defect of the tibiotalar joint is identified. There is a large os trigonum an d there are mild degenerative changes at its synchondrosis. There is a multilocu lated angling cyst along the posterolateral aspect of the posterior subtalar j oint. This measures 1.1 x 1.5 x 1.5 cm in transverse, AP and craniocaudal dimension respectively. There is a small Meghan's deformity of the calcaneus. PLANTAR FASCIA: Ther e is a plantar calcaneal enthesophyte again seen. There is mild fusiform thicke barbara and intermediate signal intensity involving the central band of the plantar fascia spanning approximately 1.5 cm in length. This is located approximately 2 cm distal to its attachment to the calcaneus. SOFT TISSUES: No significant soft tissue swelling is seen. Left midfoot/forefoot: LIGAMENTS AND TENDON S: The Lisfranc ligament complex appears intact. No significant tendinop athy, tendon tear, or tenosynovitis is seen. BONES AND JOINTS: Th e bone marrow signal intensity appears age appropriate. There is a hallux va lgus deformity again seen. There are mild degenerative changes of the first MTP joint and first metatarsal-sesamoid joints. There is a small bunion complex along the medial aspect of the first metatarsal head and there is mild subcor tical cystic change in this region. MUSCLES AND SOFT TIS SUES: The visualized musculature appears of normal signal intensity. No Mendoza neuroma or intermetatarsal bursitis is seen. PLANTAR FASCIA: The visualized portion of the plantar fascia appears of normal thickness and signal intensity. M R/MR foot LT wo con IMPRESSION: 1. 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 2. Hallux valgus deformity with mild osteoarthritis of the first MTP joint and first metatarsal-ses amoid joints. 3. There is mild fus iform thickening and intermediate signal intensity of the central band of the plantar fascia approximately 2 cm distal to its attachment to the calcaneus. Th is finding may be secondary to the sequela of plantar fasciitis or a strai n of the plantar fascia. 4. No ligament injur y or tendon abnormality is seen. 5. There is a moderate-sized multiloculated ganglion cyst along the posterolateral aspec t of the posterior subtalar joint. Electronically authenticated by: SHAHZAD WOOD Date: 03/06/2024 09:45 Dictated By: Shahzad Wood M.D. Signed By: 03/06/2448 DD/ 4 TD/TT: Cook Morning: ankle LT wo con Reviewed date:03/06/2024 02:43:18 PM Interpretation: Performing Lab: Notes/Report: Source Facility: [facility]-[address] [place] [address] [place] [address] Magnetic Resonance Report Signed Patient: SHANI WOLFF MR#: [id number] : 1980 Acct:[id number] Age/Sex: 43 / F ADM Date: 03/05/24 Loc: MRI Attending Dr: WAYNE BROWN Ordering Physician: WAYNE BROWN Date of Service: 03/05/24 Procedure(s): MR ankle LT wo con Accession Number(s): [id number] cc: NAT ROSALES ; WAYNE BROWN [place] [address] Patient Name: SHANI WOLFF MRN: [id number] date: 1980 Sex: F Assigned Patient Location: MRI Current Patient Location: Accession/Order Number: [id number] Exam Date: 03/05/2024 15:00 Report Date: 03/06/2024 09:45 At the request of: WAYNE BROWN Procedure: MR ankle LT wo con HISTORY: Pain in the left ankle and foot for multiple years becoming progressively worse. MRI left ankle 03/05/2024. MRI left midfoot/forefoot 03/05/2024. COMPARISON: Radiographs left foot and ankle 09/17/2022. TECHNIQUE: Multiplanar, multisequence MRI images of the left ankle and left midfoot/forefoot were obtained without contrast. FINDINGS: Left ankle: LIGAMENTS: The anterior talofibular ligament appears within normal limits. The calcaneofibular ligament, posterior talofibular ligament, and distal tibiofibular ligaments appear within normal limits. The deltoid ligament complex appears within normal limits. TENDONS: No significant tendinopathy, tendon tear, or tenosynovitis is seen. SINUS TARSI AND TARSAL TUNNEL: No space-occupying mass is seen in the tarsal tunnel or the sinus tarsi. BONES AND JOINTS: The bone marrow signal intensity is age appropriate. No unstable osteochondral defect of the tibiotalar joint is identified. 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 There is a multiloculated angling cyst along the posterolateral aspect of the posterior subtalar joint. This measures 1.1 x 1.5 x 1.5 cm in transverse, AP and craniocaudal dimension respectively. There is a small Meghan's deformity of the calcaneus. PLANTAR FASCIA: There is a plantar calcaneal enthesophyte again seen. There is mild fusiform thickening and intermediate signal intensity involving the central band of the plantar fascia spanning approximately 1.5 cm in length. This is located approximately 2 cm distal to its attachment to the calcaneus. SOFT TISSUES: No significant soft tissue swelling is seen. Left midfoot/forefoot: LIGAMENTS AND TENDONS: The Lisfranc ligament complex appears intact. No significant tendinopathy, tendon tear, or tenosynovitis is seen. BONES AND JOINTS: The bone marrow signal intensity appears age appropriate. There is a hallux valgus deformity again seen. There are mild degenerative changes of the first MTP joint and first metatarsal-sesamoid joints. There is a small bunion complex along the medial aspect of the first metatarsal head and there is mild subcortical cystic change in this region. MUSCLES AND SOFT TISSUES: The visualized musculature appears of normal signal intensity. No Mendoza neuroma or intermetatarsal bursitis is seen. PLANTAR FASCIA: The visualized portion of the plantar fascia appears of normal thickness and signal intensity. MR/MR ankle LT wo con IMPRESSION: 1. 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 2. Hallux valgus deformity with mild osteoarthritis of the first MTP joint and first metatarsal-sesamoid joints. 3. There is mild fusiform thickening and intermediate signal intensity of the central band of the plantar fascia approximately 2 cm distal to its attachment to the calcaneus. This finding may be secondary to the sequela of plantar fasciitis or a strain of the plantar fascia. 4. No ligament injury or tendon abnormality is seen. 5. There is a moderate-sized multiloculated ganglion cyst along the posterolateral aspect of the posterior subtalar joint. Electronically authenticated by: SHAHZAD WOOD Date: 03/06/2024 09:45 Dictated By: Shahzad Wood M.D. Signed By: 03/06/2448 DD/ 4 TD/TT: Cook Morning: [place] [address] Magnetic Resonance Report Signed Patient: SHANI WOLFF MR#: [id number] : 1980 Acct:[id number] Age/Sex: 43 / F ADM Date: 03/05/24 Loc: MRI Attending Dr: BRANDI BROWN Ordering Physician: WAYNE BROWN Date of Service: 03/05/24 Procedure(s): ank le LT wo con Accession Number(s): [id number] cc: NAT ROSALES ; WAYNE BROWN [place] [id number] Patient Name: SHANI WOLFF MRN: [id number] date: 1980 Sex: F Assigned Patient Location: MRI Current Patient Location: Accession/Order Numb er: [id number] Exam Date: 03/05/2024 15:00 Report Date: 03/06/2024 09:45 At the request of: WAYNE BROWN Procedure: MR ankle LT wo con HISTORY: Pain in the left ankle and foot for multiple years becoming progressively worse. MRI left ankle 03/05/2024. MRI left midfoot/for efoot 03/05/2024. COMPARISON: Radiogra phs left foot and ankle 09/17/2022. TECHNIQUE: Multiplan ar, multisequence MRI images of the left ankle and left midfoot/forefoot wer e obtained without contrast. FINDINGS: Left ankle: LIGAMENTS: The anter ior talofibular ligament appears within normal limits. The calcaneofibular liga ment, posterior talofibular ligament, and distal tibiofibular ligamen ts appear within normal limits. The deltoid ligament complex appears with in normal limits. TENDONS: No signific ant tendinopathy, tendon tear, or tenosynovitis is seen. SINUS TARSI AND TARS AL TUNNEL: No space-occupying mass is seen in the tarsal tunnel or the sinus tarsi. BONES AND JOINTS: Th e bone marrow signal intensity is age appropriate. No unstable osteochondr al defect of the tibiotalar joint is identified. There is a large os trigonum an d there are mild degenerative changes at its synchondrosis. There is a multilocu lated angling cyst along the posterolateral aspect of the posterior subtalar j oint. This measures 1.1 x 1.5 x 1.5 cm in transverse, AP and craniocaudal dimension respectively. There is a small Meghan's deformity of the calcaneus. PLANTAR FASCIA: Ther e is a plantar calcaneal enthesophyte again seen. There is mild fusiform thicke barbara and intermediate signal intensity involving the central band of the plantar fascia spanning approximately 1.5 cm in length. This is located approximately 2 cm distal to its attachment to the calcaneus. SOFT TISSUES: No significant soft tissue swelling is seen. Left midfoot/forefoot: LIGAMENTS AND TENDON S: The Lisfranc ligament complex appears intact. No significant tendinop athy, tendon tear, or tenosynovitis is seen. BONES AND JOINTS: Th e bone marrow signal intensity appears age appropriate. There is a hallux va lgus deformity again seen. There are mild degenerative changes of the first MTP joint and first metatarsal-sesamoid joints. There is a small bunion complex along the medial aspect of the first metatarsal head and there is mild subcor tical cystic change in this region. MUSCLES AND SOFT TIS SUES: The visualized musculature appears of normal signal intensity. No Mendoza neuroma or intermetatarsal bursitis is seen. PLANTAR FASCIA: The visualized portion of the plantar fascia appears of normal thickness and signal intensity. M R/MR ankle LT wo con IMPRESSION: 1. 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 2. Hallux valgus deformity with mild osteoarthritis of the first MTP joint and first metatarsal-ses amoid joints. 3. There is mild fus iform thickening and intermediate signal intensity of the central band of the plantar fascia approximately 2 cm distal to its attachment to the calcaneus. Th is finding may be secondary to the sequela of plantar fasciitis or a strai n of the plantar fascia. 4. No ligament injur y or tendon abnormality is seen. 5. There is a moderate-sized multiloculated ganglion cyst along the posterolateral aspec t of the posterior subtalar joint. Electronically authenticated by: SHAHZAD WOOD Date: 03/06/2024 09:45 Dictated By: Shahzad Wood M.D. Signed By: 03/06/2448 DD/ TD/TT: Cook Morning: Reason For Referral No Information Problems Problem Type SNOMED Code ICD Code Onset Dates Problem Status W/U Status Risk Notes Problem Diverticulitis (63255884) Diverticulitis (K57.92) Active confirmed Plan Of Treatment No Information Insurance Providers Payer Name Payer Address Payer Phone Subscriber Number Group Number Insured Name Patient Relationship to Insured Coverage Start Date Coverage End Date [employer] [address] [place] [phone] [id number] Shani Ibarra Self - patient is the insured
--- OUTSIDE RECORDS SUMMARY | 2024-10-12 15:51 | XMS_ITS | Patient Health Record ---
Author Organization [facility] Address [address] [address] Care Team Providers Care Loading Unit Operator Name Role Phone Caitlin Boswell Primary Care Provider Reason For Referral No Information Social History Social History Tobacco Use: Social Info Question Answer Notes Tobacco Use/Smoking How long has it been since you last smoked? > 10 years Plan Of Treatment No Information Insurance Providers Payer Name Payer Address Payer Phone Subscriber Number Group Number Insured Name Patient Relationship to Insured Coverage Start Date Coverage End Date [facility] [address] [facility] [place] [phone] [id number] SATISH DIAZ Self - patient is the insured
--- OUTSIDE RECORDS SUMMARY | 2024-10-12 17:24 | XMS_ITS | CCD ---
Author Organization [facility] Care Team Providers Care Support Analyst Name Role Phone NAT ROSALES Primary Care Physician NAT ROSALES Primary Care Unavailable IRAIDA, DR JULIETA Geller Consulting Unavailable DIAB ., GLENN Attending Unavailable DIAB ., GLENN Admitting Unavailable SHAKIR WHALEN Consulting Unavailable DIAB ., GLENN Consulting Unavailable NAT ROSALES Admitting Unavailable NAT ROSALES Attending Unavailable NAT ROSALES Primary Care Unavailable NAT ROSALES Primary Care Unavailable RACHID ., DR IZAGUIRRE Consulting Unavailable RACHID ., DR IZAGUIRRE Admitting Unavailable RACHID ., DR IZAGUIRRE Attending Unavailable NAT ROSALES Primary Care Unavailable LANA, DR JOSEP Rivas Attending Unavailable LANA, DR JOSEP Rivas Admitting Unavailable NEELA .FAITH Consulting Unavailcarrol Molina MD, Vipin Attending Provider [phone] Julieta Taylor DO Primary Care Provider [phone] Julieta Taylor Primary Care Unavailable Tracy, Vipin Attending Unavailable Tracy, Vipin Admitting Unavailable Nat Rosales MD Unavailable JULIETA TAYLOR Primary Care Unavailable Magnus Holland Attending Unavailable Magnus Holland Admitting Unavailable JULIETA TAYLOR Primary Care Unavailable Magnus Holland Admitting Unavailable Magnus Holland Attending Unavailable Magnus Holland Admitting Unavailable JULIETA TAYLOR Primary Care Unavailable Magnus Holland Attending Unavailable JULIETA TAYLOR Primary Care Unavailable Magnus Holland Attending Unavailable Gabe Hollandime L Admitting Unavailable Magnus Holland Admitting Unavailable BGROJULIETA Rae Primary Care Unavailable Magnus Holland Attending Unavailable JULIETA TAYLOR Primary Care Unavailable Magnus Holland Attending Unavailable Magnus Holland Admitting Unavailable JULIETA TAYLOR Primary Care Unavailable AIXA HWANG Attending Unavailable Medications Current Medications Medication Drug Class(es) Dates Sig (Normalized) Sig (Original) azithromycin 250 mg oral tablet (6 sources) Macrolide Antimicrobial Start: 05-27-2024 End: 10-12-2024 azithromycin (Zithromax) 250 MG tablet Indications: Pharyngitis, unspecified etiology , Acute cough , Bronchitis Take 1 tablet (250 mg) by mouth Daily Take 2 tabs on day 1 and 1 tab on days 2-5 then stop 6 tablet 05/27/2024 10/12/2024 Discontinued sprinkle DULoxetine 30 mg delayed release oral capsule (2 sources) Serotonin and Norepinephrine Reuptake Inhibitor Start: 07-01-2024 take 1 capsule by mouth once daily DULoxetine HCl 30 MG Capsule Delayed Release Sprinkle Take 30 mg by mouth Daily 07/01/2024 Active escitalopram 10 mg oral tablet (7 sources) Serotonin Reuptake Inhibitor Start: 04-27-2024 End: 10-12-2024 take 1 tablet by mouth once daily escitalopram (Lexapro) 10 MG tablet Take 10 mg by mouth Daily 04/27/2024 10/12/2024 Discontinued Start: 03-05-2024 take 1 tablet by paige once daily Escitalopram Oxalate 5 mg tablet Active 5 MG PO Daily March 05, 2024 12:00am hydrOXYzine hydrochloride 10 mg oral tablet (6 sources) Antihistamine Start: 01-20-2024 End: 10-12-2024 hydrOXYzine HCl (Atarax) 10 MG tablet Take 10 mg by mouth 01/20/2024 10/12/2024 Discontinued Probiotic/prebiotic (1 source) Start: 03-05-2024 take 1 tablet by mouth once daily Probiotic/prebiotic Active 1 TAB PO Daily March 05, 2024 12:00am traMADol hydrochloride 50 mg oral tablet (6 sources) Opioid Agonist Start: 05-21-2024 End: 10-12-2024 take 1 tablet by mouth every four hours as needed traMADol (Ultram) 50 MG tablet Take 50 mg by mouth every 4 (four) hours if needed 05/21/2024 10/12/2024 Discontinued Problems Active Problems Problem Classification Problem Date Documented Da te Episodic/Chronic Abdominal pain (7 sources) Left lower quadrant pain; Translations: [Abdominal pain] Onset: 05-23-2022 Episodic Chronic obstructive pulmonary disease and bronchiectasis (2 sources) Bronchitis; Translations: [Bronchitis, not specified as acute or chronic] 05-27-2024 Episodic Diverticulosis and diverticulitis (4 sources) Diverticulitis [...] other diseases of digestive system] 01-08-2024 Episodic Other lower respiratory disease (2 sources) Cough; Translations: [Acute cough] 05-27-2024 Episodic Other screening for suspected conditions (not mental disorders or infectious disease) (6 sources) Encounter for screening for malignant neoplasm of cervix; Translations: [Patient encounter status] Onset: 07-11-2021 Episodic Other upper respiratory infections (2 sources) Pharyngitis; Translations: [Acute pharyngitis, unspecified] 05-27-2024 Episodic Residual codes; unclassified (1 source) Acquired absence of both cervix and uterus; Translations: [ACQUIRED ABSENCE BOTH CERVIX AND UTERUS] Onset: 05-25-2022 Episodic Sprains and strains (1 source) Strain of other muscle(s) and tendon(s) at lower leg level, left leg, initial encounter; Translations: [Strain of other muscle(s) and tendon(s) at lower leg level, left leg, initial encounter] Onset: 08-13-2024 Episodic Past or Other Problems Problem Classification Problem Date Documented Date Episodic/Chronic E Codes: Struck by; against (1 source) Other cause of strike by thrown, projected or falling object, initial encounter; Translations: [OTH CAUSE STRIK THRWN/FALL OBJ INIT] Onset: 07-12-2021 Episodic Immunizations and screening for infectious disease (2 sources) Encounter for screening for human papillomavirus (HPV); Translations: [Encounter for immunization] Onset: 05-18-2022 Episodic Open wounds of extremities (4 sources) Laceration without foreign body, right foot, initial encounter; Translations: [LACERATION W/O FB RT FOOT INITIAL] Onset: 07-10-2021 Episodic Results Test Name Value Interpretation Reference Range Facility Coding Summaryon 08-17-2024 Coding Summary HTMLBase 64 EhhwurvrHOz8gEm+PGhl YWQ+KN9YFYIsE17tiYJn jY9nK8PSSVxDDkbdPUJV CQxVXgRlstCyXX4heKPu ZXJu IC8+GX6nGJZcTezcfXTt m0Y5gVT6I42nty1gSGnn nON7NGDlQqQuqmqur8xl gXa1TRmkHrcgFdCd MNAdbY04ZGC4jU08Ap79 oNKuvYPct1xrcMz0ZkEh KHNpWOG8jYpzGTneg5Qx ODYoP96biKWwp1B4 IGNvbGxhcHNlOyBlbXB0 gM6qXVonxqbee5iguebv Oij6dq10uGGcc6L7uVW5 J7WpjkS8PSNmxWMu QwcoqWTBrA4pzcsbg7rb nsbbUfWySDUbSGl2MNb8 LFCqpCjaPiLdSL44OCA0 LWEnvlOxM8FnDSVq cOvjHtO1u0K6Ca6XW3EJ KyfuD2LCTLBLDHwesEW+ RL37yd42V2LrQqekIok5 JSPnPYA5gEL5kL1q EAYbYJnya5J0lKH7H1Fu feHmfk0et3ncQWXeIVrn P56kcDZrz1O7MSEwrMF3 ASOclIobYcRakV54 Oyc+BMUvkZqvi0WfNcio i8qfv6ulvCb0OcdmANHy zkFjsTbbKRS5m5XzRz5e TJHjrAU9gYE0bC7a ToZlLcK7BVwcW389CuAc uEUqEwrnA82mM8RowUO+ EFMwTzd4UHNbiDntFQ3k S3IlPRJmubsqvBHh oHzhWW3wABSjuccdFGYg sF0iCWDdX7l0SlSpBkD8 ZSuyR4ZpPTCsswlzIg24 cP2vIsZeGcZ7ODdq F4BwrfX5HOLuwNRpIMhz FLB7F33wq0X3QWWwABLn CXB1kEV8oP8dqMnwtkse bGVmdDsgdmVydGlj AOwgSRrtO693NARbqYuf PkNvZGluZyBEYXRlOiAg MDYvMjMvMjAyNTwvdGQ+ UOXiZCL2yPocSSHp nSRsCDuqTr5awQjebDzo AK0dOOHpkkbhKKHonV7e FOOcxABgbDllAA2hVWRy vhmfb332EbWbZLJ1 DLXpeUXkH8XdxG9sWlCn XINvODPnQ2AyrUWwMLla F411ITmlJpF6FRCaulYy T5NvSZHyjZdzHpD3 j3X8Zm9Aq1YrfymjW5Df bGGiJpUmJxaaSRw4R8Zm PjwvdHI+KN50WPKxUM01 SPq3XDP7rJniEMpb ZOImL0TvpN6qNsOoFDOj ZGRkOyc+PHRhYmxlIHdp ZHRoPScxMDAlJyBzdHls GM2gYe0oKVScSDHc hAwyzASmJcToi0qzDPHc NVugHY7ejBrbE0KeuVW1 DBChx3w4Qn15H15tO9It dXA+WYSsbTX3pPD8 oR3cEgKpDvQ8OGrzQ391 OoTseWNxUvsgm8gtg6yf mVf7YtK1MVJylzAkaGvl TUN7n1NcGv08O15i IHdpZHRoPSIxNSUiIHZh hUdpkd0prP2xAe7+PGNv bDH4yCH4rH7wRiGkEwC4 LHycH549NeSopTYt Wtbbi6zfz4wwvFz0BoRn UBAmnpFlcFziYYY7c2Pu Sl97P7EmnFanl4IuOpa9 py05lFEuv0X2rJW5 G4NwMVRfbgoooFLhcVji DU5qBDFniqcsMKVsnQ6c DFTlR8y9TyQuBnA5UYgy G4GxidB5VEAwmWYo FXElxMFQtN5iycwab3jd mkerJvUlSPAkZJe6JTr6 VABohDpjGxSeTAT6FwU6 KAT1gTKjrY3sxIcz pjoqpD7wKyv+GZI3vPUo qJBKLC6zQtayyPM+PHRk SUP3sZzzJRgqZNFlzO7f VQKmB5g2UrBaJaJ2 ESjnF4JgxfT8PGLgsHMp YXWqhFUIiN0zdrswy4kj aomuWsHhRMZrKCb1EAt2 LWFsaWduOiBsZWZ0 WmJ3VMR5cXIhdJ0owKgi pvpneI9qOxl+QmlydGgg HWU0AKf9C0ZwFto4UKSr wTbbIX7jsLBmILtl So4uuNcxxYxqDO3qWOIj zsyhc928LdFro3ysUMYg qZCwZDmzJQU4W29ut5T0 GBGwVZXcIXT3cAM4 hT2xrGurvbgkiZXbxGml xjFgoQmgUPxcOBsqJ045 YMHwcTcmSjOcFLn2E5Pi Uoq5PINjeZfiSS1o sIHzNWpdYu2fvZoayWvw YO3qHQGmdgadn502PmYq l0fzKEGqhUZxQAulPPC0 I59ln9G4GWWfNJAf MNG8hII6tT2ctOwqovrx bGVmdDsgdmVydGljYWwt WXiyI058HQBfjLqeUiQt iFd1C5CbJmy3DUFw bHgcUU2uwQMfDJfcZs3f nVjtaSuaKE2hTPHvcszk t778RdOmk3sxJHXhmSYj SDlwTDO3B42rv6B0 GLAxQOSgXXF0fRE9nG1o bGlnbjogbGVmdDsgdmVy bPckGBuoGHhlJ585ALAq cDsnPlBhdGllbnQg XArpCUa8P4FiQotngWE+ SK08AVOyLV33pUSsqLUw t1isxKs1JhTkCVEoRXH8 rWdwHJpmw1EvYLQc K67eeVTvh3G1RARmpAmc dBFnXaImeTT9eB3xROju btlfv0urugjjSjpjy4ra gj36zL97W99aRHsd ZHRoPSIzMCUiIHZhbGln ih2bkA8qLu4+PGNvbCB3 hDE0rM6qNQXwZtW5SPha W069BrKpvFZrBzsb m1rtx4bkwEk2OhU6OXEv poJvrVtzSPJ9v7TrHx32 Y07xFIjnVIGhQHDfVXEj OLXigGvcie6wvN5g Ii8+UWRqoWU6qON9uM8w ToQeDnC2RUhcX145TnId iRUtTfmmX64oP8AugCA+ BDYcAon9ZGYyxBeg RM8mxGLrGMkfXa6vIAB1 LaVxLqTfNGcdL8ThICWf twrkshiuyBL6TGDaBYIb gQ66Ai6heSivDXMc mJLOhX4zytipt0homhma DjKsRRUyMWz0GFd1BFOg oLtwUhKcXZL0FxN3UOA9 sQTuoB6igXegzwyv mH0iS9XnPWPejznlNv91 gS1yJuNtCgF7SBvqAra+ R4sLOiNBWsrIJiowG3RS E8RFYHTMYtqnyQK+ STBpHTF5sHjnUDpoLUDx jW0gHJAaB3c1RqYkIjK5 HEnbW6IuBNPvazoqTh29 pR7bBoSmShV2HWth E3WeslU5VGRzfDYoHZid DZP2J76nx5I9QIBsMRAq WUD2zFE6hS6lbJmnxzkv bGVmdDsgdmVydGlj ZZzxKPblB679IYRxlBty RrV2GeCdHiG8EZQ8V2El Twq3DRUjgSmiDW0zhRHo AEyrBa8ouFhlkPso VX4iUJRwuugcQZPhbS1z UFEijGLrsAuuWQ1zOZGz vbfcu971XsFjDJD0VBWt rTUaS0WigF6iSjZw CFYqRSIvP6RhdJHfEJvd G879ZFalAuS5TCMofoWz X2IxXBLomXxaWeK2t2T4 Bt41UVHEYTGafwiw dGQ+SCHfLTV7bTobFMel XUMkeM9aTIDcR1q3ZdDt MwL4FQsoI5SvUMHiggat Pg22xK7wUfDaJrC5 JVyzQ7JcqeC9SKAgiSFe EUwkJKI3N51bf7M6FFEx QWKfGWO2gOS6nE9uoIrw bjogbGVmdDsgdmVy yGtgKCuoSIcwT504JDHe cDsnPkZFTUFMRTwvdGQ+ AVNzVCT2pTxhKXmzQEZk aE6nGBSyI6a4ApHm UuB5ZMitX0GdTBNfhjtk Yo92uX3aKlZsEfM6BJzq S0LdfhC2CPMhrSSpJDdm RYP4Z83aq8T4TFWv USDdZFX2rKL2yN8eeDvi bjogbGVmdDsgdmVydGlj FElrUEefY360GSUxyJbi Eb0WMA44SF17O2Tp PjwvdGFibGU+PHRhYmxl IHdpZHRoPScxMDAlJyBz bOniDL8sNm3aNVBjDNZd bVuflRHoScPxb7ft WGSiFQbyUH4quQbiP1To fKV3RCYla9v4Fb18Q87h X8PliUA+UJNuiSO2bXO6 tK9xXjCyXqQ4GQzu Y454ZgPgtWOaEpnhk9vp c2opyOu8AuWwQYYgefYq xEqiUGO1m3TiEn88D00o IHdpZHRoPSIyMCUi WDJuvFsbli2xvW4kGu7+ AFVteCB4bJV6jK5bUzXi TnP6MVwqQ450YuSzmSSc RdsfA39uX1OxiJA+ DOSgXut5WRYulPkzYL1h pBOmOImsPn7wHGB9EnWp EvExLVjwI0HyFIJfaaib aojooDI7UPOiYZVz wF56Hz2tnRceCd3zSBHb VGR9UJAfuFRmT3GvvP0c TqDmTXKzGUCsG7PqbUJx EDvpY404UUooKjU8 DBYylcFfQ9NgBANnnOtp DjY7g6E5Uv4RdMgahOOi OW4eTpWmARf8D0ZuBaw4 PHSuyFoaEH8mvJJf CTutUa1foYdzxVjsOE1y MQAdijghl941FwTrh5iz WOBbrTGlSWfwPWI9S76h y5Z1LAUsXOPqCKI6 nBA4hY0wlWhjntyrxBWc dDsgdmVydGljYWwtYWxp W277BCIkkZzpAhUMHie7 U4LbRjh4VIJucFle RW4igCIvZXaqPy9kmEfy yBujWX0lYONsjieal681 IfLcu5glRYPsxRUuALjr JLT8T01ts0O6XXXo UMExPUZ1tAF7wG8ewZvx bjogbGVmdDsgdmVydGlj AIgyARniO294CQMfqNpx Ob0HEun8X2FtTko4 VMHezYocGH6tjJQhQJcl Ih9hgQkxsTwmPL0yRFDc bzxot309CmUpp2jlSZSt rIZtENazSAW0N52g p4Z8FONlAXNgCNC7fPM3 jR1mqUaeqgwsiTVsyXsb kwQzeFabVPzvBLesZ759 IHRvcDsnPlBheWVy OjwvdGQ+SZ44ke08Z4Ws EktoQgf8SJFwHSR1wYW7 bD9pGUSzJPiso3D5aKU2 Z3JkayBwhc6gt7td YXB (more content not included)... [facility] Employee Health Noteon 08-13 Employee Health Note [id number] [id number] [facility] Coding Summaryon 08-06-2024 Coding Summary HTMLBase 64 UiiplbrmXAs0pCr+PGhl YWQ+KS4IUEPmR45iyIVi xA0iE5CUDSbMAifkAXFA EFwFEjCjgfUkGO4ssTDn ZXJu IC8+RS4mQTWaGigdmRPs j1W4dMR1R20wcj6nJRtg kXK5EEPxSmIqqopar0lm iYf1NWerCkiaNrOc BOCjrR07VUZ8mQ29Xj56 iONmfWGbe6tqhJv6UcVz EOQtWDZ6jKxnLZkwk7Ah WRQoE01xnDTrj3Y9 IGNvbGxhcHNlOyBlbXB0 qA3hJMmfctcrh1qmiwqb Jcu8cq19gNUcm2C7dHO3 L0EbfsK8HVVklFPy ApukjPTKgX0peihpq5an xuahEqUiPHAmVVw2BCk9 RXOooAmeMrStTQ35IAS0 HQNfchDzY3WaOTAp iDncDqX2s8Z7Wk8CS6NV TzqdS7ABXKIESAqukZW+ FP91gn66C0VlSlncPll6 YKJjRCI9bRZ4cY2u CQOxOMwav6B5xDD3S5Js dmEpcl7ae4bfYNUbYIty V71wpPGlz4N1AEKpjUZ3 KBYfsBddXeXdlR73 Oyc+NPCbfTlef2RyZhua c8nfm2gdeVd3OezlVWNm dbEzmRxiGOH8t9RgMy1y CGNbrNM5aCP2fZ4u RzIuApA3SRceW552DqSj wPDqMuyqH97sE1NdmDP+ ISMiIzr2RLOgjPtaNG3d V8DaUEFkpnmnoTKe kInaJM5fABFmgtogUFLh uB5nVAPdN3k8KiLpTiX2 CNyzV9IrYMVfzhiwTb85 cN4sToJxLxE6NDvc H5QiqiH3PAVsdSHgUJhb HJV9L36qf7B1FBYcGVZf OYJ8hMP1bF5csGcwgbdl bGVmdDsgdmVydGlj OEjvPNvfG375YIDyrInj PkNvZGluZyBEYXRlOiAg MDYvMTIvMjAyNTwvdGQ+ DLPkZBM6qCkxOHDq tBUyTUzcCk7hlVpjmDna WD8qXLGfzhqkLNBjsZ4m TSYriQRobGipLD2zVKNs tmtep132JhMjQLF7 EJRahZYrY7UelL2wOdIq GDLzONPhR6RggLCbSOng A399ZPrqByT5THUeqqVe K8JdIGPjyFnqNbE5 y3S8Rb1Yk3LswdqfL9Os cXNpZlPeVdytFXj8N4Tj PjwvdHI+CI95GLCySE31 HBo6YMV2fQnaCUrw HRAhB1PalO3sEyTmNUOc ZGRkOyc+PHRhYmxlIHdp ZHRoPScxMDAlJyBzdHls ZS7dMd4fGAJdIANo uMctpFQyPqXgx9vjAPTd YPwwDZ9edIsmZ7FjsMV5 LCLpo7n5No88Q51jQ5Wx dXA+MROucSP2gOD1 yR7pZpMxOeG4NUhqW679 UbItnKCsUbwnq9ozn3ov qQi4CrR2EOGasnGlqRye FDH1s4EeWi18R98o IHdpZHRoPSIxNSUiIHZh hYimkj1wnP7lMw9+PGNv oQQ8pTT0fI8qJoFuLeN5 CTqrX411SmPxbVLa Nusfz6ljw1rajSk8FaNd SLLcziGsuKunTCO4x4Az Ca03X1IigZyeh6PuQzc0 ks93uWKgj5D1sNP8 K1NyGOJuzlefpRVopZco IR7wHNLwpmngALTnmN4w UBZhI2a5CxFjKqW0OFvu L8GlyjU9WNUhlDEe JFJfcAYCbL1rbfxwm9tk hfiwNzPxVAQkIIe5RNx0 NZImkPetRmNbCPZ7GnJ7 MET9cUKvlW4myJyo jalesT7hVaf+JPT0wYRj vJYREH7sZmajbER+PHRk GOK0oBsmXNatGWFfvK4r DXDkE5w9DbDwPaM5 ITsbS7EenrO9VAPxkMKt VFIirFLYqH5alecte8dg wdenHbEsQIQdCPq7YXj9 LWFsaWduOiBsZWZ0 DpB3XXY6eIFeuI5niBkn wlimcH6cCsq+QmlydGgg LOG4FEp9W6IgDcj2AJJv uEwaJE5buKDlFUmq Cw9vyYcznRqvCP7kWVVk gvqid455TlSxt3jsQNHg lRGfQQfsRRY8L36gy0I6 SVJuCIJsFJW2hDK9 kT2bkIuezquviIAhtMhk eyInvProCPqlBFpvC915 GFJltYlyAoHdOVi2D9Jn Xcx5OFAilDscBF4o nMHiPOxlUw5rnNuhiYbc AO5eMHHiyehrm087IjCi r4tbTRXvtJSxZSxtWEL8 L12zl0K8PQSvDBRb QRT4aWK2pT5rsDmzcrdi bGVmdDsgdmVydGljYWwt MZjaA776QHOllBfwJxFz cGq9G9GnXlz9PKPs mAdeDS6qjHFqWIkqXm3m oTvjdSwiVH5gKGHtywvt h095RjEnz4sdGVQmhBBc WKayDAQ7F45xj3W2 YDZpHOJzQKB6jWY9wU4p bGlnbjogbGVmdDsgdmVy fPixMNvvLXbcN473NUVe cDsnPlBhdGllbnQg DKrdZFh7W5TtIpejoDJ+ CR59ISRtSS27sNQorKUx v0iftJu1AcUqFEJuOGM0 tOuhAYbfj6LzXELi P18yzRWts4B0AZLnxLpf qEQaCxXizKN0hE6aOCnh fzjig7ybohpvZbvvx0ka iz83lZ32D65bLTwn ZHRoPSIzMCUiIHZhbGln zi2fyS1cSn5+PGNvbCB3 lAP9dQ0wWPUuEcK3CEns X495MrRiwLNyTqme a9ohl4igmXn0HsE1CRQp dzYnxDrcVJL5h5YwHy62 N39lXSkqSLEaLYUeRODe AJVmaTghnm7prI1f Ii8+TYOnxYL4gCH2iW9z PnNhZzG7ZFqjU400PgUd dQYpWxtkE40sQ2FyhDU+ XKFiAtx8WFNfyItq HV9chQFuQSsaWu3yGQT1 FrSeCcVaROnxY5BfHIYc lakyjhwguRU8YOBrTJPi dG16Zf7tqDqlOCGr zTZJrP0gvydvi4zwhjjx TjZsDZRvIMc2NWy7GTXu bQqdQxDpAXL7LzK8JUV8 xJRyjN1hwIcytlvz mH8vS8NzXVVqhpsnYr93 pQ9yAbGiChI4SCywTeh+ T7bMMxTNJjvSFkxwV1QD K5DQZGWGJbxziZZ+ LMMdQHC0wPomZWjcOBVk uG7tEIUqV0l7XeYwIyW1 AFdpF4IlKXNdoxhfYq83 tR1vNgSrXnV7TEuc T8AvniE5TLUbyHAcFWig FYT3P14wv0R4AZKmNGMn FSK0gJF8gN6bdBjiyptl bGVmdDsgdmVydGlj SIvlYEmeA453SOUeaGxz KuW7PhJbVpT1DGK8L1Lk Wvr7KMVkcDckGU2deCXb MLysMc4sgWnhbQob MC8jPAYkwdibULEyqK4f JRWdlWQfnKsyXM6eKKDz zmfuy014QxNcSYW0XOMl fCUgE6YksM2aJkYp FACbQCAxU4WwiFQbDPoz W996HOedKfS6SBFeokLz C8XxSHWkwVbvIbH4j6Y1 Pc55PXVYJJTmeytl dGQ+DKZfBSL2bYkwMPre QLEbyP8jKAKrR1t2EiJa YqH7CWmaC3MmUOAmnarj La27nI3hRhBlIwW6 UPvoV2CxxmC4TMAnwXJa VIlbDKX5O41xp6B5WUHq LTGyMTP0pUQ5mC8nrBxy bjogbGVmdDsgdmVy eFibXWvgSTzlF407ZEYm cDsnPkZFTUFMRTwvdGQ+ XAIoCJI0mHghNGztIOZb qT1uHHBjB7a9GcWr BgL4JJxyP0XyKNVupddj Gk32fV2bTzYqOnN4FFnn X9YyejJ9ULXipKWkXVae QWJ0M80ny2W2XCKm UVYoAUF3nRM6lH2mjWpu bjogbGVmdDsgdmVydGlj MPvsVAlsX827YYMcbFbg Km0GPU30CJ63U4Rw PjwvdGFibGU+PHRhYmxl IHdpZHRoPScxMDAlJyBz lZxtRO1lMy6aLTSqUJEs yOtznEBpGxRbz9ji XXWwAJjgHF2kmMclM7Zy lQX1JYQxg5v8He32M31i X2JksXS+NKFgbDU5jJS5 dF2vEpBkJaF9SCvf U157VxYnwNXiKgaro4fq i1rbjLx1BrLvXPFetrJf eYjbTDZ2k9YxBj54Y91x IHdpZHRoPSIyMCUi YURycOwwcn1wmV4nMd1+ PYJhiSG9zPP2gN6hMtHl JyG8RYniR697AzNdlOUv QtktD80gE9IyyCZ+ KUExZsm7NIQswYduSZ5x zCFvTJscKk6xDIM3AgMp WaFcEAtsG8EqRPMfwtmz xmlpmCB3QLJcCFUz dJ95Xx4wnOtwNy1mXLMf XEP4HHWtcYEjQ9WbhP2u HeAyUQQkXPScI8SsrHGw AFmuB145YYjsSzP6 PONeumGgI5OkSFPjbShw CsE2n8O9Mp3WgSyoaBVa CF0vArRzPSp0X4JpQne8 BCAodLerZS3udENc PUieZi5lnOrqoZihWN1y DMPxntshe955ZpLhi7zi KBRqiRShWVqgSRU6W03g v0I0IWAaTBCoFXV4 tDP5uC7kbAhrkqcqjSQs dDsgdmVydGljYWwtYWxp I510XVBarDdsGxDUZkh0 C7HeXzy3SVJvdUsl WR6csWQuLGciUd8hhJcf pFvtHJ1ePBNpgfgwc691 RgZhh0uaFWUsrSEkXBjx EOD4T24dc4M1RXSo EQQzOJS3rNQ5zQ7iyCvk bjogbGVmdDsgdmVydGlj RJkhJJoyD119PNObwSln Aa5VLqr9O5MeQoh5 ZLVxpSehWX9pzLJuGOws Wl5fgPpavVmxUT4nOTLs bzslh005BfMsf1sjJKQp zNAeXWbcRMH1I72f v7A4FSYeDJSlNQK2bRH7 pH4eqXdpcbqreBEwrOqc beTcmGhgMRvfKJtjB997 IHRvcDsnPlBheWVy OjwvdGQ+KK08tl79I5Mf KlgiFcf5YDUpHCA5jYK0 mX1gMIItXHocj6U4vZN8 L5RdqvHjpu9qe4fp YXB (more content not included)... [facility] Employee Health Noteon 07-30 Employee Health Note [id number] [email or web address] [facility] Coding Summaryon 07-29-2024 Coding Summary HTMLBase 64 WxkolorrFKg3wZm+PGhl YWQ+DQ4GAVEuC64rpVVy zZ9qS6DOTRcOYsezKHNQ QEqWPgZlvsXlPX8giAGv ZXJu IC8+ZQ0yDTGqTovqnMTq n6P4wWE9L92xix4yQKtc gIM0SDHsTcRfblgau9qs uDe9SOrhOabvWxIw FXXpxU77WCE2yV81Ew74 qXTlrKElh8uohOp1KkOt TYOcXZA0sKamQOcmz8Iv WILnM57wfRQvq7Z2 IGNvbGxhcHNlOyBlbXB0 bA6cVCepxiiiq4iuqofg Eqv1vt66xOKxd0G1uDK7 I1SqvjL1YKCcuTQf ZhnebFYAoQ3lxmjik4ho gytjZuMnPVUzFAg5TPq0 IQIbkXlqGfEuUP02GOV1 ZPKpxfNxE8WgELBy qTmfPzU7n1K8Oe2AT3DV OcqkX3OJYFEJUKsavVC+ BC52qm59W2WzOgmwRwa6 KDMuLPP5oAK1kA3k VYBcSLuoo3D4uAH3K4Tz dgUnkg3tl3yaTNVcHQqc K41kdOLlz7I1XCYwsGI9 GZSblTtqTyMlwC51 Oyc+XZZoxIcbr9ZyQemx c6fxw5ufsEi6SficOFCs deIbqHwfAGB5n8WsXw1y BNZywYU8yMX5kB8o LzMjLbV0XUhuP012XtMa jQNiKecxG90sT6JrfIB+ ZQVfDka5NPUojSxcKS5k M7YyGRZhxohcgBSv pTnhOR3pDLLymrerPHRu aK5rPVDpQ6a8DqSsFoT6 GZozY4PvBUHpyfjrQf16 gH0vWmPgDgR3GIsg N8SlrtE7PQDehHUsZRmh SHN6O16vs4X2GEDoIDOx KTZ2yTD5iL5buDsgemqc bGVmdDsgdmVydGlj YNkeFZpjY206SEHtlTtp PkNvZGluZyBEYXRlOiAg MDYvMDQvMjAyNTwvdGQ+ UNDuXJG9iXnjGKHy vOQxNLfkHl6xuPzpqRez AX7aKBGinecdJGRzxL5v JBCqjWDyuMwzKP3mQWWn ofjlu498HiRuBVV7 SFTmkNYjS7DwdE9cIiVn YLAbXCQnU7UgySZdDMpx Z833DGxrBpR7ZPWkwyTe Z1YaCKWmqMwsOeS7 b9S5Go1Xp3LwxkexN2Jl bYBhSmUnUppdQIf7F5Nd PjwvdHI+PJ35ZZNtHB56 DSt7UCO3xIaxPPql NTPsR9CcyD5xFbHbTGXm ZGRkOyc+PHRhYmxlIHdp ZHRoPScxMDAlJyBzdHls NH0wIw0uLSWjYHBl bNdpqFOpKgLrb4exYNFr GHmdLZ0tsNhnI1PjcIS1 CUWks6v1Mi87H02kW0Ci dXA+QDDklSX3wDR3 qB7dNiRqVnW5PZazN883 BrAwgUMiRlqwt0xqr7vd cHr0LaQ0EULpigVuyKcj TTQ0v1OsJt60Y95h IHdpZHRoPSIxNSUiIHZh mEjegh3goX3nXk5+PGNv zTK4eKB1zV1qJwMcMsF3 EKlzC127MvPljRZq Aoyvc9cme7fslJm8RjGy CMNgftJayKgcTIO6e4Ua Zy87Z1XefYpoj5RmMlx0 pa04lJMsi5D7cVS3 I3CbTMRcxexebKKmvCot CX2uPQWjgwsdTJKwkY6r MQWmN0k8DsSvVrD4DMmt B8TvfiS1ZXIomHGm XRZhxWWWfF7nxxlki5ws mzueHxHtNXThGNv9BWo7 WAUozUweDkKsXIG9StB9 EZC5fTStdQ6drDnf zxrddB1hUsx+OZY9pODg pWRLOL4dTpopnEY+PHRk AOD5gXyfYCfaDLEpwV6z CLPsQ2l3RcIeAbR0 KJntC3GsgdW4WZWysYEs HHRypXXIvC9lntkmj1yg immiEuBdRXAsHPq8KCo0 LWFsaWduOiBsZWZ0 BzG0ZTH0dNGnlB1txVba ditolM8vGyq+QmlydGgg MAY6HEk9Y3RpYqx8KZRd bTklOK0qyLNlTDke Ea7qqDidpGbaZZ8gCCKf bthie733WnYmr3deIWXo bOCkKWhwESZ5I25hb9F9 GVMtBMCaPHF8hRS4 sV9baWdcgbehiMDcgTqo mfLlmRpkYDvcBZwfS876 WVVcdHmdEfTpHFi6T2Tm Qxp0OREggEygTM9u mLQhRXcxBs6rgBwngWnr QB8nNQSncopuu099IoDy a1czATNwmGSnDCvtZVS9 B99yg0U8PCXlKRAe CNW8vRG6iR2pzBqgnwsm bGVmdDsgdmVydGljYWwt OMrqT086FETxlSerInIj mJy4O7CcQfl9VJCp cMirBF6lfZMfUAxnZm6x xCbeySizLC2nOIKqryll z043PgShj7fuBBQpoDCk IUtmMNB5K94eb0S1 OLTmMYZuGDP0rTV5vL9u bGlnbjogbGVmdDsgdmVy jUszMCtwMLbuA940EKNk cDsnPlBhdGllbnQg WEtoDLq1V8ZkAajbqEC+ YM92VGOfNH21pHJlnLDc o4uzlXf6BmGlTQQzBOC5 gIpjNNwtc8FtFSLj J47exBYnq6V8INXvaXda pPGtBwOleDP6yO0cRUhw luspu8insqidRqvmc9ad cr73jV38K61zMYgs ZHRoPSIzMCUiIHZhbGln uu7nmP3eTq0+PGNvbCB3 cBV8yG5hKZUdUcZ1GLss F493UtAewKYnCvpp x5gcg2inbDp1FyN1RZHv vdNgeCtlMDY7r8DvDd87 D27bPSyiPDSxOPKjONTq FHMzqImsgm6fmD9u Ii8+ZJGyiQC2fJZ8cX7j ScDdTiJ2EKgjK431LmFs sVNkOfcfI21tE5OzeVH+ GXOoTyj9PAAtbJlm NJ2uhUDfFNnuTe1fOFG9 NfKtLwIlMVigJ4QxIQGo bptnpsfniPJ4BUVfHJVu eN89Te0nfYkkSDWf qNOPeF5txglwo6nsbltf YqZlLHEmRBk1GQj4OXQd gMyvJvLnCDB0GvA6YFS4 qTNfvE7zdJrploow kP6kI1ZeTOSkfltpVy31 yX8uFwNlDtC9JLxtRcu+ Y5gAJbCSDtoOFtlrU0XS J1OQEOOUGonhbSQ+ MKTkEEE5wXccKDxnXZFa rR7tAZFuH8u2LcBqGsS7 CKjjT5ReQYZfxdysLi22 mF7xRmJfDdG0UYld K9EhaaQ9JMBcgTGaMHad UOB1C14dt7W1YURkTDXo CIZ6uNG4fQ5nnGbprntf bGVmdDsgdmVydGlj MOvqRLedZ416CHRbiFlj NdD6ZdApGuZ7ZAL1Q6Bo Wvp2PLVizCieWP7owCFz GGncFx9swGnvfRuc FP7cPTAfklzxKFSbhH1c JCDvyYQtnWwaSB1oOVUy sfqrg713KgZpIRY1HTRh yXKhC0MneE4oTbSp VMJdZJQnI0HdcUKhHMal P586WZmfHiU1XVIznhYe Z8TqOZLgvOruNcQ2p4A9 Sa05FQONYFAlibat dGQ+KKToPWX2zYhtPBte KLXrvX5cEDEgA8f7McJb KiC2HEnjM6YzJGHzjzsl Ux18mK7uYhRzHpU7 SEhhO4TzsbK2JYEuxPCe IFoyQWA8Q67zp2K6DAOy QJXmDTA9nQZ9dG9udCcr bjogbGVmdDsgdmVy hYafKIvtGLzuG241NYEd cDsnPkZFTUFMRTwvdGQ+ ZQZyCVZ8hWzzQWsjTJFs gO1jKLFjS0c5NbMy KjG0ASezN8HzXESsizmi No07wF6wJcPtDbB7GYvx N4KarpA1AZNdrJYxKWhl KIP9V43zf4Z8PNUr RGQwLKZ7sHJ4lY2wwMxy bjogbGVmdDsgdmVydGlj SGugBRpoQ589BEDmhRyk Hb5MCX83ET22S1Lw PjwvdGFibGU+PHRhYmxl IHdpZHRoPScxMDAlJyBz bUmxSG8kHt6vXMZcOYIf jMahdCDnHbBcr2ps IIVoWXrbNA0jlRwfM6So tCB3IIQeb7n7Am71A03q R7ZawSI+XXGgqBO1rEL8 zZ1nWgQbLhF4YErz Y801QgShxQEnYesva0jj e6iibEj5AiLnVBTwkgCq wTekDUV3k1KvMx74P71f IHdpZHRoPSIyMCUi TVLagJwnab5vdF1nRx9+ PTHtnIU3qBD2nA5lXfAn IhS1SUlmH319ArDquDNw KkvrM32yT7TgyPH+ XMZtEud8HBSwbPjsQS1q jLUeCYvvFg5pCVP4WmSn DeOiCIehP6VuWILqhyof zsgpcJL8XMJnLAGc cW01Ea8vbIcwFl4hWBZl SXV3QVUcjKXlM1XuaM4k VgIgMPLjQQCkF5YwsUFi MWrgT736CIaxOtK6 LUOduhWmL6FiTHUlxUbl PjM5y9Y7Vg2YpCnoxHNi CA0cAzTlXFg0W3PaFei1 CJGfvIcySG6xkBGc ATdhVx6guYehkRisKA8o IWPyjpfwc538EhIlb9of PCGevMVwJPfrOGV0O37m c4N4EIGoLLSnJHJ3 zID9fE8wpXnkuifesWQw dDsgdmVydGljYWwtYWxp E579UODlnNjxSuRAZgh1 Q1KjNyp5UMVibEio HA4piPZyVCezBs7npXbu iUdcHI1lFQHqxshni418 ZwUxf6acATHhxIBrMUbu RIP3J15zs7U6MOVl ZKIcTPX7sPQ5gO2fcLqd bjogbGVmdDsgdmVydGlj VSqgQTgtG464ZOWjpOnh Us5MPtd4P5TeDny0 PXMbqUteFD7pgXFqRQjj Qj3bwNlvbQwtXH7hHANp gxreo292ZkOxi2vbANFq wYRxPHbzFYT4Y17m k7D1GXWuWTAkZXE1eMK5 fW5mbVtiacujtBXpbKvc oyToiKzaWIspJOlgR471 IHRvcDsnPlBheWVy OjwvdGQ+LI04db38C4Gp GrtrAqk8VIFaEMV0rXN1 qO4eMIQrHRjfd2S1kDL8 G7YrouEwah5sa6kb YXB (more content not included)... [facility] Employee Health Noteon 07-21 Employee Health Note [id number] [email or web address] 07[facility]08-2024 Coding Summary HTMLBase 64 VdwomyttATx8xWx+PGhl YWQ+NQ5FFTBkV08foUYt hM6tN9RPQNwEFmehEJHO ZOoKElMdzmFwDH4pcPGn ZXJu IC8+BK6gMHMbHiifpZGs b3C6rYJ8K59kms6zWCwv qER7PHStJbDgloahl0rm gUu6MOpaNhoiEjHc RYMxxD44OGH5eV17Cg66 oBPolWPvj1vvxFt3OzOh IWJeIZR9bWqhVRbyw5Pn XEJnW37usRHog4O6 IGNvbGxhcHNlOyBlbXB0 eB2lCMfxgobyj2ziohhq Pcc4wf28wHMuc0H7jKE1 Z6DebsE8XCMztDUj XcwhsJKFiC0lzzyiq3xr mppuJrRuFOEkDKj9WYl8 CUNquFzkPjPcDM57HBC2 JLQbynAoL0ZaTNZm tSdtNbD5j9C5Ut0BT4RH NqltQ4ELYGVGFYlwiIL+ FB80ed00R7LqAxgjQbc6 LFXoGSC9hMS7eE9l OEPhMSsek5K8mZX7D9Ft hoWmcs9sw3bcKFZhEHtw N31fkMWsa4R9TKDntTU9 YSSrjChnMrRjpC52 Oyc+HUQuxTrbw1DgLwho b9tqm9zxnVc3TgcjNMZh wqVsrNajNJE2z3WvKp5s EOWwyAY3qNC7oO4p TfVoEjA4IJndW194NqXh pCDzTjuhQ69iO3HzkSW+ XPQhZoo6AVLejXvyEY6i W3TbTXJdwvagyQUs kHwaIZ1fSBYchupeQEDo kJ2yWQEzK8x7EeFyGzX4 OYmfX5FbLZXfgftjBs92 gF4wFrUiCfH7KEke A0JxlzU0DUMyjTXhYYom QBS1I14fe9G3MGWoNQEi ZGJ9mVH7bE5zwIssiznd bGVmdDsgdmVydGlj GYsaFEitM812KVUshOti PkNvZGluZyBEYXRlOiAg MDUvMTQvMjAyNTwvdGQ+ DPEqWZZ4qLbwSKTk cAAkIGkeDe2foSfzaThh CH3hCORlubdaDSAktD5g MLDjzPZhbSkqBP4hMKPz iyrax813TnZaCNQ7 UXXjhEInE4QvyS0xZkTl XSMrDDCaU4IgyRPkJDdg O413QYndLaV7YHHpknEr P7XdRUUtaSfhRyX0 o9Q2Fp2Sh4RxihzsS2Lb mDZaWkRzWnrkEFa7A6Im PjwvdHI+ZK89AOCvFQ47 TBz7JMH4oQwkPAmk ARYqQ9HlbZ5uBnKyCLOj ZGRkOyc+PHRhYmxlIHdp ZHRoPScxMDAlJyBzdHls SJ6xWp5dVDYpEQIe tLgggMUiZuCjk5wjWAXz VUtsLJ0bwCntZ7OsoBV7 TEOnq0i3Ev14W90wJ8Fg dXA+GJVjeUK1bDQ6 iF5aBmRrRmG5GQpmQ423 UkHebNUdLvhqf2umj1bu dZq9VeE0IQUgssOslMow ALJ0f3XiQp90I97h IHdpZHRoPSIxNSUiIHZh qTghzk2pmZ3mAq3+PGNv mYZ5sMG1mV8pFzWnIiP8 FNnuG563FvOhiAMu Dkptm7dqo9ndiRy6PxBi MEKzgxNoyAojXVD9z1Al Yj13S7NyzRpip2BjWdb8 vu33pVDbr2E8uVO9 R7DeNTEpltmtiTSsdOse SN1bUZSsevwkWSHkpF2h DONnB6m2McOhMzD4TAey U4CianV6FLPcvGIz FIPajNGSvJ6inptbm3wz amjjZvHjVXLjSKh7XIf3 EKUozAzlWlRjHLP2ZjC5 UAL6sHOnfQ2lnHpv ntyfhA5yUkg+EQG9aLKk hJYVWS8mWyarzIF+PHRk ZQC3fGwoAQnaXUGbrF0a KDBhN3e9GtVaLjW3 QSrdF3ClbiU7XEFswTQb EYEunMTQbX0nrmurn9pq pujuHyXpUTFoOCd0HGr0 LWFsaWduOiBsZWZ0 PyE9GKY6tUYmpD7dgMin dtqwxD7gCqi+QmlydGgg OGQ3PTw6S3CvEim0JRQb yDgkTV1baLViYDov Yv9klQkhvUlcUO1yUSYx jcmvp209BkImi0dfQZFo iODoXOsjIJD3W58gj8O9 BPXgEDPaAER7wLA9 eI5aqLkopkxviHMcyZcu xaKghCfhGDuxMZeuT603 LDIafBayQoQsTPl4W0Gu Kgn4OCXkePnrCI7y eOSbMNsiUw5rhWydiObl ER6fDVMyxncdy206VuHs r0lrWPMymUFoQMkiFYA7 O58dn8P0IONvPPEk BAW3vQG6nY7emJidmgzp bGVmdDsgdmVydGljYWwt KGsyU074ZQBmpBqiTyOg bQl3O0XsFok7OWQy xEmzJO1dgGVfIIkcLa8l aXsqhDgiES7cCESwnqxm s728OoLmv9pnBMBtsPDd LZpjARL6Y18zm1N0 EZClGKMxODJ2bKW5vH7x bGlnbjogbGVmdDsgdmVy nTvqDAjnFWipU600ETIq cDsnPlBhdGllbnQg SUjbFYf3J9KoKrnyiVV+ MD65WTLbPL35kHIzyKEp f4ycnEa1CbXwITLePTS7 yMauYJord9AgBLJs I98ezPRhm5Q4VHUgxPwn zREjYxXbsNR7zM2fLQvc emhpd0pzrnxfVsgvr5mv qd38hY85E88gVOvb ZHRoPSIzMCUiIHZhbGln rl2riT2hIw2+PGNvbCB3 wFL2zT7tSVEsUxM2HTib C085YrYupARmCbox p0zdw8gokTl5KeS2HWVx aoXwbFndYLM0g1JmKz77 P43zCWjrMGFhWHBwVLJb XCXgqDmoma5nqL3y Ii8+GHFiuOM1qHV1dB9c KuDyJtC9TYmtZ202FlEd xZLaKfsiZ53jL0BuuDM+ BQUhZni4TMAqzMum YT1ghDExNNosGs7uKTX5 HvDnHdPxMCsjB0CfBHLx sqkoaqoyyWE1ODCsFKYl iG73Ln7xeRciLCPi tOLLwU4kibrrm5okkjqk RtTxPIOnUUt4BRj2CVCa mPabYvAhVLX3XsB2QYI4 iJRbkR1tkBssvslf gA4mC4NiDZAamvnvTg59 aR0rZaLgPjF7BLlsYja+ I7cJZqKCVylJVjxsJ3CI P9YQNDFYRvhubMA+ CEGhLXI9xAmwJDcbRGHg rR1qMYDtU8u9IoJiBhI9 SGdmI0YtSFHiphhnVz90 pB4jUxFjXqX5NVbg G3NoteS6KAGsxYSrLVll BKR4A69vl7W9VSDcWVMn GEI1rVC5yS4hzPzssnmk bGVmdDsgdmVydGlj YZbkXSggX116RAOgqFpq AsE0XfWoYmW7HUO8B8Xy Zid9SYKraQuvJD6hrFQx ZXcaBb1qbXccaBso BN9pCNFhhjyaMEMdcN3c MYXqdWIzmAfsMB5iTEJc bnbxf726CgMwKBF7ZROm qCQjW3HcdR9zDoOc OYXnKJYrM0XhyGGfMWcv R264GYyoYgW3ZQRvzlBt C8IcGRDxdFkcKkJ1f5B8 Nt84UUHEVDVwaszr dGQ+FEEcICX1yDtkEDrq ZUAtdU3dFOYeL7i6ShCn KqO4WQjwK2IuCVQygqzz Ow83mS0eJcAbImO5 LXplN3RfbyY7HVXuxVTv MAvmVJT9D43lk3F8PNBm NGQvWOX0sLJ1nA6lqGyv bjogbGVmdDsgdmVy hVvpPDcyNJmqH994AFDh cDsnPkZFTUFMRTwvdGQ+ CMGjWTU1iTfdYZivKAQy gR1eODIsX4n8OrQm IlY4EYkqX4MyHTQpljox Vg27mM9pFmWoPcK4MQik N1ZymsG7ZCGrqRZaKHzz IKQ6N74qy9V4VMTe HVOhWBA8iON0cG1coSgx bjogbGVmdDsgdmVydGlj RXrlBEzcJ057PTOuwLav Mq3GTT45JB61C8Ql PjwvdGFibGU+PHRhYmxl IHdpZHRoPScxMDAlJyBz iWpsIR0jJf0hCQRvTEPf uNvlgGVnJpOfe5lg ZLGkYWmbDN0raKwwG8Sc rDY5MUQcx5l6Vv86J59z K4RylIA+DVIauRM4aZQ1 rT9tVcXbJvQ8RHmx D200JhNjiCVsImohi5pl h7muxKx2WfToOPTrmfEg bCfeIDL5n4DfMq30E91g IHdpZHRoPSIyMCUi OEFkrFaqwd6emB2mFd1+ PIXyjEF6sRV5uA9yEcNw MgL1QWliR150HfItgDNw QqasG85iP2LyuLB+ BIQoFzo5HVDyyIyvIO8r lKQiKSerOn7pCEH6PrJs QbIuLRlsF8LsBUXztvln tvtemHU3GEYpXAUy sA17Nl9ucJpqYc9rDBLw UWH4GEXstVQkD5UqoF2y BpPoTWVsNJNuO4TqjVQa TLndV638GVeyIsA5 XIAkbhYrN5JfIWGxfIvt QfO3g1P5Nk2TfUwgiIKf IZ2eGvFrYTh1J0FmPkq0 BDTgzJhcVI5rjXVo TFqlAu7dnRbcvItjZB0x IMXfgajxj283DlDue4ck GZQfaTPtCQlsTXU7N47w m4R8KNRrSOLrOZC5 jAV8xU1qwBomhoxbzYPo dDsgdmVydGljYWwtYWxp V623NODpiVkqKjZHKhg3 V8TvUzy6DSAvlMgp UA7mbVDkYDpxDn1tyJme cSvhUN4fWZXfsmbgc551 QsSjy3udIHVftFCpFZmr WZY5R44fo9Z0RTVe TSTaFOZ2zZV7bK8wiYxf bjogbGVmdDsgdmVydGlj PMgaOMmyF416TKWelTsv Hj4TNgu2R0FpPbz9 ZNYaeBkdLY4lcLUtZQld Va8qgGdwpTnoEE0aOXHa rnime384YrKtf5arZWCu vZCiKDvwGAJ6L96l b1W9HLUbZTLdBBT0yGK6 sU7iiShxxuxkwRWxiSss wjOigCuhQEotAWtnP954 IHRvcDsnPlBheWVy OjwvdGQ+GX83he81E8Dl EtfyBjb3PJInANX1aSH1 oK8iKATgTSqtl9S7nAS0 G0GfsyGjdm9ej4fj YXB (more content not included)... [facility] Employee Health Noteon 07-07 Employee Health Note [id number] [email or web address] Employee Health Note [id number] #[facility]00[facility] Coding Summaryon 07-01-2024 Coding Summary HTMLBase 64 SoqwufouZIe6eGk+PGhl YWQ+XS2DWUKvS58nxMFl sZ5nA5SQEHqDSloqAETH KCcUIxPmxkIxPF1npXMd ZXJu IC8+XT3oBKAeQyamkTQo l8R2kWP0T73bnq6dVZxu sWE5ZGNuKsMjqrsjr1zp jTv1QVtpMhsgJdQt XVCxsU33NVS6tX71Kx61 iHUhdGEnw4uhsIg6FuNt XLTgPAC9hYljQIrkz3Nq UCUeH83fbCDyi1J6 IGNvbGxhcHNlOyBlbXB0 qU9vITxrvqcfi5eskbkw Gal3yy08rFOpz1X6pEX0 N6MgifO8XMJloREw NxzqjRJTuP3pgedhy3vp perzPlAjZWYtRWi1BJi8 NTQdjXekVdRqXW37NTP8 WAIpktVfF4JpDWPb wFpfVyG3d5K8Iv5FB9GH JietM5HTJCULLSuvuXL+ XT86vg36S4PyBcueFmw1 HZZsNBG5hHF1zA3f TOVaNRnhl0T1sXT3O2Iv ajMujo4lr4iyRJYbPYfr O09poOTeb4F5MVBntGZ2 WBWclUsqTbIruM13 Oyc+CTBqjTshq3AlLict t6fsm1agwLx3KqaaIEYg mwMlyIaaKRG3s8FxCr0o RDWvmOQ2vFP6iA9m NvOhIaG4XVgpV253SgXb sDJnQmxaW97wN6AqeSC+ IOZcAva3WMXdfRppYZ5w P3ZmEHPpditsnJJl yGdrZC2aYVPxacbmCYNm sG5eMECgO8i1WfSuThJ0 TPhyZ2KeRQXbgtffEl40 mU0cCqXiFtU3ORwj S9QivwD8RQMkgNFrDQrg KNV1Q97qp3P6KFZmYMXi EAG1lAD3nB7lcSnugaup bGVmdDsgdmVydGlj HDcnDIakT402EXNlyVnl PkNvZGluZyBEYXRlOiAg MDUvMDcvMjAyNTwvdGQ+ OQQdFWP4vCqzYGBo uPLbGWzvJo1gbQtclFwc HZ9bGNWkrydnQRKmrJ4j KISimXLwbQvgTW3kYBDf ltxnj285TzKgVGP1 GCIayZEkW4RjjB2qVqFp MJNhGHApD3BjxXXhWRaj C734TTmyYoA7WJUiejAt B5KzBOMiiOaqOqB4 g8G0Ng0Lv6GhvhcuI0Ml fKBzAcQhQrzoMQd1L7Ym PjwvdHI+OW33PHNaRM60 DHi2JGH5qYchMBrs DEUvO6GuqK8gRbBvNKQm ZGRkOyc+PHRhYmxlIHdp ZHRoPScxMDAlJyBzdHls BV1pNa5tCWPrKJVt rGfrhMSdQwQbr1txYJLh ZZxsXO8wnPomW7AbgGV0 ALOtt7i3Po36U36mZ1Wi dXA+BYFrsGK6uLQ8 gV0hAyUoTlW2DRcpU081 NvNwqWOjLhyyl9hqo2ng fOb2PqZ3HIZuwoCieJfh EBM5n6OlCk33G85a IHdpZHRoPSIxNSUiIHZh zYgfda5foT8bUh3+PGNv pOZ9pFC8wQ4sZaIpScP2 HVbdK659VdCrrQSe Enqds4eav5hnrEg6CnPa DFMkqrBpgCdfCTW8h7Xj Tk02N3ErnGxxp4NuTvb2 ls88zJMim7D7dSL0 J6JvNDXkmdzbaGAlpOqj MG6qTNQlvggbZNLkzX0x HMIvD2a3EkWxRnW6VLxk T7RnrdP8XJLopJYl JNDlrUSWtY2pidqgs1vc gnxwYqLtVTCvLXn5CHc5 SQNxlUlaAgJbDOX8BmZ7 GUY6pSLrpF9umLlo yttdoC4zJvk+VUC4iAGq tNCTXO0cPitjsEG+PHRk SNI4oQzfZNmpVFQvgY9y GXMvM7u4QrRmBvC4 AVjjZ2RaujF4BVKsvXQr NFZruQVGhH2iertgj2rw nxxjCjZdTPQaYSu9UQo4 LWFsaWduOiBsZWZ0 ErH1GFY8lLVqrI3vuHcq fnxkkB7pQpa+QmlydGgg UNW5TAq9Z5TdAfz2CFHr yOorZQ6khBCnSJjk Nz4urEikzBcwTY9mWUNo fvtxs885KjBoi4xmFMGe lLOlFLzvBDE7Q46ot2K5 DYEhELBuZBA8gYM5 bU6qmKsgubtorSLmpPii zlLkzTzdOIryBXgzX543 BFDhbWkpOgJsWSd7F7Vu Meo7KVIgnGrdRC3u fPCqMCbnPs4eoFvbeIle OV7vQMWyjpwel383HjMf f1ohUTIngPHcCXmhSIA2 R45pm6T6DBAnVUOi DWP6wON8uM7xdNnsblgu bGVmdDsgdmVydGljYWwt MZftB479QLDadNsyTcYt vPa6O8LtObt4VSNg jFneTW0htHDqKEqvXz8k iUnawQwnSE5mUECwqbsh k888HaSpn6xwMBRyyTRl XRpwPPV7X20ew1H1 TZZuXJLbCXL5cTA6yV5q bGlnbjogbGVmdDsgdmVy yYsqQOmnCBciW599KMYw cDsnPlBhdGllbnQg CMkwIRk4P9VyZrbuaJR+ AL25TZAxER39rMKouMFf r0fksWt9LnUmVPLgSTB1 bJufOJxqa5ZmQNWh X66fdEZrl2Y7YAFjoAgh iKLpPcBliYW6wO6iEMog ipvmx0hgfsyeRagjr5ng hi45eO88O57fQAbq ZHRoPSIzMCUiIHZhbGln tx2zxV5cJp8+PGNvbCB3 wTM3mE7nUBXuSeJ7SDzs V629DfJcvJUnKril p4qsw9fvaVd9GuK6QWOv nqOuoHtrYVH6g6PhYz90 T59mBRifSCQqXNCsQWIa WUBmiTxvab5neV7t Ii8+JRZhzRS5oSV7oF4k LkZuQiE6WDrcN839RlZj sYKxTgxdV90jG2HvgVO+ WGPrFkv2FTJjjGrv ZT1zoWDuLFixEt2bUIF3 WaHzSoSvIGyqA5JcQIXn raqbtmenvAA1PSMdPVDy mU38Fj9nlTtoLSGc iOXNkA2yuzguz9dpfcwt AlMuPMNiQWz6ZLt1TCAy xBddRxTqKSU2DnC1TAG3 fUEypR0bsTzphyxp zA0nM4GaYSOqnsrrZx91 dZ9uLuGfIvI3MYgjQso+ X6zLQvAUMrpEPvkxS8GB S6RPALAYEnamkOB+ LABsGSF2qMnvYZfzOWYc sA8dRQNcS3x2QgYoDlZ4 QZtxE1JcWDGtgeqoWz91 lI7wCvLzYlO2WJks I6AdasS3HNTglKBvIGip LJO6L76gd0F2WWJjWTXl ODL7oTX9sY4phYbftbbn bGVmdDsgdmVydGlj BJrpCYudY190NOWhzYzk WkY7ZoJxYhY9UTC3T0Ev Urs1JJTwnYlrOK7ttUVd IHpsBt6hmBerjCtg GR6lGOWxddkeBTYkmB6j WDJxvDJcnChvIX6jGPYm tpmtu478KwRkFFZ1ZOVz cQIdS2ZlxB3tDyYa UBTfJJCuV5CyvBLmXZzj Q297WDgnVvG3EXUzmfNz C5NvAUOnoPukRgL0j7J4 Dx33RJZNPMAagkpm dGQ+HAJzIXD5fVyjXXeq HXKnfS2eFZRqE5v4XbMz DeJ7MTehC8AcOTGeokmr Ex52lM2mKiQgNwK2 RGlaZ3UnoaR5XGIxvQXh UDjxSUH7J18lu5N7VFNz KUXrEAU6fVJ5hO4svWxc bjogbGVmdDsgdmVy kPmlMRvaFXxmW206WJNk cDsnPkZFTUFMRTwvdGQ+ KUVkTZS9aSujFZrgLSVp eT4oSTYsR5s4WfUs YaN5EXmvH7CvYHZrrdzm Gp75wK5oBiEqQyD4UFbe X7FiorN9YZKpnSLeUExn FRJ0K30ih9U4BVWu WUTzMWM4wBQ3iH2prTqt bjogbGVmdDsgdmVydGlj RGkrLCcmV610FWDbwEza Lh7ALO58PW09D5Bv PjwvdGFibGU+PHRhYmxl IHdpZHRoPScxMDAlJyBz pAxfQD4dAt1dCDTyAIBm lKnweKByVwOdp9di USIqHFrrVV9nsMyvK4Vp mXS0NXQlu6r8Yw59L53j Z1FqzEZ+JROgdIB9uGV5 sR5dRqOzFlQ4TRhs L927XpKkfNSbDzekd9cu v2vkcGg3MbPyWOJyinZo fKftNVH2e2EmOb88C73p IHdpZHRoPSIyMCUi ABCgdSftwk3fvM9cBg1+ CKYjeRE1sPK9eP1lRnEv RnH0ZZyvW675PaEvvEXk JcgaV44cE4RpdFX+ QKViTdv6LOVxnVpeGQ8f kFViZMsvZu3fJIB8WhQb GaRtIEkgQ5YvJPZbdlxj kvxziRW8PCQcXKJw kO43Sa8byAsyFy9qTMIy LEP1QASplECiF5LrtB5c QaVjEHUwMGUyS1JxhUDl JPovH192VPqlVwH2 WGYmpgWtE7UrSTPbvJnt YzL4b4Z0Rj6QsBexvTNw JI4rTuBvRQm4H8LoRrb2 FCFddRppGK8ghYBp IYrmUq0vqXjpmIrjBH0q KKKwdozvv866YfMzy1ag WEKpyIBbFNhdYNX3A56y o7Z4UQOfMQMwQSU1 eUM9qW7hkOiplakavHDw dDsgdmVydGljYWwtYWxp S356MPGasYxzNhMILvy4 Q4BhJqo5OMYjyWyg ZG0gfLYxGKdnOf5okXkd lBceBE3oNDIugtafy096 AsYey9uoUEFleMYnJUiu WAU2V30ic4M1ZJDf PJAgBVJ9kXU2hP0fhChg bjogbGVmdDsgdmVydGlj LRbtWVroR555QGUpyDzp De7EEkf0V8AxCqi3 MXGcgMqxZN7tmRHjUKms Wk0waGxkfJzvDA1dTBWx sublp449EsVwm8tbJFCb cOKqAPjtNXB2O68c q4S7ENPhLSQxGII3lJD7 vP4apTyzpztmkYWypHvv ckJanCifAKiyVMfjC929 IHRvcDsnPlBheWVy OjwvdGQ+TB27en63I0Cj FftxMcn6MMQkISJ6fOK0 dA8aUWEyEJibi6Y4pDJ2 O7YurfLtvi4zg1jb YXB (more content not included)... [facility] Employee Health Noteon 06-30 Employee Health Note [id number] #[email or web address] [facility] Coding Summaryon 06-25-2024 Coding Summary HTMLBase 64 ClanznxuHDp9hBk+PGhl YWQ+MW0ALXWiJ65zjUAt cP2sT6CVKTfHXvbnVPMZ QYmZYdYwouGhWR1egONh ZXJu IC8+FQ5yTDUoTnsdeJXe g2C6vSF9U11jmu2aVZwp rMO8DBUwHqMefbpbh5ac sMq9XCijQkwtBjKp WMOqcM22BBA9pX53Cu51 xIVfbWRsh5vamBe5IzDu YUJgABL2mXzzGIrwc5Mk RNPtY72tyFZjy2C5 IGNvbGxhcHNlOyBlbXB0 rC1pLMqtonhra1bfhcug Aeg1gh73mROpw0N0sAT6 T3NblwC6UROkbDBv SwbqyGYCqE3unqiae3qw llegUnGbGSSrZLr6JSz6 WGZrhXxvLkOkIF68KGQ1 XUKeblJuR4XmMJMa sGrkGeD4v7P1Xs8WI9BV UklnY8ZTLIGMTUtiqJD+ KO18io21P1MvBsynJdy4 PGWcJAP4kMJ3lY0m HVClEMroc5Y8zCE8G8Rg koUckw0zo6aoJGVgWVrq T94muXLde3V7WEHjkUC6 FNEozPyrLtFkwC92 Oyc+GREhiBovk5YkHlia p7iwl2swiJr8AtceLFIg zbVyhXluZEO1l8ZiEd7g DKBgxRR8mNU6iO4i ZxTpZfT4LKgsY827VdZl yAEgYewkF99aU6CcwYN+ MTZmZrg0HWZgpReoHW6i S3FmELYbvuqptOTe rEbwPA5qHHUpcuctLGFf tV7vONEzX9t5RzOoZeN7 LEegO8HfTLNkaymiTt89 iN9kHqShSmF6LJot T2DnsgJ9OIAgtREpIJay ULP5M95gj8B5EMHbTIUt MRM2eXK7kY2aiEfizfkv bGVmdDsgdmVydGlj XJqlBSgbA497FCEfeLeu PkNvZGluZyBEYXRlOiAg MDUvMDEvMjAyNTwvdGQ+ GBIsOXW9tAuuABCw kFPrPOqiPa9eiSvryOzc RJ1yWDTlcwvyOBQvgH9v WFAnjNVusYobLK3cNXOo rdgzl973KkLbEIJ0 OKAbwFZbV3NalB5wRzWz PDLqPQHsQ7MhwLFuMRyo A670TEmaSgU6TOBqmsLu R1FiYMTppRsiCuN0 o6W8Fs6Ft2RdipguE5Zj vGOcIjInMhimUPo0R8Lk PjwvdHI+SA12ORPaSU07 NMz6DSZ9lWbxXVaj MPMdJ2DjkM8vNvYwUMXh ZGRkOyc+PHRhYmxlIHdp ZHRoPScxMDAlJyBzdHls SK4mXr4mTZZaMSSx sCmxeJDoOrRoq5kmWWDs WRgeIA4glLzcV3IkuNL7 DOYbv7a8It22L33tL6Ac dXA+SFFptJS7gXE4 nR9rOfMiOmP1FWgzP687 HqKlbSQxNmhca2bpn3bp gIn7MbY1FRQcgdHhtVtt FMP5u8WrZh88E91c IHdpZHRoPSIxNSUiIHZh fCvpzj2ieQ4dAc0+PGNv uOA8cAN2cQ7vGkQyLaN9 PBeeC105SkSpfHSh Cmsrb5vdp8xztCd3HnOh ZVYugzQbiApsVYD3a7Bl Oe51M9VdfHeyp2NkIgs0 pk28gHNgk8A3zXK1 K6VoZNLzkwwltQZieIdf NN4rFZYgfwpzJJFoyP1s PYBaA4v4YpMbSsQ0FOss D9NmwsT2RSOslXIm FTEgoVISvU7fjpiyq6uu vthqXgSvCLEhTIi0FQj3 FPRdhHzmGkPgTVC0KqK5 DUP8mMXcnC9inMvr hyopeX7dJsq+SBV9dEAo qXSGRO1kBodsmRN+PHRk XBH8wEvdNItpHTKndW7k VXMpV8e5YiPuXaV1 QBuzD0DahbM6XZRosFXf LAYluBTKwY6sfjkqd6or zdgxLyTgQWOoRAn7EAg9 LWFsaWduOiBsZWZ0 HkO7ECS4zWDhiX0ijJwq zwgvhW2xHcb+QmlydGgg ZXZ4RXu3Q2AlBdu0UGHt fTewXZ6dcPVuFUre Lc9plTcqqJgqNS9zRXDb nenzs912WuSym8vgSNGq tJFfAKfnDBF9F25lp4R9 PBYgVIIxYDV4jST4 lG6weXbshaypbWFxwKjp mlXgeUdmONqfYUfqW172 ZIJvzFnkNmJyNCg0G8He Eel4SYPknQgxCH5s wDNdVPluEc4ubUnpcPjd GD4xTBTnflbpy909TwKg c9frRIBzeBCuPTmpHQZ6 R65wc7R2FWUvZNOr FST7tKF6wR1cyQwvsnfh bGVmdDsgdmVydGljYWwt RVsjF109DBZkeBmzEsBo vMy3I5CzPqz1FSBb pRhsBH3ofVFqVXtkWd6u iEplcTgeMV0pEWItnvqk v804TgQxf3obIGRdqPAc BDawKHP2V53jj2S6 NQDfYBMjGBM0pUR8cV2x bGlnbjogbGVmdDsgdmVy iZjxQDyqUYszE790UJGr cDsnPlBhdGllbnQg GPuaCTa1Z1ZbSbejpPN+ EL59NEKtKC24hVNusJMv g0vsuFp8HcQgRMTnGHK9 fVfiSPtid7UkATTk Y07ejSOmb3S7IRFstEdi eJHqSjSreKZ1xZ4fJPoc dgdyq1jsahplDxlov0fx dh82jL04B61oFNdz ZHRoPSIzMCUiIHZhbGln za5gaF6oQe6+PGNvbCB3 sVH9hA2xHANwWcX2NPjh C336MoDngVJvQlhn a1jwi5ucwDk4HmN1RSVi xeNnkDomHXI2v8QrVz64 R74mJIadZSDxDXQnRYJr MZFtzHxodh4qeV4g Ii8+MSJinQV9wRI6mY4k KwSzFsK7JKjcO468DtGs pTRsNhqiM91qG1TnlNF+ OPGsRso1DEUomXva FU7vhXHjFBtjNl5zVQW5 IoMcPiKeGNgjM1QrKXIx shqeghfxlXY6FCDrMUHc zJ88Sv0bcUbyFHYi dVSDaY6lgtvsq0udpsev NoFpWFPnYKw3SFe6HCXj uSntWcZoCTT6FyU8OEC3 oCHriE2tkCdezftq qA6zR7TnYAZpdojcAc52 tX0jRbCaAfW3ETflTxd+ Z8uQWzILGbyRXzoiM8AH D9PUJKCHNsfgySK+ UHJbVGA2aZmdXViqQMDu aG7fANBvF9o7HoQkEwC5 OKytQ5UfNVEagsimAr47 aN8qHzMeMhP7TZwg H0KuhjL5VKOnzGMxWNgp CKH5E16fs7A7IAXkBQOn KJQ4pZQ2kP6npQirnpcp bGVmdDsgdmVydGlj TGtvDZniU863VGJtsCrp PcL4IdAxBdR6ZRY5F6Pg Eos7OAAnlRbuPI3nfTIs IQuzDv0hpYxwhMwg EL9iCMGrjgisMAKacZ5h YSRytMSmdOuqMG0fCBSj owcxo311JbXaYAI6UVYp cSEwE0VkfY8gMoQp XTDbNMMnS2FhyHTjTHnu O945FZbcBjM3FMBcnnNs F7YeRGZefVpbFpY3j4P6 Nt00UCJSSPOqjkiy dGQ+SUNnVDW9kAiyCTcg WHXdgG9rLUCoA3u5JyFl FiI5KMhhI1UfPJGzfvbs Sh02tC4zMdCeLtQ4 HKpvE5GblpZ3GOQhaPMe MLetAEL1H82wc1O9VUAn TLXaXBT2hLR4oE9zoCcr bjogbGVmdDsgdmVy vRnrACboIWbnW111PBLt cDsnPkZFTUFMRTwvdGQ+ FREcSIM2zZssFOsgMTAn jC2oHBTuH3j7WzZi CuN0HQscZ8BzXPQoissu Ss26cO2aIlMtBfD0VMsu U2YdnkI8GBBmbHJpDAfk RSL4R30kl2I0OYQp EWNtATW2cLY2iN8zlNnl bjogbGVmdDsgdmVydGlj LMosDTseZ077CERfbTwe Kz7RFL92LS65W9Xt PjwvdGFibGU+PHRhYmxl IHdpZHRoPScxMDAlJyBz pYydNV7vGu1uXUZoCQFt yLzwuEFnNkOxf0mg JWZtETgmDY2tyWedI4Mh vKI2BQDdc0q3Al36T24t Z2IcwWS+BNVofRX7jQB6 gZ2nNgAsGiT0EDjs W609UkKswZWrCpkax4cq i2nnbSu3QqMlUFSqelFt vCxcFKU8z5KpAw48O32c IHdpZHRoPSIyMCUi JSQlpUqlox1rrW2jYk3+ KEThwTZ9bHD8zR7sUmWl MsP0QGzeH466JlCgeJQn ZelzY46mD0ZqiOR+ XIIfOgu8UCUpbOndFH8z oCPmMYobQb6wOLS7MhTo QlBlQGpnW2UtFBJfvfmv gpwvgVR4VASiMQZt sK88Vr7kdLqkMh4iBAQx WFG3MMIqgWElS5WwvI3u SpRxLCXwPODmU3VerWSp YAwzX179ILwiHzE6 MQNenpZzS3MdIMThrRla VvF7n7F0Ju2MdVsxkIUn WZ0lWaBuDBp7W2LrJuc2 YIPbeWtyVH5ovTSu ZNcwTc7zxUnukDkuQK9d DQQbgojfe067OwRqc5ut DWRskGXdJNwgOKG0G96g p4L7QPLfJMTgDOC8 wTG9iX4soGjdljgcdCFn dDsgdmVydGljYWwtYWxp Q559IMTdjHfqIuMQXgb5 Z1QtRvp0TIGcsLgt RX0ceJSfKLztPt2uaDsp yGqvAZ9hJMQgztfrb591 DmIfv8jnHTVloKMgFJwx AXB7O92wj9L5HBMe PVNsKOI6zUW5dT3hkKti bjogbGVmdDsgdmVydGlj JNenBKgnW781PVWroMax Iv4QAsb9L4LnUtj7 TRDxoInzMI9rcNItNUeg Ac7psOswuBhqUL7xHWYi zlmxk757VfRyi5wfNLBv eIKlBBsdXLE5X00g x9P1WXJwDIEhMSI1pEQ5 nQ3zbSxxnejkeMJerNnv msBqdBsyMNtxUXjeG046 IHRvcDsnPlBheWVy OjwvdGQ+QV18lz68R6Wy AykqAxx7ODSeGFB2cMS8 jD9rYQCcKXjhg6B8kBV1 E8AagiInmg7lf1en YXB (more content not included)... [facility] Employee Health Noteon 06-23 Employee Health Note [id number] #[email or web address] [facility] Coding Summaryon 06-19-2024 Coding Summary HTMLBase 64 AwadghziFDz8nZi+PGhl YWQ+UP3OXDFuL26lkHIi aM8qC1DWOQzQCeluKSBW FJhIGmShskVgOF2ojSXa ZXJu IC8+FE1aKCLtInnoxUBf u8X8jSS0T02pln9tVBwd yDS5PXYhNrGrwqmpi8rj dKi9QRifHhixNeWr UCJguG84YRS0xH53Dm10 cKRuaWQiw1vuxSx1TdTb QZOdAOQ9pDsqPCepu6Ix UPTdE11dlXQgn0F0 IGNvbGxhcHNlOyBlbXB0 oM4kJVaownfyo7zqmyiw Qkx1zk09cKJgy4U7kSE4 Z2RyesL4ZTShjBGa GoatoELPaB6errzkz9ne xlzwBcDuJGHsOCl7GRe8 RPRajSsjVbVwWE29FIN7 CAWunoAdX5BeGCAw tKuaCpV4d1E7Ep9TV0IW MfviV9DKZCQNKFykcCH+ DN57oj81P9OnWfipQcm0 HEUjMQW0zTZ0tH4c OGRhVApqy7T7uFA2Z5Mf fvXlhw9se9vnSNNlGXwy L05cuTPtx2M6JSEggHZ4 ZGBcgOznUtJpsQ65 Oyc+KFSnaMpgx8RmOloe e7bmf8ljiCv5QldrFQGo srVfyWlfDXD1s2VqSc9j TDLimND6tNV2fY9i PeMaYxF6DLwaY631QmJy kWFmFdtvU37yD0KccTY+ JRQxMec4NXJetFmwQK0j D6XpLBCsnrqbcEUu sOocNZ4eXKLtwzpsSFTl yJ8qWRAhP7l6WiVcGrX9 BTsiJ8KlGDYkzgreQn59 wB8lRvCtZfE1EFwh Q1CncdC4RVHgwNFpJTdg SKE6B16rk0W1VOQzLWAg XMQ4yDD5bO6vuTchmcmc bGVmdDsgdmVydGlj ROojNFggY879MIZqzLyu PkNvZGluZyBEYXRlOiAg MDQvMjUvMjAyNTwvdGQ+ GKUnQJQ6jBxdVMZm mERmZSmpZb3taTyhwZzs UK9dOQObyrafNXXvbI9a HKAptMCdfKfwHN9bJDUj tbnbp543SvVzPGW8 YFGikWAfP8MemS0nCiHh MJFeDLOhM7BwsIYmREax X415GSktLaD7YCWsadWx R1KnEULcjFyoYrA8 d8A4Nl7Eg4YybrbtP3Cy aIXwSwJnLkwbRLr3V5Ui PjwvdHI+RN29RVSxAY25 GWz5KMY2fWhsIRzf YLZpI8UxyM1eMtTaQWQq ZGRkOyc+PHRhYmxlIHdp ZHRoPScxMDAlJyBzdHls KX4wCq1iBPLvUHRz qMxilLBbQcZip9keXNUt RUowRE7brQelE8RvoKM4 QGLca3o2Pj70E43pP7Cf dXA+DLWpoPK0zCW0 hN1dRyPjCcZ0KXowR736 DuNhkRLfKfetx2yss6rg uTo1ZnY9YMBdlxJonOuo CNT2w5OkWc67W17b IHdpZHRoPSIxNSUiIHZh aPsccq7wgO7nLo5+PGNv aOC5kRP8hC0aNcCyPnV0 ETunG372QaSbvQDz Fvbzi2mon1uhxDc4TjEe WFAijuRbsWhiESE2x7Iz Qo71U5FrfBmvh0ZyWci2 ln91cOMbc1S9xIJ1 L4HrGNLbqfcegMQyzAdj VD0bIETtcjqrJBCaxM4u YTEvP0r4SnLmKyA4XDrw H8OybdY6MJFmuUCr FFXdrXSKyA5ewefbi3fj sgzdHcWxRTQuRFr5UQz6 HQBpoKryPuHiUUY7PxK4 MCK8oRDpqS6jlNoe kexnbJ9sLys+JAP4jTJe oDZGUN0eMycbcRG+PHRk WLY8tCmuJGtqIOEmoN9k BHVnS7f6EpNfDyX5 KZwrL6RumxN3CJBriFOo LLZdiAOVxI1qaczqa8xi udjvTpLbERMsPXd8XQo7 LWFsaWduOiBsZWZ0 DaZ5GCQ7sQPidT2qpTex wknatB6dQek+QmlydGgg DXJ3QAg7Q4BdPgn7ANKe eYzmQG2spSEmMLdu Lk6reEdhjGmqFJ0rQAYc aczft104CxYfm1noVBOv oMQuKPjqNOO4W47ob7E8 FOReASUeWJA1jKL4 yW6czQxftgexgKWaxTkb fjMtfMbsAZrfGWtnZ284 GNJhkObaLgMpLLz5W2Nh Yan8GQMbvUyqTA8k wILvLCkkOn5pzZjbqQhz NW9eUIYdkdmjp368YcQu p6nnBRVrpIWcXJrhOHN4 H88eb8B5PZCpOQRe DEB5vOF4lV3fzMlxpmdp bGVmdDsgdmVydGljYWwt HBozV781NYWhoVpsRwRp gIi1W6ZhYgu3UNBt zBzxSM9kaTTrJOjhYv7l aMwhjHekWF6uRUMpimwz u184VyIfz7ogFMAogVWx NZozXPS8L48yl6D5 SPXnXPPzVVK0sRD7nP4h bGlnbjogbGVmdDsgdmVy lWupUXwnXHmaC151DUZf cDsnPlBhdGllbnQg RAyrLJv4Z7MfSwaghLU+ CW92THGmQB24aQMsgPRz p7tmiEc2DkZqBCZeQIG8 uKntYEwpv8MhWKZp T07ekOIsc1W7VTGymQtf dGRdPpUrrSN1rE3tLMbb leuup1jmtfvoDghen7zr hy70xU83C00sPIqk ZHRoPSIzMCUiIHZhbGln mq2wkJ9vXf7+PGNvbCB3 gLY7qU5hYRQbInY1SLbz I095YzVoyRHnNaan e2ouh3popCv5FeM8DSSr fqGsfTehCWS7s2AuZo21 W64oAPzsTRFzSHBySAYl ACUudPhatm7nsE8c Ii8+GIFtrDK2aQC4lN9i QzLuQhM6WHpuE090WgQm lIOrCcljF49uJ7NegEV+ FFJqMdm5NHMdhVrv PZ1kxDUvCRmhIk4iNIU0 HpSxBzRtLVvjW7DcWGDa oupwyeakcHM4DYGeWEFd aI19Fv0qfNksQEEg dYWQjV7ztimvc9otuvzx AxVeFWYcECk4YHa9QCIi rAfkFjXsHBS3GqB2ITK2 hUCodI2woQhirwyn rS2eV8MvHZCpdbgmPr81 yG7bUcQhVeT8QFkfFym+ C3zHQlGMBsyLGnidS9KP D7NFXWOSKwdgwQH+ SXSuDRH6rJilOOqkTEQo mT5sZUOcA1x0VdKgPbX3 RWbnL1PfDAVazuznOn36 jO0pXsInRgD3RUqx Q6YxmuW4OBQvyEGiJSqu QZW8S94kg5V5BIShRUWq JLD8gGN4iP4ntMzjrxyu bGVmdDsgdmVydGlj SRwsYGfxK014BDHlnHzh PnC3KeXdTsP4BFH9T4Hb Rdj2USZcnGamZX6giZZv APtpEh2moFuhkWlz KX8kXHGwysnqFFUnnB7a LENlmUFcsYhfFO0wTVMf nbmpv434VdNwVNQ0QTAu qQNlA6NcfH2lNsTa NLLlLAHcA7OdqIZaTUpg A844TVbzLbJ4MTTtecQv K4NmEQYphFexAnK5n0Z1 Lv16RIVZCGWeddkp dGQ+VHViVDQ1bYfzACuf YXUhoV0tSFOtF6p7QvWy MsW8ZRowI0ZaWUEdvcvc Kp66rV1bUsEtXkS6 LFdbC3ZkgoZ3MOQciLAi MEacBRS9W89wg1Y6TIHa EQWaXZH4zXD6cW2ynJtu bjogbGVmdDsgdmVy jVthBQypKPaxQ798MWFm cDsnPkZFTUFMRTwvdGQ+ EDYqBXC2sIupHApaVDZc mR7rCEXbV1e8BvUl KrZ6FLnpC6EhLLEqdohn Pa74sQ4jCeHqBtA1VObo M4PqrlQ7TKBnyXJyKXpc FKH2A38nc5O5JDAh WXCvTCR2bFM5xD2zqKit bjogbGVmdDsgdmVydGlj FWtkERfaC501GYRpbXeq KvIfAQDjYV2qzJvx dGQ+ZH44sp26N5XgRgpp Tip0ZQWiUYY7uMV6tB8s ENVjWLfag9C6tXX8U5As erIvye4fd9ncIXFi ELxoX37arROar6L0NXFh iJY8MFJifPrgJhBsnI51 Oyc+DHFmuQzoj8FuMemh c7hrm1ihmCw8JjJg UGBaluDpyAcaDQS7s9Bz Vi24B54kELkkEZMkOHWl PMRdLERgkOblya6hjA8f Ii8+SLEhlGN7nUJ0 bZ0xCdIcQfL8UTwkE899 UnMioDFbAgtai8wtx1yc vXk8GkQdSMMfoxIqvKmv SXO0i8DvCy27Y9Zh lSqzp2LnAih9ac24jULs b4E1rFS7J1ElCJRzhkkb mIPopSxoDN4cMOVtxtup DHEzkZ5kOTOnU5t4 RnHmIbF4UPozI3CkcxE4 BSIlyFCiIMQddDISsI4w nilot7bbjsljTzLcFPWp BGr0RPi4FEVocTtz VvYcELI2NeG2WCE4iPVj xV6wpTfdzsgpqZ4tPcu+ PPi9k5dulZWfQL8bqYK7 JI69PM64qGTqv3C4 cNW8K0SqEFOirhjkcgce qTV7IWTeKXSivS58Dz3c gZlmBz6zALDtDGQ9THXv uIAwU2ZcgG0wOrGj CAAmJRGdU7OrjTMzATxt N709FWctKnJ6RGSjdrHm X8QiUWVxdCpsKqK5l3B5 Vr5BMZ13TM19UI00 rLKri2M9qIQ1E7SqETSw gtltxcsyqFV6SVRjRHFr bF55Rq7xxTafGh3xYGZv YBF2YYBvhOLsO0Zk pP3pXjEdQARhQDZxL1If hFWpSWruZ791TXojCdV0 XHNsxfQdE6XsFXMijZuk SlB2p2E6Uy2PGs11 TE33LQ16mYLxx2V7fLE0 I2TlSDWrojcogwifkRA9 JJWfEMJvfJ82Ss7roOhp Ks3pXUMwYAC3QOJk gJYiJ5YxqX3cXgKnEXDk CUVoL0TibEVgAWguH833 RQctFdW0OPXfayGiS3Db CTZibDerRrE9e4T9 Op2VCEnbbak3M6LgTyni I+NZ73HDIoBY75tJYi nEBnd4vjjQy5DzEwQIXc HWQ4vQiaJHmzy3Sl ZXI (more content not included)... Normal [facility] ED Note - Physicianon 2024 ED Note - Physician Patient: SHANI WOLFF Age: 43 years Sex: FEMALE : 1980 Associated Diagnoses: Strain of left calf muscle Author: Amado Robertson MD Basic Information Time seen: Date & time 06/18/2024 11:24:00. History source: Patient. Arrival mode: Private vehicle. History limitation: None. Additional information: Chief Complaint from Nursing Triage Note : Chief Complaint 06/18/2024 10:40 EDT Chief Complaint Patient is having left lower leg pain that began while she was working yesterday. Patient does not recall a specific injury but believes she pulled a muscle. . History of Present Illness The patient presents with left, calf injury. The onset was 1 days ago. 43-year-old female presented to ER for evaluation of left calf pain. 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 She stated that yesterday, on uneven pavement, she had a twisting of her foot and ankle. She reported having sharp pain at the left calf area. Patient stated that she did not fall. She reported finishing her route. Since then, she noticed she had moderate pain, worse with exertion, localized to the left posterior calf region. No swelling. Patient is otherwise healthy. No recent antibiotics. No recent illness No previous injuries. Otherwise healthy Review of Systems Constitutional symptoms: No fever, no chills. Skin symptoms: No rash, no abrasions. Musculoskeletal symptoms: Muscle pain, no back pain, no Joint pain. Neurologic symptoms: No numbness, no tingling. Health Status Allergies: Allergic Reactions (Selected) No known allergies. Past Medical/ Family/ Social History Medical history: No active or resolved past medical history items have been selected or recorded., Reviewed as documented in chart. Surgical history: No active procedure history items have been selected or recorded., Reviewed as documented in chart. Family history: No family history items have been selected or recorded., Reviewed as documented in chart. Social history: Social & Psychosocial Habits Alcohol 06/18/2024 Alcohol Use: Never Substance Use 06/18/2024 Substance use: Never Tobacco 06/18/2024 Smoking tobacco use: Never tobacco user Electronic Cigarette/Vaping 06/18/2024 Electronic Cigarette Use: Never , Reviewed as documented in chart. Problem list: No qualifying data available , per nurse's notes. Physical Examination Vital Signs Vital Signs 06/18/2024 10:40 EDT Temperature Oral 36.8 DegC Peripheral Pulse Rate 68 bpm Respiratory Rate 20 br/min Systolic Blood Pressure 141 mmHg HI Diastolic Blood Pressure 91 mmHg HI SpO2 100 % Oxygen Therapy Room air . Measurements 06/18/2024 10:40 EDT Height 157.48 cm Weight 67.13 kg Weight Dosing 67.130 kg Body Mass Index Measured 27.07 kg/m2 . General: Alert, no acute distress. Skin: Warm, dry, intact. Head: Normocephalic, atraumatic. Eye: Normal conjunctiva. Cardiovascular: Normal peripheral perfusion, No edema. Respiratory: Respirations are non-labored. Musculoskeletal: Left lower extremity: Knee unremarkable. Mild tenderness posterior popliteal area. Mid calf tenderness. Achilles tendons, firm, intact, mildly tender to palpation into the mid body of the gastrocnemius, more medial than lateral. Foot ankle normal. Normal color. Normal vascularity. Neurological: Alert and oriented to person, place, time, and situation. Medical Decision Making Differential Diagnosis: Sprain, strain. 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 Strain type symptoms. Finding on exam, consistent with left calf strain. No other significant complexity noted. Knee normal. Ankle normal. Foot normal. Plan of care: Activity as tolerated, restrictions for work, sitting only. If not possible, off work until released by occupational health. Patient may follow-up with occupational health for reevaluation and return to work. [id number] analgesic as needed for pain. Patient understood regarding treatment plans and follow-up Impression and Plan Diagnosis Strain of left calf muscle ([id number] S86.812A, Discharge, Medical) Plan Condition: Stable. Disposition: Discharged: Time 06/18/2024 11:34:00, to home. Patient was given the following educational materials: Medial Head Gastrocnemius Tear, Medial Head Gastrocnemius Tear. Follow up with: ; [facility] Within 1 to 2 days Reviewed discharge care instruction. Continue with therapy as outlined by Dr. Robertson. Follow-up with occupational health for reevaluation and return to work Return to ER for any worsening symptoms especially any symptom that concerns you. . Counseled: Patient, Regarding diagnosis, Regarding treatment plan, Patient indicated understanding of instructions. [Electronically Signed on: 06/18/2024 12:31 EDT] (more content not included)... Normal [facility] Employee Health Noteon 06-18 Employee Health Note [id number] 0 [id number] #[email or web address] [facility] Employee Health Note [id number] #[email or web address] [facility] Laboratory - Microbiology an d Antimicrobial susceptibilityon 05-27-2024 SARS-CoV-2 (COVID-19) RNA YANETH+probe Ql (Unsp spec) Negative Negative [facility] No Panel Informationon 05-27 INFLUENZA A Negative Negative [facility] INFLUENZA B Negative Negative [facility] Interpretation and review of laboratory results Normal [facility] S. pyogenes DNA YANETH+probe No m (Unsp spec)on 05-27-2024 Interpretation and review of laboratory results Normal [facility] Healthcare RESULT Negative Negative [facility] Healthcare CBC AUTO DIFFon 05-23-2022 BASO # 0.1 103/ul Normal 0.0-0.1 [facility] Comment on above: Performed By: #### C BC #### [facility] [address] [place] [address] Dr. Miky Swift Basophils/100 WBC (Bld) 0.7 % Normal 0.2-2.0 [facility] Comment on above: Performed By: #### C BC #### [facility] [address] [place] [address] Dr. Miky Swift EO # 0.1 103/ul Normal 0.0-0.7 [facility] Comment on above: Performed By: #### C BC #### [facility] [address] [place] [address] Dr. Miky Swift Eosinophils/100 WBC (Bld) 0.9 % Normal 0.9-7.0 [facility] Comment on above: Performed By: #### C BC #### [facility] [address] [place] [address] Dr. Miky Swift Erythrocyte distribution width (RBC) [Ratio] 11.8 % Normal 11.0-15.0 [facility] Comment on above: Performed By: #### C BC #### [facility] [address] [place] [address] Dr. Miky Swift Hematocrit (Bld) [Volume fraction] 43.1 % Normal 36.0-48.0 [facility] Comment on above: Performed By: #### C BC #### [facility] [address] [place] [address] Dr. Miky Swift Hemoglobin (Bld) [Mass/Vol] 14.9 g/dL Normal 12.0-16.0 [facility] Comment on above: Performed By: #### C BC #### [facility] [address] [place] [address] Dr. Miky Swift IG # 0.02 10e3/ul Normal 0.00-0.03 [facility] Comment on above: Performed By: #### C BC #### [facility] [address] [place] [address] Dr. Miky Swift IG % 0.2 % Normal 0.0-0.5 [facility] Comment on above: Performed By: #### C BC #### [facility] [address] [place] [address] Dr. Miky Swift LYMPH # 1.3 103/ul Normal 1.2-3.8 [facility] Comment on above: Performed By: #### C BC #### [facility] [address] [place] [address] Dr. Miky Swift Lymphocytes/100 WBC (Bld) 12.2 % Critically low 20.5-60.0 [facility] Comment on above: Performed By: #### C BC #### [facility] [address] [place] [address] Dr. Miky Swift MANUAL DIFF REQ NO Normal [facility] Comment on above: Performed By: #### C BC #### [facility] [address] [place] [address] Dr. Miky Swift MCH (RBC) [Entitic mass] 29.7 pg Normal 26.7-34.0 [facility] Comment on above: Performed By: #### C BC #### [facility] [address] [place] [address] Dr. Miky Swift MCHC (RBC) [Mass/Vol] 34.6 g/dL Normal 29.9-35.2 [facility] Comment on above: Performed By: #### C BC #### [facility] [address] [place] [address] Dr. Miky Swift MCV (RBC) [Entitic vol] 86.0 fL Normal 81.0-99.0 [facility] Comment on above: Performed By: #### C BC #### [facility] [address] [place] [address] Dr. Miky Swift MONO # 0.5 103/ul Normal 0.3-0.8 [facility] Comment on above: Performed By: #### C BC #### [facility] [address] [place] [address] Dr. Miky Swift Monocytes/100 WBC (Bld) 4.8 % Normal 1.7-12.0 [facility] Comment on above: Performed By: #### C BC #### [facility] [address] [place] [address] Dr. Miky Swift NEUT # 8.8 103/ul Critically high 1.4-6.5 [facility] Comment on above: Performed By: #### C BC #### [facility] [address] [place] [address] Dr. Miky Swift Neutrophils/100 WBC (Bld) 81.2 % Critically high 43.0-75.0 [facility] Comment on above: Performed By: #### C BC #### [facility] [address] [address] [address] Miky Swift Platelet mean volume (Bld) [Entitic vol] 10.2 fL Normal 9.5-13.5 [facility] Comment on above: Performed By: #### C BC #### [facility] [address] [place] [address] Dr. Miky Swift PLT 303 103/ul Normal 150-450 [facility] Comment on above: Performed By: #### C BC #### [facility] [address] [place] [address] Dr. Miky Swift RBC 5.01 106/ul Normal 4.20-5.40 [facility] Comment on above: Performed By: #### C BC #### [facility] [address] [place] [address] Dr. Miky Swift WBC 10.9 103/ul Normal 4.0-11.0 [facility] Comment on above: Performed By: #### C BC #### [facility] [address] [place] [address] ABD/PELV W CONon [...] SHAKIR WHALEN Date: 2022-05-23 08:38 Normal [facility] ER URINE PROFILEon 3 Bilirubin Ql (U) Negative Normal NEGATIVE [facility] Comment on above: Performed By: #### E RUR #### [facility] [address] [place] [address] Dr. Miky Swift Clarity (U) CLEAR Normal CLEAR [facility] Comment on above: Performed By: #### E RUR #### [facility] [address] [place] [address] Dr. Miky Swift Color (U) LT. YELLOW Normal YELLOW [facility] Comment on above: Performed By: #### E RUR #### [facility] [address] [place] [address] Dr. Miky MOFFETTLaw A micrscopic examination will be performed if indicated. Normal [facility] Comment on above: Performed By: #### E RUR #### [facility] [address] [place] [address] Dr. Miky Swift Glucose Ql (U) Negative Normal NEGATIVE [facility] Comment on above: Performed By: #### E RUR #### [facility] [address] [place] [address] Dr. Miky Swift Hemoglobin Ql (U) Negative Normal NEGATIVE [facility] Comment on above: Performed By: #### E RUR #### [facility] [address] [place] [address] Dr. Miky Swift Ketones Ql (U) Negative Normal NEGATIVE [facility] Comment on above: Performed By: #### E RUR #### [facility] [address] [place] [address] Dr. Miky Swift LEUKOCYTES Negative Normal NEGATIVE [facility] Comment on above: Performed By: #### E RUR #### [facility] [address] [place] [address] Dr. Miky Swift Nitrite Ql (U) Negative Normal NEGATIVE [facility] Comment on above: Performed By: #### E RUR #### [facility] [address] [place] [address] Dr. Miky Swift pH (U) 7.0 [pH] Normal 5-9 [facility] Comment on above: Performed By: #### E RUR #### [facility] [address] [place] [address] Dr. Miky Swift SPEC GRAVITY 1.005 Normal 1.005-<=1.025 [facility] Comment on above: Performed By: #### E RUR #### [facility] [address] [place] [address] Dr. Miky Swift UA PROTEIN Negative Normal NEGATIVE/ TRACE [facility] Comment on above: Performed By: #### E RUR #### [facility] [address] [place] [address] Dr. Miky Swift UR MICRO IND NOT INDICATED Normal The [facility] Comment on above: Performed By: #### E RUR #### [facility] [address] [place] [address] Dr. Miky Swift Urobilinogen Qn (U) 0.2 {Jayy'U}/dL Normal 0.2 - 1. 0 [facility] Comment on above: Performed By: #### E RUR #### [facility] [address] [place] [address] Dr. Miky Swift PROF 14(COMP METB)on 023 Albumin [Mass/Vol] 3.8 g/dL Normal 3.4-5.0 [facility] Comment on above: Performed By: #### C MP #### [facility] [address] [address] [address] Miky Swift Albumin/Globulin [Mass ratio] 1.2 {ratio} Normal [facility] Comment on above: Performed By: #### C MP #### [facility] [address] [address] [address] Miky Swift ALP [Catalytic activity/Vol] 79 U/L Normal 46-116 [facility] Comment on above: Performed By: #### C MP #### [facility] [address] [address] [address] Miky Swift ALT [Catalytic activity/Vol] 25 U/L Normal 14-59 [facility] Comment on above: Performed By: #### C MP #### [facility] [address] [place] [address] Dr. Miky Swift Anion gap [Moles/Vol] 12.3 mmol/L Normal [facility] Comment on above: Performed By: #### C MP #### [facility] [address] [place] [address] Dr. Miky Swift AST [Catalytic activity/Vol] 18 U/L Normal 15-37 [facility] Comment on above: Performed By: #### C MP #### [facility] [address] [place] [address] Dr. Miky Swift Bilirubin [Mass/Vol] 0.9 mg/dL Normal 0.2-1.0 [facility] Comment on above: Performed By: #### C MP #### [facility] [address] [place] [address] Dr. Miky Swift Calcium [Mass/Vol] 8.8 mg/dL Normal 8.5-10.1 [facility] Comment on above: Performed By: #### C MP #### [facility] [address] [place] [address] Dr. Miky Swift Chloride [Moles/Vol] 107 mmol/L Normal 98-107 [facility] Comment on above: Performed By: #### C MP #### [facility] [address] [address] [address] Miky Swift CO2 [Moles/Vol] 27.5 mmol/L Normal 21.0-32.0 [facility] Comment on above: Performed By: #### C MP #### [facility] [address] [address] [address] Miky Swift Creatinine [Mass/Vol] 0.82 mg/dL Normal 0.55-1.02 [facility] Comment on above: Performed By: #### C MP #### [facility] [address] [address] [address] Miky Swift EGFR-AF CAMBODIAN >60 Normal >=60 [facility] Comment on above: Performed By: #### C MP #### [facility] [address] [address] [address] Miky Swift EGFR-NON AF CAMBODIAN >60 Normal >=60 [facility] Comment on above: Performed By: #### C MP #### [facility] [address] [address] [address] Miky Swift Globulin (S) [Mass/Vol] 3.3 g/dL Normal [facility] Comment on above: Performed By: #### C MP #### [facility] [address] [address] [address] Miky Swift Glucose [Mass/Vol] 99 mg/dL Normal 74-106 [facility] Comment on above: Performed By: #### C MP #### [facility] [address] [address] [address] Miky Swift Potassium [Moles/Vol] 3.8 mmol/L Normal 3.5-5.1 [facility] Comment on above: Performed By: #### C MP #### [facility] [address] [address] [address] Miky Swift Protein [Mass/Vol] 7.1 g/dL Normal 6.4-8.2 [facility] Comment on above: Performed By: #### C MP #### [facility] [address] [address] [address] Miky Swift Sodium [Moles/Vol] 143 mmol/L Normal 136-145 [facility] Comment on above: Performed By: #### C MP #### [facility] [address] [address] [address] Miky Swift Urea nitrogen [Mass/Vol] 10.0 mg/dL Normal 7.0-18.0 [facility] Comment on above: Performed By: #### C MP #### [facility] [address] [place], [place] [address] Dr. Miky Swift Urea nitrogen/Creatinine [Mass ratio] 12.2 mg/mg Normal [facility] Comment on above: Performed By: #### C MP #### [facility] [id number] Miky Swift US PELVIS TRANSVAGon 023 [...] JULIETA KHOURY Date: 2022-05-23 09:15 Normal [facility] Coding Summary.on 11-03-2021 Coding Summary. CD:[id number]+[id number]+PE1FV [id number] K0XFETQMMXBUV9XPE5ud DR2MQxuO3GpemSo JcmivNZnXC94LXm8EZR7 tDgcHQnthE1uzQEfW5o6 WjVxRT25pS19SCxfXXFs PfS7SjJdbhqjoLIg M5tmOdPvdHOuSrp+PHRh YmxlIHdpZHRoPScxMDAl BeBshFkkCP1iNq2iAKBa LWNvbGxhcHNlOiBj b3rnIBVxRNpvGJ0nrBrp W7AluGQ2MPXkj7p7Yf68 dHI+ONLkCJF6cIrwRKpp n563OxMwe6dxXRT4 oGGhNLjtSQD2N87no1X4 CHPyPRHwWRB0xPZ8zP9q kUhlmgzsN7JxiFDtPlP2 SVF2rHLyuH1ceDdi aeztiY2tAkv+N59CHM1G LCNHTW2DAyx2J9SyUssl dHI+SA97DXXlIE21aVAw pWLcr9hdmHq9VzXe SXOwRZC4nGscKSiik8Bg UNXtS42xtSXcu8S6NALs wFfxlXIqCaQgzPS9eC8e PCzetrmig3zgutpg Aajmq2ocdf35iA44C09h VWtpEWBrYGC3ITXoAIGy rUuyez8jcQ0oOf0+IDxj n1kpb2nwpVi9SlPf CVTkcpInhDxvXOC8d6Wv Op16P9RmtJjsj1UvNgi9 di81wPQsg4O5jXT3ZQkj AXQkwK8iLSwuXhN5 HPUpMbMzwM27sAMyPNcd Ya0sgCsubCerFQ5tVSYw qqmuZKLayZ8kAKXweYLo tWqsVP0fADXvndru j299XkIvBJD1SEWqbXRb J7NnoU8gFhJlUMReCIEl M5FnnHWeUMwxO063TPgy VeL9VLNrjdYfW3Hr EDKkkXxaDiQ6s5L7Qo8K u8VjrumxNHZ9OApoNHR7 XlN2GkGbIlJ0A1SvCym4 QTFiyQptSN7fT9Cc ZORibzurtnvfiHH7VWLe YKYqcS96eQJdCNfrIy9j t4M1s220PDCsCMYubU93 Xp2bnKlcOSUwuUIT wI8bwutzh8gqtehnTrTy SRVyZGw8SYl3BNIhbFgs HcEuYPR3YxX3NMH5wUHj yZ2wjZiqmprqvZ7d Oyc+Q68jrP7oBLC3IXZ5 griwABBddeKmMP87CV58 G9PsRhmnnQIxzUA+PGRp ngUwoNddYV3aOqHl n7dyh3HvTVpqO9LtDXIh KSbwIbu0BAAgSNS3qGM4 zN8uGEWeVVqys6O6pZC5 A5HxrcIrpx6vn1ww CUJwZUbhO63dpCMrh1A1 AOEgkZW1SSWyiJaaNhXe tN59Nwi+QCCjoUcik5Po Zcavk2ddp9cphXn6 IjMwJSIgdmFsaWduPSJ0 l5VlCi44W61oXRweEJBh OXQsDMTtYEJbgSkjbh9a rY5eVf2+PGNvbCB3 aDI2xN8aMQShQtD1NLhn Q679SrDjqCJzGahnl2xu z7jfmKq3SsXmYVYibgPr oVecPVC4a3QvSx45 C73vOGxiGOJkZSCnMKSu XXEeaUquao3eaA9qPx0+ SA3ia4ergr35pK02bVC+ PTLwGPD2nAklSHrt UGTtnV0wRJxmReH6TYOr HtQskO36oXIxFYqfIb2a wYejvActTW3xYWPjuast m166GmAyu3pcJDYa sYJhIDfmWKT5A36wz5E5 EKBcMBAxMLL5vGL9yK5w bGlnbjogbGVmdDsgdmVy mVdpARrtXDwdI755 IHRvcDsnPlBhdGllbnQg ZrFrEQo3D2VhSip3WFCl nGesCW1gvJRrQKekPx8a zSjcxVhqAV3yBGLm nhgrx573XmPif0xkDZYd rSYwNJwwHHX0Y81qj9V7 UNHnECSeBML3vRU2jF7r bGlnbjogbGVmdDsg omLxlYmxTSsqHYjdK623 IHRvcDsnPkJpcnRoIERh rZJ6RO22OY42pJSpn6P7 jMC5Q0EqGPRrsiws biwwdRV0ZGCnFXNhbE39 Al9fgIorNg3iVTIdBYQ3 FGWyjFEhT0MyqL2mUwJl QVOvCTQpA6AlvCCm OGguE738LWkhMwC2HFPt cgBzI1FfPBVjnXioWyN5 n5U5Ir9LQ5Z6GU49SR45 zKDci8A9qQG5R5Pb MNFdfusiljmahSO7OFDh WSEnsY85Mb0jeWslBs2f OQMnTBJ8FNOkyUOrB8Vm sK2dJiOlDRDqJPGz E4XdtXDcDNbwL412CZvd AsU2TOJagqUrL1HkARDa dDroYsZ8h6R6Us8PROw9 MJ21EC98xZVws3I9 zWW2H2WrGMKmxjbvfqof tZB9VHRwJZDtrP18Tk6r qQytEs2pICIvUFF1XGGc eOTmP6YxnE1dBqAd GHTvWPBrP0MtfLFpJNzd F368DCfdQpB9XQXwxdQq P7XzSVChqHlkObZ7y0P7 Gt5VRWCgLM31YUX1 vBW5AX14TL40R4RbWdjy dGFibGU+PHRhYmxlIHdp ZHRoPScxMDAlJyBzdHls UI3uSf5cDVTyPASx iYjzqAVxZgIem8hcXJVk BDbuRV5abWtyA0MjwYQ7 ZLXrv0w1Qq18H58nO6Yj dXA+UTBzzLV3tBU6 qO3fGyVyAgB5SGxsO381 DqHzdORiRvsoi0ygi1xw xGa1QzI5CYKlmfQozSan EMZ1f6EyVa44E40t IHdpZHRoPSIxNSUiIHZh hZhzgo5ycU1nOr4+PGNv yLA6jRA7xG7dJpKxVqW9 NJemG913YnUvtSSs Mtfux2mab1numAe0CgUd VJTxewNhyZkbMAG6e5Ld Oj59E1KxlZsom1RfDil3 tg74dTXia6Q6rOX6 P1JsZGSnhxfjwTAiqKqm LW1wUUWxdmwzGJHspD4t GJTbA0f1ItUcCoA8PXez D4SxvuF0MBCbbKTr NKliODE4T50no0A3JXEk FEXkDQX4eMW1cF4biHca bjogbGVmdDsgdmVydGlj WJpdGEwzV126KOXv bRkoVOKsjC1kBLRszEMh nTlrGP1fTEXjkvxqPmCH JO6DMMPUHKUyBQgOJSFT WTwvdGQ+PHRkIHN0 jUjeXSccSDWsgU5yLLOw R5k8KuAdVhY3JMqqV1Bk OJGsdbrhWz50tB4mJnSh DlK8DUefL6LjgcT7 PXMqlMKjHVyhPUB8N37j n8G8QPFlNWKlBHN1cQN8 cM9tkIgsosxkoUQfsXik dmVydGljYWwtYWxp L103HRXerIaeSoS6OtRz HzB9VLH0T3VcYsf2XZBx uXriEX0nzNPgZTspKx9i vGsxgEmdUO6vZHFn vkjhOFJsyL4cTCBmnRXc kOknER2qXJBbthkns029 SlVmLIA0IYXqdAStK1Be hK1wQtSqTOJeORVb N7TblBHmHValW481JAij PvQ0LYSuajNuW4EbKEFa dBrwEuU9y8Y6Xn43WrXP ZWFyczwvdGQ+PHRk OTO8oYctAKiiAAXvbL2e VPZdV9i1NiWrIjK8YUjm R8NrIRWdarrcJn49eE4p DiSeJaZ2XBimS4Or jxV0ZFAvqRLzHFcyGSD1 E69wo2C9HJCsLOWlINV1 wFN8kC0bdAxowkbscZUe dDsgdmVydGljYWwt OPtwJ225DRTzqKxoMgNp bWFsZTwvdGQ+PHRkIHN0 iOrtHQyeXHZjjX1gNCOf B5y9UsUzIzL7AWoi R5WuIIRqqqjtUs26xN1w JtHhCfV4QLevJ8HsetK0 ISAkyYDfOVuqPOI2K82r z4D3ZAAcIZDjOBN8 ySC0yS0slOwmpntfyLEj dDsgdmVydGljYWwtYWxp U166OGJaoKyqCn66xBSv iKzarcH6Y8XfCuxh dHI+US13XBHaFV57fCOb cFWil7efyJz0JyYzZHZk QUW4hKivMTvyc4PuPTSb H82lmGKwa1K8YWQz kKiskGIdZtKihBR5gD5a RGwikcyfq3zjycqeHfhp r7etnx43tT84Z54uCPaj ZHRoPSIzMCUiIHZh zWncqc1bgR0cLl7+PGNv qJB2iDP9dJ7vKuBiMmR4 KBeeD392ElGbgINpIajc y7ubx9ajnPc5EqUz CPIggpTyaWnoXYH9q4Lr Vy81C16rHHqrMTGrXJXo ZDFxCLNkuUopac1bcG1w Ii8+OT2xe1xwon36 zG01bGW+KAUbWZE6yUgp SOovLBAmrM8iXKfkSyG6 WDLnWkWnpR44sQScURzc Lh4vfHljcPerYO2b IRIllkspc567HdScu5hy WUVlcBPmRWyaIEU2U84f q1B6JRLtLYKfISZ6lLJ7 gA8thEtvbjzhoENp dDsgdmVydGljYWwtYWxp G139OQKpuJwkPpOcgTBx E3xsdmSKKT8oPiwlpMN+ KRVfKNM6fZwzHHql LUOhjD6xBXJtX9o8BhCv UgO6FCrsY7QnrmO1DUMw fYQaAMAwaNQKhT2sxrlk o7towpatJxLdVHAk PAl9EKm2ZJOpvDncTfTf PQH2ZlT8NUR6yUPujJ5g nJlzhhfzaO7pKpt+RklO OjwvdGQ+PHRkIHN0 uCrsRPjnTPGutG4lTXDh F9e6DmEkOcH8CMlxW3Um bcX9EKIykTGdSCAadCRA kS3tlbtsm7luhgbp LlKyINDhZSl2IHs3RCFr sMbfGfPiBBA2GwT6NGU5 cEAshE4arNvcsbgbiS4c Oyc+TVJOOjwvdGQ+ BYXvBTZ6iSobGUxtIODi cS7iARYoN5u0DoMxLpN8 UBpmA7ZawmI2OETleOEw TPBvoJLTkW5vrukd j8crmjypSjWfLFYsECr4 NRc9BSFskPwhUjEuIMK1 LuO5BYZ5gNUtnI6urVxl vimbxR4oVyu+UGF5 SSR4SJ40UB70O2VjTuhw dGFibGU+PHRhYmxlIHdp ZHRoPScxMDAlJyBzdHls QG8mRv1pYLSqHDEj bGxh (more content not included)... Normal [facility] CBC w/Indiceson 11-01-2021 Erythrocyte distribution width (RBC) [Ratio] 12.7 % Normal 10.9-14.2 [facility] Comment on above: Performed By: #### 2 [id number] #### [facility] [address] [place] [address] Hematocrit (Bld) [Volume fraction] 41.6 % Normal 34.0-46.0 [facility] Comment on above: Performed By: #### 2 [id number] #### [facility] [address] [place] [address] Hemoglobin (Bld) [Mass/Vol] 14.4 g/dL Normal 12.0-16.0 [facility] Comment on above: Performed By: #### 2 [id number] #### [facility] [address] [place] [address] MCH (RBC) [Entitic mass] 30.2 pg Normal 27.0-34.0 [facility] Comment on above: Performed By: #### 2 [id number] #### [facility] [address] [place] [address] MCHC (RBC) [Mass/Vol] 34.7 g/dL Normal 31.4-36.0 [facility] Comment on above: Performed By: #### 2 [id number] #### [facility] [address] [place] [address] MCV (RBC) [Entitic vol] 87.0 fL Normal 80.0-100.0 [facility] Comment on above: Performed By: #### 2 [id number] #### [facility] [address] [place] [address] Platelet mean volume (Bld) [Entitic vol] 8.6 fL Normal 6.4-10.8 [facility] Comment on above: Performed By: #### 2 [id number] #### [facility] [address] [place] [address] Platelets (Bld) [#/Vol] 279.0 E9/L Normal 150.0-500.0 [facility] Comment on above: Performed By: #### 2 [id number] #### [facility] [address] [place] [address] RBC (Bld) [#/Vol] 4.8 E12/L Normal 4.3-5.9 [facility] Comment on above: Performed By: #### 2 [id number] #### [facility] [address] [place] [address] WBC corrected for nucl RBC Auto (Bld) [#/Vol] 5.7 E9/L Normal 4.0-11.0 [facility] Comment on above: Performed By: #### 2 [id number] #### [facility] [address] [place] [address] Consent for Treatmenton Consent for Treatment [id number] #[id number]:127 Normal [facility] HEMATOLOGYOrdered By: Aquiles Lambert on 11-01-2021 Erythrocyte [...] 4.8 E12/L Normal 4.3 - 5.9 E12/L [facility] HemeAutoSS WBC corrected for nucl RBC Auto (Bld) [#/Vol] 5.7 E9/L Normal 4.0 - 11.0 E9/L [facility] HemeAutoSS Physician Orderon 11-01-2021 Physician Order [id number] #1.00CD:127 Normal [facility] Physician Order [id number] #1.00CD:127 Normal [facility] PAP ACOG PANEL 2: 30 to 65on 07-17-2021 . . Normal [facility] Comment on above: Result Comment: Perf ormed at: WB Performed By: #### [id number] #### [facility] [address] [address] [address] Miky Swift Age Gdln ACOG Testing 30-65 [facility] Comment on above: Performed By: #### [id number] #### [facility] [address] [address] [address] Miky Swift DIAGNOSIS: Comment Normal [facility] Comment on above: Result Comment: NEGA TIVE FOR INTRAEPITHELIAL LESION OR MALIGNANCY. Performed at: [facility] Performed By: #### 4 [id number] #### [facility] [address] [address] [address] Miky Swift HPV Aptima Negative Normal Negative [facility] Comment on above: Result Comment: This nucleic acid amplification test detects fourteen high-risk HPV types (16,18,31,33,35,39,45,51,52,56,58,59,66,68) without differentiation. Performed at: =G Performed By: #### [id number] #### [facility] [address] [address] [address] Miky Swift Methodology: Comment Normal [facility] Comment on above: Result Comment: This liquid based ThinPrep(R) pap test was screened with the use of an image guided system. Performed at: WB Performed By: #### 4 [id number] #### [facility] [address] [address] [address] Miky Swift Note: Comment Normal [facility] Comment on above: Result Comment: The Pap smear is a screening test designed to aid in the detection of premalignant and malignant conditions of the uterine cervix. It is not a diagnostic procedure and should not be used as the sole means of detecting cervical cancer. Both false-positive and false-negative reports do occur. . Performed at: [facility] Performed By: [id number] #### [facility] [address] [place] [address] Dr. Miky Swift Performed by: Comment Normal [facility] Comment on above: Result Comment: Caitlin Connors, Registered Nurse Maternal Child (ASCP) Performed at: [facility] Performed By: [id number] #### [facility] [address] [address] [address] Miky Swift Specimen adequacy: Comment Normal [facility] Comment on above: Result Comment: Sati sfactory for evaluation. No endocervical component is identified. Performed at: [facility] Performed By: [id number] #### [facility] [address] [place] [address] Dr. Miky Swfit Vital Signs Date Time Vital Sign Value Performing Clinician Facility 10-12-2024 10:31-0400 Body mass index (BMI) [Ratio] 25.75 kg/m2 Raymundo Rachid DO Work Phone: [facility] 10-12-2024 10:31-0400 Body weight 63.87 kg Raymundo Rachid DO Work Phone: [facility] 10-12-2024 10:31-0400 Diastolic blood pressure 70 mm[Hg] Raymundo Rachid DO Work Phone: [facility] 10-12-2024 10:31-0400 Systolic blood pressure 126 mm[Hg] Raymundo Rachid DO Work Phone: [facility] 05-27-2024 09:33-0400 Body mass index (BMI) [Ratio] 27.07 kg/m2 Aixa Hwang [employer] Work Phone: [facility] 05-27-2024 09:33-0400 Body temperature 97.81 [degF] Aixa Hwang [employer] Work Phone: [facility] 05-27-2024 09:33-0400 Body weight 67.13 kg Aixa Hwang [employer] Work Phone: [facility] 05-27-2024 09:33-0400 Diastolic blood pressure 74 mm[Hg] Aixa Hwang [employer] Work Phone: [facility] 05-27-2024 09:33-0400 Heart rate 77 /min Aixa Hwang [employer] Work Phone: [facility] 05-27-2024 09:33-0400 Respiratory rate 20 /min Aixa Hwang [employer] Work Phone: [facility] 05-27-2024 09:33-0400 SaO2% (BldA) [Mass fraction] 99 % Aixa Hwang [employer] Work Phone: [facility] 05-27-2024 09:33-0400 Systolic blood pressure 122 mm[Hg] Aixa Hwang [employer] Work Phone: [facility] 03-16-2024 09:07-0500 Diastolic blood pressure 84 mm[Hg] Julieta Joyh DO Work Phone: [facility] 03-16-2024 09:07-0500 Heart rate 72 /min Julieta Tracyroh DO Work Phone: [facility] 03-16-2024 09:07-0500 Respiratory rate 16 /min Julieta Degroh DO Work Phone: [facility] 03-16-2024 09:07-0500 SaO2% (BldA) [Mass fraction] 99 % Julieta Tracyroh DO Work Phone: [facility] 03-16-2024 09:07-0500 Systolic blood pressure 128 mm[Hg] Julieta Tracyroh DO Work Phone: [facility] 03-16-2024 07:17-0500 Body height 158.75 cm Julieta Joyh DO Work Phone: [facility] 03-16-2024 07:17-0500 Body weight 67.13 kg Julieta Joyh DO Work Phone: [facility] 01-08-2024 13:09-0500 Body height 158.[address] [facility] 01-08-2024 13: Body mass index (BMI) [Ratio] 58.3 kg/m2 [facility] 01-08-2024 13: Body weight [address] [facility] Encounters Encounter Date Encounter Type Care Provider Facility Start: 10-12-2024 End: 10-12-2024 Bamboo flowsheet Raymundo Rachid DO Work Phone: [facility] Start: 10-12-2024 End: 10-12-2024 Bamboo flowsheet Raymundo Rachid DO Work Phone: [facility] Start: 10-12-2024 End: 10-12-2024 Patient encounter procedure Raymundo Rachid DO Work Phone: [facility] Work Phone: Start: 10-12-2024 End: 10-12-2024 Periodic preventive med est patient 40-64yrs Raymundo Rachid DO Work Phone: [facility] Comment on above: Well woman exam with routine gynecological exam; Breast cancer screening by mammogram Start: 09-07-2024 End: 09-07-2024 Bamboo flowsheet Raymundo Rachid DO Work Phone: [facility] Start: 09-07-2024 End: 09-07-2024 Bamboo flowsheet Raymundo Rachid DO Work Phone: [facility] Start: 08-13-2024 End: 08-13-2024 ambulatory JULIETA TAYLOR Facility:[facility] Start: 07-30-2024 End: 07-30-2024 ambulatory JULIETA TAYLOR Facility:[facility] Start: 07-21-2024 End: 07-21-2024 ambulatory JULIETA TAYLOR Facility:[facility] Start: 07-07-2024 End: 07-07-2024 ambulatory Magnus Holland Facility:[facility] Start: 06-30-2024 End: 06-30-2024 [facility]ulatory [facility] Start: 06-23-2024 End: 06-23-2024 ambulatory JULIETA TAYLOR Facility:[facility] Start: 06-18-2024 Emergency department patient visit JULIETA TAYLOR Facility:[facility] Start: 05-27-2024 End: 05-27-2024 ambulatory AIXA HWANG Not Available Start: 05-27-2024 End: 05-27-2024 Office outpatient visit 25 minutes Aixa Hwang BODY LINER Work Phone: [facility] Comment on above: Acute cough (Primary Dx); Pharyngitis, unspecified etiology; Bronchitis Start: 03-16-2024 Non-patient / Non-visit Julieta Taylor DO Work Phone: [facility] Work Phone: Start: 03-16-2024 End: 03-16-2024 Admission to same day surgery center Julieta Taylor DO Work Phone: [facility] Work Phone: Start: 03-16-2024 End: 03-16-2024 ambulatory Julieta Taylor DO Work Phone: [facility] Work Phone: Start: 01-08-2024 End: 01-08-2024 ambulatory [facility] Work Phone: Start: 01-08-2024 End: 01-08-2024 Patient encounter procedure [facility] Work Phone: Start: 05-23-2022 End: 05-23-2022 ambulatory NAT ROSALES Facility:[facility] Start: 11-01-2021 End: 11-01-2021 Patient encounter procedure Mack Walker [facility] Start: 10-02-2021 End: 11-02-2021 Pre-admission assessment Mack Walker [facility] Start: 07-11-2021 End: 07-11-2021 ambulatory NAT ROSALES Facility:[facility] Start: 07-10-2021 End: 07-10-2021 ambulatory NAT ROSALES Facility:[facility] Start: 06-14-2021 ambulatory NAT CONNIE Facility: [facility] Procedures Date Procedure Procedure Detail Performing Clinician Start: 05-27-2024 End: 05-27-2024 Infectious agent dna/rna influenza 1st 2 types Rey De Luna DO Work Phone: Start: 05-27-2024 Sars-cov-2 detection by dna/rna Rey De Luna DO Work Phone: Start: 03-16-2024 Colonoscopy Julieta Guillen oh DO Work Phone: Start: 09-04-2023 Microscopic observat ion [Identifier] in Cervix by Cyto stain Aixacandis Hwang BODY LINER Work Phone: Plan of Treatment Date Care Activity Detail Author Start: 10-06-2027 Screening for malignant neoplasm of cervix [facility] Start: 09-03-2026 Screening for malignant neoplasm of cervix Pap Smear [facility] Start: 10-26-[address] [facility] Start: 10-12-2024 End: 12-12-2025 MG Breast - bilateral Screening Bilateral screening mammogram Imaging Routine Breast cancer screening by mammogram Expected: 10/12/2024 (Approximate), Expires: 12/12/2025 [facility] Work Phone: Comment on above: Expected: 10/12/2024 (Approximate), Expires: 12/12/2025 Start: 10-12-2024 End: 10-12-2024 Patient encounter procedure 10/12/2024 10:30 AM EDT Office Visit [facility] HEAD[facility] [address] [place] [address] Raymundo Rashid DO [address] [place] [address] Arrived [facility] Comment on above: Arrived Start: 09-07-2024 End: 09-07-2024 Patient encounter procedure [facility] Comment on above: Arrived Start: 03-16-2024 [facility] Start: 2019 Screening for malignant neoplasm of breast Mammogram [facility] Start: 1979 Screening for malignant neoplasm of colon [facility] CT Abdomen and Pelvi s W contrast IV [facility] Elastase.pancreatic [Mass/mass] in Stool [facility] Patient Education Hemorrhoids Diverticulosis Know your Meds [facility] Work Phone: THIN PREP TIS PAP AN D HR HPV DNA THIN PREP TIS PAP AND HR HPV DNA Pathology and Cytology Routine Well woman exam with routine gynecological exam Ordered: 10/12/2024 [facility] Comment on above: Ordered: 10/12/2024 [facility] Payers Date Payer Category Payer Self-pay 2024 Private Health Insurance [id number] 2024 Private Health Insurance [id number] 1979 Unknown [id number] 2.16.84 [id number] 1979 Unknown [id number] 2.16.84 [id number] 1979 Unknown [id number] 2.16.84 [id number] 1979 Unknown [id number] 2.16.84 [id number] 1979 Unknown [id number] 2.16.8 [id number] 1979 Unknown [id number] 2.16.8 [id number] 1979 Unknown [id number] 2.16.8 [id number] 1979 Unknown [id number] 2.16.8 [id number] 1979 Unknown [id number] 2.16.8 [id number] 1979 Unknown [id number] 2.16.8 [id number] 1979 Unknown [id number] 2.16.84 [id number] 1959 Unknown [id number] 1959 Worker's Compensation [id number] Unknown [id number] 2.16.8 [id number] Social History Date Type Detail Facility Tobacco smoking status No Smokin g Status Entered [facility] Start: 05-27-2024 Sex Assigned At Female F [facility] Start: 01-08-2024 Tobacco smoking stat us ARIS Tobacco smoking consumption unknown (finding) [facility] Start: 01-08-2024 End: 03-16-2024 Sex Female (finding) [facility] Start: 1980 Sex Assigned At Female F [facility] Start: 09-18-2022 End: 03-16-2024 Tobacco smoking status ARIS Never smoked tobacco (finding) [facility] Start: 09-18-2022 Tobacco use and exposure Smokeless tobacco non-user [facility] Start: 05-27-2024 End: 10-12-2024 Alcoholic beverage intake Ex-drinker (finding) [facility] Start: 05-27-2024 History of Social function [facility] Start: 1980 Sex assigned at Not on file [facility] Goals Date Patient Goal Desired Activity /State Clinical Notes 05-14-2022 to 10-12-2024 Natasha Smart LPN - 10/12/2024 10:30 AM EDTLindcandis Hwang NP - 05/27/2024 9:30 AM EDT Note Date & Type Note Facility 10-12-2024 History of Presen t illness Narrative Reason for Appointment: Patient ID: Shani Wolff [...] nursing note reviewed. Exam conducted with a design architect present. Vitals: Estimated body mass index is 25.75 kg/m as calculated from the following: Height as [...] for annual unless needed otherwise. Documented by aNtasha Smart LPN on behalf of: Raymundo Rashid DO documented in this encounter [facility] 06-18-2024 Note [employer] [facility] Medial Head Gastrocnemius Tear Medial head gastrocnemius tear, also called tennis leg, is an injury to the inner (medial) part of the calf muscle. This injury may include overstretching of the muscle or a partial or complete tear. This is a common sports injury. Calf muscle tears usually occur near the back of the knee. This often causes sudden pain and muscle weakness. What are the causes? This condition is caused by forceful stretching or strain on the calf muscle. This usually happens when you forcefully push off of your foot. It may also happen if you forcefully straighten your knee while your foot is flat on the ground. What increases the risk? The following factors may make you more likely to develop this condition: ? Being male and older than age 40. ? Playing sports that involve: ? Quick increases in speed and changes of direction, such as in tennis and soccer. ? Jumping. ? Running, especially uphill or on uneven ground. What are the signs or symptoms? Symptoms of this condition include: ? Sudden pain in the back of the leg. You may hear a noise, like a pop or a snap at the time of injury. ? Pain that gets worse when you bring your toes up or when you straighten your knee. ? Pain on the inside of your calf, from your knee to your ankle. ? Pain when pressing on your calf muscle. ? Swelling and bruising along your calf and lower leg, down to your ankle. This may worsen for the first 2 days before getting better. ? Not being able to rise up on your toes, or pain when doing so. ? Difficulty pushing off your foot when walking or using stairs. How is this diagnosed? This condition may be diagnosed based on: ? Your symptoms and medical history. ? A physical exam. Your health care provider may be able to feel a lump or a defect in your muscle. ? An MRI or ultrasound to determine the severity and exact location of your injury. How is this treated? Treatment for this condition may include: ? Resting the muscle and keeping weight off your leg for several days. During this time, you may use crutches or another walking device. ? Using a splint to keep your ankle or knee in a stable position. ? Wearing a walking boot to decrease the use of your gastrocnemius muscle. ? Using a wedge under your heel to reduce stretching of your healing muscle. ? Wearing a compression sleeve around your calf muscle. ? Taking medicine for pain and swelling, such as NSAIDs or steroids. ? Taking medicine for muscle spasms. Follow these instructions at home: Medicines ? Take [id number] and prescription medicines only as told by your health care provider. ? Ask your health care provider if the medicine prescribed to you requires you to avoid driving or using heavy machinery. ? Talk with your health care provider before you take any medicines that contain aspirin. Aspirin increases your risk for bleeding at the injured area. If you have a removable splint, boot, or compression sleeve: ? Wear it as told by your health care provider. Remove it only as told by your health care provider. ? Check the skin around it every day. Tell your health care provider about any concerns. ? Loosen the splint, boot, or sleeve if your toes tingle, become numb, or turn cold and blue. ? Keep the splint, boot, or sleeve clean and dry. ? If the splint, boot, or sleeve is not waterproof: ? Do not let it get wet. ? Cover it with a watertight covering when you take a bath or shower. Managing pain, stiffness, and swelling ? If directed, put ice on the injured area. ? If you have a removable splint, boot, or sleeve, remove it as told by your health care provider. ? Put ice in a plastic bag. ? Place a towel between your skin and the bag. ? Leave the ice on for 20 minutes, 2?3 times a day. ? Remove the ice if your skin turns bright red. This is very important. If you cannot feel pain, heat, or cold, you have a greater risk of damage to the area. ? Move your toes often to reduce stiffness and swelling. ? Elevate the injured area above the level of your heart while you are sitting or lying down. Activity ? Return to your normal activities as told by your health care provider. Ask your health care provider what activities are safe for you. ? Do not use the injured limb to support your body weight until your health care provider says that you can. Use crutches as told by your health care provider. ? Do leg exercises as told by your health care provider or physical therapist. ? Return to sporting activity gradually and only as told by your health care provider or physical therapist. Full recovery may take several months. General instructions ? Ask your health care provider when it is safe to drive. ? Do not use any products that contain nicotine or tobacco. These products include cigarettes, chewing tobacco, and vaping devices, such a (more content not included)... [facility] 05-27-2024 History of Presen t illness Narrative Images from the original note were not included. [address] , [address] [facility], [address] P: [phone] F: [phone] [facility] Historian of HPI: patient Shani Wolff is a 43 y.o. female who presents today to the Urgent Care with the following complaints and denials which have been present for 6 day(s). Pt states that on of last week her sx started. Pt states that she started with a sore throat and then a cough started. Pt denies any N/D/V at this time. Pt normally does not get sick and denies seasonal allergies. C/O Denies Symptom Comments [x] [] Runny Nose [] [x] Difficulty Swallowing [x] [] Sore Throat [x] [] Cough [x] [] Ear Pain Bilateral ear pain [] [x] Fever [] [x] Chills [x] [] Nasal Congestion [] [x] Myalgia [] [x] Sinus Pain [x] [] Sinus Pressure Additional Comments: pt has taken ibuprofen, Tylenol, clartin D, cough medication OTC medication with relief ROS A complete system ROS was performed and negative aside from the pertinent positives noted in the HPI and PE. Visit Vitals BP 122/74 (BP Location: Left arm, Patient Position: Sitting, BP Cuff Size: Small adult) Pulse 77 Temp 97.8 F (Temporal) Resp 20 Wt 148 lb SpO2 99% BMI 27.07 kg/m Smoking Status Never BSA 1.71 m IH Testing: The following tests were performed PCR Strep Test PCR Flu Test PCR COVID Test SEE TEST(S) ORDERS FOR RESULTS PHYSICAL EXAM Physical Exam Vitals reviewed. Constitutional: General: She is not in acute distress. Appearance: Normal appearance. HENT: Head: Normocephalic and atraumatic. Right Ear: Hearing, tympanic membrane, ear canal and external ear normal. Left Ear: Hearing, tympanic membrane, ear canal and external ear normal. Nose: Nasal tenderness and congestion present. Right Turbinates: Enlarged and swollen. Left Turbinates: Enlarged and swollen. Mouth/Throat: Lips: [place]. Mouth: Mucous membranes are moist. Pharynx: Oropharynx is clear. Uvula midline. Posterior oropharyngeal erythema and postnasal drip present. Tonsils: 2+ on the right. 2+ on the left. Eyes: Extraocular Movements: Extraocular movements intact. Conjunctiva/sclera: Conjunctivae normal. Pupils: Pupils are equal, round, and reactive to light. Cardiovascular: Rate and Rhythm: Normal rate and regular rhythm. Pulses: Normal pulses. Heart sounds: Normal heart sounds. Pulmonary: Effort: Pulmonary effort is normal. No respiratory distress. Breath sounds: No wheezing, rhonchi or rales. Musculoskeletal: General: Normal range of motion. Cervical back: Normal range of motion and neck supple. Skin: General: Skin is warm and dry. Findings: No rash. Neurological: General: No focal deficit present. Mental Status: She is alert and oriented to person, place, and time. Psychiatric: Mood and Affect: Mood normal. TREATMENT PLAN 1. Pharyngitis, unspecified etiology COVID, flu, and strep testing are all negative in . Will treat with ATBx given duration of sx. Medication, implications, and side effects discussed. Report any side effects to PCP immediately. Take with food. Change or sterilize toothbrush 24 hours after starting ATB. OTC meds symptomatically and push fluids. The patient will let us know if sx worsen, change, or fail to improve in the next 5-7 days. Signs/symptoms and red flags of when to seek emergent medical attention discussed. Patient expressed an understanding. - INFLUENZA DNA PROBE - RAPID DNA COVID - STREP DNA PROBE - azithromycin (Zithromax) 250 MG tablet; Take 1 tablet (250 mg) by mouth Daily Take 2 tabs on day 1 and 1 tab on days 2-5 then stop Dispense: 6 tablet; Refill: 0 2. Acute cough (Primary) New medication as directed. Acetaminophen or Ibuprofen for reduction of fever and pain. Increase fluids. Good handwashing. Discussed warning signs of worsening infection and when to report to ER. New toothbrush in 24 hours. Call office if symptoms have not started to improve within the next 72 hours. Patient verbalized understanding of instructions. - azithromycin (Zithromax) 250 MG tablet; Take 1 tablet (250 mg) by mouth Daily Take 2 tabs on day 1 and 1 tab on days 2-5 then stop Dispense: 6 tablet; Refill: 0 3. Bronchitis -Take medication as prescribed below to completion -cough and deep breathe -May use Tylenol/Ibuprofen for pain/fever -May use OTC medication such as cough syrups especially at night time for relief, pseudoephedrine for nasal congestion, and/or Roxanne Pot or saline rinses. -Follow up with in 1 week if no improvement or go to the ED for worsening of symptoms such as SOB or CP. School note provided. - azithromycin (Zithromax) 250 MG tablet; Take 1 tablet (250 mg) by mouth Daily Take 2 tabs on day 1 and 1 tab on days 2-5 then stop Dispense: 6 tablet; Refill: 0 documented in this encounter [facility] 03-16-2024 Procedure note [facility] 03-16-2024 History and physical note [facility] 01-08-2024 Evaluation note Authored January 08, 2024 [...] panel, fecal elastase and stool infectious workup [facility] Work Phone: [phone]) 594-393903-20-2023 Evaluation note* Author [facility] Authored January 08, 2024 1:24pm 43-year-old female [...] panel, fecal elastase and stool infectious workup [facility] Work Phone: Evaluation + Plan note No data available for this section [facility] Acute cough- Primary Pharyngitis, unspecified etiology Bronchitis Bronchitis, not specified as acute or chronic [facility] Diagnosis Well woman exam with routine gynecological exam Routine gynecological examination Breast cancer screening by mammogram documented [facility] this [facility] Author [facility] Note Date/Time March 16, 2024 8 :38am [facility] [address] [place] [address] Gastroenterology H&P Signed Patient: Shani Wolff MR#: [id number] : 1980 Acct:[id number] Age/Sex: 43 / F Adm Date: 5 Loc: Room: Type: [facility] Attending Dr: Vipin Molina MD Copies to: [...] <Electronically signed by Vipin Molina MD> 03/16/24 [id number] [facility] Work Phone: Hospital Discharge instructions No data available for this section [facility] Additional Instructions DISCHARGE INSTRUCTIONS FOR [...] years. -Follow up with PCP. -Office number [phone]. [facility] Work Phone: Progress note No data available for this section [facility] Summary Purpose Family History Relationship Condition Age at Onset Recorded Date/T mary maternal grandmother Chronic obstructive pulmonary disease Unknown paternal grandfather Heart disease Unknown Myocardial infarction Unknown brother Diverticulitis Unknown Advance Directives Advance Directive Response Recorded Date/ Time Advance [...] Care Provider Active Start: March 16, 2024 Support Analyst Relationship Specialty Start Date End Date Nat Rosales MD [address] [place], [place] [id number] Referring Physician Family Medicine 09/18/22 Support Analyst Relationship Specialty Start Date End Date Nat Rosales MD [address] [place], [place] [id number] Referring Physician Family Medicine 09/18/22 Support Analyst Relationship Specialty Start Date End Date Nat Rosales MD [address] [place], [place] [phone] Referring Physician Family Medicine 09/18/22 Support Analyst Relationship Specialty Start Date End Date Nat Rosales MD [address] [place], [place] [id number] Referring Physician Family Medicine 09/18/22 INFORMATION SOURCE (unrecogn ized section and content) DATE CREATED AUTHOR 11/04/[address] [facility] DATE CREATED AUTHOR AUTHOR'S MARA ATION 05/27/2022 [facility] DATE CREATED AUTHOR AUTHOR'S ORGANIZ ATION 04/16/2024 [facility] DATE CREATED AUTHOR AUTHOR'S ORGANIZ ATION 08/18/2024 [facility] DATE CREATED AUTHOR AUTHOR'S ORGANIZ ATION 09/10/2024 [facility] EPIC Goals (unrecognized section and content) Goals may be documented in a n alternate section Reason for Visit (unrecogniz ed section and content) Reason Comments Well Women Visit FOR RECORDS PERTAINING TO PATIENTS WHO ARE [...] BE BASED ON THE PRIMARY CLINICAL RECORDS. [employer] provides no warranty or guarantee of the accuracy or completeness of information in this document.
[2024-10-14 15:08] LABS: Age Gdln ACOG Testing Note (.); IGP, Aptima HPV, rfx 16/18,45 Note (.)
== END 2024-10-12 15:48 | disposition home or self-care (01) ==
LOC: LAB 15:47
PROVIDERS: PCP Nurse Practitioner Family; Visit Provider Obstetrics & Gynecology
DX: Z01.419 Encounter for gynecological examination (general) (routine) without abnormal findings (principal)
CPT/HCPCS: 87624; 88175